=== PATIENT | female | born 2000 | race Caucasian/White ===

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

== ENCOUNTER 2020-11-08 10:34 | Emergency (ER) | payer MEDICAID, SELFPAY ==
[2020-11-08 10:35] VITALS: BP 104/62; PULSE 77; RESP 16; TEMP 36.8; O2SAT 99; BMI 22.4
--- NOTE | 2020-11-08 10:55 | US_ITS ---
STUDY: FIRST TRIMESTER OBSTETRICAL ULTRASOUND REASON FOR EXAM: Female, 20 years old Cramping spotting, pos preg test at home-HCG 9732 LMP: TECHNIQUE: Transvaginal TECHNICAL QUALITY: Adequate. PRIOR ULTRASOUND: None. FINDINGS: There is visualization of a single gestational sac in a normal intrauterine position. The mean sac diameter (MSD) measures 11 mm, indicating an estimated gestational age (EGA) of 5 weeks, 6 days. The gestational sac shape is within normal limits. There is a visualized yolk sac. The yolk sac measures 4 mm. The placenta is non-visualized. There is visualization of a live embryo. The crown-rump length (CRL) measures 5 mm, indicating an estimated gestational age (EGA) of 6 weeks, 2 days. There is demonstrated cardiac activity with a heart rate of 107 bpm. The estimated gestation age (EGA) by US is 6 weeks, 0 days. The estimated date of delivery (JACINTO) by US is 07/04/2021. The uterus measures 7.4 x 5.1 x 4.3 cm. There is no demonstrated uterine fibroid. The cervix is closed. The right ovary measures 3.4 x 1.6 x 2.1 cm. There is no right ovarian cyst. There is no visualized right adnexal mass or complex lesion. The left ovary measures 3.2 x 2.0 x 2.3 cm. There is no left ovarian cyst. There is no visualized left adnexal mass or complex lesion. There is no fluid in the cul de sac. US/Transvaginal w/Preg US IMPRESSION: Living intrauterine of 6 weeks 0 days as described above. Electronically Signed: Syd Ratliff MD at 14:00 EDT Tel , Service support ,
[2020-11-08 11:14] LABS: Bacteria 0 SEEN /hpf (None Seen); Mucous, Urine 0 SEEN /hpf (<or=2+); Red Blood Cells-Urine 0 SEEN /hpf (0-5); White Blood Cells 0 SEEN /hpf (0-5)
[2020-11-08 11:17] LABS: Color, Urine Yellow (Yellow); Glucose, Dipstick Normal (Normal); Ketone-Dipstick Negative (Negative); Leukocyte Esterase-Dipstick Negative /ul (Negative); Nitrite-Dipstick Negative (Negative); Occult Blood-Urine 25 /ul (Negative); Protein-Dipstick Negative (Negative); Urine Bilirubin Dipstick Negative (Negative); Urine Clarity Clear (Clear); Urine Urobilinogen Normal (Normal)
[2020-11-08 11:23] LABS: Squamous Epithelial Cells - UA 0-5 SEEN /hpf (5-10)
--- NOTE | 2020-11-08 11:25 | ED.VIS.FEGU ---
HPI HPI - Female History of Present Illness Chief Complaint: Vag Bld, Preg Informant: patient Narrative Narrative: Patient is a 20-year-old previously healthy female who presents to the emergency department for low abdominal cramping and vaginal spotting. She believes she is approximately 2 months . Her last menstrual period was late August. She has had multiple home test. She has not had any CERTIFIED MEDICAL CODER follow-up yet. She developed a vaginal spotting and cramping the past 2 to 3 days. She describes her symptoms as mild currently. She denies any significant pain. No urinary symptoms. No fevers or chills. No back pain. No leg swelling or calf pain. She has been nauseous. This is her first . PFSH PFSH Home Medications NK 11/08/20 [History Last Taken Unknown] Allergy/AdvReac Type Severity Reaction Status Date / Time amoxicillin trihydrate Allergy Rash Verified 11/08/20 10:35 [From Augmentin] Penicillins Allergy Rash Verified 11/08/20 10:35 potassium clavulanate Allergy Rash Verified 11/08/20 10:35 [From Augmentin] Social History Smoking Status: Never smoker ROS ROS ED Constitutional Constitutional ED: Denies chills or fever(s) Eyes Eyes: Denies change in vision ENT ENT ED: Denies epistaxis or rhinorrhea Cardiovascular Cardiovascular: Denies chest pain or palpitations Respiratory/Chest Respiratory/Chest: Denies cough, dyspnea or dyspnea on exertion Gastrointestinal Gastrointestinal: Reports nausea; Denies diarrhea or vomiting Genitourinary Genitourinary ED: Denies dysuria, hematuria or urinary frequency Musculoskeletal Musculoskeletal: Denies back pain or neck pain Integumentary Denies rash Neurologic Neurologic: Denies dizziness, headache(s) or weakness EXAM Physical Exam Const Vital Signs: 11/08/20 10:35 11/08/20 14:25 Temperature 98.3 F Temperature Source Temporal Pulse Rate 77 Respiratory Rate 16 18 Blood Pressure 104/62 Blood Pressure Mean 76 Pulse Ox 99 Oxygen Delivery Method Room Air Positive well nourished and well developed General Appearance ED: well developed and NAD HEENT Reports normocephalic and head/scalp atraumatic Eyes PERRL and EOMs intact bilaterally Neck supple Resp normal respiratory effort and clear to auscultation bilaterally Auscultation: Negative for rales, rhonchi or wheezes Cardio regular rate, regular rhythm and no murmurs GI normal to inspection, nondistended, normoactive bowel sounds and non-tender Palpation: soft; Negative for guarding or rebound tenderness present Back/Spine no CVA tenderness Extremity normal to inspection General Extremety ED: Negative for edema or tenderness General Extremity: Negative for edema Neuro CN's II-XII intact bilaterally and no sensory deficits noted Sensorium / Orientation: alert Motor Exam: strength 5/5 throughout Psych mental status grossly normal Skin no rashes or lesions noted MDM MDM MDM Narrative Medical decision making narrative: Patient presents to the ED after she had home positive test and now having some vaginal spotting and lower quadrant cramping. On arrival to the ED vital signs within normal limits. She is a benign physical exam. Will check basic lab work and ultrasound of the pelvis. Patient does have hCG of 9732. No evidence of UTI on urinalysis. No significant abnormality on lab work-up. Ultrasound does show a live intrauterine . At this time I recommend close follow-up with her CERTIFIED MEDICAL CODER. Return precautions are reviewed with her. She understands and is agreeable this plan. Discharged home in stable condition. All questions were answered. Lab Data Labs: Laboratory Results - last 24 hr 11/08/20 11/08/20 11/08/20 11:00 11:25 11:25 WBC 6.8 RBC 4.58 Hgb 14.4 Hct 42.3 MCV 92.4 MCH 31.4 MCHC 34.0 RDW Std Deviation 39.4 RDW Coeff of [place] 11.6 Plt Count 184 MPV 10.7 Immature Gran % (Auto) 0.300 Neut % (Auto) 65.4 Lymph % (Auto) 23.3 [place] % (Auto) 8.8 Eos % (Auto) 1.3 Baso % (Auto) 0.9 Absolute Neuts (auto) 4.5 Absolute Lymphs (auto) 1.59 Nucleated RBC % 0 Sodium 139 Potassium 3.7 Chloride 109 H Carbon Dioxide 24.0 Anion Gap 6 BUN 6 L Creatinine 0.68 Estim Creat Clear Calc 98.75 Est GFR (MDRD) Af Amer 138 Est GFR (MDRD) Non-Af 114 BUN/Creatinine Ratio 8.8 L Glucose 84 Calcium 9.2 Total Bilirubin 0.80 AST 11 L ALT 12 L Alkaline Phosphatase 48 Total Protein 7.3 Albumin 4.2 Globulin 3.1 Albumin/Globulin Ratio 1.4 HCG, Quant Urine Color Yellow Urine Clarity Clear Urine pH 7.0 Ur Specific [place] 1.010 Urine Protein Negative Urine Glucose (UA) Normal Urine Ketones Negative Urine Occult Blood 25 H Urine Nitrite Negative Urine Bilirubin Negative Urine Urobilinogen Normal Ur Leukocyte Esterase Negative Urine RBC 0 SEEN Urine WBC 0 SEEN Ur Squamous Epith Cells 0-5 SEEN Urine Bacteria 0 SEEN Urine Mucus 0 SEEN Blood Type A1 Antigen Typing Rho(D) Type 11/08/20 11/08/20 11/08/20 11:25 11:25 11:25 WBC RBC Hgb Hct MCV MCH MCHC RDW Std Deviation RDW Coeff of [place] Plt Count MPV Immature Gran % (Auto) Neut % (Auto) Lymph % (Auto) [place] % (Auto) Eos % (Auto) Baso % (Auto) Absolute Neuts (auto) Absolute Lymphs (auto) Nucleated RBC % Sodium Potassium Chloride Carbon Dioxide Anion Gap BUN Creatinine Estim Creat Clear Calc Est GFR (MDRD) Af Amer Est GFR (MDRD) Non-Af BUN/Creatinine Ratio Glucose Calcium Total Bilirubin AST ALT Alkaline Phosphatase Total Protein Albumin Globulin Albumin/Globulin Ratio HCG, Quant 9732 H Urine Color Urine Clarity Urine pH Ur Specific [place] Urine Protein Urine Glucose (UA) Urine Ketones Urine Occult Blood Urine Nitrite Urine Bilirubin Urine Urobilinogen Ur Leukocyte Esterase Urine RBC Urine WBC Ur Squamous Epith Cells Urine Bacteria Urine Mucus Blood Type Cancelled A NEGATIVE A1 Antigen Typing Cancelled Rho(D) Type Cancelled Radiography Diagnostic Testing: Radiology Impression Obstetrics Ultrasound 11/08/20 10:55 IMPRESSION: Living intrauterine of 6 weeks 0 days as described above. Electronically Signed: Syd Ratliff MD at 14:00 EDT Tel , Service support , Discharge Plan Triage Chief Complaint: Vag Bld, Preg ED Provider: Baldomero Schaffer Dx/Rx/DC Orders Clinical Impression: Bleeding in early Instructions: Bleeding During Early Prescriptions: No Action NK RF: 0 Primary Care Provider: Care Physician,No Primary Referrals: Care Physician,No Primary [Primary Care Provider] - Activity Restrictions/Additional Instructions: Please follow-up with your CERTIFIED MEDICAL CODER early this coming week. Disposition Disposition: Home, self care Discharge Date/Time: 11/08/20 14:26
[2020-11-08 11:40] LABS: Absolute Lymphocyte Count 1.59 X10^3/uL (0.83-4.51); Absolute Neutrophil Count 4.5 X10^3/uL (2.0-7.7); Basophil# 0.06 X10^3/uL; Basophil% 0.9 % (0-1); Eosinophil# 0.09 X10^3/uL; Eosinophils% 1.3 % (0-5); Hematocrit 42.3 % (37-47); Hemoglobin 14.4 g/dL (12.0-15.0); Lymphocyte # 1.59 X10^3/ul (0.83-4.51); Lymphocyte % 23.3 % (19-41); Mean Corpuscular Hgb 31.4 pg (27.0-32.0); Mean Corpuscular Volume 92.4 fL (81-99); Mean Platelet Vol. 10.7 fl (6.2-12.0); Monocyte% 8.8 % (0-10); NRBC Flagged by Analyzer 0 % (0-5); Neutrophil # 4.47 X10^3/uL (2.7-7.7); Neutrophil % 65.4 % (47-70); Platelet Count 184 K/mm3 (150-450); RBC Distribution Width CV 11.6 % (11.6-14.6); RBC Distribution Width SD 39.4 fl (35.1-43.9); Red Blood Count 4.58 M/mm3 (4.2-5.4); White Blood Count 6.8 K/mm3 (4.4-11.0)
[2020-11-08 11:55] LABS: ALB/GLOB Ratio 1.4 RATIO (0.9-2.4); AST(SGOT) 11 U/L (15-37); Alanine Aminotransfer ALT/SGPT 12 U/L (13-56); Albumin, Serum 4.2 g/dL (3.2-5.0); Alkaline Phosphatase 48 U/L (45-117); Anion Gap 6 (5-15); BUN 6 mg/dL (7-18); BUN/Creat Ratio 8.8 RATIO (10-20); Calcium,Total 9.2 mg/dL (8.5-10.1); Chloride 109 mmol/L (98-107); Creatinine, Serum 0.68 mg/dL (0.55-1.02); EST Glomerular Filtration Rate 114 mL/min (>60); Est Glom Filt Rate - Afr Amer 138 mL/min (>60); Estimated Creatinine Clearance 98.75 ml/min; Globulin 3.1 g/dL (2.2-4.2); Glucose 84 mg/dL (74-106); Potassium 3.7 mmol/L (3.5-5.1); Protein, Total 7.3 g/dL (6.4-8.2); Sodium Level 139 mmol/L (136-145)
[2020-11-08 12:49] LABS: hCG Titer Quant., Serum 9732 mIU/mL (1-3)
[2020-11-08 14:25] VITALS: RESP 18
== END 2020-11-08 14:26 | disposition home or self-care (01) ==
PROVIDERS: Emergency Provider Emergency Medicine
DX: O20.9 Hemorrhage in early pregnancy, unspecified (principal); Z3A.01 Less than 8 weeks gestation of pregnancy
CPT/HCPCS: 76817; 80053; 81001; 84702; 85025; 86900; 86901; 99283; A4216

== ENCOUNTER 2020-11-09 11:54 | Emergency (ER) | payer MEDICAID, SELFPAY ==
[2020-11-08 10:35] VITALS: BMI 22.4
[2020-11-09 11:55] VITALS: BP 109/68; PULSE 90; RESP 18; TEMP 37.6; O2SAT 97; BMI 22.6
--- NOTE | 2020-11-09 12:11 | US_ITS ---
We are attempting to reach an attending provider to discuss findings. An addendum with communication details will be sent when the communication is complete. EXAM: US , TRANSVAGINAL : 1999 CLINICAL INDICATION: Worsening bleeding, passing clots TECHNIQUE: Real-time transvaginal obstetrical ultrasound of the maternal pelvis and a first trimester with image documentation. Transvaginal imaging was used for better evaluation of the fetus and adnexa. This report was created using [employer] report generation technology. COMPARISON: 11/08/2020 FINDINGS: GESTATION: There is a cystic structure seen within the lower uterine segment. Which appears represent a gestational sac from the previous study. PLACENTA/AMNIOTIC FLUID: Cannot be adequately evaluated due to the early gestational age. UTERUS/CERVIX: The uterus measures 8.3 x 4.3 x 4.8 cm. Endometrium measures 1.4 cm. No myometrial mass. OVARIES: The right ovary measures 2.3 x 3.2 x 2.3 cm. The left ovary measures 2.4 x 1.6 x 2.2 cm. No mass. FREE FLUID: No free fluid. US/Transvaginal w/Preg US IMPRESSION: Anechoic structure seen within the lower uterine segment which appears to represent a gestational sac seen on the previous ultrasound may be a in the process of aborting. at 1429 Reported and signed by: J Carlos Cannon MD Electronically Signed: J Carlos Cannon MD at 14:28 EDT Tel , Service support ,
--- NOTE | 2020-11-09 12:18 | EDS_ITS ---
HPI HPI - Female History of Present Illness Chief Complaint: Vag Bld, Preg Informant: patient Narrative Narrative: Patient is a 20-year-old female who presents to the emergency department for vaginal bleeding at 6 weeks . She is seen in the emergency department yesterday for cramping and spotting. She had a full work- up done by myself including ultrasound. This did show a live intrauterine at approximately 6 weeks. There was borderline low heart rate. Patient was to follow-up with her LINE INSTALLATION SUPERVISOR. She states that since going home she has bled through 6 pads. She has passed large clots as well. She has been rooney ving suprapubic cramping as well. She denies any urinary symptoms. No fevers or chills. She denies any back pain. She has been having nausea but no vomiting. No lightheadedness, chest pain or shortness of breath. This is patient's first . PFSH PFSH Home Medications NK 11/08/20 [History Last Taken Unknown] Allergy/AdvReac Type Severity Reaction Status Date / Time amoxicillin trihydrate Allergy Rash Verified 11/09/20 11:55 [From Augmentin] Penicillins Allergy Rash Verified 11/09/20 11:55 potassium clavulanate Allergy Rash Verified 11/09/20 11:55 [From Augmentin] Social History Smoking Status: Never smoker ROS ROS ED Constitutional Constitutional ED: Denies chills or fever(s) Eyes Eyes: Denies change in vision ENT ENT ED: Denies epistaxis or rhinorrhea Cardiovascular Cardiovascular: Denies chest pain or palpitations Respiratory/Chest Respiratory/Chest: Denies cough, dyspnea or dyspnea on exertion Gastrointestinal Gastrointestinal: Reports abdominal pain and nausea; Denies diarrhea or vomiting Genitourinary Genitourinary ED: Denies dysuria, hematuria or urinary frequency Musculoskeletal Musculoskeletal: Denies back pain or neck pain Integumentary Denies rash Neurologic Neurologic: Denies dizziness, headache(s) or weakness EXAM Physical Exam Const Vital Signs: 11/09/20 11:55 Temperature 99.6 F H Temperature Source Temporal Pulse Rate 90 Respiratory Rate 18 Blood Pressure 109/68 Blood Pressure Mean 81 Pulse Ox 97 Oxygen Delivery Method Room Air Positive well nourished and well developed General Appearance ED: well developed and NAD Eyes PERRL Neck supple Resp normal respiratory effort and clear to auscultation bilaterally Cardio regular rate, regular rhythm and no murmurs GI normal to inspection, nondistended, normoactive bowel sounds and soft to palpation GI Narrative: Mild tenderness to suprapubic region. Auscultation: normoactive bowel sounds Back/Spine no CVA tenderness Extremity normal to inspection and full ROM General Extremety ED: Negative for edema General Extremity: Negative for edema Neuro Sensorium / Orientation: alert Motor Exam: strength 5/5 throughout Psych mental status grossly normal Skin no rashes or lesions noted MDM MDM MDM Narrative Medical decision making narrative: Patient presents to the ED for worsening vaginal bleeding in . She had an ultrasound performed yesterday which shows she was at 6 weeks. The heart rate was 107. Will recheck CBC to evaluate for anemia and recheck ultrasound. Otherwise patient's vital signs within normal limits. She is in no acute distress. She is a benign physical exam. Patient's hemoglobin did drop from yesterday but still is not anemic. Repeat ultrasound showed evidence of active . Patient has remained stable throughout ED stay. She her blood type is Rh- so she will be given RhoGam as the father does note blood type and says he is positive. I did speak with the on-call LINE INSTALLATION SUPERVISOR. He recommended that she return to the emergency department if she starts going through 1 pad per hour. Otherwise he believe that this will be like a heavy period since the gestation is at 6 weeks. She is going to follow- up with him tomorrow morning. Return precautions were reviewed with her. She understands and is agreeable this plan. Discharged home in stable condition. All questions answered. Lab Data Labs: Laboratory Results - last 24 hr 11/09/20 12:54 WBC 8.0 RBC 4.07 L Hgb 13.0 Hct 37.8 MCV 92.9 MCH 31.9 MCHC 34.4 RDW Std Deviation 39.6 RDW Coeff of [place] 11.6 Plt Count 185 MPV 10.7 Immature Gran % (Auto) 0.200 Neut % (Auto) 64.9 Lymph % (Auto) 24.3 [place] % (Auto) 9.4 Eos % (Auto) 0.7 Baso % (Auto) 0.5 Absolute Neuts (auto) 5.2 Absolute Lymphs (auto) 1.95 Nucleated RBC % 0 Radiography Diagnostic Testing: Radiology Impression Obstetrics Ultrasound 11/09/20 12:11 IMPRESSION: Anechoic structure seen within the lower uterine segment which appears to represent a gestational sac seen on the previous ultrasound may be a in the process of aborting. at 1429 Reported and signed by: J Carlos Cannon MD Electronically Signed: J Carlos Cannon MD at 14:28 EDT Tel , Service support , ADDENDUM: 11/09/20 1445 IMPRESSION: Anechoic structure seen within the lower uterine segment which appears to represent a gestational sac seen on the previous ultrasound may be a in the process of aborting. at 1429 Reported and signed by: J Carlos Cannon MD N.B. : The above information has been verbally conveyed by J Carlos Cannon MD to Dr Karime MD, on 11/09/2020 14:39:02 (ET). Electronically Signed: J Carlos Cannon MD at 14:28 EDT Tel , Service support , Discharge Plan Triage Chief Complaint: Vag Bld, Preg ED Provider: Baldomero Schaffer Dx/Rx/DC Orders Clinical Impression: Incomplete Instructions: ED MISCARRIAGE Incomplete Prescriptions: No Action NK RF: 0 Primary Care Provider: Care Physician,No Primary Referrals: Ag Mcallister MD [STAFF PHYSICIAN] - 1 Day Care Physician,No Primary [Primary Care Provider] - Disposition Disposition: Home, self care
[2020-11-09 13:00] LABS: Absolute Lymphocyte Count 1.95 X10^3/uL (0.83-4.51); Absolute Neutrophil Count 5.2 X10^3/uL (2.0-7.7); Basophil# 0.04 X10^3/uL; Basophil% 0.5 % (0-1); Eosinophil# 0.06 X10^3/uL; Eosinophils% 0.7 % (0-5); Hematocrit 37.8 % (37-47); Lymphocyte # 1.95 X10^3/ul (0.83-4.51); Lymphocyte % 24.3 % (19-41); Mean Corp Hgb Conc 34.4 g/dL (32-36); Mean Corpuscular Hgb 31.9 pg (27.0-32.0); Mean Corpuscular Volume 92.9 fL (81-99); Mean Platelet Vol. 10.7 fl (6.2-12.0); Monocyte# 0.75 X10^3/uL; Monocyte% 9.4 % (0-10); NRBC Flagged by Analyzer 0 % (0-5); Neutrophil % 64.9 % (47-70); Platelet Count 185 K/mm3 (150-450); RBC Distribution Width CV 11.6 % (11.6-14.6); RBC Distribution Width SD 39.6 fl (35.1-43.9); Red Blood Count 4.07 M/mm3 (4.2-5.4)
[2020-11-09 17:41] VITALS: BP 107/70; PULSE 69; RESP 18; O2SAT 100
== END 2020-11-09 18:00 | disposition home or self-care (01) ==
PROVIDERS: Emergency Provider Emergency Medicine
DX: O03.4 Incomplete spontaneous abortion without complication (principal); Z3A.01 Less than 8 weeks gestation of pregnancy
CPT/HCPCS: 76817; 85025; 86900; 86901; 90384; 96372; 99282; J2790

== ENCOUNTER 2021-05-08 13:09 | Emergency (ER) | payer MEDICAID, SELFPAY ==
[2021-05-08 13:10] VITALS: BP 108/68; PULSE 82; RESP 16; TEMP 36.2; O2SAT 100; BMI 23.1
[2021-05-08] MEDS: 0.9% Normal Saline 1,000 ML 999 ML IV (14:52)
[2021-05-08] MEDS: DiphenhydrAMINE 50 MG/ML Syringe 25 MG IV (14:53)
[2021-05-08] MEDS: Metoclopramide 10 MG/2 ML Vial IV (14:53)
--- NOTE | 2021-05-08 16:12 | EX.ED.VIS.HA ---
HPI History of Present Illness Chief Complaint: Headache Informant: patient Onset/Context/Timing Onset: Days (3) Context: Gradual Timing: Continuous Quality -Headache: Positive for Similar Prior Headaches, Sharp and Dull Location: Left side and occipital Worsened by: Light, smells Relieved by: Dark Associated Symptoms/Injury Associated Symptoms: Positive for Nausea, Vomiting, Tingling and Photophobia; Negative for Fever, Sore Throat, Sinus Pressure, Numbness, Preceding Aura, Visual Changes, Blurred Vision and Visual Loss Injury - [place]: Negative for Direct Trauma Narrative Narrative: Patient presents with headache that has been constant for the past 3 days. Patient states this feels similar to prior migraine headaches. Patient states it is on the left side of her head and in the occiput. Patient describes the pain as sharp over the left side of her head and dull in the occipital area. Patient states it is worse with light and certain smells. Patient states it is better when she rests in a dark quiet room. Patient admits to some nausea and vomiting. Patient admits to some tingling in her face after vomiting. Patient admits to photophobia. PFSH PFSH Medical History no medical history Home Medications NK 11/08/20 [History Last Taken Unknown] Allergy/AdvReac Type Severity Reaction Status Date / Time amoxicillin trihydrate Allergy Rash Verified 05/08/21 13:09 [From Augmentin] Penicillins Allergy Rash Verified 05/08/21 13:09 potassium clavulanate Allergy Rash Verified 05/08/21 13:09 [From Augmentin] Surgical History no surgical history Social History Smoking Status: Never smoker ROS ROS ED Constitutional Constitutional ED: Denies chills or fever(s) Eyes Eyes: Denies blurry vision or change in vision ENT ENT ED: Reports rhinorrhea; Denies sore throat Cardiovascular Cardiovascular: Denies chest pain or palpitations Respiratory/Chest Respiratory/Chest: Denies cough or dyspnea Gastrointestinal Gastrointestinal: Denies nausea or vomiting Genitourinary Genitourinary ED: Denies dysuria or hematuria Musculoskeletal Musculoskeletal: Reports neck pain; Denies back pain Integumentary Denies abscess or rash Neurologic Neurologic: Reports headache(s); Denies weakness Allergic/Immunologic Allergic/Immunologic ED: Denies mouth swelling or urticaria EXAM Physical Exam Const Vital Signs: 05/08/21 13:10 Temperature 97.2 F L Temperature Source Temporal Pulse Rate 82 Respiratory Rate 16 Blood Pressure 108/68 Blood Pressure Mean 81 Pulse Ox 100 Oxygen Delivery Method Room Air Positive well nourished and well developed General Appearance ED: well developed HEENT Reports moist mucous membranes Neck supple and no JVD Resp normal respiratory effort and clear to auscultation bilaterally Cardio regular rate, regular rhythm and no murmurs GI normal to inspection, nondistended, normoactive bowel sounds and non-tender Palpation: soft Extremity normal to inspection General Extremety ED: Negative for edema or tenderness General Extremity: Negative for edema Neuro oriented x3, CN's II-XII intact bilaterally and no sensory deficits noted Sensorium / Orientation: awake and alert Motor Exam: strength 5/5 throughout Psych mental status grossly normal Skin no rashes or lesions noted MDM MDM MDM Narrative Medical decision making narrative: Patient was given IV fluids, Reglan, and Benadryl. Patient states her headache improved after this. Urinalysis and urine hCG were ordered. These are still pending. Patient wants to leave. Patient was instructed to rest in a dark quiet room. Patient was instructed to drink plenty of fluids. Patient was instructed to follow-up with her primary care physician in 5 to 7 days. Patient understood and was agreeable with the plan. All questions were answered. Discharge Plan Triage Chief Complaint: Headache ED Provider: Prabhu Edmond Dx/Rx/DC Orders Clinical Impression: Headache, migraine Instructions: ED, Migraine (Classical) Prescriptions: No Action NK RF: 0 Primary Care Provider: Care Physician,No Primary Referrals: Carolina Sanchez MD [STAFF PHYSICIAN] - 3-5 Days Care Physician,No Primary [Primary Care Provider] - Disposition Disposition: Home, Self Care
[2021-05-08 16:14] LABS: Mucous, Urine 0 SEEN /hpf (<or=2+); Red Blood Cells-Urine 0 SEEN /hpf (0-5); White Blood Cells 0 SEEN /hpf (0-5)
[2021-05-08 16:21] LABS: Color, Urine Yellow (Yellow); Glucose, Dipstick Normal (Normal); Ketone-Dipstick 50 mg/dl (Negative); Leukocyte Esterase-Dipstick Negative /ul (Negative); Nitrite-Dipstick Negative (Negative); Occult Blood-Urine Negative /ul (Negative); Protein-Dipstick 15 mg/dl (Negative); Urine Bilirubin Dipstick Negative (Negative); Urine Clarity Sl. Cloudy (Clear); Urine Urobilinogen Normal (Normal)
[2021-05-08 16:33] VITALS: BP 125/75; PULSE 71; RESP 18; O2SAT 98
[2021-05-08 16:33] LABS: Bacteria 1+ /hpf (None Seen); Squamous Epithelial Cells - UA 0-5 SEEN /hpf (5-10)
[2021-05-08 16:34] LABS: Internal QC Validated? YES +Cl - CLEAR BKGD; Pregnancy, Urine Negative Negative
--- NOTE | 2021-05-08 16:34 | ED.RN ---
PT WANTED TO LEAVE PRIOR TO TEST RESULTS AND NOT INTERESTED IN COVID VACCINE AT THIS TIME
== END 2021-05-08 16:35 | disposition home or self-care (01) ==
PROVIDERS: Student in an Organized Health Care Education/Training Program; Emergency Provider Emergency Medicine
DX: G43.909 Migraine, unspecified, not intractable, without status migrainosus (principal)
CPT/HCPCS: 81001; 81025; 96361; 96374; 96375; 99283; J7030; A4216

== ENCOUNTER 2021-11-27 10:07 | Emergency (ER) | payer MEDICAID, SELFPAY ==
[2021-11-27 10:07] VITALS: BP 111/70; PULSE 77; RESP 16; TEMP 36.4; O2SAT 100; BMI 23.6
[2021-11-27] MEDS: DiphenhydrAMINE 50 MG/ML Syringe 25 MG IV (10:32)
[2021-11-27] MEDS: Ketorolac 30 MG/ML Syringe IV (10:32)
[2021-11-27] MEDS: 0.9% Normal Saline 1,000 ML 1000 ML IV (10:32)
[2021-11-27] MEDS: proCHLORPERazine 10 MG/2 ML Vial IV (10:32)
--- NOTE | 2021-11-27 10:39 | EDS_ITS ---
HPI History of Present Illness Chief Complaint: Headache Informant: patient Onset/Context/Timing Onset: Days Context: Gradual Timing: Continuous Current Severity: Moderate Maximum Severity: Moderate Associated Symptoms/Injury Associated Symptoms: Positive for Nausea and Vomiting; Negative for Fever, Sore Throat, Sinus Pressure, Numbness, Visual Changes, Blurred Vision, Photophobia or Visual Loss Injury - [place]: Negative for Direct Trauma, Fall or Assault Narrative Narrative: 21-year-old female history of migraine headaches. Has had prior imaging which was unremarkable. She has had headaches since she was in 6 grade. States this was started gradually 6 days ago lasted for 3 days resolved she has post headache symptoms with it with visual changes and now the headaches return. She gets migraine headaches quite frequently. Currently is behind her left eye. Denies any fever. No head trauma. She is on no blood thinners. This is typical for one of her migraines. Prior similar symptoms: Yes Recent Illness/Hospitalization: No PFSH PFSH Medical History Depression Home Medications hydroxyzine HCl 25 mg tablet tab 11/27/21 [History Last Taken Unknown] rizatriptan 5 mg disintegrating tablet tab 11/27/21 [History Last Taken Unknown] venlafaxine 150 mg capsule,extended release 24 hr cap PO 11/27/21 [History Last Taken Unknown] Allergy/AdvReac Type Severity Reaction Status Date / Time amoxicillin trihydrate Allergy Rash Verified 05/08/21 13:09 [From Augmentin] Penicillins Allergy Rash Verified 05/08/21 13:09 potassium clavulanate Allergy Rash Verified 05/08/21 13:09 [From Augmentin] Social History Smoking Status: Never smoker ROS ROS ED ROS Narrative Headache. Nausea and vomiting. Review of Systems ROS Unobtainable: Denies due to encephalopathy Constitutional Constitutional ED: Denies chills Eyes Eyes: Denies blurry vision ENT ENT ED: Denies ear pain Cardiovascular Cardiovascular: Denies chest pain Respiratory/Chest Respiratory/Chest: Denies cough Gastrointestinal Gastrointestinal: Reports nausea and vomiting; Denies abdominal pain Genitourinary Genitourinary ED: Denies dysuria Musculoskeletal Musculoskeletal: Denies arthralgias Integumentary Denies abscess Neurologic Neurologic: Reports headache(s) Psychiatric Psychiatric: Denies anxiety Endocrine Endocrinology: Denies polydipsia Hematologic/Lymphatic Hematologic/Lymphatic: Denies easy bleeding Allergic/Immunologic Allergic/Immunologic ED: Denies mouth swelling EXAM Physical Exam Narrative Exam Narrative: 19-year-old female no acute distress vital signs stable afebrile. H EENT exam normal. Pupils round reactive light. Normal speech. No facial droop. No trauma. Neck nontender no meningismus. Lungs clear to auscultation. Heart regular rhythm no murmur. Abdomen soft nontender. Moving all 4 extremities. 5-5 program research specialist strength. Dorsi plantarflexion intact. Neurologic exam normal. NIH is 0. Const Vital Signs: 11/27/21 10:07 Temperature 97.5 F L Temperature Source Temporal Pulse Rate 77 Respiratory Rate 16 Blood Pressure 111/70 Blood Pressure Mean 83 Pulse Ox 100 Oxygen Delivery Method Room Air Positive well nourished and well developed; Negative for obese, cachectic, contractures or unkempt General Appearance ED: well developed; Negative for unkempt, cachectic or contractures Nutritional Appearance: Negative for cachectic or obese HEENT Reports normocephalic and moist mucous membranes atraumatic; Negative for trauma, tenderness, temporal artery tenderness or vesicular rash Eyes PERRL and EOMs intact bilaterally General Eye ED: Negative for pale conjunctiva Neck no lymphadenopathy, supple, no meningeal signs and no JVD Resp normal respiratory effort and clear to auscultation bilaterally Effort and Inspection: Negative for retractions Auscultation: Negative for rales, rhonchi, wheezes or diminished lung sounds Cardio regular rate, regular rhythm, S1 normal heart sound, S2 normal heart sound and no murmurs Rate: Negative for bradycardia Rhythm: Negative for abnormal rhythm GI non-tender and non-distended Auscultation: normoactive bowel sounds; Negative for hyperactive bowel sounds or hypoactive bowel sounds Palpation: soft; Negative for firm, tender, guarding, rigid, hepatomegaly or splenomegaly Back/Spine no CVA tenderness General Back: Negative for CVA tenderness Cervical Spine: Negative for cervical spine tenderness Thoracic Spine / Upper Back: Negative for thoracic spinal tenderness Lumbar Spine / Lower Back: Negative for lumbar spinal tenderness Extremity normal to inspection and full ROM General Extremety ED: Negative for edema or tenderness General Extremity: Negative for edema Neuro oriented x3 Sensorium / Orientation: awake, alert, oriented to person, oriented to place and oriented to time; Negative for orientation impaired, lethargic or stuporous Coordination / Balance: [id number] test normal and [id number] test normal Speech: speech normal Motor Exam: strength 5/5 throughout Comatose: Negative for other Psych mental status grossly normal Appearance: Negative for unkempt Attitude: No agitated Mood & Affect: Negative for depressed, anxious or tearful Skin Lesions: no lesions Rashes: no rashes Trauma: Negative for abrasion MDM MDM MDM Narrative Medical decision making narrative: 21-year-old female history of frequent migraine headaches with prior imaging all of which has been negative. She will be treated with IV fluids, Toradol, Benadryl and Compazine and reassess. Neurologic exam normal. Repeat exam patient doing well at 11:30 AM. Headache is resolving. Neurologic exam remains normal. She wants to be discharged to home. Just before I was discharging the patient after I saw another 1 she removed her IV and walked out. Nurses asked her if she wanted her home-going instructions and she deferred. Discharge Plan Triage Chief Complaint: Headache ED Provider: Jonathan Medina Dx/Rx/DC Orders Clinical Impression: Headache, migraine Prescriptions: No Action venlafaxine 150 mg capsule,extended release 24hr PO Label Comments: TAKE 1 CAPSULE BY MOUTH ONCE DAILY hydroxyzine HCl 25 mg tablet Label Comments: TAKE 1 TABLET BY MOUTH EVERY 6 HOURS NEEDED FOR ANXIETY rizatriptan 5 mg tablet,disintegrating Label Comments: PLEASE SEE ATTACHED FOR DETAILED DIRECTIONS Primary Care Provider: SANDER PIERRE Referrals: Care Physician,No Primary [NON-STAFF] - Disposition Disposition: Home, Self Care
--- NOTE | 2021-11-27 11:41 | ED.RN ---
Patient upset IV still in. Rn informed patient we are waiting for discharge paperwork. IV removed by ANDREI Vera. Patient states she does not want to wait for paperwork and would like to leave at this time. Dr. Medina notified.
== END 2021-11-27 11:45 | disposition home or self-care (01) ==
PROVIDERS: Emergency Provider Emergency Medicine; PCP Nurse Practitioner; Visit Provider Emergency Medicine
DX: G43.909 Migraine, unspecified, not intractable, without status migrainosus (principal); Z79.899 Other long term (current) drug therapy
CPT/HCPCS: 96361; 96374; 96375; 99283; J7030; A4216

== ENCOUNTER 2024-03-02 07:50 | Inpatient (IN) | payer MEDICAID, SELFPAY ==
[2024-03-02] VITALS (73 sets, daily range): BP systolic 106–148; BP diastolic 56–91; PULSE 62–109; RESP 15–18; TEMP 36.3–37.2; O2SAT 85–100; BMI 33.8
[2024-03-02 07:47] LABS: ROM Internal Control Test YES-OK TO RESULT pt. (Internal QC)
[2024-03-02 07:48] LABS: ROM Patient Test POSITIVE (Negative); Record Kit Lot#, ROM+ K1660
[2024-03-02] MEDS: Lactated Ringers 1,000 ML 999 ML IV ×2 (08:15→21:59)
[2024-03-02 09:22] LABS: Absolute Lymphocyte Count 1.73 X10^3/uL (0.83-4.51); Absolute Neutrophil Count 14.1 X10^3/uL (2.0-7.7); Basophil# 0.05 X10^3/uL; Basophil% 0.3 % (0-1); Eosinophil# 0.01 X10^3/uL; Eosinophils% 0.1 % (0-5); Hemoglobin 12.3 g/dL (12.0-15.0); Lymphocyte # 1.73 X10^3/ul (0.83-4.51); Lymphocyte % 10.3 % (19-41); Mean Corp Hgb Conc 35.1 g/dL (32-36); Mean Corpuscular Hgb 31.7 pg (27.0-32.0); Mean Corpuscular Volume 90.2 fL (81-99); Mean Platelet Vol. 11.6 fl (6.2-12.0); Monocyte# 0.79 X10^3/uL; Monocyte% 4.7 % (0-10); NRBC Flagged by Analyzer 0 % (0-5); Neutrophil % 83.9 % (47-70); Platelet Count 178 K/mm3 (150-450); RBC Distribution Width CV 11.8 % (11.6-14.6); RBC Distribution Width SD 38.8 fl (35.1-43.9); Red Blood Count 3.88 M/mm3 (4.2-5.4); White Blood Count 16.8 K/mm3 (4.4-11.0)
[2024-03-02 09:59] LABS: Syphilis Antibodies Non-reactive
--- NOTE | 2024-03-02 10:10 | PCM.HP.OB ---
HPI - General General Date of Admission: 03/02/24 Date of Service: 03/02/24 Chief Complaint: SROM and labor HPI Narrative JC COTTON, is a 24 F who presents with SROM for clear fluid and contractions. [facility] Medical History (Updated 03/02/24 @ 10:57 by Roberta Westbrook) Brain lesion Family history of hearing loss at age younger than 7 years Headache Depression Home Medications ?Medication ?Instructions ?Recorded ?Last Taken ?Type hydroxyzine HCl 25 mg tablet tab 11/27/21 Unknown History rizatriptan 5 mg disintegrating tab 11/27/21 Unknown History tablet venlafaxine 150 mg cap PO 11/27/21 Unknown History capsule,extended release 24 hr Allergy/AdvReac Type Severity Reaction Status Date / Time amoxicillin trihydrate (From Allergy Rash Verified 03/02/24 07:38 Augmentin) Penicillins Allergy Rash Verified 03/02/24 07:38 potassium clavulanate (From Allergy Rash Verified 03/02/24 07:38 Augmentin) Social History Smoking Status: Former smoker History Elective abortions Hx Para 0 Spontaneous abortions Hx # Term Pregnancies Ectopic pregnancies Hx # Pregnancies Multiple births # of living children NST FHR Rate Baby A Baseline: 120 Variability:: Moderate Accelerations:: 15 x 15 Decelerations:: Early and Late NST Reactive:: Yes FHR Category:: Category I Uterine Activity:: ctx q 1-4 min Vital Signs Vital Signs Vital Signs: 03/02/24 07:21 03/02/24 07:21 03/02/24 07:22 Temperature Temperature Source Pulse Rate 76 76 Respiratory Rate Blood Pressure 137/83 H BP Systolic 137 BP Diastolic 83 Pulse Ox 03/02/24 07:22 03/02/24 07:23 03/02/24 07:23 Temperature Temperature Source Tympanic Pulse Rate Respiratory Rate 16 Blood Pressure BP Systolic BP Diastolic Pulse Ox 100 03/02/24 07:23 03/02/24 07:23 03/02/24 09:46 Temperature 97.4 F L Temperature Source Pulse Rate Respiratory Rate Blood Pressure 125/70 H BP Systolic 125 BP Diastolic 70 Pulse Ox 99 03/02/24 09:46 03/02/24 09:46 03/02/24 09:51 Temperature Temperature Source Pulse Rate 76 83 Respiratory Rate Blood Pressure BP Systolic BP Diastolic Pulse Ox 100 03/02/24 09:51 03/02/24 09:52 03/02/24 09:52 Temperature Temperature Source Pulse Rate 78 Respiratory Rate Blood Pressure 118/64 BP Systolic 118 BP Diastolic 64 Pulse Ox 99 03/02/24 09:56 03/02/24 09:56 03/02/24 09:56 Temperature Temperature Source Pulse Rate 69 Respiratory Rate Blood Pressure 121/70 H BP Systolic 121 BP Diastolic 70 Pulse Ox 100 03/02/24 10:01 03/02/24 10:01 03/02/24 10:02 Temperature Temperature Source Pulse Rate 75 Respiratory Rate Blood Pressure 111/75 BP Systolic 111 BP Diastolic 75 Pulse Ox 100 03/02/24 10:02 03/02/24 10:06 03/02/24 10:06 Temperature Temperature Source Pulse Rate 66 79 Respiratory Rate Blood Pressure BP Systolic BP Diastolic Pulse Ox 100 03/02/24 10:07 03/02/24 10:07 Temperature Temperature Source Pulse Rate 77 Respiratory Rate Blood Pressure 144/68 H BP Systolic 144 BP Diastolic 68 Pulse Ox Weight Weight: 179 lb Body Mass Index (BMI) 33.8 Labs Labs Labs: Blood Type A NEGATIVE Antibody Screen NEGATIVE Hct 35.0 % (37-47) L Hgb 12.3 g/dL (12.0-15.0) Obstetrics Ultrasound Syphilis Total Ab Non-reactive GBS negative Assessment & Plan (1) 39 weeks gestation of : PLAN: ROM plus positive. Cervical change from 1 cm to 3 cm. Admit for labor. Routine intrapartum care. Epidural for pain control. GBS negative. EFW < 4500 grams and pelvis adequate. Forebag ruptured for scant clear fluid. (2) SROM (spontaneous rupture of membranes): (3) Rh negative state in antepartum period: (4) Rubella non-immune status, antepartum: (5) Late care affecting : (6) History of depression: (7) Marijuana use:
[2024-03-02] MEDS: Lactated Ringers 1,000 ML 200 ML IV ×2 (10:11→15:04)
[2024-03-02] MEDS: fentaNYL-bupivacaine (epidural) 100 ML BAG EPIDURAL ×4 (10:12→22:46)
[2024-03-02 11:14] LABS: Amphetamine Urine VISTA NEGATIVE (<1000 ng/mL); Barbiturate Urine VISTA NEGATIVE (< 200 ng/mL); Benzodiazepine Urine VISTA NEGATIVE (< 200 ng/mL); Cocaine Urine VISTA NEGATIVE (< 300 ng/mL); Ecstacy Urine VISTA NEGATIVE (< 500 ng/mL); Methadone Urine VISTA NEGATIVE (< 300 ng/mL); PCP Urine VISTA NEGATIVE (< 25 ng/mL); THC Urine VISTA POSITIVE (< 50 ng/mL); Vista UDS pH Range 5
[2024-03-02] MEDS: Mag Hydrox/Al Hydrox/Simeth 30 ML UDC PO (13:23)
--- NOTE | 2024-03-02 14:24 | CASEMGMT ---
Labor and Delivery Social Work Sw met with mother of baby (MOB- Sarah) and father of baby (FOB- Phillip) at bedside. Sw introduced self and explained sw role. Sw completed psychosocial assessment, provided support and education. Sw assessed for any needs or concerns. MOB did test positive at time of delivery for THC, baby not born yet so unable to confirm toxicology at this time. Sw informed MOB and FOB of need for sw to make referral to [facility] Services due to maternal THC use during . MOB and FOB express understanding. Sw discussed safe plan of care with parents for when baby is born. MOB states that she does not intend on smoking once baby is born. FOB states that if he smokes he will smoke outside of the home and will change shirt, wash hands, etc. Sw also discussed importance of managing maternal mental health during period and educated parents on signs and symptoms of baby blues and mood and anxiety disorders. Parents express understanding. Plan: MOB and baby to be discharged when medically ready. Sw will inform [facility] of results of baby's toxicology when known. Complete psychosocial assessment to be entered. Markus Tillman, [employer], HOSPITAL MEDICAL BILLER
[2024-03-02] MEDS: Ondansetron 4 MG/2 ML Vial IV (15:00)
[2024-03-02] MEDS: Oxytocin 15 Units/NS 250ml 15 UNITS/250 ML IV.SOLN 2 UNITS IV ×2 (15:30→23:50)
[2024-03-02] MEDS: proCHLORPERazine 10 MG/2 ML Vial IV (16:25)
--- NOTE | 2024-03-02 18:59 | PCM.PN.BLA ---
Progress Note At bedside to check on pt. She is tearful in pain and continues to request a section. She states her contraction pain is unbearable for her. She is also having pain in her upper back. She is adamant that she wants a section. Anesthesia has been at bedside multiple times to re evaluate the patient. Assessment & Plan Assessment/Plan (1) Marijuana use: (2) History of depression: (3) Late care affecting : (4) Rubella non-immune status, antepartum: (5) Rh negative state in antepartum period: (6) SROM (spontaneous rupture of membranes): (7) 39 weeks gestation of : PLAN: At bedside to check on pt. Cvx 4/80/-1. She is very painful with contractions and having upper back pain. The upper back pain is with movement, and muscles are tender to palpation. Currently using a heating pad for this. Vitals are stable. Anesthesia has been at bedside to re evaluate patient several times for pain control. The patient is requesting a section given inadequate pain relief with the epidural, and painful contractions. Discussed my recommendation is to continue to try for a vaginal delivery. Reviewed other options for pain control. Discussed risks of a section, as well as recovery. Discussed she will likely continue to have upper back pain, and then she will have incisional/post surgical pain. Explained in detail r/b/a of a section and questions answered. She understands my medical recommendation is not for a section. She is adamant about a section, and is requesting for a section as soon as possible. She feels she has been well counseled. Discussed with anesthesia who is currently unavailable given cases in the main OR. I then left for a delivery, and discussed with patient once staff is available we can proceed with a section per her request. Category 1 tracing.
--- NOTE | 2024-03-02 21:19 | PCM.PN.BLA ---
Progress Note at bedside to check on pt. she is resting comfortably. Assessment & Plan Assessment/Plan (1) Marijuana use: (2) History of depression: (3) Late care affecting : (4) Rubella non-immune status, antepartum: (5) Rh negative state in antepartum period: (6) SROM (spontaneous rupture of membranes): (7) 39 weeks gestation of : PLAN: Pt comfortable and resting at this time. Cont current plan of care at this time while she is comfortable. Will recheck 3-4 hours after last cervical exam to assess for cervical change.
[2024-03-03] VITALS (30 sets, daily range): BP systolic 102–143; BP diastolic 53–91; PULSE 68–107; RESP 14–20; TEMP 35.8–37.1; O2SAT 96–100
[2024-03-03] MEDS: Oxytocin 15 Units/NS 250ml 15 UNITS/250 ML IV.SOLN 2 UNITS IV (03:02)
[2024-03-03] MEDS: fentaNYL-bupivacaine (epidural) 100 ML BAG EPIDURAL (03:16)
[2024-03-03] MEDS: proCHLORPERazine 10 MG/2 ML Vial IV (04:17)
[2024-03-03] MEDS: 0.9% Saline Lock 10 ML Syringe IV ×2 (04:18→20:06)
[2024-03-03] MEDS: Lactated Ringers 1,000 ML 50 ML IV (04:45)
--- NOTE | 2024-03-03 05:27 | PN_ITS ---
Progress Note At bedside to check on patient. She has been more comfortable with her epidural overnight. Assessment & Plan Assessment/Plan (1) Marijuana use: (2) History of depression: (3) Late care affecting : (4) Rubella non-immune status, antepartum: (5) Rh negative state in antepartum period: (6) SROM (spontaneous rupture of membranes): (7) 39 weeks gestation of : PLAN: At bedside to check on patient. Patient requested a section last night but anesthesia staff was unavailable to accommodate an elective section. She was more comfortable throughout the night, and was agreeable to continuing with labor augmentation. FHT is Category 1 currently. Over the last 24 hours there have been several episodes of prolonged heart rate decelerations. This morning FHT was 70-90 bpm for 8 minutes. Pitocin has been turned off on several occasions, and unable to turn Pitocin up past 4 given decelerations with increasing Pitocin. I checked cervix and cervical exam 5/70/- 2 with caput on my exam. Discussed with patient can continue with labor augmentation given Category 1 tracing. Discussed with patient intolerance to labor however, and unable to titrate up the Pitocin and unable to achieve adequate contractions. Discussed r/b/a continuing with labor vs section. Discussed risks and recovery with a section. The patient requests to proceed with a section. Consent obtained. Pre op antibiot ics ordered.
[2024-03-03] MEDS: Acetaminophen 500 MG Tablet PO (05:29)
[2024-03-03] MEDS: Sodium Citrate/Citric Acid 30 ML UDC PO (05:30)
[2024-03-03] MEDS: Cefazolin 2 GM in 0.9% Normal Saline (100mL Bag) 100 ML IV (06:06)
[2024-03-03] MEDS: Azithromycin 500 MG in Dextrose 5%-Water (250mL Bag) 250 ML 250 MG IV (07:07)
--- NOTE | 2024-03-03 07:36 | OP.PCM_ITS ---
Problems Associated Problem List Diagnoses (1) Marijuana use: (2) History of depression: (3) Late care affecting : (4) Rubella non-immune status, antepartum: (5) Rh negative state in antepartum period: (6) SROM (spontaneous rupture of membranes): (7) 39 weeks gestation of : (8) intolerance to labor, delivered, current hospitalization: Report of Operation Date of Procedure: 03/03/24 Pre-Operative Diagnosis: 39 week gestation, SROM, intolerance to labor Post-Operative Diagnosis: As above Surgery/Procedure Performed:: PLTCS via pfannenstiel incision Description of Surgical Findings:: VMI in cephalic presentation but off the maternal right pelvis. Thick meconium stained fluid. Apgars 7, 9. Normal appearing uterus and bilateral adnexa. Normal appearing placenta. Surgeon: Caridad Marks soil conservation teacher: Jonathan CORTES Type of Anesthesia: Spinal Special Medications: None Specimen's removed: Placenta Drains: Belle Estimated Blood Loss (mL): 800 Fluids Replaced: 1000 mL Description of Procedure: Indications: The patient presented around 39 week gestation with SROM and 1 cm cervix. Pitocin was used to augment labor. There were several episodes of bradycardia and recurrent late decelerations that would recover. Unable to titrate Pitocin given intolerance. Cvx 5 cm and thicker than on admission, with caput on exam. Epidural not providing adequate pain relief. Patient requesting a section. Procedure: Patient was taken to the operating room where epidural anesthesia was not adequate. She likely had pain relief overnight and was comfortable given inadequate contractions and inability to titrate the Pitocin. A spinal was placed by anesthesia. The spinal was found to be adequate. The patient was prepped and draped in the dorsal supine position with leftward tilt. A Pfannenstiel skin incision was made using a scalpel and carried down to the underlying layer of fascia. The fascia was incised in the midline. The fascial incision was extended laterally using Pacheco scissors. The fascia was tented using Mark clamps and dissected off the rectus muscles both in a cephalad and caudad direction. The rectus muscles were the midline. The peritoneum was entered with sharp dissection with good visualization of the bladder. The peritoneal incision was extended with lateral traction. A bladder blade was inserted. A low transverse incision was made on the uterus with a scalpel. Uterine incision was then extended with cephalad and caudad traction. The head was noted to be in the maternal right pelvis and was elevated out of the pelvis. The head was flexed during delivery. The head and body of the were delivered without any traction, force, or delay. Thick meconium was noted at time of delivery. The cord was clamped and cut after a slight delay and the viable male infant was handed off to the awaiting nursery staff. The placenta was removed with manual extraction. Cord gases and cord blood were obtained. The uterus was exteriorized. The uterus was cleared all clot and debris. Anesthesia noted at this time that the urine was blood-tinged. 1-0 Vicryl was used to close the hysterotomy in a running locked fashion. Several additional [id number] sutures were placed for hemostasis. The lower uterine segment was noted to be slightly oozy in various different locations, and an attempt was made to achieve hemostasis using the Bovie cautery. The bladder was then backfilled with 200 mL of methylene blue by the nursing staff, and on upon inspection the bladder was noted to be intact and without a defect. The bladder was then drained. Hemablast was used over the hysterotomy and lower uterine segment. Hemostasis was noted. The peritoneum was closed with 3-0 Vicryl in a running fashion. The subfascial space was inspected and noted to be hemostatic. The fascia was closed with STRATAFIX in a running fashion. The subcutaneous space was irrigated and made hemostatic with the Bovie cautery. Subcutaneous space was reapproximated with 3-0 Vicryl. The skin was closed with 4 Monocryl in a subcuticular fashion. A silver dressing was placed. Instrument, sponge, sharp counts were correct and patient was taken to the recovery in stable condition. Jonathan CORTES was present for the prepping and draping the patient, delivery of and closure up until closure of subcutaneous space. Grafts/Implants Used: None Procedure Start Time: 06:30 Procedure Stop Time: 07:30 Complications None Admit VTE Documentation VTE Present on Admission: No VTE Mechan Device Prophylaxis: SCD's
[2024-03-03] MEDS: Ketorolac 30 MG/ML Syringe IV ×3 (08:34→20:09)
[2024-03-03] MEDS: Senna/Docusate Sodium 1 Tablet PO (10:33)
[2024-03-03] MEDS: Acetaminophen 500 MG Tablet 1000 MG PO ×3 (11:33→23:57)
[2024-03-03] MEDS: Rho(D) Immune Globulin 300 MCG (1500 Unit) Syringe IV (12:23)
[2024-03-04] MEDS: Ketorolac 30 MG/ML Syringe IV (02:22)
[2024-03-04 04:50] VITALS: BP 118/67; PULSE 96; RESP 18; TEMP 36.2; O2SAT 100
[2024-03-04] MEDS: MEASLES,MUMPS,RUBELLA VACC/PF 0.5 ML SC (05:02)
[2024-03-04 05:50] LABS: Hematocrit 28.1 % (37-47); Hemoglobin 9.6 g/dL (12.0-15.0); Mean Corp Hgb Conc 34.2 g/dL (32-36); Mean Corpuscular Hgb 31.8 pg (27.0-32.0); Mean Platelet Vol. 11.2 fl (6.2-12.0); Platelet Count 155 K/mm3 (150-450); RBC Distribution Width CV 12.4 % (11.6-14.6); RBC Distribution Width SD 41.9 fl (35.1-43.9); Red Blood Count 3.02 M/mm3 (4.2-5.4); White Blood Count 27.5 K/mm3 (4.4-11.0)
[2024-03-04] MEDS: Acetaminophen 500 MG Tablet 1000 MG PO ×3 (07:00→18:45)
[2024-03-04 08:47] VITALS: BP 111/71; PULSE 87; RESP 16; TEMP 36.7; O2SAT 100
[2024-03-04] MEDS: Ibuprofen 600 MG Tablet PO ×3 (08:54→19:38)
--- NOTE | 2024-03-04 09:08 | PCM.PN.OB ---
Subjective Subjective pt is doing well. pain is well controlled. ambulating and voiding without difficulty. has had a bowel movement. lochia normal. denies lightheadedness or dizziness. denies Cp, SOB, leg pain. Objective Data Objective Data Vital Signs: Vital Signs Temp Pulse Resp BP Pulse Ox O2 Del Method 98.0 F 87 16 111/71 100 Room Air 03/04/24 08:47 03/04/24 08:47 03/04/24 08:47 03/04/24 08:47 03/04/24 08:47 03/04/24 08:47 Oxygen Delivery Method Room Air Weight: 179 lb Body Mass Index (BMI) 33.8 Intake & Output: Intake and Output for Last 24 Hours 03/02/24 03/03/24 03/04/24 23:59 23:59 23:59 Intake Total 4011.05 / 4011.05 1920.66 / 1920.66 Output Total 1500 / 1500 3400 / 3400 500 / 500 Balance 2511.05 / 2511.05 -1479.34 / -1479.34 -500 / -500 Lab / Micro Data 03/04/24 05:25 Labs: Laboratory Results - last 24 hr 03/03/24 09:40: Screen NEGATIVE, Baby's Blood Type O POSITIVE, Baby's WILLIS NEGATIVE 03/04/24 05:25: WBC 27.5 H, RBC 3.02 L, Hgb 9.6 L, Hct 28.1 L, MCV 93.0, MCH 31.8, MCHC 34.2, RDW Std Deviation 41.9, RDW Coeff of Chanell 12.4, Plt Count 155, MPV 11.2 Physical Exam Const alert and no apparent distress General Appearance: comfortable HEENT normocephalic Resp normal respiratory effort GI soft to palpation GI Narrative: ATTP, non acute, dressing c/d/i Extremity normal to inspection and no calf tenderness Assessment & Plan (1) Delivery by section: PLAN: POD#1 s/p C/S. Doing well. Pain controlled. . Routine post op care. (2) Acute blood loss anemia: PLAN: No symptoms of anemia. Discussed iron going home.
[2024-03-04 12:46] VITALS: BP 116/83; PULSE 56; RESP 16; TEMP 36.7; O2SAT 98
[2024-03-04] MEDS: Senna/Docusate Sodium 1 Tablet PO (12:55)
[2024-03-04 19:36] VITALS: BP 122/87; PULSE 94; RESP 18
[2024-03-05] MEDS: Acetaminophen 500 MG Tablet 1000 MG PO ×2 (00:52→06:43)
[2024-03-05] MEDS: Ibuprofen 600 MG Tablet PO ×2 (02:49→08:51)
[2024-03-05 02:50] VITALS: BP 134/85; PULSE 72; RESP 16; TEMP 36.8
[2024-03-05 05:27] LABS: Absolute Lymphocyte Count 2.12 X10^3/uL (0.83-4.51); Absolute Neutrophil Count 16.1 X10^3/uL (2.0-7.7); Basophil# 0.05 X10^3/uL; Basophil% 0.3 % (0-1); Eosinophil# 0.18 X10^3/uL; Eosinophils% 0.9 % (0-5); Hematocrit 25.3 % (37-47); Hemoglobin 8.7 g/dL (12.0-15.0); Lymphocyte # 2.12 X10^3/ul (0.83-4.51); Lymphocyte % 10.7 % (19-41); Mean Corp Hgb Conc 34.4 g/dL (32-36); Mean Corpuscular Hgb 32.1 pg (27.0-32.0); Mean Corpuscular Volume 93.4 fL (81-99); Monocyte# 1.23 X10^3/uL; Monocyte% 6.2 % (0-10); NRBC Flagged by Analyzer 0 % (0-5); Neutrophil # 16.08 X10^3/uL (2.7-7.7); Neutrophil % 80.8 % (47-70); Platelet Count 156 K/mm3 (150-450); RBC Distribution Width CV 12.3 % (11.6-14.6); Red Blood Count 2.71 M/mm3 (4.2-5.4); White Blood Count 19.9 K/mm3 (4.4-11.0)
--- NOTE | 2024-03-05 05:59 | DCINST_ITS ---
Discharge Instructions Diet Discharge Diet: No restrictions Activity Discharge Activity: May Not Drive and May Shower May resume sexual activity in: 6 weeks Ice area for (Minutes): 15 Weight Bearing Status: Weight bearing as tolerated Lifting Restrictions: nothing heavier than baby Dressing / Incision Call your doctor if your incision/area has: Continuous Slow Oozing, Sudden Increased Bleeding, Increased Pain/ Swelling, Increased Redness, Foul Smelling Discharge and Swelling at the incision site Call your doctor if you observe: Fever of 101 or Higher, Coldness, Increased Pain, Numbness or Tingling, Change in Color, Inability to urinate, Inability to have a bowel movement, Using more than 1 pad per hour, Shortness of breath, Dizziness, Fainting spells, Swelling in the ankles, Chest pain, Prolonged hiccupping, Increased palpitations (irregular heartbeat), Calf discomfort and Uncontrolled pain Suture Line Care: Avoid Pulling/Pushing and Avoid Pinching/Bending Remove Dressing in: 3 days Cleanse incision/area with: Soap & Water Follow Up Care Please Follow Up With: Caridad Marks DO When: 1 week for incision check 6 weeks exam Test Results: Test results from this visit will be discussed in further detail at your follow- up appointment, if applicable. Discharge Plan Admission Admit Date/Time: 03/02/24 07:50 Primary Reason for Your Visit: Delivery Attending Provider: Caridad Marks Primary Care Provider: SANDER PIERRE Instructions Patient Instructions: After a Discharge Orders/Prescriptions Prescriptions: New acetaminophen [Pain Relief (acetaminophen)] 325 mg tablet 650 mg PO Q6H PRN (Reason: pain) Qty: 30 0RF ibuprofen 600 mg tablet 600 mg PO Q6H PRN (Reason: pain) Qty: 30 0RF docusate sodium [Colace] 100 mg capsule 100 mg PO DAILY Qty: 30 0RF ferrous sulfate 325 mg (65 mg iron) tablet 325 mg PO QODAY Qty: 30 0RF Referrals / Follow Up: SANDER PIERRE NP-C [Primary Care Provider] - Disposition Disposition (needs filled in before D/C Order can be placed): Home, Self Care
--- NOTE | 2024-03-05 06:00 | PCM.PN.OB ---
Subjective Subjective pt doing well. pain controlled with tylenol and ibuprofen. tolerating a diet without vomiting. passing gas and had BM. had nausea with dinner yesterday which was wings and friend pickles. denies CP, SOB, leg pain, lightheadedness, dizziness. lochia normal. Objective Data Objective Data Vital Signs: Vital Signs Temp Pulse Resp BP Pulse Ox O2 Del Method 98.2 F 72 16 134/85 H 98 Room Air 03/05/24 02:50 03/05/24 02:50 03/05/24 02:50 03/05/24 02:50 03/04/24 12:46 03/05/24 02:50 Oxygen Delivery Method Room Air Weight: 179 lb Body Mass Index (BMI) 33.8 Intake & Output: Intake and Output for Last 24 Hours 03/03/24 03/04/24 03/05/24 23:59 23:59 23:59 Intake Total 1920.66 / 1920.66 Output Total 3400 / 3400 500 / 500 Balance -1479.34 / -1479.34 -500 / -500 Lab / Micro Data 03/05/24 05:05 Labs: Laboratory Results - last 24 hr 03/05/24 05:05: WBC 19.9 H, RBC 2.71 L, Hgb 8.7 L, Hct 25.3 L, MCV 93.4, MCH 32.1 H, MCHC 34.4, RDW Std Deviation 42.0, RDW Coeff of Chanell 12.3, Plt Count 156, MPV 11.0, Immature Gran % (Auto) 1.100 H, Neut % (Auto) 80.8 H, Lymph % (Auto) 10.7 L, [place] % (Auto) 6.2, Eos % (Auto) 0.9, Baso % (Auto) 0.3, Absolute Neuts (auto) 16.1 H, Absolute Lymphs (auto) 2.12, Nucleated RBC % 0 Physical Exam Const alert and no apparent distress General Appearance: comfortable HEENT normocephalic Resp normal respiratory effort GI soft to palpation GI Narrative: ATTP, non acute, dressing c/d/i Extremity normal to inspection and no calf tenderness Extremity Narrative: Trace edema bilaterally Assessment & Plan (1) Acute blood loss anemia: PLAN: No symptoms of anemia Start oral iron (2) Delivery by section: PLAN: POD#2 s/p section. Doing well. Meeting milestones for discharge and requests discharge. D/c instructions reviewed.
--- NOTE | 2024-03-05 06:03 | DS.PCM_ITS ---
Providers Date of Admission: 03/02/24 Date of Discharge: 03/05/24 Primary Care Physician: SANDER PIERRE, FRANCHISE SALES MANAGER-C Reason For Visit: INDUCTION Diagnosis Discharge Diagnosis (1) Acute blood loss anemia: Status: Acute Code(s): D62 - Acute posthemorrhagic anemia Plan: No symptoms of anemia Start oral iron (2) Delivery by section: Status: Acute Plan: POD#2 s/p section. Doing well. Meeting milestones for discharge and requests discharge. D/c instructions reviewed. Medications at Discharge Home Medications acetaminophen 325 mg tablet (Pain Relief (acetaminophen)) 650 mg (2 x 325 mg) PO Q6H PRN pain #30 tabs 03/05/24 docusate sodium 100 mg capsule (Colace) 100 mg PO DAILY constipation #30 caps 03/05/24 ferrous sulfate 325 mg (65 mg iron) tablet 325 mg PO QODAY #30 tabs 03/05/24 ibuprofen 600 mg tablet 600 mg PO Q6H PRN pain #30 tabs 03/05/24 Hospital Course Operations section Summary of Care Provided Minutes Spent on Discharge: 15 Hospital Course: Pt presented at 39 weeks with SROM and 1 cm dilated. Her labor was augmented with Pitocin. She did not received adequate pain control with her epidural and requested a section. Unable to titrate Pitocin given intolerance to labor. She underwent a primary section. See operative report for details. She was discharged home in good condition on POD#2 with follow up in office. Weight / BMI Weight Weight: 179 lb Body Mass Index (BMI) 33.8 ABG / Lab / Microbiology Data 03/05/24 05:05 Laboratory: Laboratory Results - last 24 hr 03/05/24 05:05: WBC 19.9 H, RBC 2.71 L, Hgb 8.7 L, Hct 25.3 L, MCV 93.4, MCH 32.1 H, MCHC 34.4, RDW Std Deviation 42.0, RDW Coeff of Chanell 12.3, Plt Count 156, MPV 11.0, Immature Gran % (Auto) 1.100 H, Neut % (Auto) 80.8 H, Lymph % (Auto) 10.7 L, [place] % (Auto) 6.2, Eos % (Auto) 0.9, Baso % (Auto) 0.3, Absolute Neuts (auto) 16.1 H, Absolute Lymphs (auto) 2.12, Nucleated RBC % 0 D/C Instructions Discharge Diet: No restrictions May resume sexual activity in: 6 weeks Ice area for (Minutes): 15 Weight Bearing Status: Weight bearing as tolerated Call your doctor if your incision/area has: Continuous Slow Oozing, Sudden Increased Bleeding, Increased Pain/ Swelling, Increased Redness, Foul Smelling Discharge and Swelling at the incision site Call your doctor if you observe: Fever of 101 or Higher, Coldness, Increased Pain, Numbness or Tingling, Change in Color, Inability to urinate, Inability to have a bowel movement, Using more than 1 pad per hour, Shortness of breath, Dizziness, Fainting spells, Swelling in the ankles, Chest pain, Prolonged hiccupping, Increased palpitations (irregular heartbeat), Calf discomfort and Uncontrolled pain Suture Line Care: Avoid Pulling/Pushing and Avoid Pinching/Bending Cleanse incision/area with: Soap & Water Please Follow Up With: Caridad Marks DO When: 1 week for incision check 6 weeks exam Meaningful Use Info Meaningful Use Meaningful Use Diagnoses (Choose all that apply): None applicable Ischemic Stroke Statin Dosing Therapy Reference: STATIN DOSE THERAPY REFERENCE: * Patients > 75 years receive moderate or high dose statin therapy. * Patients 75 years or YOUNGER should receive HIGH intensity statin dose unless contraindicated. You will be required to document reason for non-treatment if statin daily dose does not meet guidelines. HIGH DOSE STATIN THERAPY DAILY Atorvastatin > than or = to 40 mg Rosuvastatin > than or = to 20 mg Amlodipine + Atorvastatin > than or = to 2.5/40 mg Ezetimibe + Simvastatin 10/80 mg Simvastatin 80mg Discharge Plan Admission Admit Date/Time: 03/02/24 07:50 Primary Reason for Your Visit: Delivery Attending Provider: Caridad Marks Primary Care Provider: SANDER PIERRE Instructions Patient Instructions: After a Discharge Orders/Prescriptions Prescriptions: New acetaminophen [Pain Relief (acetaminophen)] 325 mg tablet 650 mg PO Q6H PRN (Reason: pain) Qty: 30 0RF ibuprofen 600 mg tablet 600 mg PO Q6H PRN (Reason: pain) Qty: 30 0RF docusate sodium [Colace] 100 mg capsule 100 mg PO DAILY Qty: 30 0RF ferrous sulfate 325 mg (65 mg iron) tablet 325 mg PO QODAY Qty: 30 0RF Referrals / Follow Up: SANDER PIERRE, FRANCHISE SALES MANAGER-C [Primary Care Provider] - Disposition Disposition (needs filled in before D/C Order can be placed): Home, Self Care
[2024-03-05] MEDS: Senna/Docusate Sodium 1 Tablet PO (08:50)
[2024-03-05 09:00] VITALS: BP 135/85; PULSE 93; RESP 16; TEMP 36.6; O2SAT 100
--- NOTE | 2024-03-05 09:56 | CASEMGMT ---
Social Work Assessment Labor and Delivery Unit Patient Address: [address] [place] [address]. Phone number: [phone] Date of Referral: 03/02/24 Time of Referral:? [id number] Referred By: Dr. Marks Date of Intervention: ??03/02/24 Time of Intervention:? 1000 Reason for Referral:?substance abuse Sw completed chart review and acknowledges social work consult due to maternal substance use. Sw presented to bedside and introduced self to mother of baby (MOB- Sarah) and father of baby (FOB- Phillip). Sw explained reason for consult and completed psychosocial assessment.? History obtained from: medical records, MOB and FOB. Household composition:? Currently residing in the family home is MOB, FOB and baby when ready for discharge. Parents report their housing is safe and secure. Patient's parent/guardian status:? RYLIE reports that she and BALAJI have been together for 6 years after meeting while in the same trade at [employer]. MOB states that FOB is a good support person for MOB. No concerns reported of domestic violence or intimate partner violence. Medical History: ?RYLIE is 24 year old female who is 1, para 0- now 1 following labor and delivery of . RYLIE received routine care during with [facility]. RYLIE presented to hospital with spontaneous rupture of membranes. Patient then requested primary due to increasing and worsening pain. Patient delivered baby via- csection. Baby boy, named Adan, was born on 03/[birth year]/24 weighing 6lb 2oz with apgars of 7 and 9 at one and five minutes of life, respectfully. RYLIE states that she would like to breast feed baby, and baby will be followed by Dr. Canales for pediatrics. Educational Status:? Both parents completed high school, no advanced education. Parents deny concerns with reading, learning or comprehension. Financial Status: FOAdarsh is gainfully employed outside of the home, he works for [employer] and is able to take some time off of work now that baby is here. RYLIE is a stay at home mom and is not currently working. Supplies: Parents have obtained all necessary baby supplies, including: car seat, safe sleep space, clothes, diapers and wipes. Childcare/Caregiver(s):?MOB will be the primary caregiver to baby along with FOB when he is not working.? Transportation:?RYLIE has her permit but does not drive, BALAJI has his license and reliable means of transportation, he is able to take MOB and baby to any scheduled appointments. Programs/Agencies Involved: ???RYLIE is not connected to any resources or community supports at this time. MOB was provided information on WIC and SNAP. Children Services/Legal Issues:?No history of children services involvement. Sw did inform MOB and BALAJI of need for sw to make referral to Children Services due to maternal substance use during . MOB expressed understanding. - Shellie called [facility] and spoke to hotline screener: Michelle. ?? Behavioral Health Issues: ??Mental Health History:??FOAdarsh reports that he has been diagnosed with ADHD. MOB states that she has anxiety and depression. MOB reports that she also has history of cutting as a teenager. MOB states that when she was 9 years old she was removed from her mom's custody due to her mom's substance use disorder. RYLIE was placed in foster care until she was 13 and was then reunited with her mom. MOB states that when she moved back in with her mom she started cutting as a way to help manage her anxiety, and then she started to smoke marijuana. ? Substance Use History: As noted, RYLIE started smoking marijuana as a teen to help manage her mental health. MOB reports that she did smoke during until her second trimester. MOB reports that BALAJI is a heavy smoker. ?? Family History:?RYLIE states that both of her parents have history of substance use/ addiction. Neither grandparent will be considered a caregiver to baby. Shellie educated parents of being mindful as to what their genetic disposition is and to not use drugs or alcohol to cope, instead use healthy and safe coping mechanisms. ? Drug Screens: MOB and baby were positive at time of delivery for THC. Family/Social Stressors:? Parents deny any issues, concerns or stressors at this time. Parents were aware and understanding of sw need to make referral to Children's Services. Support Systems: RYLIE reports that FIB, her aunt and paternal grandma are her biggest supports at this time. Depression/Shaken Baby/Safe Sleeping: Shellie educated parents at length regarding signs and symptoms of baby blues and mood and anxiety disorders to be mindful of. Parents express understanding. BALAJI states that if RYLIE were to struggle with her mental health that he would be able to recognize that, and would know how to help her. Sw educated parents on shaken baby prevention and ABCs of safe sleep. Parents express understanding. MOB completed [place] Depression Scale, her score was an 8. Sw provided education and support. MOB identifies that she has blamed herself unnecessarily, and has felt anxious or worried for no good reason some of the time. ASSESSMENT:? MOB and baby admitted following labor and delivery. MOB and FOB talkative and receptive to sw involvement and support. Parents express understanding that they should no longer smoke THC or any other products in the home or around . Parents have obtained all necessary baby items and have natural supports in place. MOB required which required a longer admission than what she anticipated, however she was understanding of this and happy to leave when medically ready. Both parents have been observed to provide hands on loving and appropriate care to . Safe Plan of Care for related to substance use:? MOB states that she does not have any intentions of continuing to smoke marijuana now that baby has been born. MOB states that she may look into getting connected with a counselor to help her manage her mental health. PLAN:?? No other services requested or indicated. MOB and baby to be discharged when medically ready. Parents were provided literature regarding: signs and symptoms of baby blues and mood and anxiety disorders, Help Me Grow, shaken baby prevention, ABCs of safe sleep and a list of county resources that are available for them should any needs present themselves. Markus Tillman, COMMUNITY SERVICE AIDE, ANIMATION CAMERA OPERATOR
--- NOTE | 2024-03-26 09:21 | CASEMGMT ---
Labor and Delivery Scientist Immunology Sw received mandated extruding press operator letter indicating that referral made to [facility] on 03/05/21 was screened in. The assigned gas pit worker is Yun Moreno ([phone]). Markus Tillman, DATA COLLECTION ASSOCIATE, EVENT SALES ASSISTANT
== END 2024-03-05 11:05 | disposition home or self-care (01) | DRG 540 ==
LOC: WPOUT 07:51 → WP 07:51
PROVIDERS: Advanced Practice Midwife; Admitting Provider Obstetrics & Gynecology; PCP Nurse Practitioner; Referring Provider Obstetrics & Gynecology; Visit Provider Obstetrics & Gynecology
DX: O99.324 Drug use complicating childbirth (principal); F12.90 Cannabis use, unspecified, uncomplicated; O77.0 Labor and delivery complicated by meconium in amniotic fluid; O76 Abnormality in fetal heart rate and rhythm complicating labor and delivery; Z37.0 Single live birth; Z3A.39 39 weeks gestation of pregnancy; Z87.891 Personal history of nicotine dependence
CPT/HCPCS: 59025; 59050; 80307; 84112; 85025; 85027; 85461; 86780; 86850; 86900; 86901; 90384; 99221; J7120; A4216; G0378; J2405; J2790; J2791

== ENCOUNTER 2024-12-19 19:50 | Emergency (ER) | payer MEDICAID, SELFPAY ==
[2024-12-19 19:51] VITALS: BP 114/74; PULSE 92; RESP 14; TEMP 37.2; O2SAT 99; BMI 30.2
--- NOTE | 2024-12-19 20:21 | ED.RN ---
pt reports smoking marijuana daily
--- NOTE | 2024-12-19 20:32 | EDS_ITS ---
HPI History of Present Illness Chief Complaint: Headache PFSH PFSH Medical History intolerance to labor, delivered, current hospitalization Rubella non-immune status, antepartum Brain lesion Family history of hearing loss at age younger than 7 years Headache Depression Home Medications Medication Instructions Recorded Last Taken Type acetaminophen 325 mg tablet (Pain 650 mg (2 x 325 mg) PO Q6H PRN 03/05/24 Unknown Rx Relief (acetaminophen)) pain #30 tabs docusate sodium 100 mg capsule 100 mg PO DAILY constip ation #30 03/05/24 Unknown Rx (Colace) caps ferrous sulfate 325 mg (65 mg 325 mg PO QODAY #30 tabs 03/05/24 Unknown Rx iron) tablet ibuprofen 600 mg tablet 600 mg PO Q6H PRN pain #30 t abs 03/05/24 Unknown Rx azithromycin 500 mg tablet 500 mg PO DAILY 5 days #5 t abs 12/19/24 Unknown Rx metoclopramide HCl 5 mg tablet 5 mg PO Q8H PRN nausea and 12/19/24 Unknown Rx (Reglan) vomiting 7 days #21 tabs Allergy/AdvReac Type Severity Reaction Status Date / Time amoxicillin trihydrate (From Allergy Rash Verified 12/19/24 19:51 Augmentin) Penicillins Allergy Rash Verified 12/19/24 19:51 potassium clavulanate (From Allergy Rash Verified 12/19/24 19:51 Augmentin) Social History Smoking Status: Never smoker EXAM Physical Exam Const Vital Signs: 12/19/24 19:51 Temperature 98.9 F Temperature Source Temporal Pulse Rate 92 Respiratory Rate 14 Blood Pressure 114/74 Blood Pressure Mean 87 Pulse Ox 99 Oxygen Delivery Method Room Air MDM MDM MDM Narrative Medical decision making narrative: HISTORY OF PRESENT ILLNESS: Chief complaint: Headache 24-year-old female history of of anemia, migraines presents with headache. Notes this began earlier today. Gradual onset. No association with neck stiffness, fever or sick contacts. No syncope, seizures or focal neurologic deficits noted. No head trauma noted. Consistent with prior migraine. No abdominal pain noted. Of note patient does note sinus pressure congestion for 9 days. Notes yellowish/brownish discharge concerned she has a sinus infection REVIEW OF SYSTEMS: Pertinent positives: Headache Pertinent negatives: As per HPI PHYSICAL EXAM: Nursing triage notes reviewed, Vital signs reviewed Constitutional: please see [facility] HENT: MMM Eyes: Pupils equal round and reactive to light, Extraocular muscles intact Neck: No stridor, no JVD, full neck ROM, no carotid bruits Lungs: Clear to auscultation, No wheezing or rales. No increased work of breathing, no conversational dyspnea, no accessory muscle use, no nasal flaring. No respiratory distress noted Heart: Regular rate and rhythm, No murmurs, No rubs and No gallops, 2+ distal pulses (radial, femoral, posterior tibial) in all extremities Abdomen: Soft, there is no tenderness, rigidity, rebound or guarding, no obvious peritoneal signs, no palpable pulsatile abdominal masses, no auscultated abdominal bruit : No CVAT Extremities: No edema Neuro: Alert and oriented x3, neuro exam at baseline, cranial nerves II through XII are intact. No pain with extraocular muscle movement. There is negative test of skew. 5 of 5 strength in upper and lower extremities in flexion extension. Intact sensation to light touch in upper and lower extremity dermatomes. No truncal or extremity ataxia. No dysdiadochokinesia. Normal gait. 2+ reflexes in upper and lower extremities. No meningeal signs. Negative Babinski. NIH of 0. Skin: No rash or lesions noted MEDICAL DECISION MAKING: Chief Complaint: please see [facility] External records reviewed: Reviewed prior ED visit in which patient presented for similar symptoms. During his visit patient received IV fluids, Reglan and Benadryl. Factors affecting care: n history of headache, brain lesion Social determinants of health: none History obtained from others: none Consults: none [facility] Narrative: Patient was initially hemodynamically stable, afebrile nontoxic-appearing. Initial exam without focal neurologic deficit I considered the following differential diagnosis: Primary headache (migraine, tension headache cluster headache), secondary headache (ICH, subarachnoid hemorrhage), meningitis, carotid artery dissection, sinus headache While I considered carotid artery dissection The patient's exam was not consistent with this etiology While I considered meningitis the patient's history and physical exam not consistent with meningitis I obtained CT scan to further determine if the patient was suffering from a life-threatening etiology. Gave IV fluids, Reglan, Decadron and Tylenol ALL IMAGES (IF OBTAINED) HAVE BEEN PERSONALLY REVIEWED AND INTERPRETED BY MYSELF. CT scan negative for ICH or sinusitis Given patient's head sinus congestion for 9 days we will give antibiotics to cover bacterial sinusitis. The patient and/or family, caregivers express understanding. The patient and/or family, caregivers agrees with the plan. Shared decision making: I will have a discussion with the patient and or visitors regarding risk/benefits of further testing or admission. They will be made aware of of the risk/benefits inherent in this decision they will be given the opportunity to voice understanding. Total critical care time today provided was at least 0 minutes. This excludes separately billable procedures. Critical care time (if documented) is secondary to the patient having high probability of clinically significant/life threatening deterioration in the patient's condition which required my urgent intervention. Impression: 1. Acute headache 2. Bacterial sinusitis 3. History of migraine Dispo: Discharge home This note was generated with [employer] dictation software. It may contain incorrect words, spelling, and punctuation that were not noted in review of the chart prior to signing. Radiography Diagnostic Testing: Clinical Impression(s) from Imaging Studies Brain CT 12/19/24 21:34 IMPRESSION: No acute intracranial abnormality. Reading Location: [facility] Discharge Plan Triage Chief Complaint: Headache ED Provider: Eulogio Schmid Dx/Rx/DC Orders Instructions: ED, Migraine (Classical) Prescriptions: New metoclopramide HCl [Reglan] 5 mg tablet 5 mg PO Q8H PRN (Reason: nausea and vomiting) 7 Days Qty: 21 0RF azithromycin 500 mg tablet 500 mg PO DAILY 5 Days Qty: 5 0RF No Action acetaminophen [Pain Relief (acetaminophen)] 325 mg tablet 650 mg PO Q6H PRN (Reason: pain) Qty: 30 0RF ibuprofen 600 mg tablet 600 mg PO Q6H PRN (Reason: pain) Qty: 30 0RF docusate sodium [Colace] 100 mg capsule 100 mg PO DAILY Qty: 30 0RF ferrous sulfate 325 mg (65 mg iron) tablet 325 mg PO QODAY Qty: 30 0RF Primary Care Provider: SANDER PIERRE Referrals: Jam Cox MD [Non-Staff -Ordering Privileges] - Activity Restrictions/Additional Instructions: Thank you for trusting us with your care today! Your CT scan showed no evidence of obvious brain abnormalities. Your sinuses appeared clear on the CT scan. Given the duration of your symptoms we will prophylactic give antibiotics to treat bacterial sinusitis. Please take Reglan as needed for nausea vomiting control at home. Please take Tylenol (2 pills, 650 mg), ibuprofen (2 pills, 400 mg) every 6 hours as needed for pain and fever control. Please return to the emergency department if your symptoms change or worsen. Please follow with local Neurology for further outpatient evaluation and management. Print Language: Yemeni Disposition Disposition: Home, Self Care
--- OUTSIDE RECORDS SUMMARY | 2024-12-19 20:41 | XMS RPT_ITS | CCD ---
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 [facility] / Product Type: Medicaid / regulations. The identified Occupational Therapy PLAN OF CARE for the patient is as follows: M25.531 Pain in right wrist PLAN OF CARE: Assessment: Sarah David presents with diagnosis of chronic right wrist pain that interferes with gripping, pinching, twisting, pulling, pushing, carrying, weight bearing, cleaning, cooking, physical activities, recreational activities, sleeping, lifting . The patient presents with impairments in independence in exercise, joint mobility, overall function, patient reported outcome measures, range of motion, sensation, strength, and symptom management. PROMIS? (Patient-Reported Outcomes Measurement Information System) scores were reviewed and identified as a rehabilitation concern. Prognosis for therapy is Good due to: current objective clinical presentation, good overall health status . The patient will benefit from skilled therapy services to meet the goals established for this plan of care as noted below. Goals for Episode of Care: established 11/07/24 Patient will demonstrate independence with ongoing home recommendations/exerc ise program throughout therapy plan of care. Patient will improve function in Right wrist in order to be able to perform prior functional tasks. Patient will report a decrease in pain in Right wrist to 1/10 with prior functional tasks. Patient will increase Right crack off person strength by at least 5#, so that patient will be able to improve function for prior functional tasks. Patient Goals: To reduce pain and increase ROM and use of hand Time Frame for Goals and Treatment : 02/07/25 Planned Interventions, Frequency, and Duration: Current Frequency: 1x/week Duration: 4 weeks Total Number of Visits Planned: 4 Planned Treatment Interventions: Therapeutic exercise (29045), Therapeutic activities (27007), Manual therapy (04576), Self-fci management (07695), [facility], Ultrasound (51916) PLAN FOR NEXT VISIT: Ultrasound, check kt tape, power web stability, wrist strengthening Patient demonstrates good understanding of plan of care and treatment. The above goals and plan of care were discussed and agreed upon by patient/family. For further details regarding this patient refer to the Occupational Therapy electronically documented visit dated 11/07/2024. Provider Attestation I have reviewed the treatment plan for Sarah Hollins Grace, [facility]# [id number] for the period of 11/07/24 -- 12/07/24, established on 11/07/2024. Signature certifies the need for therapy services. [facility] CNTHERAPYon 11-07-2024 CNTHERAPY OT/PT/Speech Visit ([facility]) SARAH DAVID ([id number]) 2000 F Date Time Provider Department 11/07/24 5:00 PM LUKASZ DE LA O [facility] Date Time Provider Department Center 11/07/2024 5:00 PM [id number], MARISSA [facility] Reason for Visit: OT EVAL [748] Visit Diagnosis:Pain in right wrist [M25.531] Allergies As of Date: 11/07/2024 Noted Allergy Reaction AMOXICILLIN 04/12/2008 2 - Rash AUGMENTIN (AMOXICILLIN-POT CLAVUL*04/12/2008 2 - Rash 11 - Vomiting PENICILLINS 05/06/2005 2 - Rash Date Reviewed: 10/23/2024 Reviewed by: Paige Mejia MA - Fully Assessed Prescriptions as of 11/07/2024 - ondansetron (ZOFRAN) 4 mg tablet Take 1 tablet by mouth every 8 hours as needed for nausea/vomiting. - rizatriptan 5 mg disintegrating tablet Take 1 tablet at first sign of migraine, and may repeat in 2 hours if necessary. Do not take more than 20mg in a 24 hour period. - venlafaxine ER (EFFEXOR XR) 37.5 mg 24 hr capsule Take 1 capsule by mouth once daily. Annotated image of OT HAND STRENGTHENING ISOMETRIC ELBOW WRIST HAND PG 2 last updated by Lukasz De La O OT/L on 11/07/2024 5:35 PM Annotated image of OT HAND STRENGTHENING ISOMETRIC ELBOW WRIST HAND PG 3 last updated by Lukasz De La O OT/L on 11/07/2024 5:35 PM [facility] SARAH DAVID ([id number]) 2000 F Date Time Provider Department 10/23/24 1:30 PM VIJAY GUO V [facility] During your visit today, we recorded the following information about you: Paige Mejia MA 10/23/2024 2:17 PM Signed Patient presents with: Right wrist pain : Referred by Dora Restrepo [facility] [employer] Pain Pain Level: 8 Pain Location: Wrist-Right Description: Aching, Cramping, Dull, Numbness, Radiating, Sharp, Shooting, Sore, Stabbing, Throbbing, Tightness Duration Amount of Time: 4 Duration Units: Weeks Frequency: Intermittent Intervention/Comfort measure: Distractions, Massage, Positioning Vijay Guo V, DO 10/23/2024 2:17 PM Signed Subjective Sarah is a 24-year-old female presenting with chronic right wrist pain that has acutely worsened over the past 4-5 weeks. Sarah reports a history of right wrist issues dating back to childhood, initially characterized by a clicking noise without significant discomfort. Approximately 4-5 weeks ago, while vacuuming, she experienced a loud pop in her wrist accompanied by severe pain radiating up her arm, diaphoresis, nausea, and near-syncope. Since then, she has had 3-4 similar episodes of severe pain, though she describes the usual pain as a constant, annoying sensation localized near the ulnar styloid and radiating to her fifth digit. She also reports a feeling of tightness when moving her wrist back and forth and a sensation of her tendons getting "stuck" between her bones, causing additional pain. She has tried icing and heating the wrist, which provided temporary relief but was followed by worsening pain. She denies using a wrist splint. She denies any metal implants that would contraindicate an MRI. Constitutional: (+) diaphoresis Gastrointestinal: (+) nausea Musculoskeletal: (+) wrist pain, (+) pain radiating to pinky, (+) clicking in wrist Neurological: (+) near syncope Objective Last menstrual period 05/30/2023, not currently . General: No acute distress. MSK/Ext: Mild tenderness over ulnar styloid, mild tenderness over TFCC, full finger flexion and extension without difficulty, mild pain with wrist flexion and extension against resistance, mild pain with wrist radial deviation, no significant pain in anatomical snuffbox, mild clicking and catching sensation in wrist. Labs: Tests: Imaging: - X-ray of the wrist: No abnormalities Assessment AND Plan 1. Right wrist pain (M25.531) Wrist weakness (R29.898) Chronic wrist pain exacerbated 4-5 weeks ago with a loud pop and severe pain radiating up the arm during vacuuming. Pain localized near the ulnar styloid and TFCC region. X-rays showed no abnormalities. Suspected TFCC injury or ulnar nerve irritation. - Ordered MRI of the wrist to evaluate cartilage and ligaments. - Provided wrist splint to support the wrist. Recording using Fuze software for draft documentation of the visit was discussed with the patient/authorized tax compliance representative; all questions welcomed and answered. Patient/authorized tax compliance representative agreed to proceed Paige Mejia MA 10/23/2024 2:17 PM Signed PT ASSESSMENT - CASTING ROOM Sarah presents for Application of brace. Applied Glenna and Keene Modabber wrist brace to Right wrist. Patient tolerated well. Patient has been instructed in Care and proper application of brace. Patient signed Ines PPA electronically for billing and verbalized understanding. Paige Mejia MA Referring Provider: DORA RESTREPO [[id number]] Allergies As of Date: 10/23/2024 Noted Allergy Reaction AMOXICILLIN 04/12/2008 2 - Rash AUGMENTIN (AMOXICILLIN-POT CLAVUL*04/12/2008 2 - Rash 11 - Vomiting PENICILLINS 05/06/2005 2 - Rash Date Reviewed: 10/23/2024 Reviewed by: Paige Mejia MA - Fully Assessed Reason for Visit: Right wrist pain [Other] Cmt: Referred by Dora Restrepo Visit Diagnoses:Right wrist pain [M25.531] Wrist weakness [R29.898] Order(s):CONSULT TO ORTHOPAEDICS [9075] Order #: [id number]: 1 MRI WRIST WO IVCON RIGHT [[id number]] Order #: [id number] FUTURE Prescriptions as of 10/23/2024 - ondansetron (ZOFRAN) 4 mg tablet Take 1 tablet by mouth every 8 hours as needed for nausea/vomiting. - rizatriptan 5 mg disintegrating tablet Take 1 tablet at first sign of migraine, and may repeat in 2 hours if necessary. Do not take more than 20mg in a 24 hour period. - venlafaxine ER (EFFEXOR XR) 37.5 mg 24 hr capsule Take 1 capsule by mouth once daily. Problem List As Of Date 10/23/2024 Noted Resolved Malformation [Q89.9] 08/28/2013 Brain tumor [D49.6] 08/28/2013 06/03/2015 Migraines [G43.909] 02/06/2014 Body mass index equal to or greater than 95th p*02/06/2014 10/18/2022 Brain lesion [G93.9] 06/03/2015 Family history of genetic disease [Z84.89] 09/19/2023 Nausea and vomiting during [O21 (more content not included)... Normal [facility] CNOVon 10-17-2024 CNOV Office Visit ([facility] ) SARAH DAVID ([id number]) 2000 F Date Time Provider Department 10/17/24 11:00 AM DORA RESTREPO During your visit today, we recorded the following information about you: Pulse Respiration Blood pressure Weight 88/minute 16/minute 116/72 76.2 kg Dora Restrepo APRN.BOARDING MACHINE OPERATOR 10/18/2024 4:19 PM Signed CC: Patient presents with: Wrist Pain: R wrist pain x 2 weeks HPI Sarah David is a 24 year old female who presents today for right wrist pain and migraines. Recording using Fuze software for draft documentation of the visit was discussed with the patient/authorized tax compliance representative; all questions welcomed and answered. Patient/authorized tax compliance representative agreed to proceed Right Wrist Pain and Weakness: - Initial injury in childhood from a fall out of a tree, resulting in a clicking noise with certain motions. - Progression of symptoms over the years, including: - Clicking noise. - Pinky "locking and hollowing out." - Sensation of ligaments getting caught in the bone. - Audible popping sounds. - Recent exacerbation of pain two weeks ago while vacuuming, described as a loud pop with associated diaphoresis and nausea. - Dull, pulling pain radiating up to the elbow. - Recent incident of wrist popping while holding her child, resulting in inability to support the child's weight with stating her hand just flipped back words and she had no control over it. - Denies known recent trauma or injury. No edema, redness, fever, numbness, Migraines: - Migraines resolved during but have returned post-. - Frequency: At least once a week, lasting 2-3 days. - Triggers: Lack of sleep and overexertion. - Associated symptoms: Nausea, emesis, and new onset auras. - Previous medications: Maxalt, topiramate, venlafaxine, and trazodone. - Not currently on control; considering options. Anxiety and Depression: - Anxiety described as "bad," but depression is "not as bad." - Anxiety primarily focused on her child. - History of self-harm; currently journaling as a coping mechanism. - Negative experiences with previous therapists. REVIEW OF SYSTEMS General: no fevers, no chills, no night sweats, no recurrent infections, no change in appetite, no change in energy, and no significant changes in weight Respiratory: no cough, no wheezing, no shortness of breath, no hemoptysis Cardiovascular: no chest pain, no chest pressure, no palpitations, and no swelling Neurologic: No weakness, numbness, tingling, memory loss, syncope. PAST MEDICAL HISTORY Diagnosis Date Anxiety and depression Insomnia Left ear hearing loss Menarche 2012 Age 11 Migraines PMH - PAST MEDICAL HISTORY OF 01/09/2004 normal color vision Scoliosis TMJ (dislocation of temporomandibular joint) PAST SURGICAL HISTORY Procedure Laterality Date DELIVERY ONLY 03/03/2024 TYMPANOSTOMY LOCAL/TOPICAL ANESTHESIA < 6 yrs ALLERGIES Amoxicillin, Augmentin [Amoxicillin-Pot Clavulanate], and Penicillins MEDICATIONS ondansetron (ZOFRAN) 4 mg tablet Take 1 tablet by mouth every 8 hours as needed for nausea/vomiting. rizatriptan 5 mg disintegrating tablet Take 1 tablet at first sign of migraine, and may repeat in 2 hours if necessary. Do not take more than 20mg in a 24 hour period. venlafaxine ER (EFFEXOR XR) 37.5 mg 24 hr capsule Take 1 capsule by mouth once daily. ferrous sulfate (IRON ORAL) Take 1 tablet by mouth every other day. FAMILY HISTORY Problem Relation Age of Onset Asthma Mother Anxiety disorder Mother Alcohol/Drug Father ETOH Diabetes Father Asthma Brother Asthma Brother sibling ADD/ADHD Brother Breast Cancer Maternal Grandmother Cancer Paternal Aunt great aunts? COPD Other mggm Social History Tobacco Use Smoking status: Never Passive exposure: Yes Smokeless tobacco: Never Tobacco comments: mom smokes Vaping Use Vaping status: Never Used Substance Use Topics Alcohol use: No Drug use: Yes Types: Marijuana Comment: non recentley PHYSICAL EXAM BP 116/72 Pulse 88 Resp 16 Wt 76.2 kg (168 lb) LMP 05/30/2023 (Approximate) SpO2 97% BMI 31.74 kg/m? General Appearance: well appearing, in no acute distress, alert Pysch: mood and affect broad and appropriate Eyes: PERRLA, EOM's intact, conjunctiva pink and moist, no icterus, sclera white, non-injected Neck: Thyroid normal size and symmetric without palpable nodules, Neck supple, No adenopathy Lymph nodes: No cervical lymphadenopathy and No supraclavicular lymphadenopathy Lungs: Lungs clear to auscultation. No wheezing, rhonchi, rales. Heart: RRR without murmur, gallop, or rubs. No ectopy BUE Extremities: No deformities, edema, skin discoloration, clubbing or cyanosis. Good capillary refill. Right wrist with full ROM, and strength. Some tenderness reported and also (more content not included)... Normal [facility] XR WRIST 3V PA/LAT/OBL RTon 10-17-2024 XR WRIST 3V PA/LAT/OBL RT * * *Final Report* * * DATE OF EXAM: Oct 17 2024 11:46AM WOX [id number] - XR WRIST 3V PA/LAT/OBL RT / PROCEDURE REASON: Right wrist pain * * * * Physician Interpretation * * * * EXAM(s): XR WRIST 3V PA/LAT/OBL RT..... HISTORY: 24 years old Clinical information: Right wrist pain anterior and posterior right wrist pain. Pt states she feels a popping in her wirst when she moves which causes shooting pains up her arm. TECHNIQUE: Images: XR WRIST 3V PA/LAT/OBL RT Comparison: None. RESULT: Findings: Radiocarpal joint appears normal. Carpal bones and intercarpal joint spaces are unremarkable. No fracture or dislocation. No soft tissue swelling. IMPRESSION: No acute abnormality Band Maker: PSCB Transcribe Date/Time: Oct 19 2024 2:23P Dictated by : ZORAIDA AVALOS MD This examination was interpreted and the report reviewed and electronically signed by: ZORAIDA AVALOS MD on Oct 19 2024 2:25PM EST [id number] Normal [facility] CNOVon 09-03-2024 CNOV Office Visit ([facility] ) SARAH DAVID ([id number]) 2000 F Date Time Provider Department 09/03/24 11:00 AM DORA RESTREPO During your visit today, we recorded the following information about you: Pulse Respiration Blood pressure Weight 84/minute 16/minute 112/70 77.6 kg Dora Restrepo APRN.BOARDING MACHINE OPERATOR 09/03/2024 3:12 PM Signed CC: Patient presents with: Allergies: Possible allergies? Back pain upper back HPI Sarah David is a 24 year old female who presents today for sneezing. Patient states that she had a little boy 6 months ago and since having the baby she noticed sneezing particularly in the morning. She states that she has multiple episodes of sneezing several times in a row. And throughout the day. Denies any history of seasonal or environmental allergies. She denies any significant rhinorrhea but does have to blow her nose on occasion. Denies any shortness of breath, asthma, cough. She has no associated intermittent scratchy throat . Patient states that she does smoke marijuana occasionally, which is not new, and boyfriend vapes, but not usually in the house. They have 2 air purifier in the house and have scrubbed the carpet to see if that was the cause. Also has 3 cats and a dog which she has never had issues with in the past. Denies any other associated symptoms family history is only significant for asthma. She is currently not breast-feeding. REVIEW OF SYSTEMS General: no fevers, no chills, no night sweats, no recurrent infections, no change in appetite, no change in energy, and no significant changes in weight HEENT: no frequent or significant headaches, no changes in hearing, no visual changes, no nose bleeds, See HPI Respiratory: no cough, no wheezing, no shortness of breath, no hemoptysis Cardiovascular: no chest pain, no chest pressure, no palpitations, and no swelling GI: No nausea, vomiting, or diarrhea Musculoskeletal: Negative for joint pain or swelling, back pain or muscle pain Skin: Negative for lesions, rash, and itching See HPI PAST MEDICAL HISTORY Diagnosis Date Anxiety and depression Insomnia Left ear hearing loss Menarche 2012 Age 11 Migraines PMH - PAST MEDICAL HISTORY OF 01/09/2004 normal color vision Scoliosis TMJ (dislocation of temporomandibular joint) PAST SURGICAL HISTORY Procedure Laterality Date DELIVERY ONLY 03/03/2024 TYMPANOSTOMY LOCAL/TOPICAL ANESTHESIA < 6 yrs ALLERGIES Amoxicillin, Augmentin [Amoxicillin-Pot Clavulanate], and Penicillins MEDICATIONS MEDICATION, NON-DATABASE Placenta ferrous sulfate (IRON ORAL) Take 1 tablet by mouth every other day. ondansetron (ZOFRAN) 4 mg tablet Take 1 tablet by mouth every 8 hours as needed for nausea/vomiting. (Patient not taking: Reported on 03/16/2024) Vrovwlbn-Gh-Gpt-Fe-FA tab Take 1 tablet by mouth once daily. (Patient not taking: Reported on 03/08/2024) FAMILY HISTORY Problem Relation Age of Onset Asthma Mother Anxiety disorder Mother Alcohol/Drug Father ETOH Diabetes Father Asthma Brother Asthma Brother sibling ADD/ADHD Brother Breast Cancer Maternal Grandmother Cancer Paternal Aunt great aunts? COPD Other mggm Social History Tobacco Use Smoking status: Never Passive exposure: Yes Smokeless tobacco: Never Tobacco comments: mom smokes Vaping Use Vaping status: Never Used Substance Use Topics Alcohol use: No Drug use: Yes Types: Marijuana Comment: non recentley PHYSICAL EXAM BP 112/70 Pulse 84 Resp 16 Wt 77.6 kg (171 lb) LMP 05/30/2023 (Approximate) SpO2 96% BMI 32.31 kg/m? General Appearance: well appearing, in no acute distress, alert Skin: Skin color, texture, turgor normal for age; Head: normocephalic, atraumatic Eyes: PERRLA, EOM's intact, conjunctiva pink and moist, no icterus, sclera white, non-injected Ears: external ears normal to inspection and palpation, canals clear, Left tympanic membrane normal. , Right tympanic membrane normal Nose/sinus: septum midline with no perforation or bleeding, no sinus tenderness, mucosa erythematous and swollen, nasal polyps present Lymph nodes: No cervical lymphadenopathy, No supraclavicular lymphadenopathy,Lungs : Lungs clear to auscultation. No wheezing, rhonchi, rales. Heart: RRR without murmur, gallop, or rubs. No ectopy Extremities: No deformities, edema, skin discoloration, clubbing or cyanosis. Good capillary refill. Musculoskeletal: No joint swelling, deformity, or tenderness Health maintenance reviewed with patient: HPV Vaccine(1 - 3-dose series) Never done Depression Screening Never done Anxiety Screening Never done Covid-19 Vaccine(2023- season) Never done Cervical Cancer Screening due on 10/18/2025 DTaP,Tdap,Td Vaccine(8 - Td or Tdap) due on 12/20/2033 Hepatitis B Vaccine Completed Influenza Vaccine Completed Hepatitis C Screening (more content not included)... Normal [facility] CNOVon 03-16-2024 CNOV Office Visit ([facility] ) SARAH DAVID ([id number]) 2000 F Date Time Provider Department 03/16/24 3:00 PM FLOYD [facility] During your visit today, we recorded the following information about you: Temperature Pulse Blood pressure Weight 97 degrees 102/minute 128/92 74.6 kg Height 1.549 m Renetta Downing RN 03/16/2024 4:02 PM Signed REVIEW OF SYSTEMS: General: The patient denies fatigue, denies weight loss, denies weight gain, denies feeling hot, and denies feelings of cold. Eyes: The patient denies glaucoma, denies eye injury/surgery, wears glasses or contacts. Ear/Nose/Throat: The patient NOTES allergies, denies hayfever, NOTES ear infections, and denies bloody noses. Cardiovascular: The patient denies chest pain, denies heart disease, denies high blood pressure,denies cardiac stent, denies prior heart attack, denies irregular heart beat, denies high cholesterol, denies poor circulation, denies heart failure, other cardiac issues, denies claudication, denies cold feet, denies peripheral arterial stent. Respiratory: The patient denies tuberculosis, denies pneumonia, denies frequent cough, denies pulmonary embolism, denies shortness of breath, and denies coughing up blood. Gastrointestinal: The patient denies difficulty swallowing, denies acid reflux, denies ulcers, denies vomiting, denies jaundice/hepatitis, denies gallbladder problems, denies black or tarry stools, denies hemorrhoids, denies bleeding from rectum, denies diverticulitis, denies constipation, denies diarrhea, denies loss of stool control, and denies hernias. Kidney/Bladder: The patient denies kidney stones, denies urine infections, and denies bloody urine. Skin: The patient denies a history of skin cancer, denies bleeding/changing moles, and denies a history of skin rash. Neurologic: The patient denies a history of epilepsy/convulsions, NOTES headaches, denies head/spinal injuries, and denies stroke/TIA. Psychiatric: The patient denies psychiatric medications, NOTES depression, and denies voices, denies substance abuse. Endocrine: The patient denies thyroid disorders, denies diabetes, and denies hormonal problems. Hematologic: The patient denies a history of bruising, denies bleeding, and NOTES anemia, denies blood clots. Infections: The patient denies a history of measles and mumps, denies rheumatic fever, and denies sexually transmitted diseases. Musculoskeletal: The patient denies back pain/injury, NOTES back problems, denies sciatica, denies knee/foot trouble, denies arthritis, or denies gout. When was patient's last Mammogram screening? N/A Last Colonoscopy: None ANDREI Shearer Richard T, MD 03/17/2024 5:59 AM Signed HISTORY AND PHYSICAL Sarah David 2000 REFERRING PHYSICIAN: Naga Marks MD CHIEF COMPLAINT: Consult (RUQ pain) HPI: The patient is a 24 year old female with a complaint of right upper quadrant and right posterior flank/thoracoabdomina l pain. The patient has noted pain for approximately the last month. She notes the pain is sharp and stabbing. She notes that she will feel pain when she twists moves bends over or lays in certain positions. The pain will occur suddenly and is severe and continuous when it occurs. She is 1 month status post section. She was actually noting reflux and epigastric symptoms following her section but that is actually improved over the last 3 days. Her reflux symptoms more central and occurred soon after eating. She notes that this right flank pain sometimes seems to occur also after eating but this happens immediately after eating. She was uncertain whether she would describe her symptoms as more colicky in nature, but with further discussion is seem to be the majority of her symptoms were musculoskeletal towards the back area. She notes the pain hurts if she takes a deep breath. She underwent an abdominal series on March 08, 2024. This was unremarkable. She underwent right upper quadrant ultrasound on March 09, 2024. This demonstrated: IMPRESSION: Unremarkable sonographic exam of the right upper quadrant abdomen. . The patient is being seen by me today at the request of Dr. Marks for my opinion and advice regarding right upper quadrant and right flank discomfort. PAST MEDICAL HISTORY Diagnosis Date Anxiety and depression Insomnia Left ear hearing loss Menarche 2013 Age 11 Migraines PMH - PAST MEDICAL HISTORY OF 01/09/2004 normal color vision Scoliosis TMJ (dislocation of temporomandibular joint) PAST SURGICAL HISTORY Procedure Laterality Date DELIVERY ONLY 03/03/2024 TYMPANOSTOMY LOCAL/TOPICAL ANESTHESIA < 6 yrs Current Outpatient Medications Medication Sig MEDICATION, NON-DATABASE Placenta ferrous sulfate (IRON ORAL) Take 1 tablet by mouth every other (more content not included)... Normal [facility] CNPNon 03-09-2024 CNPN Telephone (OBGYWM) SARAH DAVID ([id number]) 2000 F Date Time Provider Department 03/09/24 NAGA MARKS OBAUGUSTOWBarbra During your visit today, we recorded the following information about you: Naga Marks MD 03/09/2024 10:26 AM Signed See result note Consult placed to general surgery Mi Connell RN 03/09/2024 11:31 AM Signed Patient notified that she needs seen by General Surgery. No results note available yet. Aware imaging is still in process. Transferred to [facility]. Mi Connell RN Allergies As of Date: 03/09/2024 Noted Allergy Reaction AMOXICILLIN 04/12/2008 2 - Rash AUGMENTIN (AMOXICILLIN-POT CLAVUL*04/12/2008 2 - Rash 11 - Vomiting PENICILLINS 05/06/2005 2 - Rash Date Reviewed: 03/08/2024 Reviewed by: Hanna Esposito MA - Fully Assessed Reason for Visit: Orders [681] Primary Visit Diagnosis:RUQ pain [R10.11] Other Visit Diagnoses:Elevated LFTs [R79.89] state [Z39.2] Order(s):CONSULT TO GENERAL SURGERY [9011] Order #: [id number]: 1 FUTURE Prescriptions as of 03/09/2024 - ferrous sulfate (IRON ORAL) Take by mouth. - ondansetron (ZOFRAN) 4 mg tablet Take 1 tablet by mouth every 8 hours as needed for nausea/vomiting. - Dtmklvqr-Kn-Bvd-Fe-FA tab Take 1 tablet by mouth once daily. Problem List As Of Date 03/09/2024 Noted Resolved Malformation [Q89.9] 08/28/2013 Brain tumor [D49.6] 08/28/2013 06/03/2015 Migraines [G43.909] 02/06/2014 Body mass index equal to or greater than 95th p*02/06/2014 10/18/2022 Brain lesion [G93.9] 06/03/2015 Family history of genetic disease [Z84.89] 09/19/2023 Nausea and vomiting during [O21.9] 09/19/2023 11/23/2023 Late care affecting in secon*09/19/2023 Constipation during in second trimest*09/19/2023 11/23/2023 Caffeine use [Z78.9] 09/19/2023 History of depression [Z86.59] 09/19/2023 Marijuana use [F12.90] 09/19/2023 Encounter for supervision of high risk pregnanc*09/19/2023 Penicillin allergy [Z88.0] 09/19/2023 Rubella non-immune status, antepartum [O09.899,*09/21/2023 Rh negative state in antepartum period [O26.899*09/21/2023 Encounter Status:Closed by NAGA MARKS on 03/09/24 Normal [facility] No Panel InformationOrdered By: Ccf Provider on 03-09-2024 [facility] US ABD RIGHT UPPER QUADRANTo n 03-09-2024 US ABD RIGHT UPPER QUADRANT * * *Final Report* * * DATE OF EXAM: Mar 09 2024 9:14AM WRU 1032 - US ABD RIGHT UPPER QUADRANT / PROCEDURE REASON: RUQ pain * * * * Physician Interpretation * * * * EXAM TITLE: US ABD RIGHT UPPER QUADRANT HISTORY: Right upper quadrant abdominal pain. TECHNIQUE: Sonography of the right upper quadrant was performed. Images were obtained and stored in a permanent archive. MQ: URUQ_1 COMPARISON: None. RESULT: Pancreas: Normal sonographic appearance in the visualized portions. Portions obscured: tail Liver: Echotexture: Normal, homogeneous. Echogenicity: Normal Surface contour: Smooth Lesions: None. MPV: Patent. Biliary: No intrahepatic biliary duct dilation. CBD: 6 mm in diameter. Gallbladder: Normal caliber -Contents: No cholelithiasis -Wall: 2 mm in thickness -Other: Negative sonographic Chaney's sign. Right Kidney: Within normal limits. Ascites: None. IMPRESSION: Unremarkable sonographic exam of the right upper quadrant abdomen. Band Maker: [facility] Transcribe Date/Time: Mar 09 2024 11:28A Dictated by : ISABEL BRADFORD MD This examination was interpreted and the report reviewed and electronically signed by: ISABEL BRADFORD MD on Mar 09 2024 11:31AM EST [id number] Normal [facility] US Abdomen RUQon 03-09-2024 IMPRESSION: Unremarkable sonographic exam of the right upper quadrant abdomen. Band Maker: [facility] Transcribe Date/Time: Mar 09 2024 11:28A Dictated by : ISABEL BRADFORD MD This examination was interpreted and the report reviewed and electronically signed by: ISABEL BRADFORD MD on Mar 09 2024 11:31AM [facility] DIVISION OF RADIOLOGY * * *Final Report* * * DATE OF EXAM: Mar 09 2024 9:14AM U 1032 - US ABD RIGHT UPPER QUADRANT / PROCEDURE REASON: RUQ pain * * * * Physician Interpretation * * * * EXAM TITLE: US ABD RIGHT UPPER QUADRANT HISTORY: Right upper quadrant abdominal pain. TECHNIQUE: Sonography of the right upper quadrant was performed. Images were obtained and stored in a permanent archive. MQ: URUQ_1 COMPARISON: None. RESULT: Pancreas: Normal sonographic appearance in the visualized portions. Portions obscured: tail Liver: Echotexture: Normal, homogeneous. Echogenicity: Normal Surface contour: Smooth Lesions: None. MPV: Patent. Biliary: No intrahepatic biliary duct dilation. CBD: 6 mm in diameter. Gallbladder: Normal caliber -Contents: No cholelithiasis -Wall: 2 mm in thickness -Other: Negative sonographic Chaney's sign. Right Kidney: Within normal limits. Ascites: None. DIVISION OF RADIOLOGY Provider, [facility] Sandra [facility] - 03/09/2024 * * *Final Report* * * DATE OF EXAM: Mar 09 2024 9:14AM WRU 1032 - US ABD RIGHT UPPER QUADRANT / PROCEDURE REASON: RUQ pain * * * * Physician Interpretation * * * * EXAM TITLE: US ABD RIGHT UPPER QUADRANT HISTORY: Right upper quadrant abdominal pain. TECHNIQUE: Sonography of the right upper quadrant was performed. Images were obtained and stored in a permanent archive. MQ: URUQ_1 COMPARISON: None. RESULT: Pancreas: Normal sonographic appearance in the visualized portions. Portions obscured: tail Liver: Echotexture: Normal, homogeneous. Echogenicity: Normal Surface contour: Smooth Lesions: None. MPV: Patent. Biliary: No intrahepatic biliary duct dilation. CBD: 6 mm in diameter. Gallbladder: Normal caliber -Contents: No cholelithiasis -Wall: 2 mm in thickness -Other: Negative sonographic Chaney's sign. Right Kidney: Within normal limits. Ascites: None. IMPRESSION IMPRESSION: Unremarkable sonographic exam of the right upper quadrant abdomen. Band Maker: [facility] Transcribe Date/Time: Mar 09 2024 11:28A Dictated by : ISABEL BRADFORD MD This examination was interpreted and the report reviewed and electronically signed by: ISABEL BRADFORD MD on Mar 09 2024 11:31AM [facility] Radiology Study observation (narrative) [facility] XR Abdomen Supine and Uprigh ton 03-09-2024 IMPRESSION: No evidence of free air or bowel obstruction. Band Maker: [facility] Transcribe Date/Time: Mar 09 2024 4:58P Dictated by : ISABEL BRADFORD MD This examination was interpreted and the report reviewed and electronically signed by: ISABEL BRADFORD MD on Mar 09 2024 4:58PM [facility] DIVISION OF RADIOLOGY * * *Final Report* * * DATE OF EXAM: Mar 08 2024 2:50PM WOX 5356 - XR ABD 2V SUPINE W UPR/DECUB/CTL / PROCEDURE REASON: multiple diagnoses * * * * Physician Interpretation * * * * EXAM TITLE: XR ABD 2V SUPINE W UPR/DECUB/CTL EXAM DATE/TIME: 03/08/2024 2:50 PM COMPARISON: None. CLINICAL INDICATION/HISTORY: Nausea. TECHNIQUE: AP views of the abdomen including upright view are presented. FINDINGS: No abnormally dilated bowel loops identified. No evidence of free air. Small stool burden. There are no abnormal calcifications. The bony structures appear intact. DIVISION OF RADIOLOGY Provider, [facility] Sandra [facility] - 03/09/2024 * * *Final Report* * * DATE OF EXAM: Mar 08 2024 2:50PM WOX 5356 - XR ABD 2V SUPINE W UPR/DECUB/CTL / PROCEDURE REASON: multiple diagnoses * * * * Physician Interpretation * * * * EXAM TITLE: XR ABD 2V SUPINE W UPR/DECUB/CTL EXAM DATE/TIME: 03/08/2024 2:50 PM COMPARISON: None. CLINICAL INDICATION/HISTORY: Nausea. TECHNIQUE: AP views of the abdomen including upright view are presented. FINDINGS: No abnormally dilated bowel loops identified. No evidence of free air. Small stool burden. There are no abnormal calcifications. The bony structures appear intact. IMPRESSION IMPRESSION: No evidence of free air or bowel obstruction. Band Maker: [facility] Transcribe Date/Time: Mar 09 2024 4:58P Dictated by : ISABEL BRADFORD MD This examination was interpreted and the report reviewed and electronically signed by: ISABEL BRADFORD MD on Mar 09 2024 4:58PM [facility] Amylase SerPl-cCncon 024 Amylase [Catalytic activity/Vol] 30 U/L Normal 30-104 [facility] Comment on above: Order Comment: Speci men Type: BLOOD SPECIMENOrdering Facility: [facility] Address: [address] [place] [address] Performed By: #### 3 040-3, 1798-8 ####[facility] LABCLIA [id number] [place] [address] [place] CBC W Auto Differential pane l (Bld)on 03-08-2024 Basophils (Bld) [#/Vol] 0.03 10*3/uL NINF [facility] Basophils/100 WBC (Bld) 0.3 % [facility] Differential cell count method Nom (Bld) Auto [facility] Eosinophils (Bld) [#/Vol] 0.09 10*3/uL [facility] Eosinophils/100 WBC (Bld) 0.8 % [facility] Erythrocyte distribution width (RBC) [Ratio] 11.7 % 11.5 - 15.0 % [facility] Hematocrit (Bld) [Volume fraction] 27.9 % Low 36.0 - 46.0 % [facility] Hemoglobin (Bld) [Mass/Vol] 9.7 g/dL Low 11.5 - 15.5 g/dL [facility] Immature granulocytes (Bld) [#/Vol] 0.23 10*3/uL High [facility] Immature granulocytes/100 WBC (Bld) 2.1 % [facility] Interpretation and review of laboratory results Abnormal [facility] Lymphocytes (Bld) [#/Vol] 2.16 10*3/uL [facility] Lymphocytes/100 WBC (Bld) 19.8 % [facility] MCH (RBC) [Entitic mass] 31.6 pg 26.0 - 34.0 pg [facility] MCHC (RBC) [Mass/Vol] 34.8 g/dL 30.5 - 36.0 g/dL [facility] MCV (RBC) [Entitic vol] 90.9 fL 80.0 - 100.0 fL [facility] Monocytes (Bld) [#/Vol] 0.98 10*3/uL [facility] Monocytes/100 WBC (Bld) 9.0 % [facility] Neutrophils (Bld) [#/Vol] 7.42 10*3/uL [facility] Neutrophils/100 WBC (Bld) 68.0 % [facility] Nucleated RBC (Bld) [#/Vol] 0.03 10*3/uL High [facility] Nucleated RBC/100 WBC (Bld) [Ratio] 0.3 % /100 WBC [facility] Platelet mean volume (Bld) [Entitic vol] 9.1 fL 9.0 - 12.7 fL [facility] Platelets (Bld) [#/Vol] 228 10*3/uL [facility] RBC (Bld) [#/Vol] 3.07 10*6/uL Low 3.90 - 5.2 0 m/uL [facility] WBC (Bld) [#/Vol] 10.91 10*3/uL [facility] Basophils (Bld) [#/Vol] 0.03 10*3/uL Normal <0.11 [facility] Comment on above: Order Comment: Speci men Type: BLOOD SPECIMENOrdering Facility: [facility] Address: [address] [place] [address] Performed By: #### 5 7021-8 ####[facility] BHAVIN MILLWNCLIA [id number] [place] [address] [place] Basophils/100 WBC (Bld) 0.3 % Normal [facility] Comment on above: Order Comment: Speci men Type: BLOOD SPECIMENOrdering Facility: [facility] Address: [address] [place] [address] Performed By: #### 5 7021-8 ####[facility] [id number] [place] [address] [place] Differential cell count method Nom (Bld) Auto Normal [facility] Comment on above: Order Comment: Speci men Type: BLOOD SPECIMENOrdering Facility: [facility] Address: [address] [place] [address] Performed By: #### 5 7021-8 ####[facility] [id number] [place] [address] [place] Eosinophils (Bld) [#/Vol] 0.09 10*3/uL Normal <0.46 [facility] Comment on above: Order Comment: Speci men Type: BLOOD SPECIMENOrdering Facility: [facility] Address: [address] [place] [address] Performed By: #### 5 7021-8 ####[facility] [id number] [place] [address] [place] Eosinophils/100 WBC (Bld) 0.8 % Normal [facility] Comment on above: Order Comment: Speci men Type: BLOOD SPECIMENOrdering Facility: [facility] Address: [address] [place] [address] Performed By: #### 5 7021-8 ####[facility] OBICARTWRIGHTTEQUILA [id number] [place] [address] [place] Erythrocyte distribution width (RBC) [Ratio] 11.7 % Normal 11.5-15.0 [facility] Comment on above: Order Comment: Speci men Type: BLOOD SPECIMENOrdering Facility: [facility] Address: [address] [place] [address] Performed By: #### 5 7021-8 ####[facility] [id number] [place] [address] [place] Hematocrit (Bld) [Volume fraction] 27.9 % Low 36.0-46.0 [facility] Comment on above: Order Comment: Speci men Type: BLOOD SPECIMENOrdering Facility: [facility] Address: [address] [place] [address] Performed By: #### 5 7021-8 ####[facility] [id number] [place] [address] [place] Hemoglobin (Bld) [Mass/Vol] 9.7 g/dL Low 11.5-15.5 [facility] Comment on above: Order Comment: Speci men Type: BLOOD SPECIMENOrdering Facility: [facility] Address: [address] [place] [address] Performed By: #### 5 7021-8 ####[facility]ONLIA [id number] [place] [address] [place] Immature granulocytes (Bld) [#/Vol] 0.23 10*3/uL High <0.10 [facility] Comment on above: Order Comment: Speci men Type: BLOOD SPECIMENOrdering Facility: [facility] Address: [address] [place] [address] Performed By: #### 5 7021-8 ####[facility]ENTERKATHYAA [id number] [place] [address] [place] Immature granulocytes/100 WBC (Bld) 2.1 % Normal [facility] Comment on above: Order Comment: Speci men Type: BLOOD SPECIMENOrdering Facility: [facility] Address: [address] [place] [address] Performed By: #### 5 7021-8 ####[facility] HOSPITALDIDIERBebo [id number] [place] [address] [place] Lymphocytes (Bld) [#/Vol] 2.16 10*3/uL Normal 1.00-4.00 [facility] Comment on above: Order Comment: Speci men Type: BLOOD SPECIMENOrdering Facility: [facility] Address: [address] [place] [address] Performed By: #### 5 7021-8 ####[facility] [id number] [place] [address] [place] Lymphocytes/100 WBC (Bld) 19.8 % Normal [facility] Comment on above: Order Comment: Speci men Type: BLOOD SPECIMENOrdering Facility: [facility] Address: [address] [place] [address] Performed By: #### 5 7021-8 ####[facility] AVONLIA [id number] [place] [address] [place] MCH (RBC) [Entitic mass] 31.6 pg Normal 26.0-34.0 [facility] Comment on above: Order Comment: Speci men Type: BLOOD SPECIMENOrdering Facility: [facility] Address: [address] [place] [address] Performed By: #### 5 7021-8 ####[facility] HOSPITALNCLIA [id number] [place] [address] [place] MCHC (RBC) [Mass/Vol] 34.8 g/dL Normal 30.5-36.0 [facility] Comment on above: Order Comment: Speci men Type: BLOOD SPECIMENOrdering Facility: [facility] Address: [address] [place] [address] Performed By: #### 5 7021-8 ####[facility] HOSPITALNCOGDEN [facility] [id number] [place] [address] [place] MCV (RBC) [Entitic vol] 90.9 fL Normal 80.0-100.0 [facility] Comment on above: Order Comment: Speci men Type: BLOOD SPECIMENOrdering Facility: [facility] Address: [address] [place] [address] Performed By: #### 5 7021-8 ####[facility] [id number] [place] [address] [place] Monocytes (Bld) [#/Vol] 0.98 10*3/uL High <0.87 [facility] Comment on above: Order Comment: Speci men Type: BLOOD SPECIMENOrdering Facility: [facility] Address: [address] [place] [address] Performed By: #### 5 7021-8 ####[facility] HOSPITALNCOGDEN [facility] [id number] [place] [address] [place] Monocytes/100 WBC (Bld) 9.0 % Normal [facility] Comment on above: Order Comment: Speci men Type: BLOOD SPECIMENOrdering Facility: [facility] Address: [address] [place] [address] Performed By: #### 5 7021-8 ####[facility] [id number] [place] [address] [place] Neutrophils (Bld) [#/Vol] 7.42 10*3/uL Normal 1.45-7.50 [facility] Comment on above: Order Comment: Speci men Type: BLOOD SPECIMENOrdering Facility: [facility] Address: [address] [place] [address] Performed By: #### 5 7021-8 ####[facility] EVEILNALIA [id number] [address] STATES [facility] Neutrophils/100 WBC (Bld) 68.0 % Normal [facility] Comment on above: Order Comment: Speci men Type: BLOOD SPECIMENOrdering Facility: [facility] Address: [address] [place] [address] Performed By: #### 5 7021-8 ####[facility] HOSPITALLUKASZ [id number] [place] [address] [place] Nucleated RBC (Bld) [#/Vol] 0.03 10*3/uL High <0.01 [facility] Comment on above: Order Comment: Speci men Type: BLOOD SPECIMENOrdering Facility: [facility] Address: [address] [place] [address] Performed By: #### 5 7021-8 ####[facility] AVONRAFITA [id number] [place] [address] [place] Nucleated RBC/100 WBC (Bld) [Ratio] 0.3 /100 WBC Normal [facility] Comment on above: Order Comment: Speci men Type: BLOOD SPECIMENOrdering Facility: [facility] Address: [address] [place] [address] Performed By: #### 5 7021-8 ####[facility] HOSPITALDIDIERLIA [id number] [place] [address] [place] Platelet mean volume (Bld) [Entitic vol] 9.1 fL Normal 9.0-12.7 [facility] Comment on above: Order Comment: Speci men Type: BLOOD SPECIMENOrdering Facility: [facility] Address: [address] [place] [address] Performed By: #### 5 7021-8 ####[facility]OS[facility]ITALA [id number] [place] [address] [place] Platelets (Bld) [#/Vol] 228 10*3/uL Normal 150-400 [facility] Comment on above: Order Comment: Speci men Type: BLOOD SPECIMENOrdering Facility: [facility] Address: [address] [place] [address] Performed By: #### 5 7021-8 ####[facility] HOSPITALNCA [id number] [place] [address] [place] RBC (Bld) [#/Vol] 3.07 10*6/uL Low 3.90-5.20 [facility] Comment on above: Order Comment: Speci men Type: BLOOD SPECIMENOrdering Facility: [facility] Address: [address] [place] [address] Performed By: #### 5 7021-8 ####[facility] HOSPITALNCOGDEN [facility] [id number] [place] [address] [place] WBC (Bld) [#/Vol] 10.91 10*3/uL Normal 3.70-11.00 [facility] Comment on above: Order Comment: Speci men Type: BLOOD SPECIMENOrdering Facility: [facility] Address: [address] [place] [address] Performed By: #### 5 7021-8 ####[facility] HOSPITALNCLIA [id number] [place] [address] [place] CNPSimin 03-08-2024 CNPN Telephone (OBGYWM) SARAH DAVID ([id number]) 2000 F Date Time Provider Department 03/08/24 NAGA MARKS During your visit today, we recorded the following information about you: Alix Quinones RN 03/08/2024 10:13 AM Signed Patient delivered via c/s by ARON on 03/03/24. Scheduled for incision check tomorrow with ARON. Stated since she has been home she has been struggling with nausea and not able to eat much other then fruit. States it feels like she ate too much spicy food all the time when she hasn't. She has tried tums, sprite, mint gum and none has helped. Asking if there is anything she can get to help with nausea. Pharmacy correct. Please advise. ANDREI Katz Sara, MD 03/08/2024 11:42 AM Signed Would prefer for her to be seen before giving nausea medications to eval. I can see her today at 3 pm or after once done with surgery if she wants to come in today thanks. Labs ordered for CBC with diff and CMP to have done before appointment Alix Quinones RN 03/08/2024 11:51 AM Signed Patient notified and scheduled for today at 3:30. ANDREI Katz Trisha, RN 03/08/2024 12:06 PM Signed SW called office and wants a KUB done prior to patient's appointment today. She was about to start another surgery case and asked that another provider file that order so patient can have it done prior to her appt with SW this afternoon. Can you please file and we can notify pt? I wasn't sure what KUB to order. ANDREI Katz Karmon, MD 03/08/2024 12:08 PM Signed Done MD Xochitl Alvarenga Trisha, RN 03/08/2024 12:16 PM Signed Patient notified and will get it done prior to appt. Alix Quinones RN Allergies As of Date: 03/08/2024 Noted Allergy Reaction AMOXICILLIN 04/12/2008 2 - Rash AUGMENTIN (AMOXICILLIN-POT CLAVUL*04/12/2008 2 - Rash 11 - Vomiting PENICILLINS 05/06/2005 2 - Rash Date Reviewed: 02/28/2024 Reviewed by: Live Lucio MA - Fully Assessed Reason for Visit: Care [85] Primary Visit Diagnosis:Post-operat shannon state [Z98.890] Other Visit Diagnosis:Nausea [R11.0] Order(s):COMPLETE BLOOD COUNT AND DIFFERENTIAL [SQCBCDIF] Order #: [id number] FUTURE COMPREHENSIVE METABOLIC PANEL [SQCMP] Order #: [id number] FUTURE AMYLASE [SQAMYL] Order #: [id number] FUTURE LIPASE [SQLIPA] Order #: [id number] FUTURE XR ABDOMEN 2V ROUTINE SUPINE W UPRIGHT/DECUB/CTL [[id number]] Order #: [id number] FUTURE Prescriptions as of 03/08/2024 - Bysjheox-Nq-Hms-Fe-FA tab Take 1 tablet by mouth once daily. Problem List As Of Date 03/08/2024 Noted Resolved Malformation [Q89.9] 08/28/2013 Brain tumor [D49.6] 08/28/2013 06/03/2015 Migraines [G43.909] 02/06/2014 Body mass index equal to or greater than 95th p*02/06/2014 10/18/2022 Brain lesion [G93.9] 06/03/2015 Family history of genetic disease [Z84.89] 09/19/2023 Nausea and vomiting during [O21.9] 09/19/2023 11/23/2023 Late care affecting in secon*09/19/2023 Constipation during in second trimest*09/19/2023 11/23/2023 Caffeine use [Z78.9] 09/19/2023 History of depression [Z86.59] 09/19/2023 Marijuana use [F12.90] 09/19/2023 Encounter for supervision of high risk pregnanc*09/19/2023 Penicillin allergy [Z88.0] 09/19/2023 Rubella non-immune status, antepartum [O09.899,*09/21/2023 Rh negative state in antepartum period [O26.899*09/21/2023 Encounter Status:Closed by ALIX QUINONES on 03/08/[address] [facility] metabolic 2000 panelon 03-08-2024 Albumin [Mass/Vol] 3.3 g/dL Low 3.9-4.9 [facility] Comment on above: Order Comment: Speci men Type: BLOOD SPECIMENOrdering Facility: [facility] Address: [address] [place] [address] Performed By: #### 2 4323-8 ####[facility] LABCLIA [id number] [place] [address] [place] ALP [Catalytic activity/Vol] 141 U/L High 34-123 [facility] Comment on above: Order Comment: Speci men Type: BLOOD SPECIMENOrdering Facility: [facility] Address: [address] [place] [address] Performed By: #### 2 4323-8 ####[facility] LABCLIA [id number] [place] [address] [place] ALT [Catalytic activity/Vol] 24 U/L Normal 7-38 [facility] Comment on above: Order Comment: Speci men Type: BLOOD SPECIMENOrdering Facility: [facility] Address: [address] [place] [address] Performed By: #### 2 4323-8 ####[facility] LABCLIA [id number] [place] [address] [place] Anion gap [Moles/Vol] 13 mmol/L Normal 8-15 [facility] Comment on above: Order Comment: Speci men Type: BLOOD SPECIMENOrdering Facility: [facility] Address: [address] [place] [address] Performed By: #### 2 4323-8 ####[facility] LABCLIA [id number] [place] [address] [place] AST [Catalytic activity/Vol] 55 U/L High 13-35 [facility] Comment on above: Order Comment: Speci men Type: BLOOD SPECIMENOrdering Facility: [facility] Address: [address] [place] [address] Performed By: #### 2 4323-8 ####[facility] LABCLIA [id number] [place] [address] [place] Bilirubin [Mass/Vol] 0.3 mg/dL Normal 0.2-1.3 [facility] Comment on above: Order Comment: Speci men Type: BLOOD SPECIMENOrdering Facility: [facility] Address: [address] [place] [address] Performed By: #### 2 4323-8 ####[facility] LABCLIA [id number] [place] [address] [place] Calcium [Mass/Vol] 8.7 mg/dL Normal 8.5-10.2 [facility] Comment on above: Order Comment: Speci men Type: BLOOD SPECIMENOrdering Facility: [facility] Address: [address] [place] [address] Performed By: #### 2 4323-8 ####[facility] LABCLIA [id number] [place] [address] [place] Chloride [Moles/Vol] 107 mmol/L Normal 98-107 [facility] Comment on above: Order Comment: Speci men Type: BLOOD SPECIMENOrdering Facility: [facility] Address: [address] [place] [address] Performed By: #### 2 4323-8 ####[facility] LABCLIA [id number] [place] [address] [place] CO2 [Moles/Vol] 18 mmol/L Low 22-30 [facility] Comment on above: Order Comment: Speci men Type: BLOOD SPECIMENOrdering Facility: [facility] Address: [address] [place] [address] Performed By: #### 2 4323-8 ####[facility] LABCLIA [id number] [place] [address] [place] Creatinine [Mass/Vol] 0.73 mg/dL Normal 0.58-0.96 [facility] Comment on above: Order Comment: Mark lema Type: BLOOD SPECIMENOrdering Facility: [facility] Address: [address] [place] [address] Performed By: #### 2 4323-8 ####[facility] LABCLIA [id number] [place] [address] [place] Creatinine and Glomerular filtration rate.predicted panel (S/P/Bld) 117 mL/min/1.73m??? Normal >=60 [facility] Comment on above: Order Comment: Mark lema Type: BLOOD SPECIMENOrdering Facility: [facility] Address: [address] [place] [address] Result Comment: Clara mated Glomerular Filtration Rate (eGFR) is calculated using the 2020 CKD-EPI creatinine equation. This equation utilizes serum creatinine, sex, and age as parameters. The creatinine assay has traceable calibration to isotope dilution-mass spectrometry. Refer to KDIGO guidelines for clinical interpretation. In patients with unstable renal function, e.g. those with acute kidney injury, the eGFR may not accurately reflect actual GFR. Performed By: #### 2 4323-8 ####[facility] LABCLIA [id number] [place] [address] [place] Glucose [Mass/Vol] 89 mg/dL Normal 74-99 [facility] Comment on above: Order Comment: Mark lmea Type: BLOOD SPECIMENOrdering Facility: [facility] Address: [address] [place] [address] Result Comment: The [place] Diabetes [employer] (ADA) provides guidance for cutoff values for fasting glucose and random glucose. The ADA defines fasting as no caloric intake for at least 8 hours. Fasting plasma glucose results between 100 to 125 mg/dL indicate increased risk for diabetes (prediabetes). Fasting plasma glucose results greater than or equal to 126 mg/dL meet the criteria for diagnosis of diabetes. In the absence of unequivocal hyperglycemia, results should be confirmed by repeat testing. In a patient with classic symptoms of hyperglycemia or hyperglycemic crisis, random plasma glucose results greater than or equal to 200 mg/dL meet the criteria for diagnosis of diabetes. Reference: Standards of Medical Care in Diabetes 2016, [place] [employer]. Diabetes Care. 2016.39(Suppl 1). Performed By: #### 2 4323-8 ####[facility] LABCLIA [id number] [place] [address] [place] Potassium [Moles/Vol] 3.8 mmol/L Normal 3.7-5.1 [facility] Comment on above: Order Comment: Speci men Type: BLOOD SPECIMENOrdering Facility: [facility] Address: [address] [place] [address] Performed By: #### 2 4323-8 ####[facility] LABCLIA [id number] [place] [address] [place] Protein [Mass/Vol] 6.3 g/dL Normal 6.3-8.0 [facility] Comment on above: Order Comment: Speci men Type: BLOOD SPECIMENOrdering Facility: [facility] Address: [address] [place] [address] Performed By: #### 2 4323-8 ####[facility] LABCLIA [id number] [place] [address] [place] Sodium [Moles/Vol] 138 mmol/L Normal 136-144 [facility] Comment on above: Order Comment: Speci men Type: BLOOD SPECIMENOrdering Facility: [facility] Address: [address] [place] [address] Performed By: #### 2 4323-8 ####[facility] LABCLIA [id number] [place] [id number] [place] Urea nitrogen [Mass/Vol] 9 mg/dL Normal 7-21 [facility] Comment on above: Order Comment: Speci men Type: BLOOD SPECIMENOrdering Facility: [facility] Address: [address] [place] [address] Performed By: #### 2 4323-8 ####[facility] LABCLIA [id number] [place] [address] [place] Lipase SerPl-cCncon 03-08-20 24 Lipase [Catalytic activity/Vol] 25 U/L Normal 16-61 [facility] Comment on above: Order Comment: Speci men Type: BLOOD SPECIMENOrdering Facility: [facility] Address: [address] [place] [address] Performed By: #### 3 040-3, 1798-8 ####[facility] LABCLIA [id number] [place] [address] [place] XR ABD 2V SUPINE W UPR/DECUB /CTLon 03-08-2024 XR ABD 2V SUPINE W UPR/DECUB/CTL * * *Final Report* * * DATE OF EXAM: Mar 08 2024 2:50PM WOX [id number] - XR ABD 2V SUPINE W UPR/DECUB/CTL / PROCEDURE REASON: multiple diagnoses * * * * Physician Interpretation * * * * EXAM TITLE: XR ABD 2V SUPINE W UPR/DECUB/CTL EXAM DATE/TIME: 03/08/2024 2:50 PM COMPARISON: None. CLINICAL INDICATION/HISTORY: Nausea. TECHNIQUE: AP views of the abdomen including upright view are presented. FINDINGS: No abnormally dilated bowel loops identified. No evidence of free air. Small stool burden. There are no abnormal calcifications. The bony structures appear intact. IMPRESSION: No evidence of free air or bowel obstruction. Band Maker: DESIREE Transcribe Date/Time: Mar 09 2024 4:58P Dictated by : ISABEL BRADFORD MD This examination was interpreted and the report reviewed and electronically signed by: ISABEL BRADFORD MD on Mar 09 2024 4:58PM EST [id number] Normal [facility] XR Abdomen Supine and Uprigh ton 03-08-2024 Radiology Study observation (narrative) [facility] CBC W/Diff, Automatedon 10-0 Absolute Lymph 2.12 X10 3/uL Normal 0.83-4.51 [facility] Comment on above: Performed By: #### L 100.0100 #### [facility] [address] [place], [place] [address], [address] Absolute Neut 16.1 X10 3/uL High 2.0-7.7 [facility] Comment on above: Performed By: #### L 100.0100 #### [facility] [address] [place], [address] Basophils/100 WBC (Bld) 0.3 % Normal 0-1 [facility] Comment on above: Performed By: #### L 100.0100 #### [facility] [address] [place], [address] Eosinophils/100 WBC (Bld) 0.9 % Normal 0-5 [facility] Comment on above: Performed By: #### L 100.0100 #### [facility] [address] [place], [address] Erythrocyte distribution width (RBC) [Ratio] 12.3 % Normal 11.6-14.6 [facility] Comment on above: Performed By: #### L 100.0100 #### [facility] [address] [place], [address] Hematocrit (Bld) [Volume fraction] 25.3 % Low 37-47 [facility] Comment on above: Performed By: #### L 100.0100 #### [facility] [address] [place], [address] Hemoglobin (Bld) [Mass/Vol] 8.7 g/dL Low 12.0-15.0 [facility] Comment on above: Performed By: #### L 100.0100 #### [facility] [address] [place], [address] IG% 1.100 High 0.0-0.9 [facility] Comment on above: Result Comment: IG% - Immature Granulocytes (promyelocytes, myelocytes and metamyelocytes) > 1% indicates that a LEFT SHIFT is Present. Performed By: #### L 100.0100 #### [facility] [address] [place], [address] Lymphocytes/100 WBC (Bld) 10.7 % Low 19-41 [facility] Comment on above: Performed By: #### L 100.0100 #### [facility] [address] [place], [address] MCH (RBC) [Entitic mass] 32.1 pg High 27.0-32.0 [facility] Comment on above: Performed By: #### L 100.0100 #### [facility] [address] [place], [address] MCHC (RBC) [Mass/Vol] 34.4 g/dL Normal 32-36 [facility] Comment on above: Performed By: #### L 100.0100 #### [facility] [address] [place], [address] MCV (RBC) [Entitic vol] 93.4 fL Normal 81-99 [facility] Comment on above: Performed By: #### L 100.0100 #### [facility] [address] [place], [address] Monocytes/100 WBC (Bld) 6.2 % Normal 0-10 [facility] Comment on above: Performed By: #### L 100.0100 #### [facility] [address] [place], [address] Neutrophils/100 WBC (Bld) 80.8 % High 47-70 [facility] Comment on above: Performed By: #### L 100.0100 #### [facility] [address] [place], [address] Nucleated RBC (Bld) [#/Vol] 0 10*3/uL Normal 0-5 [facility] Comment on above: Performed By: #### L 100.0100 #### [facility] [address] [place], [address] Platelet mean volume (Bld) [Entitic vol] 11.0 fL Normal 6.2-12.0 [facility] Comment on above: Performed By: #### L 100.0100 #### [facility] [address] [place], [address] Platelets (Bld) [#/Vol] 156 10*3/uL Normal 150-450 [facility] Comment on above: Performed By: #### L 100.0100 #### [facility] [address] [place], [address] RBC (Bld) [#/Vol] 2.71 10*6/uL Low 4.2-5.4 [facility] Comment on above: Performed By: #### L 100.0100 #### [facility] [address] [place], [address] RDW SD 42.0 fl Normal 35.1-43.9 [facility] Comment on above: Performed By: #### L 100.0100 #### [facility] [address] [place], [address] WBC (Bld) [#/Vol] 19.9 10*3/uL High 4.4-11.0 [facility] Comment on above: Performed By: #### L 100.0100 #### [facility] [address] [place], [address] Discharge Instructionon Discharge Instruction [facility] Medical Records Department [address] [place] [address] Instructions for Home/Discharge Instructions 03/05/24 0559 MR#: [id number] Acct: [id number] Name: SARAH DAVID Rep #: [id number] : 2000 24 From: Naga Marks DO PCP: DORA RESTREPO, PELLETIZER-C Status:ADM IN Discharge Instructions Diet Discharge Diet: No restrictions Activity Discharge Activity: May Not Drive and May Shower May resume sexual activity in: 6 weeks Ice area for (Minutes): 15 Weight Bearing Status: Weight bearing as tolerated Lifting Restrictions: nothing heavier than baby Dressing / Incision Call your doctor if your incision/area has: Continuous Slow Oozing, Sudden Increased Bleeding, Increased Pain/ Swelling, Increased Redness, Foul Smelling Discharge and Swelling at the incision site Call your doctor if you observe: Fever of 101 or Higher, Coldness, Increased Pain, Numbness or Tingling, Change in Color, Inability to urinate, Inability to have a bowel movement, Using more than 1 pad per hour, Shortness of breath, Dizziness, Fainting spells, Swelling in the ankles, Chest pain, Prolonged hiccupping, Increased palpitations (irregular heartbeat), Calf discomfort and Uncontrolled pain Suture Line Care: Avoid Pulling/Pushing and Avoid Pinching/Bending Remove Dressing in: 3 days Cleanse incision/area with: Soap Water Follow Up Care Please Follow Up With: Naga Marks DO When: 1 week for incision check 6 weeks exam Test Results: Test results from this visit will be discussed in further detail at your follow-up appointment, if applicable. Discharge Plan Admission Admit Date/Time: 03/02/24 07:50 Primary Reason for Your Visit: Delivery Attending Provider: Naga Marks Primary Care Provider: DORA RESTREPO Instructions Patient Instructions: After a Discharge Orders/Prescriptions Prescriptions: New acetaminophen [Pain Relief (acetaminophen)] 325 mg tablet 650 mg PO Q6H PRN (Reason: pain) Qty: 30 0RF ibuprofen 600 mg tablet 600 mg PO Q6H PRN (Reason: pain) Qty: 30 0RF docusate sodium [Colace] 100 mg capsule 100 mg PO DAILY Qty: 30 0RF ferrous sulfate 325 mg (65 mg iron) tablet 325 mg PO QODAY Qty: 30 0RF Referrals / Follow Up: DORA RESTREPO NP-C [Primary Care Provider] - Disposition Disposition (needs filled in before D/C Order can be placed): Home, Self Care 03/05/24 0600 Naga Marks DO CC: KASHMIR RESTREPO Signed Normal [facility] CBC-Complete Blood Cnt No Di ffon 03-04-2024 Erythrocyte distribution width (RBC) [Ratio] 12.4 % Normal 11.6-14.6 [facility] Comment on above: Order Comment: Comme nts: Day #1 Reason for Laboratory Test Performed By: #### L 100.0500 #### [facility] [address] [place], [address] Hematocrit (Bld) [Volume fraction] 28.1 % Low 37-47 [facility] Comment on above: Order Comment: Comme nts: Day #1 Reason for Laboratory Test Performed By: #### L 100.0500 #### [facility] [address] [place], [address] Hemoglobin (Bld) [Mass/Vol] 9.6 g/dL Low 12.0-15.0 [facility] Comment on above: Order Comment: Comme nts: Day #1 Reason for Laboratory Test Performed By: #### L 100.0500 #### [facility] [address] [place], [address] MCH (RBC) [Entitic mass] 31.8 pg Normal 27.0-32.0 [facility] Comment on above: Order Comment: Comme nts: Day #1 Reason for Laboratory Test Performed By: #### L 100.0500 #### [facility] [address] [place], [address] MCHC (RBC) [Mass/Vol] 34.2 g/dL Normal 32-36 [facility] Comment on above: Order Comment: Comme nts: Day #1 Reason for Laboratory Test Performed By: #### L 100.0500 #### [facility] [address] [place], [address] MCV (RBC) [Entitic vol] 93.0 fL Normal 81-99 [facility] Comment on above: Order Comment: Comme nts: Day #1 Reason for Laboratory Test Performed By: #### L 100.0500 #### [facility] [address] [place], [address] Platelet mean volume (Bld) [Entitic vol] 11.2 fL Normal 6.2-12.0 [facility] Comment on above: Order Comment: Comme nts: Day #1 Reason for Laboratory Test Performed By: #### L 100.0500 #### [facility] [address] [place], [address] Platelets (Bld) [#/Vol] 155 10*3/uL Normal 150-450 [facility] Comment on above: Order Comment: Comme nts: Day #1 Reason for Laboratory Test Performed By: #### L 100.0500 #### [facility] [address] [place], [address] RBC (Bld) [#/Vol] 3.02 10*6/uL Low 4.2-5.4 [facility] Comment on above: Order Comment: Comme nts: Day #1 Reason for Laboratory Test Performed By: #### L 100.0500 #### [facility] [address] [place], [address] RDW SD 41.9 fl Normal 35.1-43.9 [facility] Comment on above: Order Comment: Comme nts: Day #1 Reason for Laboratory Test Performed By: #### L 100.0500 #### [facility] [address] [place], [address] WBC (Bld) [#/Vol] 27.5 10*3/uL High 4.4-11.0 [facility] Comment on above: Order Comment: Comme nts: Day #1 Reason for Laboratory Test Performed By: #### L 100.0500 #### [facility] [address] [place], [address] BRho(D) IGon 03-03-2024 Rho(D) IG Normal [facility] Comment on above: Result Comment: [id number] Rho(D) IG PRSMD TRFSD 03/03/24 1152 Performed By: #### B Rho(D) IG, BRHNM #### [facility] [address] [place], [address] Operative Reporton 4 Operative Report [facility] Medical Records Department [address] [place] [address] Operative Report 03/03/24 0736 MR#: [id number] Acct: [id number] Name: SARAH DAVID Rep #: [id number] : 2000 24 From: Naga Marks DO PCP: DORA RESTREPO PELLETIZER-C Status:ADM IN Location: DO390-6 Problems Associated Problem List Diagnoses (1) Marijuana use: (2) History of depression: (3) Late care affecting : (4) Rubella non-immune status, antepartum: (5) Rh negative state in antepartum period: (6) SROM (spontaneous rupture of membranes): (7) 39 weeks gestation of : (8) intolerance to labor, delivered, current hospitalization: Report of Operation Date of Procedure: 03/03/24 Pre-Operative Diagnosis: 39 week gestation, SROM, intolerance to labor Post-Operative Diagnosis: As above Surgery/Procedure Performed:: PLTCS via pfannenstiel incision Description of Surgical Findings:: VMI in cephalic presentation but off the maternal right pelvis. Thick meconium stained fluid. Apgars 7, 9. Normal appearing uterus and bilateral adnexa. Normal appearing placenta. Surgeon: Naga Marks stamper blocker: Jonathan CORTES Type of Anesthesia: Spinal Special Medications: None Specimen's removed: Placenta Drains: Belle Estimated Blood Loss (mL): 800 Fluids Replaced: 1000 mL Description of Procedure: Indications: The patient presented around 39 week gestation with SROM and 1 cm cervix. Pitocin was used to augment labor. There were several episodes of bradycardia and recurrent late decelerations that would recover. Unable to titrate Pitocin given intolerance. Cvx 5 cm and thicker than on admission, with caput on exam. Epidural not providing adequate pain relief. Patient requesting a section. Procedure: Patient was taken to the operating room where epidural anesthesia was not adequate. She likely had pain relief overnight and was comfortable given inadequate contractions and inability to titrate the Pitocin. A spinal was placed by anesthesia. The spinal was found to be adequate. The patient was prepped and draped in the dorsal supine position with leftward tilt. A Pfannenstiel skin incision was made using a scalpel and carried down to the underlying layer of fascia. The fascia was incised in the midline. The fascial incision was extended laterally using Pacheco scissors. The fascia was tented using Mark clamps and dissected off the rectus muscles both in a cephalad and caudad direction. The rectus muscles were the midline. The peritoneum was entered with sharp dissection with good visualization of the bladder. The peritoneal incision was extended with lateral traction. A bladder blade was inserted. A low transverse incision was made on the uterus with a scalpel. Uterine incision was then extended with cephalad and caudad traction. The head was noted to be in the maternal right pelvis and was elevated out of the pelvis. The head was flexed during delivery. The head and body of the were delivered without any traction, force, or delay. Thick meconium was noted at time of delivery. The cord was clamped and cut after a slight delay and the viable male was handed off to the awaiting nursery staff. The placenta was removed with manual extraction. Cord gases and cord blood were obtained. The uterus was exteriorized. The uterus was cleared all clot and debris. Anesthesia noted at this time that the urine was blood-tinged. 1-0 Vicryl was used to close the hysterotomy in a running locked fashion. Several additional [id number] sutures were placed for hemostasis. The lower uterine segment was noted to be slightly oozy in various different locations, and an attempt was made to achieve hemostasis using the Bovie cautery. The bladder was then backfilled with 200 mL of methylene blue by the nursing staff, and on upon inspection the bladder was noted to be intact and without a defect. The bladder was then drained. Hemablast was used over the hysterotomy and lower uterine segment. Hemostasis was noted. The peritoneum was closed with 3-0 Vicryl in a running fashion. The subfascial space was inspected and noted to be hemostatic. The fascia was closed with STRATAFIX in a running fashion. The subcutaneous space was irrigated and made hemostatic with the Bovie cautery. Subcutaneous space was reapproximated with 3-0 Vicryl. The skin was closed with 4 Monocryl in a subcuticular fashion. A silver dressing was placed. Instrument, sponge, sharp counts were correct and patient was taken to the recovery in stable condition. Jonathan CORTES was present for the prepping and draping the patient, delivery of infant and closure up until closure of subcutaneous space. Grafts/Implants Used: None Procedure Start Time: 06:30 Procedure Stop Time: 07:30 Complications None Admit VTE Documentation VTE Present (more content not included)... Normal [facility] Rh Negative Mom Workupon ABO and Rh group Nom (Bld) Blood group A Rh(D) negative Normal [facility] Comment on above: Order Comment: Comme nts: Age > 13 Weeks babyboy shank [id number] Performed By: #### B Rho(D) IG, BRHNM #### [facility] [address] [place], [address] ABO and Rh group Nom (Bld) Blood group O Rh(D) positive [facility] Comment on above: Order Comment: Comme nts: Age > 13 Weeks babyboy shank [id number] Performed By: #### B Rho(D) IG, BRHNM #### [facility] [address] [place], [address] DIRECT ANTIGLOB Negative Normal NEGATIVE [facility] Comment on above: Order Comment: Comme nts: Age > 13 Weeks babyboy shank [id number] Performed By: #### B Rho(D) IG, BRHNM #### [facility] [address] [place], [address] SCREEN Negative Normal NEGATIVE [facility] Comment on above: Order Comment: Comme nts: Age > 13 Weeks babyboy shank [id number] Performed By: #### B Rho(D) IG, BRHNM #### [facility] [address] [place], [address] MOM'S ABS Negative Normal [facility] Comment on above: Order Comment: Comme nts: Age > 13 Weeks babyboy shank [id number] Performed By: #### B Rho(D) IG, BRHNM #### [facility] [address] [place], [address] (ROM) Rupture Of Membraneson 03-02-2024 ROM Positive Abnormal Negative [facility] Comment on above: Result Comment: Amni otic fluid present indicates rupture of Membranes. RESULTS CALLED TO DANE SMART 03/02/24 0747 Ally Munguia. REPORT READ BACK BY SAME . Performed By: #### L 205.1000 #### [facility] [address] [place], [address] CBC W/Diff, Automatedon Absolute Lymph 1.73 X10 3/uL Normal 0.83-4.51 [facility] Comment on above: Performed By: #### L 100.0100, BTS, M54040-2 #### [facility] [address] [place], [address] Absolute Neut 14.1 X10 3/uL High 2.0-7.7 [facility] Comment on above: Performed By: #### L 100.0100, BTS, D38393-5 #### [facility] [address] [place], [address] Basophils/100 WBC (Bld) 0.3 % Normal 0-1 [facility] Comment on above: Performed By: #### L 100.0100, BTS, J50902-2 #### [facility] [address] [place], [address] Eosinophils/100 WBC (Bld) 0.1 % Normal 0-5 [facility] Comment on above: Performed By: #### L 100.0100, BTS, Z36814-8 #### [facility] [address] [place], [address] Erythrocyte distribution width (RBC) [Ratio] 11.8 % Normal 11.6-14.6 [facility] Comment on above: Performed By: #### L 100.0100, BTS, Y86800-6 #### [facility] [address] [place], [address] Hematocrit (Bld) [Volume fraction] 35.0 % Low 37-47 [facility] Comment on above: Performed By: #### L 100.0100, BTS, M35413-1 #### [facility] [address] [place], [address] Hemoglobin (Bld) [Mass/Vol] 12.3 g/dL Normal 12.0-15.0 [facility] Comment on above: Performed By: #### L 100.0100, BTS, G76593-9 #### [facility] [address] [place], [address] IG% 0.700 Normal 0.0-0.9 [facility] Comment on above: Result Comment: IG% - Immature Granulocytes (promyelocytes, myelocytes and metamyelocytes) > 1% indicates that a LEFT SHIFT is Present. Performed By: #### L 100.0100, BTS, E70903-7 #### [facility] [address] [place], [address] Lymphocytes/100 WBC (Bld) 10.3 % Low 19-41 [facility] Comment on above: Performed By: #### L 100.0100, BTS, D39139-8 #### [facility] [address] [place], [address] MCH (RBC) [Entitic mass] 31.7 pg Normal 27.0-32.0 [facility] Comment on above: Performed By: #### L 100.0100, BTS, V16907-9 #### [facility] [address] [place], [address] MCHC (RBC) [Mass/Vol] 35.1 g/dL Normal 32-36 [facility] Comment on above: Performed By: #### L 100.0100, BTS, Z04953-3 #### [facility] [address] [place], [address] MCV (RBC) [Entitic vol] 90.2 fL Normal 81-99 [facility] Comment on above: Performed By: #### L 100.0100, BTS, P09715-3 #### [facility] [address] [place], [address] Monocytes/100 WBC (Bld) 4.7 % Normal 0-10 [facility] Comment on above: Performed By: #### L 100.0100, BTS, Q10458-8 #### [facility] [address] [place], [address] Neutrophils/100 WBC (Bld) 83.9 % High 47-70 [facility] Comment on above: Performed By: #### L 100.0100, BTS, O00681-4 #### [facility] [address] [place], [address] Nucleated RBC (Bld) [#/Vol] 0 10*3/uL Normal 0-5 [facility] Comment on above: Performed By: #### L 100.0100, BTS, R81107-2 #### [facility] [address] [place], [address] Platelet mean volume (Bld) [Entitic vol] 11.6 fL Normal 6.2-12.0 [facility] Comment on above: Performed By: #### L 100.0100, BTS, P84958-3 #### [facility] [address] [place], [address] Platelets (Bld) [#/Vol] 178 10*3/uL Normal 150-450 [facility] Comment on above: Performed By: #### L 100.0100, BTS, [id number] #### [facility] [address] [place], [address] RBC (Bld) [#/Vol] 3.88 10*6/uL Low 4.2-5.4 [facility] Comment on above: Performed By: #### L 100.0100, BTS, P83038-1 #### [facility] [address] [place], [address] RDW SD 38.8 fl Normal 35.1-43.9 [facility] Comment on above: Performed By: #### L 100.0100, BTS, F93007-2 #### [facility] [address] [place], [address] WBC (Bld) [#/Vol] 16.8 10*3/uL High 4.4-11.0 [facility] Comment on above: Performed By: #### L 100.0100, BTS, Q92907-4 #### [facility] [address] [place], [address] H AND P Exam - OB/GYNon 10- H&P Exam - JAIL GUARD [facility] Medical Records Department [address] [place] [address] H P Exam - JAIL GUARD 03/02/24 1010 MR#: [id number] Acct: [id number] Name: SARAH DAVID Rep #: [id number] : 2000 24 From: Naga Marks DO PCP: DORA RESTREPO, PELLETIZER-C Status:ADM IN Location: [id number] HPI - General General Date of Admission: 03/02/24 Date of Service: 03/02/24 Chief Complaint: SROM and labor HPI Narrative SARAH DAVID, is a 24 F who presents with SROM for clear fluid and contractions. [facility] Medical History (Updated 03/02/24 @ 10:57 by Roberta Smart) Brain lesion Family history of hearing loss at age younger than 7 years Headache Depression Home Medications ???Medication ???Instructions ???Recorded ???Last Taken ???Type hydroxyzine HCl 25 mg tablet tab 11/27/21 Unknown History rizatriptan 5 mg disintegrating tab 11/27/21 Unknown History tablet venlafaxine 150 mg cap PO 11/27/21 Unknown History capsule,extended release 24 hr Allergy/AdvReac Type Severity Reaction Status Date / Time amoxicillin trihydrate (From Allergy Rash Verified 03/02/24 07:38 Augmentin) Penicillins Allergy Rash Verified 03/02/24 07:38 potassium clavulanate (From Allergy Rash Verified 03/02/24 07:38 Augmentin) Social History Smoking Status: Former smoker History Elective abortions Hx Para 0 Spontaneous abortions Hx # Term Pregnancies Ectopic pregnancies Hx # Pregnancies Multiple births # of living children NST FHR Rate Baby A Baseline: 120 Variability:: Moderate Accelerations:: 15 x 15 Decelerations:: Early and Late NST Reactive:: Yes FHR Category:: Category I Uterine Activity:: ctx q 1-4 min Vital Signs Vital Signs Vital Signs: 03/02/24 07:21 03/02/24 07:21 03/02/24 07:22 Temperature Temperature Source Pulse Rate 76 76 Respiratory Rate Blood Pressure 137/83 H BP Systolic 137 BP Diastolic 83 Pulse Ox 03/02/24 07:22 03/02/24 07:23 03/02/24 07:23 Temperature Temperature Source Tympanic Pulse Rate Respiratory Rate 16 Blood Pressure BP Systolic BP Diastolic Pulse Ox 100 03/02/24 07:23 03/02/24 07:23 03/02/24 09:46 Temperature 97.4 F L Temperature Source Pulse Rate Respiratory Rate Blood Pressure 125/70 H BP Systolic 125 BP Diastolic 70 Pulse Ox 99 03/02/24 09:46 03/02/24 09:46 03/02/24 09:51 Temperature Temperature Source Pulse Rate 76 83 Respiratory Rate Blood Pressure BP Systolic BP Diastolic Pulse Ox 100 03/02/24 09:51 03/02/24 09:52 03/02/24 09:52 Temperature Temperature Source Pulse Rate 78 Respiratory Rate Blood Pressure 118/64 BP Systolic 118 BP Diastolic 64 Pulse Ox 99 03/02/24 09:56 03/02/24 09:56 03/02/24 09:56 Temperature Temperature Source Pulse Rate 69 Respiratory Rate Blood Pressure 121/70 H BP Systolic 121 BP Diastolic 70 Pulse Ox 100 03/02/24 10:01 03/02/24 10:01 03/02/24 10:02 Temperature Temperature Source Pulse Rate 75 Respiratory Rate Blood Pressure 111/75 BP Systolic 111 BP Diastolic 75 Pulse Ox 100 03/02/24 10:02 03/02/24 10:06 03/02/24 10:06 Temperature Temperature Source Pulse Rate 66 79 Respiratory Rate Blood Pressure BP Systolic BP Diastolic Pulse Ox 100 03/02/24 10:07 03/02/24 10:07 Temperature Temperature Source Pulse Rate 77 Respiratory Rate Blood Pressure 144/68 H BP Systolic 144 BP Diastolic 68 Pulse Ox Weight Weight: 179 lb Body Mass Index (BMI) 33.8 Labs Labs Labs: Blood Type A NEGATIVE Antibody Screen NEGATIVE Hct 35.0 % (37-47) L Hgb 12.3 g/dL (12.0-15.0) Obstetrics Ultrasound Syphilis Total Ab Non-reactive GBS negative Assessment Plan (1) 39 weeks gestation of : PLAN: ROM plus positive. Cervical change from 1 cm to 3 cm. Admit for labor. Routine intrapartum care. Epidural for pain control. GBS negative. EFW < 4500 grams and pelvis adequate. Forebag ruptured for scant clear fluid. (2) SROM (spontaneous rupture of membranes): (3) Rh negative state in antepartum period: (4) Rubella non-immune status, antepartum: (5) Late care affecting : (6) History of depression: (7) Marijuana use: 03/02/24 1130 Cosigner Signature (if applicable): CC: PELLETIZERGlenna RESTREPO; Dr. Naga Marks, DO Signed [facility] L509.8000on 03-02-2024 Syphilis Abs Non-Reactive [facility] Comment on above: Performed By: #### L 509.8000 ####[facility] [address] [place], [address] Type AND Screenon 03-02-2024 Ab SCREEN GEL TNP [facility] Comment on above: Order Comment: Labor Performed By: #### L 100.0100, BTS, S69617-1 ####[facility] [address] [place], [address] ABO and Rh group Nom (Bld) Blood group A Rh(D) negative Normal [facility] Comment on above: Order Comment: Labor Performed By: #### L 100.0100, [facility], B05561-4 ####[facility] [address] [place], [address] Urine Drug Screen (VISTA)on 03-02-2024 AMPHETAMINES Negative Normal <1000 ng/mL [facility] Comment on above: Performed By: #### L 505.5000 #### [facility] [address] [place], [address] BARBITIURATES Negative Normal < 200 ng/mL [facility] Comment on above: Performed By: #### L 505.5000 #### [facility] [address] [place], [address] BENZODIAZIPINE Negative Normal < 200 ng/mL [facility] Comment on above: Performed By: #### L 505.5000 #### [facility] [address] [place], [address] COCAINE Negative Normal < 300 ng/mL [facility] Comment on above: Performed By: #### L 505.5000 #### [facility] [address] [place], [address] ECSTACY Negative Normal < 500 ng/mL [facility] Comment on above: Performed By: #### L 505.5000 #### [facility] [address] [place], [address] METHADONE Negative Normal < 300 ng/mL [facility] Comment on above: Performed By: #### L 505.5000 #### [facility] [address] [place], [address] OPIATES Negative Normal < 300 ng/mL [facility] Comment on above: Performed By: #### L 505.5000 #### [facility] [address] [place], [place], [address] PCP Negative Normal < 25 ng/mL [facility] Comment on above: Performed By: #### L 505.5000 #### [facility] [address] [place], [place], [address] THC Positive Abnormal < 50 ng/mL [facility] Comment on above: Performed By: #### L 505.5000 #### [facility] [address] [place], [place], [address] VISTA UDS PH 5 Normal [facility] Comment on above: Performed By: #### L 505.5000 #### [facility] [address] [place], [place], [address] URINE OB DIP B/Oon 4 Glucose Ql (U) Negative Neg mg/dL [facility] Interpretation and review of laboratory results Normal [facility] Protein.monoclonal (U) [Mass/Vol] Negative Neg mg/dL [facility] URINE OB DIP B/Oon 4 Glucose Ql (U) Negative Neg mg/dL [facility] Interpretation and review of laboratory results Normal [facility] Protein.monoclonal (U) [Mass/Vol] Negative Neg mg/dL [facility] URINE OB DIP B/Oon 4 Glucose Ql (U) Negative Neg mg/dL [facility] Protein.monoclonal (U) [Mass/Vol] Negative Neg mg/dL [facility] ROUTINE, GROUP B ST REP PCRon 02-10-2024 ROUTINE, GROUP B STREP PCR GROUP B STREP PCR: Negative for Group B Streptococcus by PCR. Normal [facility] Comment on above: Performed By: #### G BPCR ####[facility] LABCLIA [id number] [address] [place] URINE OB DIP B/Oon 4 Glucose Ql (U) Negative Neg mg/dL [facility] Interpretation and review of laboratory results Normal [facility] Protein.monoclonal (U) [Mass/Vol] Negative Neg mg/dL [facility] Examination level ultrasound on 02-01-2024 [facility] Examination level ultrasound on 01-26-2024 Radiology Study observation (narrative) [facility] AMBERNon 01-18-2024 CNPN Telephone (OBGYWM) SARAH DAVID ([id number]) 2000 F Date Time Provider Department 01/18/24 CAMILLE ROBERTSON OBGYWM During your visit today, we recorded the following information about you: Kendy Hennessy 01/18/2024 3:24 PM Signed No available slots for Growth US in 2 wk patient wondering if ok to have this on 02/09 if not she is ok to travel to other locations.Please assist and advice. Many thanks Allergies As of Date: 01/18/2024 Noted Allergy Reaction AMOXICILLIN 04/12/2008 2 - Rash AUGMENTIN (AMOXICILLIN-POT CLAVUL*04/12/2008 2 - Rash 11 - Vomiting PENICILLINS 05/06/2005 2 - Rash Date Reviewed: 01/18/2024 Reviewed by: Tiffany Taylor MA - Fully Assessed Reason for Visit: Appointment [186] Prescriptions as of 01/19/2024 - Ocsbxkju-Pr-Vyr-Fe-FA tab Take 1 tablet by mouth once daily. Problem List As Of Date 01/18/2024 Noted Resolved Malformation [Q89.9] 08/28/2013 Brain tumor [D49.6] 08/28/2013 06/03/2015 Migraines [G43.909] 02/06/2014 Body mass index equal to or greater than 95th p*02/06/2014 10/18/2022 Brain lesion [G93.9] 06/03/2015 Family history of genetic disease [Z84.89] 09/19/2023 Nausea and vomiting during [O21.9] 09/19/2023 11/23/2023 Late care affecting in secon*09/19/2023 Constipation during in second trimest*09/19/2023 11/23/2023 Caffeine use [Z78.9] 09/19/2023 History of depression [Z86.59] 09/19/2023 Marijuana use [F12.90] 09/19/2023 Encounter for supervision of high risk pregnanc*09/19/2023 Penicillin allergy [Z88.0] 09/19/2023 Rubella non-immune status, antepartum [O09.899,*09/21/2023 Rh negative state in antepartum period [O26.899*09/21/2023 Encounter Status:Closed by ALIX QUINONES on 01/19/24 [facility] 12-27-2023 CNPN Telephone (OGFVWE) SARAH DAVID ([id number]) 2000 F Date Time Provider Department 12/27/23 BEH[facility]IORAL HEALTH THERAPIST OGFVWE During your visit today, we recorded the following information about you: Brii Cadena, RN 12/27/2023 11:20 AM Signed 3rd risk assessment form submitted 12/27/23 Brii Cadena RN Allergies As of Date: 12/27/2023 Noted Allergy Reaction AMOXICILLIN 04/12/2008 2 - Rash AUGMENTIN (AMOXICILLIN-POT CLAVUL*04/12/2008 2 - Rash 11 - Vomiting PENICILLINS 05/06/2005 2 - Rash Date Reviewed: 12/21/2023 Reviewed by: Mi Santillan MD - Fully Assessed Reason for Visit: PRAF [4193] Prescriptions as of 12/27/2023 - aspirin, enteric coated (ASPIRIN, ENTERIC COATED) 81 mg EC tablet Take 1 tablet by mouth once daily. - Mulcncso-Al-Fwg-Fe-FA tab Take 1 tablet by mouth once daily. Problem List As Of Date 12/27/2023 Noted Resolved Malformation [Q89.9] 08/28/2013 Brain tumor [D49.6] 08/28/2013 06/03/2015 Migraines [G43.909] 02/06/2014 Body mass index equal to or greater than 95th p*02/06/2014 10/18/2022 Brain lesion [G93.9] 06/03/2015 Family history of genetic disease [Z84.89] 09/19/2023 Nausea and vomiting during [O21.9] 09/19/2023 11/23/2023 Late care affecting in secon*09/19/2023 Constipation during in second trimest*09/19/2023 11/23/2023 Caffeine use [Z78.9] 09/19/2023 History of depression [Z86.59] 09/19/2023 Marijuana use [F12.90] 09/19/2023 Encounter for supervision of normal [*09/19/2023 Penicillin allergy [Z88.0] 09/19/2023 Rubella non-immune status, antepartum [O09.899,*09/21/2023 Rh negative state in antepartum period [O26.899*09/21/2023 Encounter Status:Closed by BRII CADENA on 12/27/23 Normal [facility] TYPE + SCREEN PRENATALon ABO A Normal [facility] Comment on above: Order Comment: Speci men Type: BLOOD SPECIMENOrdering Facility: [facility] Address: [address] [place] [address] Performed By: #### T SPN ####[facility] MA[facility] BLOOD BANKCLIA [id number] [place] [address] [place] HISTORICAL AB SCR STATUS Negative Normal [facility] Comment on above: Order Comment: Speci men Type: BLOOD SPECIMENOrdering Facility: [facility] Address: [address] [place] [address] Performed By: #### T SPN ####[facility] MA[facility] BLOOD BANKCLIA [id number] [place] [address] [place] Rh Nom (Bld) Negative Normal [facility] Comment on above: Order Comment: Speci men Type: BLOOD SPECIMENOrdering Facility: [facility] Address: [address] [place] [address] Performed By: #### T SPN ####[facility] MA[facility] BLOOD BANKCLIA [id number] [place] [address] [place] TYPE AND SCREEN EXPIRATION 12/24/2023 23:59 Normal [facility] Comment on above: Order Comment: Speci men Type: BLOOD SPECIMENOrdering Facility: [facility] Address: [address] [place] [address] Performed By: #### T SPN ####[facility] MA[facility] BLOOD BANKCLIA [id number] [place] [address] [place] CBC W Auto Differential pane l (Bld)on 11-23-2023 Basophils (Bld) [#/Vol] 0.06 10*3/uL Normal <0.11 [facility] Comment on above: Order Comment: Speci men Type: BLOOD SPECIMENOrdering Facility: [facility] Address: [address] [place] [address] Performed By: #### 5 7021-8 ####[facility] [id number] [place] [address] [place] Basophils/100 WBC (Bld) 0.4 % Normal [facility] Comment on above: Order Comment: Speci men Type: BLOOD SPECIMENOrdering Facility: [facility] Address: [address] [place] [address] Performed By: #### 5 7021-8 ####[facility] [id number] [place] [address] [place] Differential cell count method Nom (Bld) Auto Normal [facility] Comment on above: Order Comment: Speci men Type: BLOOD SPECIMENOrdering Facility: [facility] Address: [address] [place] [address] Performed By: #### 5 7021-8 ####[facility]ITAL[facility]QUILA [id number] [place] [address] [place] Eosinophils (Bld) [#/Vol] 0.06 10*3/uL Normal <0.46 [facility] Comment on above: Order Comment: Speci men Type: BLOOD SPECIMENOrdering Facility: [facility] Address: [address] [place] [address] Performed By: #### 5 7021-8 ####[facility] [id number] [place] [address] [place] Eosinophils/100 WBC (Bld) 0.4 % Normal [facility] Comment on above: Order Comment: Speci men Type: BLOOD SPECIMENOrdering Facility: [facility] Address: [address] [place] [address] Performed By: #### 5 7021-8 ####[facility] [id number] [place] [address] [place] Erythrocyte distribution width (RBC) [Ratio] 12.1 % Normal 11.5-15.0 [facility] Comment on above: Order Comment: Speci men Type: BLOOD SPECIMENOrdering Facility: [facility] Address: [address] [place] [address] Performed By: #### 5 7021-8 ####[facility] [id number] [place] [address] [place] Hematocrit (Bld) [Volume fraction] 34.0 % Low 36.0-46.0 [facility] Comment on above: Order Comment: Speci men Type: BLOOD SPECIMENOrdering Facility: [facility] Address: [address] [place] [address] Performed By: #### 5 7021-8 ####[facility] AVONLIA [id number] [place] [address] [place] Hemoglobin (Bld) [Mass/Vol] 12.0 g/dL Normal 11.5-15.5 [facility] Comment on above: Order Comment: Speci men Type: BLOOD SPECIMENOrdering Facility: [facility] Address: [address] [place] [address] Performed By: #### 5 7021-8 ####[facility] [id number] [place] [address] [place] Immature granulocytes (Bld) [#/Vol] 0.09 10*3/uL Normal <0.10 [facility] Comment on above: Order Comment: Speci men Type: BLOOD SPECIMENOrdering Facility: [facility] Address: [address] [place] [address] Performed By: #### 5 7021-8 ####[facility] [id number] [place] [address] [place] Immature granulocytes/100 WBC (Bld) 0.7 % Normal [facility] Comment on above: Order Comment: Speci men Type: BLOOD SPECIMENOrdering Facility: [facility] Address: [address] [place] [address] Performed By: #### 5 7021-8 ####[facility] [id number] [place] [address] [place] Lymphocytes (Bld) [#/Vol] 1.90 10*3/uL Normal 1.00-4.00 [facility] Comment on above: Order Comment: Speci men Type: BLOOD SPECIMENOrdering Facility: [facility] Address: [address] [place] [address] Performed By: #### 5 7021-8 ####[facility]ITALNCLI [id number] [place] [address] [place] Lymphocytes/100 WBC (Bld) 14.2 % Normal [facility] Comment on above: Order Comment: Speci men Type: BLOOD SPECIMENOrdering Facility: [facility] Address: [address] [place] [address] Performed By: #### 5 7021-8 ####[facility] [id number] [place] [address] [place] MCH (RBC) [Entitic mass] 32.2 pg Normal 26.0-34.0 [facility] Comment on above: Order Comment: Speci men Type: BLOOD SPECIMENOrdering Facility: [facility] Address: [address] [place] [address] Performed By: #### 5 7021-8 ####[facility] [id number] [place] [address] [place] MCHC (RBC) [Mass/Vol] 35.3 g/dL Normal 30.5-36.0 [facility] Comment on above: Order Comment: Speci men Type: BLOOD SPECIMENOrdering Facility: [facility] Address: [address] [place] [address] Performed By: #### 5 7021-8 ####[facility] [id number] [place] [address] [place] MCV (RBC) [Entitic vol] 91.2 fL Normal 80.0-100.0 [facility] Comment on above: Order Comment: Speci men Type: BLOOD SPECIMENOrdering Facility: [facility] Address: [address] [place] [address] Performed By: #### 5 7021-8 ####[facility] [id number] [place] [address] [place] Monocytes (Bld) [#/Vol] 0.98 10*3/uL High <0.87 [facility] Comment on above: Order Comment: Speci men Type: BLOOD SPECIMENOrdering Facility: [facility] Address: [address] [place] [address] Performed By: #### 5 7021-8 ####[facility] OBIKATHYAA [id number] [place] [address] [place] Monocytes/100 WBC (Bld) 7.3 % Normal [facility] Comment on above: Order Comment: Speci men Type: BLOOD SPECIMENOrdering Facility: [facility] Address: [address] [place] [address] Performed By: #### 5 7021-8 ####[facility]ITALNCA [id number] [place] [address] [place] Neutrophils (Bld) [#/Vol] 10.29 10*3/uL High 1.45-7.50 [facility] Comment on above: Order Comment: Speci men Type: BLOOD SPECIMENOrdering Facility: [facility] Address: [address] [place] [address] Performed By: #### 5 7021-8 ####[facility]ITAL[facility] [id number] [place] [address] [place] Neutrophils/100 WBC (Bld) 77.0 % Normal [facility] Comment on above: Order Comment: Speci men Type: BLOOD SPECIMENOrdering Facility: [facility] Address: [address] [place] [address] Performed By: #### 5 7021-8 ####[facility]ITALNCLIA [id number] [place] [address] [place] Nucleated RBC (Bld) [#/Vol] 10*3/uL Normal <0.01 [facility] Comment on above: Order Comment: Speci men Type: BLOOD SPECIMENOrdering Facility: [facility] Address: [address] [place] [address] Performed By: #### 5 7021-8 ####[facility] EVELINALIA [id number] [place] [address] [place] Nucleated RBC/100 WBC (Bld) [Ratio] 0.0 /100 WBC Normal [facility] Comment on above: Order Comment: Speci men Type: BLOOD SPECIMENOrdering Facility: [facility] Address: [address] [place] [address] Performed By: #### 5 7021-8 ####[facility] OBICARTWRIGHTTEQUILA [id number] [place] [address] [place] Platelet mean volume (Bld) [Entitic vol] 9.5 fL Normal 9.0-12.7 [facility] Comment on above: Order Comment: Speci men Type: BLOOD SPECIMENOrdering Facility: [facility] Address: [address] [place] [address] Performed By: #### 5 7021-8 ####[facility] HOSPITALDIDIERBebo [id number] [place] [address] [place] Platelets (Bld) [#/Vol] 222 10*3/uL Normal 150-400 [facility] Comment on above: Order Comment: Speci men Type: BLOOD SPECIMENOrdering Facility: [facility] Address: [address] [place] [address] Performed By: #### 5 7021-8 ####[facility] HOSPITALLUKASZA [id number] [place] [address] [place] RBC (Bld) [#/Vol] 3.73 10*6/uL Low 3.90-5.20 [facility] Comment on above: Order Comment: Speci men Type: BLOOD SPECIMENOrdering Facility: [facility] Address: [address] [place] [address] Performed By: #### 5 7021-8 ####[facility] HOSPITALNCLIA [id number] [place] [address] [place] WBC (Bld) [#/Vol] 13.38 10*3/uL High 3.70-11.00 [facility] Comment on above: Order Comment: Speci men Type: BLOOD SPECIMENOrdering Facility: [facility] Address: [address] [place] [address] Performed By: #### 5 7021-8 ####[facility] [id number] [place] [address] [place] GESTATIONAL GLUCOSE SCREEN, 1-HOUR, 50 GRAM, NON-FASTINGon 11-23-2023 Glucose [Mass/Vol] 103 mg/dL Normal 74-134 [facility] Comment on above: Order Comment: Mark lema Type: BLOOD SPECIMENOrdering Facility: [facility] Address: [address] [place] [address] Result Comment: [facility] Congress of Obstetricians and Gynecologists (Jeferson/Heriberto) guidelines state a gestational diabetes mellitus positive screen is made, in women not previously diagnosed with overt diabetes, when the 1 hr plasma glucose level is equal to or above 140 mg/dL. The [facility] Instrumentation And Control Technician and [facility] [place] recommends a 135 mg/dL cutoff. Performed By: #### G LTGST ####[facility] [id number] [place] [address] [place] Reagin and Treponema pallidu m IgG and IgM [Interp]on 11-23-2023 T. pallidum IgG+IgM IA Ql (S) Non-Reactive Normal Nonreactive [facility] Comment on above: Order Comment: Speci men Type: BLOOD SPECIMENOrdering Facility: [facility] Address: [address] [place] [address] Performed By: #### 7 3752-8 ####[facility] LABCLIA [id number] [place] [address] [place] Reagin+T pallidum IgG+IgM Se rPl-Impon 11-23-2023 Reagin and Treponema pallidum IgG and IgM [Interp] Cannot exclude recent Treponemal infection if specimen collected within 7-10 days after appearance of suspect lesions or 2-3 weeks after an exposure. Clinical correlation is required. Normal [facility] Comment on above: Order Comment: Speci men Type: BLOOD SPECIMENOrdering Facility: [facility] Address: [address] [place] [address] Performed By: #### 7 3752-8 ####[facility] LABCLIA [id number] [address] [place] TYPE + SCREEN PRENATALon ABO A Normal [facility] Comment on above: Order Comment: Speci men Type: BLOOD SPECIMENOrdering Facility: [facility] Address: [address] [place] [address] Performed By: #### T SPN ####[facility] BLOOD BANKCLIA [id number] [place] [address] [place] HISTORICAL AB SCR STATUS Negative Normal [facility] Comment on above: Order Comment: Speci men Type: BLOOD SPECIMENOrdering Facility: [facility] Address: [address] [place] [address] Performed By: #### T SPN ####[facility] BLOOD BANKCLIA [id number] [place] [address] [place] Rh Nom (Bld) Negative Normal [facility] Comment on above: Order Comment: Speci men Type: BLOOD SPECIMENOrdering Facility: [facility] Address: [address] [place] [address] Performed By: #### T SPN ####[facility] BLOOD BANKCLIA [id number] [place] [address] [place] TYPE AND SCREEN EXPIRATION 11/26/2023 23:59 Normal [facility] Comment on above: Order Comment: Speci men Type: BLOOD SPECIMENOrdering Facility: [facility] Address: [address] [place] [address] Performed By: #### T SPN ####[facility] BLOOD BANKIA [id number] [address] STATES OF [facility] Examination level ultrasound on 10-12-2023 Indication anatomy survey Late care Impression REMOTE READ 1. Single, live, intrauterine . 2. biometry is consistent with the established gestational age. 3. Unremarkable anatomic survey. No markers for aneuploidy are noted. 4. Amniotic fluid normal amount. 5. The placenta is anterior, fundal. 6. Normal transvaginal cervical length without evidence of funneling or dynamic changes. Recommendations Follow up as clinically indicated. Maternal Assessment Height 155 cm Height (ft) 5 ft Height (in) 1 in Physical Exam Initial weight (lb) 119 lb Initial BMI 22.49 kg/m Method Transabdominal and transvaginal ultrasound examination. View: Adequate visualization Bravo . Number of fetuses: 1 Dating LMP on: 05/30/2023 GA by LMP 19 w + 2 d JACINTO by LMP: 03/05/2024 Ultrasound examination on: 10/12/2023 GA by U/S based upon: AC, BPD, Femur, HC GA by U/S 20 w + 0 d JACINTO by U/S: 02/29/2024 Assigned: based on the LMP, selected on 10/12/2023 Assigned GA 19 w + 2 d Assigned JACINTO: 03/05/2024 General Evaluation Cardiac activity present. FHR 135 bpm. movements: present. Presentation: breech Placenta: Placental site: anterior, fundal Umbilical cord: normal insertion, 3 vessel cord Amniotic fluid: Amount of AF: normal amount. MVP 5.9 cm Growth Overview Exam date GA BPD (mm) HC (mm) AC (mm) FL (mm) HL (mm) EFW (g) 10/12/2023 19w 2d 47 85% 167.5 53% 158.6 91% 29.7 61% 26.6 21% 328 84% Biometry Standard BPD 47.0 mm 20w 1d 85% Hadlock OFD 57.4 mm 18w 6d 51% Nicolaides HC 167.5 mm 19w 3d 53% Blair Cerebellum tr 21.2 mm 20w 1d 85% Hill Nuchal fold 4.3 mm AC 158.6 mm 21w 0d 91% Hadlock Femur 29.7 mm 19w 2d 61% Blair Humerus 26.6 mm 18w 3d 21% Blair EFW 328 g 20w 0d 84% Hadlock EFW (lb) 0 lb EFW (oz) 12 oz EFW by: Hadlock (HC-AC-FL) Extended Hogshead Mat Inspector 5.1 mm CM 2.8 mm 3% Nicolaides Extremities / Bony Struc FL / HC 0.18 41% Hadlock Other Structures FHR 135 bpm Anatomy Cranium: normal Lateral ventricles: normal Choroid plexus: normal Midline falx: normal Cavum septi pellucidi: normal Cerebellum: normal Cisterna magna: normal Head / Neck Vermis: normal Neck: normal Nuchal fold: normal Lips: normal Profile: normal Nose: normal Face Maxilla: normal Mandible: normal Orbits: normal Lens: normal 4-chamber view: normal RVOT view: normal LVOT view: normal 3-vessel view: normal 1-[id number]-[id number] view: normal Heart / Thorax Situs: situs solitus (normal) Aortic arch view: normal Ductal arch view: normal SVC: normal IVC: normal Cardiac axis: normal Rt lung: normal Lt lung: normal Diaphragm: normal Cord insertion: normal Stomach: normal Kidneys: normal Bladder: normal Genitals: normal Abdomen Abdom. wall: normal Cervical spine: normal Thoracic spine: normal Lumbar spine: normal Sacral spine: normal Arms: normal Legs: normal Rt upper arm: normal Rt forearm: normal Rt hand: normal Rt fingers: normal Lt upper arm: normal Lt forearm: normal Lt hand: normal Lt fingers: normal Rt upper leg: normal Rt lower leg: normal Rt foot: normal Lt upper leg: normal Lt lower leg: normal Lt foot: normal sex: male Wants to know sex: yes Maternal Structures Uterus / Cervix Uterus: Visualized Cervix: Visualized Approach: Transvaginal Cervical length 36.7 mm Ovaries / Tubes / Adnexa Rt ovary: Not visualized Lt ovary: Visualized Performed By: Laurel Rebolledo RDMS, RVT Read By: Jody Howard M.D. MATERNAL MEDICINE [facility] Radiology Study observation (narrative) [facility] TYPE + SCREEN PRENATALon ABO group Nom (Bld) A [facility] Blood group antibody screen Ql Negative [facility] HIstorical Ab Scr Status Negative [facility] Rh Nom (Bld) Negative [facility] Type and Screen Expiration 09/22/2023 23:59 [facility] CBC panel Auto (Bld)on 09-18 Erythrocyte distribution width (RBC) [Ratio] 12.1 % 11.5 - 15.0 % [facility] Hematocrit (Bld) [Volume fraction] 35.4 % Low 36.0 - 46.0 % [facility] Hemoglobin (Bld) [Mass/Vol] 12.5 g/dL 11.5 - 15.5 g/dL [facility] Interpretation and review of laboratory results Abnormal [facility] MCH (RBC) [Entitic mass] 31.5 pg 26.0 - 34.0 pg [facility] MCHC (RBC) [Mass/Vol] 35.3 g/dL 30.5 - 36.0 g/dL [facility] MCV (RBC) [Entitic vol] 89.2 fL 80.0 - 100.0 fL [facility] Nucleated RBC (Bld) [#/Vol] NINF [facility] Platelet mean volume (Bld) [Entitic vol] 10.3 fL 9.0 - 12.7 fL [facility] Platelets (Bld) [#/Vol] 155 10*3/uL [facility] RBC (Bld) [#/Vol] 3.97 10*6/uL 3.90 - 5.2 0 m/uL [facility] WBC (Bld) [#/Vol] 8.57 10*3/uL [facility] HbA1c (Bld)on 09-19-2023 Average glucose Estimated from glycated hemoglobin (Bld) [Mass/Vol] 85 mg/dL [facility] Comment on above: eAG: (Estimated aver age glucose) is a calculated value from HgbA1c and is tax compliance representative of the average blood glucose level in the last 2-3 month period. HbA1c (Bld) [Mass fraction] 4.6 % 4.3 - 5.6 % [facility] Comment on above: [place] Diabetes As sociation guidelines indicate that patients with HgbA1c in the range 5.7-6.4% are at increased risk for development of diabetes, and intervention by lifestyle modification may be beneficial. HgbA1c greater or equal to 6.5% is considered diagnostic of diabetes. [facility] UA DIP,URINE HCG (POC)on Beta HCG ( test) Ql (U) Positive Abnormal Negative [facility] Finish Saw Operator (POCT) Internal QC OK [facility] US FEMALE PELVIS TRANSVAGon 10-26-2022 [facility] UA DIP, URINE (POC)on 2021 BILIRUBIN UA (POCT) Negative Negative [facility] CLARITY UA (POCT) Clear [facility] COLOR UA (POCT) Yellow [facility] GLUCOSE UA (POCT) Negative Negative mg/dL [facility] HEMOGLOBIN/BLOOD UA (POCT) Negative Negative [facility] KETONE UA (POCT) Negative Negative mg/dL [facility] LEUKOCYTES UA (POCT) Negative Negative [facility] NITRITE UA (POCT) Negative Negative [facility] PH UA (POCT) 6.5 4.5 - 8.0 [facility] Protein Ql (U) Negative Negative mg/dL [facility] SPECIFIC GRAVITY UA (POCT) 1.025 1.005 - 1.030 [facility] UROBILINOGEN UA (POCT) 1.0 E.U./dL Normal E.U./ dL [facility] MRI BRAIN WO/W IVCONon 09-29 [facility] Vital Signs Date Time Vital Sign Value Performing Clinician Facility 09-03-2024 11:07-0400 Body mass index (BMI) [Ratio] 32.31 kg/m2 BUSINESS CONTROL MANAGER.BOARDING MACHINE OPERATOR Work Phone: [facility] 09-03-2024 11:07-0400 Body weight 77.56 kg BUSINESS CONTROL MANAGER.BOARDING MACHINE OPERATOR Work Phone: [facility] 09-03-2024 11:07-0400 Diastolic blood pressure 70 mm[Hg] Older BUSINESS CONTROL MANAGER.BOARDING MACHINE OPERATOR Work Phone: [facility] 09-03-2024 11:07-0400 Heart rate 84 /min Dora BUSINESS CONTROL MANAGER.BOARDING MACHINE OPERATOR Work Phone: [facility] 09-03-2024 11:07-0400 Respiratory rate 16 /min Dora Older BUSINESS CONTROL MANAGER.BOARDING MACHINE OPERATOR Work Phone: [facility] 09-03-2024 11:07-0400 SaO2% (BldA) [Mass fraction] 96 % Dora Older BUSINESS CONTROL MANAGER.BOARDING MACHINE OPERATOR Work Phone: [facility] 09-03-2024 11:07-0400 Systolic blood pressure 112 mm[Hg] Dora Older BUSINESS CONTROL MANAGER.BOARDING MACHINE OPERATOR Work Phone: [facility] 03-16-2024 15:35-0400 Body height 154.9 cm Floyd Avelar MD Work Phone: [facility] 03-16-2024 15:35-0400 Body mass index (BMI) [Ratio] 31.06 kg/m2 Floyd Avelar MD Work Phone: [facility] 03-16-2024 15:35-0400 Body temperature 97 [degF] Floyd Avelar MD Work Phone: [facility] 03-16-2024 15:35-0400 Body weight 74.57 kg Floyd Avelar MD Work Phone: [facility] 03-16-2024 15:35-0400 Diastolic blood pressure 92 mm[Hg] Floyd Avelar MD Work Phone: [facility] 03-16-2024 15:35-0400 Heart rate 102 /min Floyd Avelar MD Work Phone: [facility] 03-16-2024 15:35-0400 SaO2% (BldA) [Mass fraction] 99 % Floyd Avelar MD Work Phone: [facility] 03-16-2024 15:35-0400 Systolic blood pressure 128 mm[Hg] Floyd Avelar MD Work Phone: [facility] 03-08-2024 15:39-0400 Body mass index (BMI) [Ratio] 32.91 kg/m2 Naga Marks MD Work Phone: [facility] 03-08-2024 15:39-0400 Body weight 79.02 kg Naga Marks MD Work Phone: [facility] 03-08-2024 15:39-0400 Diastolic blood pressure 90 mm[Hg] Naga Marks MD Work Phone: [facility] 03-08-2024 15:39-0400 Systolic blood pressure 128 mm[Hg] Naga Marks MD Work Phone: [facility] 02-28-2024 14:35-0400 Body mass index (BMI) [Ratio] 34.77 kg/m2 Camille Robertson BUSINESS CONTROL MANAGER.CNM Work Phone: [facility] 02-28-2024 14:35-0400 Body weight 83.46 kg Camille Robertson BUSINESS CONTROL MANAGER.CNM Work Phone: [facility] 02-28-2024 14:35-0400 Diastolic blood pressure 72 mm[Hg] Camille Robertson BUSINESS CONTROL MANAGER.CNM Work Phone: [facility] 02-28-2024 14:35-0400 Systolic blood pressure 110 mm[Hg] Camille Robertson BUSINESS CONTROL MANAGER.CNM Work Phone: [facility] 02-21-2024 14:37-0400 Body mass index (BMI) [Ratio] 34.31 kg/m2 Camille Robertson BUSINESS CONTROL MANAGER.CNM Work Phone: [facility] 02-21-2024 14:37-0400 Body weight 82.37 kg Camille Robertson BUSINESS CONTROL MANAGER.CNM Work Phone: [facility] 02-21-2024 14:37-0400 Diastolic blood pressure 80 mm[Hg] Camille Robertson BUSINESS CONTROL MANAGER.CNM Work Phone: [facility] 02-21-2024 14:37-0400 Systolic blood pressure 120 mm[Hg] Camille Robertson BUSINESS CONTROL MANAGER.CNM Work Phone: [facility] 02-15-2024 13:51-0400 Body mass index (BMI) [Ratio] 34.39 kg/m2 Alicia Meeks MD Work Phone: [facility] 02-15-2024 13:51-0400 Body weight 82.56 kg Alicia Meeks MD Work Phone: [facility] 02-15-2024 13:51-0400 Diastolic blood pressure 76 mm[Hg] Alicia Meeks MD Work Phone: [facility] 02-15-2024 13:51-0400 Systolic blood pressure 118 mm[Hg] Alicia Meeks MD Work Phone: [facility] 02-10-2024 11:38-0400 Body mass index (BMI) [Ratio] 34.77 kg/m2 Alicia Meeks MD Work Phone: [facility] 02-10-2024 11:38-0400 Body weight 83.46 kg Alicia Meeks MD Work Phone: [facility] 02-10-2024 11:38-0400 Diastolic blood pressure 74 mm[Hg] Alicia Meeks MD Work Phone: [facility] 02-10-2024 11:38-0400 Systolic blood pressure 116 mm[Hg] Alicia Meeks MD Work Phone: [facility] 01-26-2024 11:09-0400 Diastolic blood pressure 66 mm[Hg] Mi Santillan MD Work Phone: [facility] 01-26-2024 11:09-0400 Systolic blood pressure 108 mm[Hg] Mi Santillan MD Work Phone: [facility] 01-18-2024 14:31-0400 Body mass index (BMI) [Ratio] 33.44 kg/m2 Camille Robertson APRN.CNM Work Phone: [facility] 01-18-2024 14:31-0400 Body weight 80.29 kg Camille Robertson APRN.CNBarbra Work Phone: [facility] 01-18-2024 14:31-0400 Diastolic blood pressure 76 mm[Hg] Camille Robertson APRN.CNM Work Phone: [facility] 01-18-2024 14:31-0400 Systolic blood pressure 114 mm[Hg] Camille Robertson BUSINESS CONTROL MANAGER.CNM Work Phone: [facility] 01-04-2024 15:49-0400 Body mass index (BMI) [Ratio] 32.31 kg/m2 Yulissa Haury BUSINESS CONTROL MANAGER.BOARDING MACHINE OPERATOR Work Phone: [facility] 01-04-2024 15:49-0400 Body weight 77.56 kg Yulissa Haury BUSINESS CONTROL MANAGER.BOARDING MACHINE OPERATOR Work Phone: [facility] 01-04-2024 15:49-0400 Diastolic blood pressure 60 mm[Hg] Yulissa Haury BUSINESS CONTROL MANAGER.BOARDING MACHINE OPERATOR Work Phone: [facility] 01-04-2024 15:49-0400 Systolic blood pressure 108 mm[Hg] Yulissa Haury BUSINESS CONTROL MANAGER.BOARDING MACHINE OPERATOR Work Phone: [facility] 12-21-2023 13:15-0400 Body mass index (BMI) [Ratio] 31.44 kg/m2 Mi Santillan MD Work Phone: [facility] 12-21-2023 13:15-0400 Body weight 75.48 kg Mi Santillan MD Work Phone: [facility] 12-21-2023 13:15-0400 Diastolic blood pressure 64 mm[Hg] Mi Santillan MD Work Phone: [facility] 12-21-2023 13:15-0400 Systolic blood pressure 102 mm[Hg] iM Santillan MD Work Phone: [facility] 11-23-2023 14:28-0400 Body mass index (BMI) [Ratio] 29.48 kg/m2 Yulissa Haury BUSINESS CONTROL MANAGER.BOARDING MACHINE OPERATOR Work Phone: [facility] 11-23-2023 14:28-0400 Body weight 70.76 kg Yulissa Haury BUSINESS CONTROL MANAGER.BOARDING MACHINE OPERATOR Work Phone: [facility] 11-23-2023 14:28-0400 Diastolic blood pressure 62 mm[Hg] Yulissa Haury BUSINESS CONTROL MANAGER.BOARDING MACHINE OPERATOR Work Phone: [facility] 11-23-2023 14:28-0400 Heart rate 86 /min Yulissa Fields BUSINESS CONTROL MANAGER.BOARDING MACHINE OPERATOR Work Phone: [facility] 11-23-2023 14:28-0400 Respiratory rate 12 /min Yulissa Fields BUSINESS CONTROL MANAGER.BOARDING MACHINE OPERATOR Work Phone: [facility] 11-23-2023 14:28-0400 SaO2% (BldA) [Mass fraction] 100 % Yulissa Fields BUSINESS CONTROL MANAGER.BOARDING MACHINE OPERATOR Work Phone: [facility] 11-23-2023 14:28-0400 Systolic blood pressure 108 mm[Hg] Yulissa Fields BUSINESS CONTROL MANAGER.BOARDING MACHINE OPERATOR Work Phone: [facility] 11-09-2023 11:07-0400 Body mass index (BMI) [Ratio] 28.72 kg/m2 Mi Santillan MD Work Phone: [facility] 11-09-2023 11:07-0400 Body weight 68.95 kg Mi Santillan MD Work Phone: [facility] 11-09-2023 11:07-0400 Diastolic blood pressure 60 mm[Hg] Mi Santillan MD Work Phone: [facility] 11-09-2023 11:07-0400 Systolic blood pressure 100 mm[Hg] Mi Santillan MD Work Phone: [facility] 10-12-2023 09:11-0400 Body mass index (BMI) [Ratio] 26.19 kg/m2 Mi Santillan MD Work Phone: [facility] 10-12-2023 09:11-0400 Body weight 62.87 kg Mi Santillan MD Work Phone: [facility] 10-12-2023 09:11-0400 Diastolic blood pressure 68 mm[Hg] Mi Santillan MD Work Phone: [facility] 10-12-2023 09:11-0400 Systolic blood pressure 102 mm[Hg] Mi Santillan MD Work Phone: [facility] [facility]2024 10:59-0400 Body height 154.9 cm Yluissa Mahajanury BUSINESS CONTROL MANAGER.BOARDING MACHINE OPERATOR Work Phone: [facility] 09-19-2023 10:59-0400 Body mass index (BMI) [Ratio] 24.45 kg/m2 Yulissa Mahajanury BUSINESS CONTROL MANAGER.BOARDING MACHINE OPERATOR Work Phone: [facility] 09-19-2023 10:59-0400 Body weight 58.7 kg Yulissa Fields BUSINESS CONTROL MANAGER.BOARDING MACHINE OPERATOR Work Phone: [facility] 09-19-2023 10:59-0400 Diastolic blood pressure 58 mm[Hg] Yulissa Haury BUSINESS CONTROL MANAGER.BOARDING MACHINE OPERATOR Work Phone: [facility] 09-19-2023 10:59-0400 Systolic blood pressure 92 mm[Hg] Yulissa Haury BUSINESS CONTROL MANAGER.BOARDING MACHINE OPERATOR Work Phone: [facility] 09-12-2023 17:20-0400 Body temperature 98.6 [degF] Wendy Praisler-Wood BUSINESS CONTROL MANAGER.BOARDING MACHINE OPERATOR Work Phone: [facility] 09-12-2023 17:20-0400 Body weight 58.4 kg Wendy Praisler-Wood BUSINESS CONTROL MANAGER.BOARDING MACHINE OPERATOR Work Phone: [facility] 09-12-2023 17:20-0400 Diastolic blood pressure 78 mm[Hg] Wendy Praisler-Wood BUSINESS CONTROL MANAGER.BOARDING MACHINE OPERATOR Work Phone: [facility] 09-12-2023 17:20-0400 Heart rate 82 /min Wendy Praisler-Wood BUSINESS CONTROL MANAGER.BOARDING MACHINE OPERATOR Work Phone: [facility] 09-12-2023 17:20-0400 Respiratory rate 21 /min Wendy Praisler-Wood BUSINESS CONTROL MANAGER.BOARDING MACHINE OPERATOR Work Phone: [facility] 09-12-2023 17:20-0400 SaO2% (BldA) [Mass fraction] 100 % Wendy Praisler-Wood BUSINESS CONTROL MANAGER.BOARDING MACHINE OPERATOR Work Phone: [facility] 09-12-2023 17:20-0400 Systolic blood pressure 110 mm[Hg] Wendy Praisler-Wood BUSINESS CONTROL MANAGER.BOARDING MACHINE OPERATOR Work Phone: [facility] 07-05-2022 15:35-0500 Body temperature 98.49 [degF] Ajith Galdamez Jr., MD Work Phone: [facility] 07-05-2022 15:35-0500 Body weight 59.6 kg Ajith Galdamez Jr., MD Work Phone: [facility] 07-05-2022 15:35-0500 Diastolic blood pressure 57 mm[Hg] Ajith Galdamez Jr., MD Work Phone: [facility] 07-05-2022 15:35-0500 Heart rate 78 /min Ajith Galdamez Jr., MD Work Phone: [facility] 07-05-2022 15:35-0500 Respiratory rate 16 /min Ajith Galdamez Jr., MD Work Phone: [facility] 07-05-2022 15:35-0500 SaO2% (BldA) [Mass fraction] 99 % Ajith Galdamez Jr., MD Work Phone: [facility] 07-05-2022 15:35-0500 Systolic blood pressure 98 mm[Hg] Ajith Galdamez Jr., MD Work Phone: [facility] 05-03-2022 10:29-0500 Body temperature 97.9 [degF] Dora Older BUSINESS CONTROL MANAGER.BOARDING MACHINE OPERATOR Work Phone: [facility] 05-03-2022 10:29-0500 Body weight 55.79 kg Dora Older BUSINESS CONTROL MANAGER.BOARDING MACHINE OPERATOR Work Phone: [facility] 05-03-2022 10:29-0500 Diastolic blood pressure 60 mm[Hg] Dora Older BUSINESS CONTROL MANAGER.BOARDING MACHINE OPERATOR Work Phone: [facility] 05-03-2022 10:29-0500 Heart rate 90 /min Dora Older BUSINESS CONTROL MANAGER.BOARDING MACHINE OPERATOR Work Phone: [facility] 05-03-2022 10:29-0500 Respiratory rate 16 /min Dora Older BUSINESS CONTROL MANAGER.BOARDING MACHINE OPERATOR Work Phone: [facility] 05-03-2022 10:29-0500 SaO2% (BldA) [Mass fraction] 100 % Dora Older BUSINESS CONTROL MANAGER.BOARDING MACHINE OPERATOR Work Phone: [facility] 05-03-2022 10:29-0500 Systolic blood pressure 104 mm[Hg] Dora Older BUSINESS CONTROL MANAGER.BOARDING MACHINE OPERATOR Work Phone: [facility] 03-01-2022 11:39-0400 Body weight 54.88 kg Dora Older BUSINESS CONTROL MANAGER.BOARDING MACHINE OPERATOR Work Phone: [facility] 03-01-2022 11:39-0400 Diastolic blood pressure 72 mm[Hg] Dora Older BUSINESS CONTROL MANAGER.BOARDING MACHINE OPERATOR Work Phone: [facility] 03-01-2022 11:39-0400 Heart rate 92 /min Dora Older BUSINESS CONTROL MANAGER.BOARDING MACHINE OPERATOR Work Phone: [facility] 03-01-2022 11:39-0400 Respiratory rate 16 /min Dora Older BUSINESS CONTROL MANAGER.BOARDING MACHINE OPERATOR Work Phone: [facility] 03-01-2022 11:39-0400 Systolic blood pressure 120 mm[Hg] Dora Older BUSINESS CONTROL MANAGER.[facility] Work Phone: [facility] 11-27-2021 10:07-0400 Body height 154.94 cm [facility] Work Phone: 11-27-2021 10:07-0400 Body mass index (BMI) [Ratio] 23.6 kg/m2 [facility] Work Phone: 11-27-2021 10:07-0400 Body temperature 97.5 [degF] [facility] Work Phone: 11-27-2021 10:07-0400 Body weight 56.69 kg [facility] Work Phone: 11-27-2021 10:07-0400 Diastolic blood pressure 70 mm[Hg] [facility] Work Phone: 11-27-2021 10:07-0400 Heart rate 77 /min [facility] Work Phone: 11-27-2021 10:07-0400 Respiratory rate 16 /min [facility] Work Phone: 11-27-2021 10:07-0400 SaO2% (BldA) [Mass fraction] 100 % [facility] Work Phone: 11-27-2021 10:07-0400 Systolic blood pressure 111 mm[Hg] [facility] Work Phone: 09-11-2021 14:45-0400 Body weight 56.7 kg Dora Older BUSINESS CONTROL MANAGER.BOARDING MACHINE OPERATOR Work Phone: [facility] 09-11-2021 14:45-0400 Diastolic blood pressure 70 mm[Hg] Dora Older BUSINESS CONTROL MANAGER.BOARDING MACHINE OPERATOR Work Phone: [facility] 09-11-2021 14:45-0400 Heart rate 80 /min Dora Older BUSINESS CONTROL MANAGER.BOARDING MACHINE OPERATOR Work Phone: [facility] 09-11-2021 14:45-0400 Respiratory rate 16 /min Dora Older BUSINESS CONTROL MANAGER.BOARDING MACHINE OPERATOR Work Phone: [facility] 09-11-2021 14:45-0400 Systolic blood pressure 112 mm[Hg] Dora Older BUSINESS CONTROL MANAGER.BOARDING MACHINE OPERATOR Work Phone: [facility] Encounters Encounter Date Encounter Type Care Provider Facility Start: 11-07-2024 End: 11-07-2024 Patient encounter procedure Lukasz De La O OT/L Work Phone: [facility] Comment on above: Pain in right wrist Start: 11-07-2024 End: 11-07-2024 ambulatory Lukasz De La O OT/L Work Phone: [facility] Start: 11-07-2024 End: 12-18-2024 Telephone encounter Vijay Guo DO Work Phone: [address] [place] [address] Comment on above: Patient Question Start: 11-06-2024 End: 11-06-2024 Orders Only Vijay Guo DO Work Phone: Orthopaedics Comment on above: Pain in right wrist (Primary Dx) Start: 10-23-2024 End: 10-23-2024 Patient encounter procedure Vijay Guo DO Work Phone: [facility] [place] Comment on above: Right wrist pain; Wrist weakness Start: 10-23-2024 End: 10-23-2024 [facility] Facility:[facility] Start: 10-17-2024 End: 10-17-2024 [facility] Facility:[facility] Start: 10-13-2024 End: 10-13-2024 ambulatory Hanna Sharma RN Work Phone: [facility] Comment on above: Wrist Pain Start: 09-03-2024 End: 09-03-2024 [facility] Facility:[facility] Start: 09-03-2024 End: 09-03-2024 Patient encounter procedure Dora Restrepo APRN.BOARDING MACHINE OPERATOR Work Phone: [facility] [place] Comment on above: Nasal polyp (Primary Dx); Environmental allergies Start: 03-16-2024 End: 03-16-2024 Patient encounter procedure Floyd Avelar MD Work Phone: General Surgery Comment on above: Right upper quadrant pain (Primary Dx); Costochondritis Start: 03-16-2024 End: 03-16-2024 [facility] Start: 03-09-2024 End: 03-09-2024 Telephone encounter Naga Marks MD Work Phone: OB/Gynecology Comment on above: Orders Start: 03-09-2024 End: 03-09-2024 [facility] Start: 03-09-2024 End: 03-09-2024 Subsequent hospital visit by physician [facility] Work Phone: Radiology Comment on above: RUQ pain [R10.11] Start: 03-08-2024 End: 03-08-2024 [facility] Facility:[facility] Start: 03-08-2024 End: 03-08-2024 Patient encounter procedure Naga Marks MD Work Phone: OB/Gynecology Comment on above: state (Pr imary Dx); RUQ pain; S/P section; Nausea Start: 03-08-2024 End: 03-08-2024 [facility] Facility:[facility] Start: 03-08-2024 End: 03-08-2024 Subsequent hospital visit by physician [facility] Work Phone: Radiology Comment on above: Post-operative state [Z98.890] Start: 03-08-2024 End: 03-08-2024 Telephone encounter Naga Marks MD Work Phone: OB/Gynecology Comment on above: Care Start: 03-05-2024 End: 03-05-2024 ambulatory Naga Marks MD Work Phone: OB/Gynecology Comment on above: Ob Delivery Note Start: 03-02-2024 End: 03-05-2024 Evaluation and management of inpatient Naga Marks Facility:[facility] Start: 02-28-2024 End: 02-28-2024 [facility] Facility:[facility] Start: 02-28-2024 End: 02-28-2024 Patient encounter procedure Camille Robertson APRN.CNM Work Phone: OB/Gynecology Comment on above: Encounter for superv ision of high risk in third trimester, antepartum (Primary Dx); Rubella non-immune status, antepartum; Marijuana use; History of depression; 39 weeks gestation of ; Rh negative state in antepartum period Start: 02-21-2024 End: 02-21-2024 [facility] Start: 02-21-2024 End: 02-21-2024 Patient encounter procedure Camille Robertson APRN.CNM Work Phone: OB/Gynecology Comment on above: 38 weeks gestation o f (Primary Dx); Encounter for supervision of high risk in third trimester, antepartum; Rubella non-immune status, antepartum; Marijuana use; History of depression; Late care affecting in second trimester; Penicillin allergy Start: 02-15-2024 End: 02-15-2024 [facility] Facility:[facility] Start: 02-15-2024 End: 02-15-2024 Patient encounter procedure Alicia Meeks MD Work Phone: OB/Gynecology Comment on above: Encounter for superv ision of high risk in third trimester, antepartum (Primary Dx); Excessive weight gain in , third trimester; Need for influenza vaccination; 37 weeks gestation of Start: 02-10-2024 End: 02-10-2024 [facility] Facility:[facility] Start: 02-10-2024 End: 02-10-2024 Patient encounter procedure Alicia Meeks MD Work Phone: OB/Gynecology Comment on above: Encounter for superv ision of high risk in third trimester, antepartum (Primary Dx); Excessive weight gain in , third trimester; Penicillin allergy; 36 weeks gestation of Start: 01-26-2024 End: 01-26-2024 Office outpatient visit 15 minutes Mi Santillan MD Work Phone: OB/Gynecology Comment on above: Encounter for superv ision of high risk in third trimester, antepartum (Primary Dx); 34 weeks gestation of Start: 01-26-2024 End: 01-26-2024 [facility] Facility:[facility] Start: 01-26-2024 End: 01-26-2024 Patient encounter procedure [employer] [facility] Work Phone: OB/Gynecology Comment on above: Encounter for superv ision of high risk in third trimester, antepartum (Primary Dx); Excessive weight gain in , third trimester Start: 01-18-2024 End: 01-18-2024 [facility] Facility:[facility] Start: 01-18-2024 End: 01-18-2024 Patient encounter procedure Camille Robertson APRN.CNM Work Phone: OB/Gynecology Comment on above: Encounter for superv ision of high risk in third trimester, antepartum (Primary Dx); 33 weeks gestation of ; Excessive weight gain in , third trimester; Late care affecting in second trimester; Marijuana use; History of depression; Penicillin allergy; Rubella non-immune status, antepartum; Rh negative state in antepartum period Start: 01-18-2024 End: 01-19-2024 Telephone encounter Camille Robertson APRN.CNM Work Phone: OB/Gynecology Comment on above: Appointment Start: 01-15-2024 End: 01-15-2024 ambulatory Janet Boyle RN [facility] Start: 01-15-2024 End: 01-15-2024 Patient encounter procedure Janet Boyle RN [facility] Comment on above: Referral Request Start: 01-04-2024 End: 01-04-2024 [facility] Facility:[facility] Start: 01-04-2024 End: 01-04-2024 Patient encounter procedure Yulissa Fields APRN.BOARDING MACHINE OPERATOR Work Phone: OB/Gynecology Comment on above: Encounter for superv ision of other normal in third trimester (Primary Dx); 31 weeks gestation of ; Rh negative state in antepartum period; Penicillin allergy Start: 12-27-2023 Telephone encounter Human Geography Instructor RN Obstetrics/Gynecology Comment on above: PRAF Start: 12-21-2023 End: 12-21-2023 [facility] Facility:[facility] Start: 12-21-2023 End: 12-21-2023 Office outpatient visit 15 minutes Mi Santillan MD Work Phone: OB/Gynecology Comment on above: 29 weeks gestation o f (Primary Dx); Encounter for supervision of other normal in second trimester; Rh negative state in antepartum period, second trimester; Need for vaccination; Rh negative state in antepartum period Start: 11-23-2023 End: 11-23-2023 Patient encounter procedure Yulissa Fields APRN.BOARDING MACHINE OPERATOR Work Phone: OB/Gynecology Comment on above: Encounter for superv ision of other normal in second trimester (Primary Dx); 25 weeks gestation of ; Rh negative state in antepartum period, second trimester; Penicillin allergy Start: 11-23-2023 End: 11-23-2023 [facility] Facility:[facility] Start: 11-15-2023 Refill Yulissa SALGUERO RN.BOARDING MACHINE OPERATOR Work Phone: OB/Gynecology Comment on above: Med Change Request Start: 11-09-2023 End: 11-09-2023 ambulatory KWABENA MARQUEZ Facility:[facility] Start: 11-09-2023 End: 11-09-2023 Office outpatient visit 15 minutes Mi Santillan MD Work Phone: OB/Gynecology Comment on above: Encounter for superv ision of normal first in second trimester (Primary Dx); 23 weeks gestation of Start: 10-25-2023 Telephone encounter Human Geography Instructor RN Obstetrics/Gynecology Comment on above: PRAF Start: 10-24-2023 ambulatory Yulissa Ramos RN [facility] Comment on above: Information Start: 10-13-2023 E-mail encounter fro m caregiver Saskia Farias APRN.BOARDING MACHINE OPERATOR Work Phone: OB/Gynecology Start: 10-13-2023 Patient encounter procedure Saskia Farias APRN.BOARDING MACHINE OPERATOR Work Phone: OB/Gynecology Comment on above: 10/20/23 appointment Start: 10-12-2023 End: 10-12-2023 Patient encounter procedure [employer] [facility] [place] [facility] Work Phone: OB/Gynecology Comment on above: Encounter for anatomic survey (Primary Dx); 19 weeks gestation of Encounter for superv ision of normal first in second trimester (Primary Dx); 19 weeks gestation of Start: 10-10-2023 Telephone encounter Yulissa newton APRN.BOARDING MACHINE OPERATOR Work Phone: OB/Gynecology Comment on above: Breast Pump Start: 09-20-2023 Telephone encounter Human Geography Instructor RN Maternal Medicine Comment on above: Human Geography Instructor - O ther (PRAF) Start: 09-19-2023 End: 09-19-2023 Patient encounter procedure Yulissa Fields BUSINESS CONTROL MANAGER.BOARDING MACHINE OPERATOR Work Phone: OB/Gynecology Comment on above: Encounter for superv ision of normal first in second trimester (Primary Dx); with uncertain dates, antepartum; 16 weeks gestation of ; Family history of genetic disease; Migraine without status migrainosus, not intractable, unspecified migraine type; Constipation during in second trimester; Late care affecting in second trimester; Nausea and vomiting during ; Caffeine use; History of depression; Marijuana use Start: 09-12-2023 End: 09-12-2023 Patient encounter procedure Wendyfan Andrew BUSINESS CONTROL MANAGER.BOARDING MACHINE OPERATOR Work Phone: [facility] Comment on above: Missed periods (Prim breanna Dx); , unspecified gestational age Start: 12-05-2022 Refill Dora Restrepo BUSINESS CONTROL MANAGER .BOARDING MACHINE OPERATOR Work Phone: [facility] [place] Comment on above: Refill Request; Refi ll Request Start: 10-26-2022 Telephone encounter Saskia [facility] meaghan BUSINESS CONTROL MANAGER.BOARDING MACHINE OPERATOR Work Phone: OB/Gynecology Comment on above: Results Start: 10-26-2022 End: 10-26-2022 Subsequent hospital visit by physician [facility] Work Phone: Radiology Comment on above: Pelvic pain in femal e [R10.2] Start: 08-11-2022 End: 08-11-2022 Patient encounter procedure Latosha Sherwood BUSINESS CONTROL MANAGER.BOARDING MACHINE OPERATOR Work Phone: Psychiatry Comment on above: NO SHOW (Primary Dx) Start: 07-05-2022 End: 07-05-2022 Patient encounter procedure Ajith Galdamez MD Work Phone: Neurology Comment on above: Intractable migraine without aura and without status migrainosus (Primary Dx); Tension headache; Insomnia, unspecified type; Delayed sleep phase syndrome Start: 06-14-2022 Telephone encounter Manuela muñozkaydenshashank CARBONATION EQUIPMENT OPERATOR Work Phone: Adult Psychology Comment on above: Behavioral Health So cial Work Start: 05-25-2022 Refill Kwabena Hollins Work Phone: [facility] [place] Comment on above: Refill Request Start: 05-03-2022 End: 05-03-2022 Patient encounter procedure Dora Restrepo APRN.BOARDING MACHINE OPERATOR Work Phone: [facility] [place] Comment on above: Migraine without sta tus migrainosus, not intractable, unspecified migraine type (Primary Dx); Insomnia, unspecified type Start: 04-30-2022 Telephone encounter Kwabena carr MD Work Phone: [facility] [place] Comment on above: Letter Start: 03-03-2022 Telephone encounter Kwabena carr MD Work Phone: [facility] [place] Comment on above: Elidia BURNS Start: 03-01-2022 End: 03-01-2022 Patient encounter procedure Dora Restrepo APRN.BOARDING MACHINE OPERATOR Work Phone: [facility] [place] Comment on above: Burning with urinati on (Primary Dx); Insomnia, unspecified type; Lower abdominal pain; Migraine without status migrainosus, not intractable, unspecified migraine type Start: 02-23-2022 Refill Kwabena Hollins Work Phone: [facility] [place] Comment on above: Refill Request Start: 02-17-2022 Refill Dora Restrepo APRN .BOARDING MACHINE OPERATOR Work Phone: [facility] [place] Comment on above: Refill Request Start: 02-03-2022 Telephone encounter Kwabena carr MD Work Phone: [facility] [place] Comment on above: Insurance Authorizat ion Start: 01-22-2022 Refill Kwabena Hollins Work Phone: [facility] Comment on above: Refill Request Start: 01-22-2022 Refill Dora Restrepo APRN .BOARDING MACHINE OPERATOR Work Phone: [facility] Comment on above: Med Change Request Start: 12-29-2021 Telephone encounter Kwabena carr MD Work Phone: [facility] [place] Comment on above: Patient Request Refill Request Start: 11-27-2021 ambulatory Kwabena Hollins Work Phone: [facility] [place] Comment on above: Dizziness Start: 11-27-2021 End: 11-27-2021 Emergency department patient visit [facility] Start: 11-13-2021 Refill Kwabena Hollins Work Phone: [facility] [place] Comment on above: Refill Request Start: 10-12-2021 Telephone encounter Dora Restrepo APRN.BOARDING MACHINE OPERATOR Work Phone: [facility] [place] Comment on above: Results Start: 09-29-2021 End: 09-29-2021 Subsequent hospital visit by physician [facility] (I-Stat/1.5t) Work Phone: Radiology Comment on above: Migraine without sta tus migrainosus, not intractable, unspecified migraine type [G43.909] Start: 09-11-2021 End: 09-11-2021 Patient encounter procedure Dora Restrepo APRN.BOARDING MACHINE OPERATOR Work Phone: [facility] [place] Comment on above: Migraine without sta tus migrainosus, not intractable, unspecified migraine type (Primary Dx) Start: 09-04-2021 Refill Dora NovaBOARDING MACHINE OPERATOR Work Phone: [facility] [place] Comment on above: Refill Request Procedures Date Procedure Procedure Detail Performing Clinician Start: 03-09-2024 Us abdominal real ti me w/image limited Naga Marks MD Work Phone: Start: 03-08-2024 Radiologic exam abdo men 2 views Lex Phillips MD Work Phone: Start: 03-02-2024 Antibody screen Naga [place] Comment on above: Order Comment: Labor Performed By: #### L 100.0100, [facility], [id number] ####[facility] [id number] [place], [address] Start: 02-28-2024 Urnls dip stick/tabl et rgnt non-auto w/o micrscp Camille Robertson APRN.CNM Work Phone: Start: 02-21-2024 Urnls dip stick/tabl et rgnt non-auto w/o micrscp Lex Phillips MD Work Phone: Start: 02-15-2024 Urnls dip stick/tabl et rgnt non-auto w/o micrscp Alicia Meeks MD Work Phone: Start: 02-10-2024 Urnls dip stick/tabl et rgnt non-auto w/o micrscp Perla Reyes MD Work Phone: Start: 01-26-2024 Us preg uterus after 1st trimest 05/30 gestation Camille Robertson BUSINESS CONTROL MANAGER.CNM Work Phone: Start: 12-21-2023 Antibody screen KWABENA MARQUEZ Comment on above: Order Comment: Speci men Type: BLOOD SPECIMENOrdering Facility: [facility] Address: [address] [place] [address] Performed By: #### T SPN ####CC MAIN BLOOD BANKCLIA [id number] [address] Start: 11-23-2023 Antibody screen KWABENA MARQUEZ Comment on above: Order Comment: Speci men Type: BLOOD SPECIMENOrdering Facility: [facility] Address: [address] [place] [address] Performed By: #### T SPN ####CC MAIN BLOOD BANKCLIA [id number] [address] [place] Start: 10-12-2023 Us preg uterus after 1st trimest 05/30 gestation Yulissa Mahajanhayden BUSINESS CONTROL MANAGER.BOARDING MACHINE OPERATOR Work Phone: Start: 09-12-2023 UA DIP,URINE HCG (POC) [facility] Provider Start: 10-26-2022 Us transvaginal Saskia M etcalf BUSINESS CONTROL MANAGER.BOARDING MACHINE OPERATOR Work Phone: Start: 03-01-2022 Urnls dip stick/tabl et rgnt auto w/o microscopy Dora Restrepo BUSINESS CONTROL MANAGER.BOARDING MACHINE OPERATOR Work Phone: Start: 10-08-2021 Adult depression scr eening assessment Dora Restrepo BUSINESS CONTROL MANAGER.BOARDING MACHINE OPERATOR Work Phone: Start: 09-29-2021 Mri brain brain stem w/o w/contrast material Gabi Osorio MD Work Phone: H/O: section S/P sectio n Naga Marks MD Work Phone: Plan of Treatment Date Care Activity Detail Author Start: 2059 RSV Vaccine (1 - 1-d ose 60+ series) RSV Vaccine (1 - -dose 60+ series) [facility] Start: 12-20-2033 Urine microalbumin profile DTaP,Tdap,Td Vaccine (8 - Td or Tdap) [facility] Start: 10-18-2025 PAP TESTING PAP TESTING [facility] Start: 10-18-2025 Screening for malign ant neoplasm of cervix [facility] Start: 01-28-2025 Influenza vaccination Influenza Vacc ine (#1) [facility] Start: 11-07-2024 End: 11-07-2024 Patient encounter procedure 11/07/2024 5:00 PM EDT OT/PT/Speech Visit [facility] [address] [place] [address] Lukasz De La O OT/L [address] [place] [address] Pain in right wrist [M25.531] [facility] Outpatient Occupational Therapy Comment on above: Pain in right wrist [M25.531] Start: 11-01-2024 End: 11-01-2024 Patient encounter procedure 11/01/2024 3:30 PM EDT Appointment Radiology [address] [place] [address] x: Right wrist pain [M25.531] Radiology Comment on above: x: Right wrist pain [M25.531] Start: 10-17-2024 End: 10-17-2024 Patient encounter procedure 10/17/2024 11:00 AM EDT Office Visit Internal Medicine [place] [address] [place] [address] Dora Restrepo APRN.BOARDING MACHINE OPERATOR [address] [place] [address] RT WRIST PAIN Internal Medicine [place] Comment on above: RT WRIST PAIN Start: 03-16-2024 End: 03-16-2024 Patient encounter procedure 03/16/2024 3:00 PM EDT Office Visit General Surgery [address] [place] [address] Floyd Avelar MD [address] [address] RUQ pain General Surgery Comment on above: RUQ pain Start: 03-09-2024 End: 03-09-2024 Patient encounter procedure 03/09/2024 9:00 AM EDT Appointment Radiology [address] [place] [id number] RUQ pain [R10.11] Radiology Comment on above: RUQ pain [R10.11] Start: 03-08-2024 End: 06-07-2024 Amylase [Enzymatic activity/volume] in Serum or Plasma [facility] Comment on above: Expected: 03/08/2024 , Expires: 06/07/2024 Start: 03-08-2024 End: 06-07-2024 Comprehensive metabolic 2000 panel - Serum or Plasma [facility] Work Phone: Comment on above: Expected: 03/08/2024 , Expires: 06/07/2024 Start: 03-08-2024 End: 06-07-2024 Lipase [Enzymatic activity/volume] in Serum or Plasma [facility] Comment on above: Expected: 03/08/2024 , Expires: 06/07/2024 Start: 02-28-2024 End: 02-28-2024 Patient encounter procedure 02/28/2024 2:30 PM EDT Routine Office Visit OB/Gynecology [address] [place] [address] Camille Robertson APRN.CN [address] [place] [id number] OB Routine OB/Gynecology Comment on above: OB Routine Start: 02-21-2024 End: 02-21-2024 Patient encounter procedure 02/21/2024 2:30 PM EDT Routine Office Visit OB/Gynecology [address] [place] [address] Lex Phillips MD [address] [place] [address] OB Routine OB/Gynecology Comment on above: OB Routine Start: 02-15-2024 End: 02-15-2024 Patient encounter procedure 02/15/2024 1:40 PM EDT Routine Office Visit OB/Gynecology [address] [place] [address] Alicia Gamez MD [address] [place] [address] OB OB/Gynecology Comment on above: OB Start: 02-10-2024 End: 02-10-2024 Patient encounter procedure OB/Gynecology Comment on above: Growth Growth/OB OB Start: 01-29-2024 Covid-19 Vaccine () Covid-19 Vaccine ( season) [facility] Start: 01-29-2024 Covid-19 Vaccine () Covid-19 Vaccine () [facility] Start: 01-29-2024 Influenza vaccination [facility] Start: 01-29-2024 RSV Vaccine (1 - Ris k 1-dose series) RSV Vaccine (1 - Risk 1-dose series) [facility] Start: 01-26-2024 End: 01-26-2024 Patient encounter procedure OB/Gynecology Comment on above: Growth Growth / OB Start: 01-18-2024 End: 01-18-2024 Patient encounter procedure 01/18/2024 2:30 PM EDT Routine Office Visit OB/Gynecology [address] [place] [address] Camille Robertson APRN.[facility] [address] [place] [address] OB OB/Gynecology Comment on above: OB Start: 01-18-2024 End: 01-17-2025 OBSTETRIC ULTRASOUND WHI OBSTETRIC ULTRASOUND WHI Anc Imaging Routine Encounter for supervision of high risk in third trimester, antepartum Excessive weight gain in , third trimester Expected: 01/18/2024, Expires: 01/17/2025 [facility] Work Phone: Comment on above: Expected: 01/18/2024 , Expires: 01/17/2025 Start: 12-26-2023 End: 12-26-2023 Patient encounter procedure 12/26/2023 10:00 AM EDT Office Visit Allergy [address] [address] Jose J Cannon MD [address] [place] [address] Penicillin allergy [Z88.0] Allergy Comment on above: Penicillin allergy [ Z88.0] Start: 12-21-2023 End: 03-21-2024 TYPE + SCREEN [facility] Work Phone: Comment on above: Expected: 12/21/2023 , Expires: 03/21/2024 Start: 12-21-2023 End: 12-21-2023 Patient encounter procedure 12/21/2023 1:10 PM EDT Routine Office Visit OB/Gynecology [address] [place], [place] [id number] Mi Santillan MD [address] [place], [place] [id number] OB OB/Gynecology Comment on above: OB Start: 12-09-2023 End: 03-09-2024 CBC W Auto Differential panel - Blood COMPLETE BLOOD COUNT AND DIFFERENTIAL Lab Routine Encounter for supervision of normal first in second trimester 23 weeks gestation of Expected: 12/09/2023 (Approximate), Expires: 03/09/2024 [facility] Comment on above: Expected: 12/09/2023 (Approximate), Expires: 03/09/2024 Start: 12-09-2023 End: 03-09-2024 GESTATIONAL GLUCOSE SCREEN, 1-HOUR, 50 GRAM, NON-FASTING GESTATIONAL GLUCOSE SCREEN, 1-HOUR, 50 GRAM, NON-FASTING Lab Routine Encounter for supervision of normal first in second trimester 23 weeks gestation of Expected: 12/09/2023 (Approximate), Expires: 03/09/2024 [facility] Comment on above: Expected: 12/09/2023 (Approximate), Expires: 03/09/2024 Start: 12-09-2023 End: 03-09-2024 SYPHILIS TOTAL W/REFLEX SYPHILIS TOTAL W/REFLEX Lab Routine Encounter for supervision of normal first in second trimester 23 weeks gestation of Expected: 12/09/2023 (Approximate), Expires: 03/09/2024 [facility] Comment on above: Expected: 12/09/2023 (Approximate), Expires: 03/09/2024 Start: 12-09-2023 End: 03-09-2024 TYPE + SCREEN TYPE + SCREEN Blood Bank Routine Encounter for supervision of normal first in second trimester 23 weeks gestation of Expected: 12/09/2023 (Approximate), Expires: 03/09/2024 [facility] Work Phone: Comment on above: Expected: 12/09/2023 (Approximate), Expires: 03/09/2024 Start: 11-23-2023 End: 11-23-2023 Patient encounter procedure 11/23/2023 2:30 PM EDT Routine Office Visit OB/Gynecology [address] [place] [address] Yulissa Fields APRN.BOARDING MACHINE OPERATOR [address] [place] [address] OB OB/Gynecology Comment on above: OB Start: 11-09-2023 End: 11-09-2023 Patient encounter procedure 11/09/2023 11:10 AM EDT Routine Office Visit OB/Gynecology [address] [place] [address] Mi Santillan MD [address] [place] [address] OB OB/Gynecology Comment on above: OB Start: 10-20-2023 End: 10-20-2023 Patient encounter procedure 10/20/2023 9:30 AM EDT Office Visit OB/Gynecology [address] [place] [address] Saskia Farias, BUSINESS CONTROL MANAGER.BOARDING MACHINE OPERATOR [address] [place] [address] f/u in 1 year for annual SHIRT CLEANER exam OB/Gynecology Comment on above: f/u in 1 year for an nual SHIRT CLEANER exam Start: 10-19-2023 CHLAMYDIA SCREENING (18-24) CHLAMYDIA SCREENING (18-24) [facility] Start: 10-19-2023 GC (GONORRHEA) SCREENING (18-24) GC (GONORRHEA) SCREENING (18-24) [facility] Start: 10-12-2023 End: 10-12-2023 Patient encounter procedure OB/Gynecology Comment on above: Anatomy OB Start: 09-19-2023 End: 12-19-2023 CARRIER SCREEN, STANDARD [facility] Comment on above: Expected: 09/19/2023 , Expires: 12/19/2023 Start: 09-19-2023 End: 12-19-2023 HEMOGLOBIN EVALUATION CASCADE [facility] Comment on above: Expected: 09/19/2023 , Expires: 12/19/2023 Start: 09-19-2023 End: 12-19-2023 Hepatitis B virus surface Ag [Presence] in Serum [facility] Comment on above: Expected: 09/19/2023 , Expires: 12/19/2023 Start: 09-19-2023 End: 12-19-2023 Hepatitis C virus Ab [Presence] in Serum [facility] Comment on above: Expected: 09/19/2023 , Expires: 12/19/2023 Start: 09-19-2023 End: 12-19-2023 HIV 1+2 Ab [Presence] in Serum or Plasma by Immunoassay [facility] Comment on above: Expected: 09/19/2023 , Expires: 12/19/2023 Start: 09-19-2023 End: 09-18-2024 OBSTETRIC ULTRASOUND WHI OBSTETRIC ULTRASOUND WHI Anc Imaging Routine with uncertain dates, antepartum Expected: 09/19/2023, Expires: 09/18/2024 [facility] Comment on above: Expected: 09/19/2023 , Expires: 09/18/2024 Start: 09-19-2023 End: 12-19-2023 RUBELLA IGG ANTIBODY [facility] Comment on above: Expected: 09/19/2023 , Expires: 12/19/2023 Start: 09-19-2023 End: 12-19-2023 SYPHILIS TOTAL W/REFLEX [facility] Comment on above: Expected: 09/19/2023 , Expires: 12/19/2023 Start: 05-30-2023 Behavioral Health Screening Behavioral Health Screening [facility] Start: 01-28-2023 Covid-19 Vaccine () Covid-19 Vaccine () [facility] Start: 01-28-2023 Influenza vaccination [facility] Start: 10-08-2022 Adult depression screening assessment DEPRESSION SCREENING [facility] Start: 10-08-2022 CHLAMYDIA SCREENING (18-24) CHLAMYDIA SCREENING (18-24) [facility] Start: 10-08-2022 COVID-19 VACCINE (#1) COVID-19 VACCI NE (#1) [facility] Comment on above: Postponed from 01/16 (Declined at this time) Postponed from 07/19 (Declined at this time) Start: 10-08-2022 GC (GONORRHEA) SCREENING (18-24) GC (GONORRHEA) SCREENING (18-24) [facility] Start: 10-08-2022 HPV VACCINE (1 - 2-d ose series) HPV VACCINE (1 - 2-dose series) [facility] Comment on above: Postponed from 01/16 (Declined at this time) Start: 10-08-2022 MENINGOCOCCAL B: Consider based on risk (1 of 2 - Risk Bexsero 2-dose series) MENINGOCOCCAL B: Consider based on risk (1 of 2 - Risk Bexsero 2-dose series) [facility] Comment on above: Postponed from 01/16 (Declined at this time) Start: 10-08-2022 PAP TESTING PAP TESTING [facility] Comment on above: Postponed from 01/16 (Declined at this time) Start: 05-30-2022 [facility] Start: 01-28-2022 Influenza vaccination [facility] Start: 12-07-2021 Urine microalbumin profile [facility] Start: 05-30-2021 [facility]PRESS[facility] Start: 01-17-2020 PAP TESTING PAP TESTING [facility] Start: 2017 Anxiety Screening Anxiety Screening [facility] Start: 2017 CHLAMYDIA SCREENING (18-24) CHLAMYDIA SCREENING (18-24) [facility] Start: 2017 Depression Screening Depression Scre ening [facility] Start: 2017 GC (GONORRHEA) SCREENING (18-24) GC (GONORRHEA) SCREENING (18-24) [facility] Start: 2017 HEPATITIS C SCREENING HEPATITIS C SC REENING [facility] Start: 2017 HIV SCREENING HIV SCREENING [facility] Start: 2015 Meningococcal B Vaccine: Consider Based On Risk (1 of 2 - Patient Seeks Protection) Meningococcal B Vaccine: Consider Based On Risk (1 of 2 - Patient Seeks Protection) [facility] Start: 2015 MENINGOCOCCAL B: Consider based on risk (1 of 2 - Patient Seeks Protection) MENINGOCOCCAL B: Consider based on risk (1 of 2 - Patient Seeks Protection) [facility] Start: 2014 HPV Vaccine (1 - 3-d ose series) HPV Vaccine (1 - 3-dose series) [facility] Start: 2013 PEDS TO ADULT TRANSITION ANNUAL ASSESSMENT PEDS TO ADULT TRANSITION ANNUAL ASSESSMENT [facility] Start: 2011 Adult depression screening assessment DEPRESSION SCREENING [facility] Start: 2011 PEDS TO ADULT TRANSITION INITIAL DISCUSSION PEDS TO ADULT TRANSITION INITIAL DISCUSSION [facility] Start: 2010 HPV VACCINE (1 - 2-d ose series) HPV VACCINE (1 - 2-dose series) [facility] Start: 2009 MENINGOCOCCAL B: Consider based on risk (1 of 2 - Risk Bexsero 2-dose series) MENINGOCOCCAL B: Consider based on risk (1 of 2 - Risk Bexsero 2-dose series) [facility] Start: 01-17-2008 HPV VACCINE (1 - 2-d ose series) HPV VACCINE (1 - 2-dose series) [facility] Start: 01-17-2004 COVID-19 VACCINE (1) COVID-19 VACCIN E (1) [facility] Start: 1999 COVID-19 VACCINE (#1) COVID-19 VACCI NE (#1) [facility] Bacteria identified in Urine by Culture URINE CULTURE Microbiology Routine with uncertain dates, antepartum 09/19/2023 11:44 AM EDT [facility] Chlamydia trachomatis+Neisseria gonorrhoeae DNA [Presence] in Unspecified specimen by JJ with probe detection GONORRHEA/CHLAMYDIA NAAT Lab Routine with uncertain dates, antepartum 09/19/2023 11:44 AM T [facility] End: 11-22-2025 MR Wrist - right WO contrast MRI WRIST WO IVCON RIGHT Radiology Routine Right wrist pain 1 Occurrences starting 10/23/2024 until 11/22/2025 [facility] Work Phone: Comment on above: 1 Occurrences starti ng 10/23/2024 until 11/22/2025 Patient referral [facility] Work Phone: POC LICENSED NURSING ASSISTANT ULTRASOUND POC LICENSED NURSING ASSISTANT ULTRASO UND Anc Imaging Routine with uncertain dates, antepartum Ordered: 09/19/2023 [facility] Work Phone: Comment on above: Ordered: 09/19/2023 ROUTINE, GR OUP B STREP PCR ROUTINE, GROUP B STREP PCR Microbiology Routine 36 weeks gestation of 02/10/2024 12:02 PM EDT [facility] Work Phone: End: 04-07-2025 US Abdomen RUQ US ABD RIGHT UPPER QUADRANT Radiology Routine RUQ pain 1 Occurrences starting 03/08/2024 until 04/07/2025 [facility] Work Phone: Comment on above: 1 Occurrences starti ng 03/08/2024 until 04/07/2025 End: 04-07-2025 XR Abdomen Supine and Upright XR ABDOMEN 2V ROUTINE SUPINE W UPRIGHT/DECUB/CTL Radiology Routine Post-operative state Nausea 1 Occurrences starting 03/08/2024 until 04/07/2025 [facility] Work Phone: Comment on above: 1 Occurrences starti ng 03/08/2024 until 04/07/2025 XR Abdomen Supine an d Upright XR ABDOMEN 2V ROUTINE SUPINE W UPRIGHT/DECUB/CTL Radiology Routine Post-operative state Nausea 03/08/2024 2:50 PM EDT [facility] Immunizations Immunization Date Immunization Notes Care Provider Josh prasad 02-15-2024 influenza, seasonal, injectable Alicia Meeks MD Work Phone: [facility] 02-15-2024 influenza virus vacc ine, unspecified formulation Vijay Guo V, DO Work Phone: [facility] 12-21-2023 RHO(D) immune globul in- IV or IM Mi Santillan MD Work Phone: [facility] 12-21-2023 tetanus toxoid, redu prema diphtheria toxoid, and acellular pertussis vaccine, adsorbed Mi Santillan MD Work Phone: [facility] 08-09-2016 meningococcal polysaccharide (groups A, C, Y and W-135) diphtheria toxoid conjugate vaccine (MCV4P) Dora Older BUSINESS CONTROL MANAGER.BOARDING MACHINE OPERATOR Work Phone: [facility] 12-08-2011 Meningococcal, MCV4, unspecified conjugate formulation(groups A, C, Y and W-135) Dora Older BUSINESS CONTROL MANAGER.[facility] Work Phone: [facility] Work Phone: 12-08-2011 tetanus toxoid, redu prema diphtheria toxoid, and acellular pertussis vaccine, adsorbed Dora Older BUSINESS CONTROL MANAGER.[facility] Work Phone: [facility] Work Phone: 01-09-2004 diphtheria, tetanus toxoids and acellular pertussis vaccine Dora Older BUSINESS CONTROL MANAGER.BOARDING MACHINE OPERATOR Work Phone: [facility] Work Phone: 01-09-2004 measles, mumps and rubella virus vaccine Dora Older BUSINESS CONTROL MANAGER.BOARDING MACHINE OPERATOR Work Phone: [facility] Work Phone: 01-09-2004 poliovirus vaccine, inactivated Dora Older BUSINESS CONTROL MANAGER.[facility] Work Phone: [facility] Work Phone: 12-04-2002 varicella virus vaccine Dora Older BUSINESS CONTROL MANAGER.[facility] Work Phone: [facility] Work Phone: 08-08-2000 diphtheria, tetanus toxoids and acellular pertussis vaccine Dora Older BUSINESS CONTROL MANAGER.[facility] Work Phone: [facility] Work Phone: 08-08-2000 hepatitis B vaccine, pediatric or pediatric/adolescent dosage Dora Older BUSINESS CONTROL MANAGER.[facility] Work Phone: [facility] Work Phone: 08-08-2000 poliovirus vaccine, inactivated Dora Older BUSINESS CONTROL MANAGER.[facility] Work Phone: [facility] Work Phone: 05-12-2000 hepatitis B vaccine, pediatric or pediatric/adolescent dosage Dora Older BUSINESS CONTROL MANAGER.[facility] Work Phone: [facility] Work Phone: 01-27-2000 diphtheria, tetanus toxoids and acellular pertussis vaccine Dora Older BUSINESS CONTROL MANAGER.[facility] Work Phone: [facility] Work Phone: 01-27-2000 haemophilus influenz ae type b vaccine, HbOC conjugate Dora Older BUSINESS CONTROL MANAGER.[facility] Work Phone: [facility] Work Phone: 01-27-2000 hepatitis B vaccine, pediatric or pediatric/adolescent dosage Dora Older BUSINESS CONTROL MANAGER.[facility] Work Phone: [facility] Work Phone: 01-27-2000 measles, mumps and rubella virus vaccine Dora Older BUSINESS CONTROL MANAGER.BOARDING MACHINE OPERATOR Work Phone: [facility] Work Phone: 1999 diphtheria, tetanus toxoids and acellular pertussis vaccine Dora Older BUSINESS CONTROL MANAGER.[facility] Work Phone: [facility] Work Phone: 1999 haemophilus influenz ae type b vaccine, HbOC conjugate Dora Older BUSINESS CONTROL MANAGER.[facility] Work Phone: [facility] Work Phone: 1999 poliovirus vaccine, inactivated Dora Older BUSINESS CONTROL MANAGER.BOARDING MACHINE OPERATOR Work Phone: [facility] Work Phone: 1999 diphtheria, tetanus toxoids and acellular pertussis vaccine Dora Older BUSINESS CONTROL MANAGER.BOARDING MACHINE OPERATOR Work Phone: [facility] Work Phone: 1999 haemophilus influenz ae type b vaccine, HbOC conjugate [facility] BUSINESS CONTROL MANAGER.BOARDING MACHINE OPERATOR Work Phone: [facility] Work Phone: 1999 poliovirus vaccine, inactivated Dora Older BUSINESS CONTROL MANAGER.BOARDING MACHINE OPERATOR Work Phone: [facility] Work Phone: Payers Date Payer Category Payer Self-pay [id number] 2022 Unknown [id number] 2017 Medicaid [facility] MEDICA[facility] [id number] 2017-Present [phone] [address] [place] [address] Medicaid [id number] 2017 Medicaid [id number] 2013 Unknown SELF PAY INSURANCE [id number] 00 [id number] Unknown [id number] Social History Date Type Detail Facility Start: 03-10-2018 End: 05-03-2022 Tobacco smoking status NHIS Never smoked tobacco [facility] Start: 09-24-2020 End: 10-23-2024 Alcohol intake Current non-drinker of alcohol (finding) [facility] Start: 2000 Sex Assigned At Not on file [facility] Start: 08-23-2021 End: 05-03-2022 Exposure to SARS-CoV-2 (event) Not sure [facility] Start: 09-28-2021 End: 03-01-2022 Exposure to SARS-CoV-2 (event) Unable to assess [facility] Start: 11-27-2021 Tobacco smoking status NHIS Unknown if ever smoked [facility] Work Phone: Start: 1999 Sex Assigned At Female [facility] History of tobacco use Passive smoker [facility] Start: 03-10-2018 End: 05-03-2022 Tobacco use and exposure Smokeless tobacco non-user [facility] Start: 05-03-2022 Tobacco Comment mom smokes [facility] Start: 09-30-2022 End: 10-18-2022 History of Social function [facility] Start: 09-30-2022 End: 10-18-2022 Tobacco use panel [facility] National Score (1-10 0), lower number is lower risk 66 [facility] Start: 09-12-2023 Gender identity Identifies as female gender (finding) [facility] Start: 09-12-2023 Sexual orientation Heterosexual (finding) [facility] Start: 06-13-2023 [facility] Do you belong to any clubs or organizations such as uatsdin groups, unions, fraternal or athletic groups, or school groups? No [facility] Are you now , , , , never or living with a partner? Living with partner [facility] How often to you hav e a drink containing alcohol? Monthly or less [facility] How many standard dr inks containing alcohol do you have on a typical day? 1 or 2 [facility] How often do you hav e 6 or more drinks on 1 occasion? Never [facility] How hard is it for y ou to pay for the very basics like food, housing, medical care, and heating Not very hard [facility] Do you feel stress - tense, restless, nervous, or anxious, or unable to sleep at night because your mind is troubled all the time - these days [OSQ] Rather much [facility] (I/We) worried miguel er (my/our) food would run out before (I/we) got money to buy more. Never true [facility] Goals Date Patient Goal Desired Activity /State Personal health goal Functional Status Date Assessment Result Facility 11-18-2014 Are you deaf, or do you have serious difficulty hearing No 11/18/2014 1:38 PM EDT Mercy Pfeiffer LPN No [facility] 11-18-2014 Are you blind, or do you have serious difficulty seeing, even when wearing glasses No 11/18/2014 1:38 PM EDT Mercy Pfeiffer LPN No [facility] 11-18-2014 Do you have serious difficulty walking or climbing stairs No 11/18/2014 1:38 PM EDT Mercy Pfeiffer LPN No [facility] 11-18-2014 Do you have difficul ty dressing or bathing No 11/18/2014 1:38 PM EDT Mercy Pfeiffer LPN [facility] 11-18-2014 Because of a physica l, mental, or emotional condition, do you have difficulty doing errands alone such as visiting a physician's office or shopping No 11/18/2014 1:38 PM EDT Mercy Pfeiffer LPN [facility] Mental Status Date Assessment Result Facility 11-27-2021 Cognitive function Level Of Cons ciousness Awake;Alert;Appropriate;Fol lows Commands [facility] Work Phone: 11-18-2014 Because of a physica l, mental, or emotional condition, do you have serious difficulty concentrating, remembering, or making decisions No 11/18/2014 1:38 PM EDT Mercy Pfeiffer LPN [facility] Clinical Notes 08-28-2013 to 11-07-2024 Lukasz De La O OT/L - 11/07/2024 6:47 PM EDTTelephone Encounter - Carolina Mulligan MA - 11/07/2024 4:29 PM EDTTelephone Encounter - Carolina Mulligan MA - 11/07/2024 4:29 PM EDTPatient Instructions Note Date & Type Note Facility 11-07-2024 Note HNO ID: [id number] Author: LUKASZ DE LA O OT/L Service: ? Author Type: Occupational Therapist Type: Progress Notes Filed: 11/07/2024 18:53 Note Text: Episode Visit Count: 1 Therapist That Will Accept/Oversee The Plan Of Care: Lukasz Sherwin, OTR/L Start of Care Date: 11/07/24 Onset Date: 08/28/24 Plan of Care Certification Date: 11/07/24 Next Certification Due Date: 12/07/24 Patient Identified by Name and Date of : Yes [facility] OCCUPATIONAL THERAPY EVALUATION PLAN OF CARE: Assessment: Sarah David presents with diagnosis of chronic right wrist pain that interferes with gripping, pinching, twisting, pulling, pushing, carrying, weight bearing, cleaning, cooking, physical activities, recreational activities, sleeping, lifting . The patient presents with impairments in independence in exercise, joint mobility, overall function, patient reported outcome measures, range of motion, sensation, strength, and symptom management. PROMIS? (Patient-Reported Outcomes Measurement Information System) scores were reviewed and identified as a rehabilitation concern. Prognosis for therapy is Good due to: current objective clinical presentation, good overall health status . The patient will benefit from skilled therapy services to meet the goals established for this plan of care as noted below. Goals for Episode of Care: established 11/07/24 Patient will demonstrate independence with ongoing home recommendations/exercise program throughout therapy plan of care. Patient will improve function in Right wrist in order to be able to perform prior functional tasks. Patient will report a decrease in pain in Right wrist to 1/10 with prior functional tasks. Patient will increase Right crack off person strength by at least 5#, so that patient will be able to improve function for prior functional tasks. Patient Goals: To reduce pain and increase ROM and use of hand Time Frame for Goals and Treatment : 02/07/25 Planned Interventions, Frequency, and Duration: Current Frequency: 1x/week Duration: 4 weeks Total Number of Visits Planned: 4 Planned Treatment Interventions: Therapeutic exercise (32945), Therapeutic activities (75994), Manual therapy (54178), Self-fci management (45990), Patient/Family/Caregiver Education, Ultrasound (20656) PLAN FOR NEXT VISIT: Ultrasound, check kt tape, power web stability, wrist strengthening Patient demonstrates good understanding of plan of care and treatment. The above goals and plan of care were discussed and agreed upon by patient/family. SUBJECTIVE: Pt is 24 y/o female presenting for OT evaluation with reports of R wrist pain. She reports an injury as a child when she fell out of a tree. She was recently vacuuming when the wrist popped and she felt ill afterwards. She reports that the wrist clicks and pops. When she picked up son recently and the wrist felt like it gave out. She also reports a sensation of ligaments and tendons feel like they get stuck on dorsal wrist. She presents with wrist in ulnar deviation at rest and said that neutral position feels like a stretch. She does have a brace and wears it when doing repetitive activities and when sleeping. Functional Limitations: gripping, pinching, twisting, pulling, pushing, carrying, weight bearing, cleaning, cooking, physical activities, recreational activities, sleeping, lifting Prior Level of Function: Independent without limitations Patient Goals: To reduce pain and increase ROM and use of hand Intake Information: Prescription present Previous Treatment: Immobilizer/brace , Ice , Heat Falls Interview: Two or more falls in the last year (Pt reports she is clutsy) Falls Intervention: More thorough falls assessment to be performed Relevant History Past Relevant Surgical Conditions: (, tubes in ears as a child) Right or Left Handed: Right Employment: (Not currently working) Recreation / Current Exercise: Playing with child Hobbies / Interests: Writing, drawing, baking Home Environment Patient Lives With: Family, Significant Other Assistance Available: PRN Pain: Pain Pain Level: 7 Pain Location: Elbow - Right, Upper Arm - Right, Shoulder - Right, Forearm - Right, Wrist - Right, Hand - Right Description: (Pulling, pushing) Frequency: Continuous Post Treatment Pain Post Treatment Pain Level: Worse PROMIS Scales 11/06/2024 Higher is Better Self-Eff Symptom - T Score 36 (Low) Self-Eff Symptom - Percentile 8 Upper Extremity - T Score 45 (within normal limits) Upper Extremity - Percentile 31 T-scores: mean of general population = 50. 5 points is clinically meaningfully difference Percentiles provide an indication of how the patient's score ranks in relation to the general population. Higher percentile rankings indicate better function/quality of life. 50th percentile is the average of the general population and i (more content not included)... [facility] 11-07-2024 History of Present illness Narrative Episode Visit Count: 1 Therapist That Will Accept/Oversee The Plan Of Care: EDGARDO Weiner Start of Care Date: 11/07/24 Onset Date: 08/28/24 Plan of Care Certification Date: 11/07/24 Next Certification Due Date: 12/07/24 Patient Identified by Name and Date of : Yes [facility] OCCUPATIONAL THERAPY EVALUATION PLAN OF CARE: Assessment: Sarah David presents with diagnosis of chronic right wrist pain that interferes with gripping, pinching, twisting, pulling, pushing, carrying, weight bearing, cleaning, cooking, physical activities, recreational activities, sleeping, lifting . The patient presents with impairments in independence in exercise, joint mobility, overall function, patient reported outcome measures, range of motion, sensation, strength, and symptom management. PROMIS (Patient-Reported Outcomes Measurement Information System) scores were reviewed and identified as a rehabilitation concern. Prognosis for therapy is Good due to: current objective clinical presentation, good overall health status . The patient will benefit from skilled therapy services to meet the goals established for this plan of care as noted below. Goals for Episode of Care: established 11/07/24 Patient will demonstrate independence with ongoing home recommendations/exercise program throughout therapy plan of care. Patient will improve function in Right wrist in order to be able to perform prior functional tasks. Patient will report a decrease in pain in Right wrist to 1/10 with prior functional tasks. Patient will increase Right crack off person strength by at least 5#, so that patient will be able to improve function for prior functional tasks. Patient Goals: To reduce pain and increase ROM and use of hand Time Frame for Goals and Treatment : 02/07/25 Planned Interventions, Frequency, and Duration: Current Frequency: 1x/week Duration: 4 weeks Total Number of Visits Planned: 4 Planned Treatment Interventions: Therapeutic exercise (12677), Therapeutic activities (44265), Manual therapy (80650), Self-fci management (81855), Patient/Family/Caregiver Education, Ultrasound (59902) PLAN FOR NEXT VISIT: Ultrasound, check kt tape, power web stability, wrist strengthening Patient demonstrates good understanding of plan of care and treatment. The above goals and plan of care were discussed and agreed upon by patient/family. SUBJECTIVE: Pt is 24 y/o female presenting for OT evaluation with reports of R wrist pain. She reports an injury as a child when she fell out of a tree. She was recently vacuuming when the wrist popped and she felt ill afterwards. She reports that the wrist clicks and pops. When she picked up son recently and the wrist felt like it gave out. She also reports a sensation of ligaments and tendons feel like they get stuck on dorsal wrist. She presents with wrist in ulnar deviation at rest and said that neutral position feels like a stretch. She does have a brace and wears it when doing repetitive activities and when sleeping. Functional Limitations: gripping, pinching, twisting, pulling, pushing, carrying, weight bearing, cleaning, cooking, physical activities, recreational activities, sleeping, lifting Prior Level of Function: Independent without limitations Patient Goals: To reduce pain and increase ROM and use of hand Intake Information: Prescription present Previous Treatment: Immobilizer/brace , Ice , Heat Falls Interview: Two or more falls in the last year (Pt reports she is clutsy) Falls Intervention: More thorough falls assessment to be performed Relevant History Past Relevant Surgical Conditions: (, tubes in ears as a child) Right or Left Handed: Right Employment: (Not currently working) Recreation / Current Exercise: Playing with child Hobbies / Interests: Writing, drawing, baking Home Environment Patient Lives With: Family, Significant Other Assistance Available: PRN Pain: Pain Pain Level: 7 Pain Location: Elbow - Right, Upper Arm - Right, Shoulder - Right, Forearm - Right, Wrist - Right, Hand - Right Description: (Pulling, pushing) Frequency: Continuous Post Treatment Pain Post Treatment Pain Level: Worse PROMIS Scales 11/06/2024 Higher is Better Self-Eff Symptom - T Score 36 (Low) Self-Eff Symptom - Percentile 8 Upper Extremity - T Score 45 (within normal limits) Upper Extremity - Percentile 31 T-scores: mean of general population = 50. 5 points is clinically meaningfully difference Percentiles provide an indication of how the patient's score ranks in relation to the general population. Higher percentile rankings indicate better function/quality of life. 50th percentile is the average of the general population and indicates half of respondents had a worse score. OBJECTIVE MEASURES WITH LEVEL OF FUNCTION: Hand Edema Location: R wrist Edema Description: Moderate Edema Measurements: Wrist (DWC) (cm) R Wrist (DWC) (cm): 15.2 L Wrist (DWC) (cm): 15.0 Shoulder AROM: WFL Elbow AROM: WFL Wrist AROM: Right Limitation Thumb AROM: WFL Strength: Still Cleaner Tube Position 2, Wrist Sensation: Reports tingling or numbness (Occasional tingling in R hand) Hand Strength R Still Cleaner Tube Position 2 (lbs): 50 lbs L Still Cleaner Tube Position 2 (lbs): 55 lbs UE AROM R Forearm Supination: 90 Degrees R Forearm Pronation: 90 Degrees R Wrist Extension: 75 Degrees R Wrist Flexion: 75 Degrees R Wrist Radial Deviation: 15 Degrees (Pt reports that it "doesn't feel right" to radially deviate) R Wrist Ulnar Deviation: 40 Degrees Thumb AROM: WFL UE and Cervical Strength R Forearm Supination: 5/5 (Dickey like wrist was going to pop with MMT) R Forearm Pronation: 5/5 (Dickey like wrist was going to pop with MMT) R Wrist Extension: 5/5 R Wrist Flexion: 5/5 Education: Education Learning Preferences: Demonstration, Explanation, Performance, Printed Materials Barriers: None Learning/educational needs: Home exercise program, Plan of Care, Brace Fit Education Provided: Yes, see treatment interventions for education provided Education Provided To: Patient Education Mode/Type: Demonstration, Explanation/Discussion, Literature/Printed Materials, Performance Response to Education/Teach Back: States/Identifies, Return Demonstration TREATMENT: OT Treatment Interventions : Therapeutic Exercise, Manual Therapy Evaluation Evaluation Therapeutic Exercise: 1: Isometrics: Pt completed 1 set of 5 right supination/pronation, wrist flexion/extension, radial/ulnar deviation, and digit flexion/extension using left hand to resist right hand with 5 second hold. Provided with handout of exercises and pt reported good understanding. 2: Completed clinical assessments and review of findings with focus on coordination, stability, and strengthening. Educated on the role of OT, OT POC, progression toward therapy goals, and recommended frequency of services. Pt receptive and verbalized understanding of education provided. Skilled Intervention: Patient was educated in proper exercise technique and purpose for exercises. Skilled judgment was used in selection of appropriate interventions. Provided written instruction for home exercise program to facilitate proper performance and compliance. Manual Therapy: 1: KT tape: applied KT tape to right radial side of wrist to thumb to reduce pain and and increase ability to return to neutral wrist vs ulnar deviation at rest. Educated on purpose, wear, and use of tape and to remove with any evidence of skin irritation. Pt reported good understanding of education. Skilled Intervention: Manual skills to improve joint mobility, ROM, and decrease pain. Utilized anatomy knowledge of the therapist, and assessment of patient's response to intervention. Billing * Evaluation Low Complexity: 1 Unit Therapeutic Exercise Treatment Minutes: 22 Manual Therapy Treatment Minutes: 5 Skilled Treatment Time Minutes (timed and untimed codes): 42 Total Session Time (minutes): 42 Session Start Time : 1704 Session Stop Time : 1746 VERONICA Weiner documented in this encounter [facility] 11-07-2024 Telephone encounter Note Images from the original note were not included. Vijay Guo V DO You1 hour ago (3:16 PM) The insurance company does not decide if the MRI is needed, only if they are going to cover the cost. There is always the option of paying out of pocket for testing that insurance will not cover, but that can be expensive. Insurance companies have protocols they follow. A peer-peer meeting can be done, but does not in any way guarantee the insurance company will change their recommendation for PT prior to covering the cost of the MRI. Vijay Guo DO [facility] 11-07-2024 Miscellaneous Notes Images from the original note were not included. Vijay Guo V, DO You1 hour ago (3:16 PM) The insurance company does not decide if the MRI is needed, only if they are going to cover the cost. There is always the option of paying out of pocket for testing that insurance will not cover, but that can be expensive. Insurance companies have protocols they follow. A peer-peer meeting can be done, but does not in any way guarantee the insurance company will change their recommendation for PT prior to covering the cost of the MRI. Vijay Guo DO I called and spoke with the patient. She feels like she should not have to participate in OT since the physician ordered the MRI. Explained that her insurance company wants her to exhaust all conservative treatments before proceeding with advanced imaging. She is asking for peer to peer to be completed with the insurance company stating that she will be doing more damage to her wrist by participating in OT. Advised the patient that I would send her request the physician. ? Brant Vijay Ortiz 11/06/2024 8:17 AM Looks like she will need 4 weeks of PT before MRI is approved. Since it is her wrist that is the issue, she will need Occ Therapy, which is available at [facility]. I will place an order that can be faxed to [email or web address]. Pt called in stated that her ins denied her MRI as physical therapy has not been done yet. Pt stated she was told that Dr. Guo could resubmit stating why patient should not have PT and could do further damage. Pt stated insurance would most likely cover MRI if provider stated reason why not to to PT. Please advise, Thank you documented in this encounter [facility] 11-07-2024 Telephone encounter Note I called and spoke with the patient. She feels like she should not have to participate in OT since the physician ordered the MRI. Explained that her insurance company wants her to exhaust all conservative treatments before proceeding with advanced imaging. She is asking for peer to peer to be completed with the insurance company stating that she will be doing more damage to her wrist by participating in OT. Advised the patient that I would send her request the physician. [facility] 11-07-2024 Telephone encounter Note ? Brant Vijay Ortiz 11/06/2024 8:17 AM Looks like she will need 4 weeks of PT before MRI is approved. Since it is her wrist that is the issue, she will need Occ Therapy, which is available at [facility]. I will place an order that can be faxed to [email or web address]. [facility] 11-07-2024 Telephone encounter Note Pt called in stated that her ins denied her MRI as physical therapy has not been done yet. Pt stated she was told that Dr. Guo could resubmit stating why patient should not have PT and could do further damage. Pt stated insurance would most likely cover MRI if provider stated reason why not to to PT. Please advise, Thank you [facility] 10-23-2024 Note HNO ID: [id number] Author: PAIGE MEJIA MA Service: ? Author Type: Kst Operator Type: Progress Notes Filed: 10/23/2024 14:17 Note Text: PT ASSESSMENT - CASTING ROOM Sarah presents for Application of brace. Applied Glenna and Keene Modabber wrist brace to Right wrist. Patient tolerated well. Patient has been instructed in Care and proper application of brace. Patient signed Ines QUIJANO electronically for billing and verbalized understanding. Paige Mejia MA [facility] 10-23-2024 History of Present illness Narrative PT ASSESSMENT - CASTING ROOM Sarah presents for Application of brace. Applied Glenna and Keene Modabber wrist brace to Right wrist. Patient tolerated well. Patient has been instructed in Care and proper application of brace. Patient signed Ines QUIJANO electronically for billing and verbalized understanding. Paieg Mejia MA Brittany Smith is a 24-year-old female presenting with chronic right wrist pain that has acutely worsened over the past 4-5 weeks. Sarah reports a history of right wrist issues dating back to childhood, initially characterized by a clicking noise without significant discomfort. Approximately 4-5 weeks ago, while vacuuming, she experienced a loud pop in her wrist accompanied by severe pain radiating up her arm, diaphoresis, nausea, and near-syncope. Since then, she has had 3-4 similar episodes of severe pain, though she describes the usual pain as a constant, annoying sensation localized near the ulnar styloid and radiating to her fifth digit. She also reports a feeling of tightness when moving her wrist back and forth and a sensation of her tendons getting "stuck" between her bones, causing additional pain. She has tried icing and heating the wrist, which provided temporary relief but was followed by worsening pain. She denies using a wrist splint. She denies any metal implants that would contraindicate an MRI. Constitutional: (+) diaphoresis Gastrointestinal: (+) nausea Musculoskeletal: (+) wrist pain, (+) pain radiating to pinky, (+) clicking in wrist Neurological: (+) near syncope Objective Last menstrual period 05/30/2023, not currently . General: No acute distress. MSK/Ext: Mild tenderness over ulnar styloid, mild tenderness over TFCC, full finger flexion and extension without difficulty, mild pain with wrist flexion and extension against resistance, mild pain with wrist radial deviation, no significant pain in anatomical snuffbox, mild clicking and catching sensation in wrist. Labs: Tests: Imaging: - X-ray of the wrist: No abnormalities Assessment & Plan 1. Right wrist pain (M25.531) Wrist weakness (R29.898) Chronic wrist pain exacerbated 4-5 weeks ago with a loud pop and severe pain radiating up the arm during vacuuming. Pain localized near the ulnar styloid and TFCC region. X-rays showed no abnormalities. Suspected TFCC injury or ulnar nerve irritation. - Ordered MRI of the wrist to evaluate cartilage and ligaments. - Provided wrist splint to support the wrist. Recording using ambient Education Elements software for draft documentation of the visit was discussed with the patient/authorized tax compliance representative; all questions welcomed and answered. Patient/authorized tax compliance representative agreed to proceed Patient presents with: Right wrist pain : Referred by Dora Restrepo [facility] ROOMING INTAKE FLOWSHEET DATA Pain Pain Level: 8 Pain Location: Wrist-Right Description: Aching, Cramping, Dull, Numbness, Radiating, Sharp, Shooting, Sore, Stabbing, Throbbing, Tightness Duration Amount of Time: 4 Duration Units: Weeks Frequency: Intermittent Intervention/Comfort measure: Distractions, Massage, Positioning documented in this encounter [facility] 10-23-2024 Note HNO ID: [id number] Author: VIJAY GUO, DO Service: ? Author Type: Physician Type: Progress Notes Filed: 10/23/2024 14:17 Note Text: Brittany Smith is a 24-year-old female presenting with chronic right wrist pain that has acutely worsened over the past 4-5 weeks. Sarah reports a history of right wrist issues dating back to childhood, initially characterized by a clicking noise without significant discomfort. Approximately 4-5 weeks ago, while vacuuming, she experienced a loud pop in her wrist accompanied by severe pain radiating up her arm, diaphoresis, nausea, and near-syncope. Since then, she has had 3-4 similar episodes of severe pain, though she describes the usual pain as a constant, annoying sensation localized near the ulnar styloid and radiating to her fifth digit. She also reports a feeling of tightness when moving her wrist back and forth and a sensation of her tendons getting "stuck" between her bones, causing additional pain. She has tried icing and heating the wrist, which provided temporary relief but was followed by worsening pain. She denies using a wrist splint. She denies any metal implants that would contraindicate an MRI. Constitutional: (+) diaphoresis Gastrointestinal: (+) nausea Musculoskeletal: (+) wrist pain, (+) pain radiating to pinky, (+) clicking in wrist Neurological: (+) near syncope Objective Last menstrual period 05/30/2023, not currently . General: No acute distress. MSK/Ext: Mild tenderness over ulnar styloid, mild tenderness over TFCC, full finger flexion and extension without difficulty, mild pain with wrist flexion and extension against resistance, mild pain with wrist radial deviation, no significant pain in anatomical snuffbox, mild clicking and catching sensation in wrist. Labs: Tests: Imaging: - X-ray of the wrist: No abnormalities Assessment AND Plan 1. Right wrist pain (M25.531) Wrist weakness (R29.898) Chronic wrist pain exacerbated 4-5 weeks ago with a loud pop and severe pain radiating up the arm during vacuuming. Pain localized near the ulnar styloid and TFCC region. X-rays showed no abnormalities. Suspected TFCC injury or ulnar nerve irritation. - Ordered MRI of the wrist to evaluate cartilage and ligaments. - Provided wrist splint to support the wrist. Recording using [employer] software for draft documentation of the visit was discussed with the patient/authorized tax compliance representative; all questions welcomed and answered. Patient/authorized tax compliance representative agreed to proceed [facility] 10-23-2024 Note HNO ID: [id number] Author: PAIGE MEJIA MA Service: ? Author Type: Kst Operator Type: Progress Notes Filed: 10/23/2024 14:17 Note Text: Patient presents with: Right wrist pain : Referred by Dora Restrepo [facility] INTAKE FLOWSHEET DATA Pain Pain Level: 8 Pain Location: Wrist-Right Description: Aching, Cramping, Dull, Numbness, Radiating, Sharp, Shooting, Sore, Stabbing, Throbbing, Tightness Duration Amount of Time: 4 Duration Units: Weeks Frequency: Intermittent Intervention/Comfort measure: Distractions, Massage, Positioning [facility] 10-17-2024 Note HNO ID: [id number] Author: BARBARA PALOMO Tech Service: ? Author Type: Technologist Type: Progress Notes Filed: 10/17/2024 11:47 Note Text: Radiology Service Progress Note PATIENT NAME: Sarah David DATE OF SERVICE: October 17, 2024 TIME: 11:38 AM PATIENT IDENTITY VERIFICATION COMPLETED USING TWO (2) IDENTIFIERS: Name and Date of confirmed by patient verbally. FALL SCREENING: Has the patient had 2 falls in the last year or 1 fall with injury or currently using an Ambulatory Assistive Device (Walker, Cane, Wheelchair, Crutches, etc.)? No PATIENT GENDER DATA: Assigned female at . status: : No status: NO. PATIENT RELEVANT IMPLANT DATA REVIEWED: Not Applicable PATIENT PRESENTS WITH AN IMPLANTABLE OR ATTACHED DEVELOPER SUPPORT ENGINEER: No RADIOLOGY DEPARTMENT: General X-ray: Exam(s) Completed: Upper Extremity X-Ray(s): Wrist, right PERIPHERAL IV DATA: Not applicable SIGNED BY: Giorgi Billy October 17, 2024 11:38 AM [facility] 10-17-2024 Note HNO ID: [id number] Author: DORA RESTREPO APRN.CNP Service: ? Author Type: Nurse Practitioner Type: Progress Notes Filed: 10/18/2024 16:19 Note Text: CC: Patient presents with: Wrist Pain: R wrist pain x 2 weeks HPI Sarah David is a 24 year old female who presents today for right wrist pain and migraines. Recording using Fuze software for draft documentation of the visit was discussed with the patient/authorized tax compliance representative; all questions welcomed and answered. Patient/authorized tax compliance representative agreed to proceed Right Wrist Pain and Weakness: - Initial injury in childhood from a fall out of a tree, resulting in a clicking noise with certain motions. - Progression of symptoms over the years, including: - Clicking noise. - Pinky "locking and hollowing out." - Sensation of ligaments getting caught in the bone. - Audible popping sounds. - Recent exacerbation of pain two weeks ago while vacuuming, described as a loud pop with associated diaphoresis and nausea. - Dull, pulling pain radiating up to the elbow. - Recent incident of wrist popping while holding her child, resulting in inability to support the child's weight with stating her hand just flipped back words and she had no control over it. - Denies known recent trauma or injury. No edema, redness, fever, numbness, Migraines: - Migraines resolved during but have returned post-. - Frequency: At least once a week, lasting 2-3 days. - Triggers: Lack of sleep and overexertion. - Associated symptoms: Nausea, emesis, and new onset auras. - Previous medications: Maxalt, topiramate, venlafaxine, and trazodone. - Not currently on control; considering options. Anxiety and Depression: - Anxiety described as "bad," but depression is "not as bad." - Anxiety primarily focused on her child. - History of self-harm; currently journaling as a coping mechanism. - Negative experiences with previous therapists. REVIEW OF SYSTEMS General: no fevers, no chills, no night sweats, no recurrent infections, no change in appetite, no change in energy, and no significant changes in weight Respiratory: no cough, no wheezing, no shortness of breath, no hemoptysis Cardiovascular: no chest pain, no chest pressure, no palpitations, and no swelling Neurologic: No weakness, numbness, tingling, memory loss, syncope. PAST MEDICAL HISTORY Diagnosis Date Anxiety and depression Insomnia Left ear hearing loss Menarche 2011 Age 11 Migraines PMH - PAST MEDICAL HISTORY OF 01/09/2004 normal color vision Scoliosis TMJ (dislocation of temporomandibular joint) PAST SURGICAL HISTORY Procedure Laterality Date DELIVERY ONLY 03/03/2024 TYMPANOSTOMY LOCAL/TOPICAL ANESTHESIA < 6 yrs ALLERGIES Amoxicillin, Augmentin [Amoxicillin-Pot Clavulanate], and Penicillins MEDICATIONS ondansetron (ZOFRAN) 4 mg tablet Take 1 tablet by mouth every 8 hours as needed for nausea/vomiting. rizatriptan 5 mg disintegrating tablet Take 1 tablet at first sign of migraine, and may repeat in 2 hours if necessary. Do not take more than 20mg in a 24 hour period. venlafaxine ER (EFFEXOR XR) 37.5 mg 24 hr capsule Take 1 capsule by mouth once daily. ferrous sulfate (IRON ORAL) Take 1 tablet by mouth every other day. FAMILY HISTORY Problem Relation Age of Onset Asthma Mother Anxiety disorder Mother Alcohol/Drug Father ETOH Diabetes Father Asthma Brother Asthma Brother sibling ADD/ADHD Brother Breast Cancer Maternal Grandmother Cancer Paternal Aunt great aunts? COPD Other mggm Social History Tobacco Use Smoking status: Never Passive exposure: Yes Smokeless tobacco: Never Tobacco comments: mom smokes Vaping Use Vaping status: Never Used Substance Use Topics Alcohol use: No Drug use: Yes Types: Marijuana Comment: non recentley PHYSICAL EXAM BP 116/72 Pulse 88 Resp 16 Wt 76.2 kg (168 lb) LMP 05/30/2023 (Approximate) SpO2 97% BMI 31.74 kg/m? General Appearance: well appearing, in no acute distress, alert Pysch: mood and affect broad and appropriate Eyes: PERRLA, EOM's intact, conjunctiva pink and moist, no icterus, sclera white, non-injected Neck: Thyroid normal size and symmetric without palpable nodules, Neck supple, No adenopathy Lymph nodes: No cervical lymphadenopathy and No supraclavicular lymphadenopathy Lungs: Lungs clear to auscultation. No wheezing, rhonchi, rales. Heart: RRR without murmur, gallop, or rubs. No ectopy BUE Extremities: No deformities, edema, skin discoloration, clubbing or cyanosis. Good capillary refill. Right wrist with full ROM, and strength. Some tenderness reported and also a clicking popping sensation with flexion up Neurological: Gait normal. Reflexes normal and symmetric. Sensation intact., speech normal, mental status intact, muscle tone normal, muscle strength normal Health maintenance reviewed with patient: HPV Vac (more content not included)... [facility] 10-13-2024 Telephone encounter Note Reason for Call: Wrist pain and popping that started about 2-3 weeks ago Patient also states that she has had chronic migraines since she was 11 years old (noted on problem list). The migraines subsided while she was but restarted about two months ago. She is also hoping that her provider will be able to assist her as she no longer has any as needed migraine abortive medications left. She states that her chronic migraines are not new or worsening. She does not have a headache now. Outcome: To be seen within 3 days. Patient agrees with disposition. Reviewed care advice and back up plan options: urgent care, ortho express care, or emergency room. Transferred to [facility] in the appointment center for scheduling. Reason for Disposition [1] Weakness or numbness in hand or fingers AND [2] present > 2 weeks Additional Information Negative: Numbness (i.e., loss of sensation) in hand or fingers (Exceptions: Just tingling; numbness present > 2 weeks.) Tingling / feels like it fell asleep; Symptoms for 2-3 weeks now Answer Assessment - Initial Assessment Questions 1. ONSET: two weeks ago; this time it caused her to feel hot, sweat, nausea, and like she couldn't breathe. She felt like she may pass out. 2. LOCATION: right wrist (dominant hand) 3. PAIN: intermittent describes as sharp; shoots up her arm Pain: lasts less than one minute usually, longest was 1-2 minutes Location? Right wrist; dorsal, lateral side Rate severity of pain? 8/10 Any pain relief measures tried? Effectiveness of pain relief measures? 4. WORK OR EXERCISE: no 5. CAUSE: unsure, it started while vacuuming. She was told that she had carpal tunnel syndrome while 6. AGGRAVATING FACTORS: using her wrist to vacuum, sweet pickled fruit maker her son, etc. 7. OTHER SYMPTOMS: sometimes it feels like her hand falls asleep / goes numb. She feels a popping sound before the pain occurs. no rash, swelling, fever. 8. : Not now; gave about 8 months ago Protocols used: Wrist [id number] [facility] Work Phone: 10-13-2024 Miscellaneous Notes Reason for Call: Wrist pain and popping that started about 2-3 weeks ago Patient also states that she has had chronic migraines since she was 11 years old (noted on problem list). The migraines subsided while she was but restarted about two months ago. She is also hoping that her provider will be able to assist her as she no longer has any as needed migraine abortive medications left. She states that her chronic migraines are not new or worsening. She does not have a headache now. Outcome: To be seen within 3 days. Patient agrees with disposition. Reviewed care advice and back up plan options: urgent care, ortho express care, or emergency room. Transferred to [facility] in the appointment center for scheduling. Reason for Disposition [1] Weakness or numbness in hand or fingers AND [2] present > 2 weeks Additional Information Negative: Numbness (i.e., loss of sensation) in hand or fingers (Exceptions: Just tingling; numbness present > 2 weeks.) Tingling / feels like it fell asleep; Symptoms for 2-3 weeks now Answer Assessment - Initial Assessment Questions 1. ONSET: two weeks ago; this time it caused her to feel hot, sweat, nausea, and like she couldn't breathe. She felt like she may pass out. 2. LOCATION: right wrist (dominant hand) 3. PAIN: intermittent describes as sharp; shoots up her arm Pain: lasts less than one minute usually, longest was 1-2 minutes Location? Right wrist; dorsal, lateral side Rate severity of pain? 8/10 Any pain relief measures tried? Effectiveness of pain relief measures? 4. WORK OR EXERCISE: no 5. CAUSE: unsure, it started while vacuuming. She was told that she had carpal tunnel syndrome while 6. AGGRAVATING FACTORS: using her wrist to vacuum, sweet pickled fruit maker her son, etc. 7. OTHER SYMPTOMS: sometimes it feels like her hand falls asleep / goes numb. She feels a popping sound before the pain occurs. no rash, swelling, fever. 8. : Not now; gave about 8 months ago Protocols used: Wrist [id number] documented in this encounter [facility] 09-03-2024 Note HNO ID: [id number] Author: DORA RESTREPO APRN.BOARDING MACHINE OPERATOR Service: ? Author Type: Nurse Practitioner Type: Progress Notes Filed: 09/03/2024 15:12 Note Text: CC: Patient presents with: Allergies: Possible allergies? Back pain upper back HPI Sarah David is a 24 year old female who presents today for sneezing. Patient states that she had a little boy 6 months ago and since having the baby she noticed sneezing particularly in the morning. She states that she has multiple episodes of sneezing several times in a row. And throughout the day. Denies any history of seasonal or environmental allergies. She denies any significant rhinorrhea but does have to blow her nose on occasion. Denies any shortness of breath, asthma, cough. She has no associated intermittent scratchy throat . Patient states that she does smoke marijuana occasionally, which is not new, and boyfriend vapes, but not usually in the house. They have 2 air purifier in the house and have scrubbed the carpet to see if that was the cause. Also has 3 cats and a dog which she has never had issues with in the past. Denies any other associated symptoms family history is only significant for asthma. She is currently not breast-feeding. REVIEW OF SYSTEMS General: no fevers, no chills, no night sweats, no recurrent infections, no change in appetite, no change in energy, and no significant changes in weight HEENT: no frequent or significant headaches, no changes in hearing, no visual changes, no nose bleeds, See HPI Respiratory: no cough, no wheezing, no shortness of breath, no hemoptysis Cardiovascular: no chest pain, no chest pressure, no palpitations, and no swelling GI: No nausea, vomiting, or diarrhea Musculoskeletal: Negative for joint pain or swelling, back pain or muscle pain Skin: Negative for lesions, rash, and itching See HPI PAST MEDICAL HISTORY Diagnosis Date Anxiety and depression Insomnia Left ear hearing loss Menarche 2011 Age 11 Migraines PMH - PAST MEDICAL HISTORY OF 01/09/2004 normal color vision Scoliosis TMJ (dislocation of temporomandibular joint) PAST SURGICAL HISTORY Procedure Laterality Date DELIVERY ONLY 03/03/2024 TYMPANOSTOMY LOCAL/TOPICAL ANESTHESIA < 6 yrs ALLERGIES Amoxicillin, Augmentin [Amoxicillin-Pot Clavulanate], and Penicillins MEDICATIONS MEDICATION, NON-DATABASE Placenta ferrous sulfate (IRON ORAL) Take 1 tablet by mouth every other day. ondansetron (ZOFRAN) 4 mg tablet Take 1 tablet by mouth every 8 hours as needed for nausea/vomiting. (Patient not taking: Reported on 03/16/2024) [id number]-Ax-[id number]-Fe-FA tab Take 1 tablet by mouth once daily. (Patient not taking: Reported on 03/08/2024) FAMILY HISTORY Problem Relation Age of Onset Asthma Mother Anxiety disorder Mother Alcohol/Drug Father ETOH Diabetes Father Asthma Brother Asthma Brother sibling ADD/ADHD Brother Breast Cancer Maternal Grandmother Cancer Paternal Aunt great aunts? COPD Other mggm Social History Tobacco Use Smoking status: Never Passive exposure: Yes Smokeless tobacco: Never Tobacco comments: mom smokes Vaping Use Vaping status: Never Used Substance Use Topics Alcohol use: No Drug use: Yes Types: Marijuana Comment: non recentley PHYSICAL EXAM BP 112/70 Pulse 84 Resp 16 Wt 77.6 kg (171 lb) LMP 05/30/2023 (Approximate) SpO2 96% BMI 32.31 kg/m? General Appearance: well appearing, in no acute distress, alert Skin: Skin color, texture, turgor normal for age; Head: normocephalic, atraumatic Eyes: PERRLA, EOM's intact, conjunctiva pink and moist, no icterus, sclera white, non-injected Ears: external ears normal to inspection and palpation, canals clear, Left tympanic membrane normal. , Right tympanic membrane normal Nose/sinus: septum midline with no perforation or bleeding, no sinus tenderness, mucosa erythematous and swollen, nasal polyps present Lymph nodes: No cervical lymphadenopathy, No supraclavicular lymphadenopathy,Lungs: Lungs clear to auscultation. No wheezing, rhonchi, rales. Heart: RRR without murmur, gallop, or rubs. No ectopy Extremities: No deformities, edema, skin discoloration, clubbing or cyanosis. Good capillary refill. Musculoskeletal: No joint swelling, deformity, or tenderness Health maintenance reviewed with patient: HPV Vaccine(1 - 3-dose series) Never done Depression Screening Never done Anxiety Screening Never done Covid-19 Vaccine(2023- season) Never done Cervical Cancer Screening due on 10/18/2025 DTaP,Tdap,Td Vaccine(8 - Td or Tdap) due on 12/20/2033 Hepatitis B Vaccine Completed Influenza Vaccine Completed Hepatitis C Screening Completed HIV Screening Completed DATA REVIEWED: Most recent labs and imaging results. ASSESSMENT/PLAN: 1. Nasal polyp - ICD9: 471.9, ICD10: J33.9 (primary diagnosis) - Flonase BID -ENT if symptoms persist despite treatment 2. Environmental a (more content not included)... [facility] 09-03-2024 History of Present illness Narrative CC: Patient presents with: Allergies: Possible allergies? Back pain upper back HPI Sarah David is a 24 year old female who presents today for sneezing. Patient states that she had a little boy 6 months ago and since having the baby she noticed sneezing particularly in the morning. She states that she has multiple episodes of sneezing several times in a row. And throughout the day. Denies any history of seasonal or environmental allergies. She denies any significant rhinorrhea but does have to blow her nose on occasion. Denies any shortness of breath, asthma, cough. She has no associated intermittent scratchy throat . Patient states that she does smoke marijuana occasionally, which is not new, and boyfriend vapes, but not usually in the house. They have 2 air purifier in the house and have scrubbed the carpet to see if that was the cause. Also has 3 cats and a dog which she has never had issues with in the past. Denies any other associated symptoms family history is only significant for asthma. She is currently not breast-feeding. REVIEW OF SYSTEMS General: no fevers, no chills, no night sweats, no recurrent infections, no change in appetite, no change in energy, and no significant changes in weight HEENT: no frequent or significant headaches, no changes in hearing, no visual changes, no nose bleeds, See HPI Respiratory: no cough, no wheezing, no shortness of breath, no hemoptysis Cardiovascular: no chest pain, no chest pressure, no palpitations, and no swelling GI: No nausea, vomiting, or diarrhea Musculoskeletal: Negative for joint pain or swelling, back pain or muscle pain Skin: Negative for lesions, rash, and itching See HPI PAST MEDICAL HISTORY Diagnosis Date Anxiety and depression Insomnia Left ear hearing loss Menarche 2012 Age 11 Migraines PMH - PAST MEDICAL HISTORY OF 01/09/2004 normal color vision Scoliosis TMJ (dislocation of temporomandibular joint) PAST SURGICAL HISTORY Procedure Laterality Date DELIVERY ONLY 03/03/2024 TYMPANOSTOMY LOCAL/TOPICAL ANESTHESIA < 6 yrs ALLERGIES Amoxicillin, Augmentin [Amoxicillin-Pot Clavulanate], and Penicillins MEDICATIONS MEDICATION, NON-DATABASE Placenta ferrous sulfate (IRON ORAL) Take 1 tablet by mouth every other day. ondansetron (ZOFRAN) 4 mg tablet Take 1 tablet by mouth every 8 hours as needed for nausea/vomiting. (Patient not taking: Reported on 03/16/2024) Roiqvanr-Kc-Rnk-Fe-FA tab Take 1 tablet by mouth once daily. (Patient not taking: Reported on 03/08/2024) FAMILY HISTORY Problem Relation Age of Onset Asthma Mother Anxiety disorder Mother Alcohol/Drug Father ETOH Diabetes Father Asthma Brother Asthma Brother sibling ADD/ADHD Brother Breast Cancer Maternal Grandmother Cancer Paternal Aunt great aunts? COPD Other mggm Social History Tobacco Use Smoking status: Never Passive exposure: Yes Smokeless tobacco: Never Tobacco comments: mom smokes Vaping Use Vaping status: Never Used Substance Use Topics Alcohol use: No Drug use: Yes Types: Marijuana Comment: non recentley PHYSICAL EXAM BP 112/70 Pulse 84 Resp 16 Wt 77.6 kg (171 lb) LMP 05/30/2023 (Approximate) SpO2 96% BMI 32.31 kg/m General Appearance: well appearing, in no acute distress, alert Skin: Skin color, texture, turgor normal for age; Head: normocephalic, atraumatic Eyes: PERRLA, EOM's intact, conjunctiva pink and moist, no icterus, sclera white, non-injected Ears: external ears normal to inspection and palpation, canals clear, Left tympanic membrane normal. , Right tympanic membrane normal Nose/sinus: septum midline with no perforation or bleeding, no sinus tenderness, mucosa erythematous and swollen, nasal polyps present Lymph nodes: No cervical lymphadenopathy, No supraclavicular lymphadenopathy,Lungs: Lungs clear to auscultation. No wheezing, rhonchi, rales. Heart: RRR without murmur, gallop, or rubs. No ectopy Extremities: No deformities, edema, skin discoloration, clubbing or cyanosis. Good capillary refill. Musculoskeletal: No joint swelling, deformity, or tenderness Health maintenance reviewed with patient: HPV Vaccine(1 - 3-dose series) Never done Depression Screening Never done Anxiety Screening Never done Covid-19 Vaccine(2023- season) Never done Cervical Cancer Screening due on 10/18/2025 DTaP,Tdap,Td Vaccine(8 - Td or Tdap) due on 12/20/2033 Hepatitis B Vaccine Completed Influenza Vaccine Completed Hepatitis C Screening Completed HIV Screening Completed DATA REVIEWED: Most recent labs and imaging results. ASSESSMENT/PLAN: 1. Nasal polyp - ICD9: 471.9, ICD10: J33.9 (primary diagnosis) - Flonase BID -ENT if symptoms persist despite treatment 2. Environmental allergies - ICD9: V15.09, ICD10: Z91.09 OTC antihistamine, recommended sofie or zyrtec. Daily Agree with changing pillows and washing sheets more often. Follow up at next schedule appointment. She will call if sx do not improve. Jennifer Rebolledo Prescription instructions reviewed with patient as applicable. Potential red flag symptoms discussed with the patient. Reviewed appropriate action plan to take if red flag symptoms occur. Patient agreeable to treatment plan. Dora Restrepo APRN.CNP documented in this encounter [facility] 03-17-2024 Note HNO ID: [id number] Author: FLOYD AVELAR MD Service: ? Author Type: Physician Type: Progress Notes Filed: 03/17/2024 05:59 Note Text: HISTORY AND PHYSICAL Sarah David 2000 REFERRING PHYSICIAN: Naga Marks MD CHIEF COMPLAINT: Consult (RUQ pain) HPI: The patient is a 24 year old female with a complaint of right upper quadrant and right posterior flank/thoracoabdominal pain. The patient has noted pain for approximately the last month. She notes the pain is sharp and stabbing. She notes that she will feel pain when she twists moves bends over or lays in certain positions. The pain will occur suddenly and is severe and continuous when it occurs. She is 1 month status post section. She was actually noting reflux and epigastric symptoms following her section but that is actually improved over the last 3 days. Her reflux symptoms more central and occurred soon after eating. She notes that this right flank pain sometimes seems to occur also after eating but this happens immediately after eating. She was uncertain whether she would describe her symptoms as more colicky in nature, but with further discussion is seem to be the majority of her symptoms were musculoskeletal towards the back area. She notes the pain hurts if she takes a deep breath. She underwent an abdominal series on March 08, 2024. This was unremarkable. She underwent right upper quadrant ultrasound on March 09, 2024. This demonstrated: IMPRESSION: Unremarkable sonographic exam of the right upper quadrant abdomen. . The patient is being seen by me today at the request of Dr. Marks for my opinion and advice regarding right upper quadrant and right flank discomfort. PAST MEDICAL HISTORY Diagnosis Date Anxiety and depression Insomnia Left ear hearing loss Menarche 2011 Age 11 Migraines PMH - PAST MEDICAL HISTORY OF 01/09/2004 normal color vision Scoliosis TMJ (dislocation of temporomandibular joint) PAST SURGICAL HISTORY Procedure Laterality Date DELIVERY ONLY 03/03/2024 TYMPANOSTOMY LOCAL/TOPICAL ANESTHESIA < 6 yrs Current Outpatient Medications Medication Sig MEDICATION, NON-DATABASE Placenta ferrous sulfate (IRON ORAL) Take 1 tablet by mouth every other day. ondansetron (ZOFRAN) 4 mg tablet Take 1 tablet by mouth every 8 hours as needed for nausea/vomiting. (Patient not taking: Reported on 03/16/2024) Mhrfonbc-Tr-Irf-Fe-FA tab Take 1 tablet by mouth once daily. (Patient not taking: Reported on 03/08/2024) No current facility-administered medications for this visit. ALLERGIES: Amoxicillin, Augmentin [Amoxicillin-Pot Clavulanate], and Penicillins PERSONAL HISTORY: Social History Tobacco Use Smoking status: Never Passive exposure: Yes Smokeless tobacco: Never Tobacco comments: mom smokes Vaping Use Vaping status: Never Used Substance Use Topics Alcohol use: No Drug use: Yes Types: Marijuana Comment: non recentley FAMILY HISTORY: FAMILY HISTORY Problem Relation Age of Onset Asthma Mother Anxiety disorder Mother Alcohol/Drug Father ETOH Diabetes Father Asthma Brother Asthma Brother sibling ADD/ADHD Brother Breast Cancer Maternal Grandmother Cancer Paternal Aunt great aunts? COPD Other mggm REVIEW OF SYMPTOMS: The review of systems data was entered by the nurse and reviewed by me Nursing Notes: Renetta Downing RN 03/16/2024 4:02 PM Signed REVIEW OF SYSTEMS: General: The patient denies fatigue, denies weight loss, denies weight gain, denies feeling hot, and denies feelings of cold. Eyes: The patient denies glaucoma, denies eye injury/surgery, wears glasses or contacts. Ear/Nose/Throat: The patient NOTES allergies, denies hayfever, NOTES ear infections, and denies bloody noses. Cardiovascular: The patient denies chest pain, denies heart disease, denies high blood pressure,denies cardiac stent, denies prior heart attack, denies irregular heart beat, denies high cholesterol, denies poor circulation, denies heart failure, other cardiac issues, denies claudication, denies cold feet, denies peripheral arterial stent. Respiratory: The patient denies tuberculosis, denies pneumonia, denies frequent cough, denies pulmonary embolism, denies shortness of breath, and denies coughing up blood. Gastrointestinal: The patient denies difficulty swallowing, denies acid reflux, denies ulcers, denies vomiting, denies jaundice/hepatitis, denies gallbladder problems, denies black or tarry stools, denies hemorrhoids, denies bleeding from rectum, denies diverticulitis, denies constipation, denies diarrhea, denies loss of stool control, and denies hernias. Kidney/Bladder: The patient denies kidney stones, denies urine infections, and denies bloody urine. Skin: The patient denies a history of skin cancer, denies bleeding/changing moles, and denies a history of skin rash. Neurologic: The (more content not included)... [facility] 03-17-2024 History of Present illness Narrative HISTORY AND PHYSICAL Sarah David 2000 REFERRING PHYSICIAN: Naga Marks MD CHIEF COMPLAINT: Consult (RUQ pain) HPI: The patient is a 24 year old female with a complaint of right upper quadrant and right posterior flank/thoracoabdominal pain. The patient has noted pain for approximately the last month. She notes the pain is sharp and stabbing. She notes that she will feel pain when she twists moves bends over or lays in certain positions. The pain will occur suddenly and is severe and continuous when it occurs. She is 1 month status post section. She was actually noting reflux and epigastric symptoms following her section but that is actually improved over the last 3 days. Her reflux symptoms more central and occurred soon after eating. She notes that this right flank pain sometimes seems to occur also after eating but this happens immediately after eating. She was uncertain whether she would describe her symptoms as more colicky in nature, but with further discussion is seem to be the majority of her symptoms were musculoskeletal towards the back area. She notes the pain hurts if she takes a deep breath. She underwent an abdominal series on March 08, 2024. This was unremarkable. She underwent right upper quadrant ultrasound on March 09, 2024. This demonstrated: IMPRESSION: Unremarkable sonographic exam of the right upper quadrant abdomen. . The patient is being seen by me today at the request of Dr. Marks for my opinion and advice regarding right upper quadrant and right flank discomfort. PAST MEDICAL HISTORY Diagnosis Date Anxiety and depression Insomnia Left ear hearing loss Menarche 2011 Age 11 Migraines PMH - PAST MEDICAL HISTORY OF 01/09/2004 normal color vision Scoliosis TMJ (dislocation of temporomandibular joint) PAST SURGICAL HISTORY Procedure Laterality Date DELIVERY ONLY 03/03/2024 TYMPANOSTOMY LOCAL/TOPICAL ANESTHESIA < 6 yrs Current Outpatient Medications Medication Sig MEDICATION, NON-DATABASE Placenta ferrous sulfate (IRON ORAL) Take 1 tablet by mouth every other day. ondansetron (ZOFRAN) 4 mg tablet Take 1 tablet by mouth every 8 hours as needed for nausea/vomiting. (Patient not taking: Reported on 03/16/2024) Ygtuiirb-[id number]-Vmm-Fe-FA tab Take 1 tablet by mouth once daily. (Patient not taking: Reported on 03/08/2024) No current facility-administered medications for this visit. ALLERGIES: Amoxicillin, Augmentin [Amoxicillin-Pot Clavulanate], and Penicillins PERSONAL HISTORY: Social History Tobacco Use Smoking status: Never Passive exposure: Yes Smokeless tobacco: Never Tobacco comments: mom smokes Vaping Use Vaping status: Never Used Substance Use Topics Alcohol use: No Drug use: Yes Types: Marijuana Comment: non recentley FAMILY HISTORY: FAMILY HISTORY Problem Relation Age of Onset Asthma Mother Anxiety disorder Mother Alcohol/Drug Father ETOH Diabetes Father Asthma Brother Asthma Brother sibling ADD/ADHD Brother Breast Cancer Maternal Grandmother Cancer Paternal Aunt great aunts? COPD Other mggm REVIEW OF SYMPTOMS: The review of systems data was entered by the nurse and reviewed by me Nursing Notes: Renetta Downing RN 03/16/2024 4:02 PM Signed REVIEW OF SYSTEMS: General: The patient denies fatigue, denies weight loss, denies weight gain, denies feeling hot, and denies feelings of cold. Eyes: The patient denies glaucoma, denies eye injury/surgery, wears glasses or contacts. Ear/Nose/Throat: The patient NOTES allergies, denies hayfever, NOTES ear infections, and denies bloody noses. Cardiovascular: The patient denies chest pain, denies heart disease, denies high blood pressure,denies cardiac stent, denies prior heart attack, denies irregular heart beat, denies high cholesterol, denies poor circulation, denies heart failure, other cardiac issues, denies claudication, denies cold feet, denies peripheral arterial stent. Respiratory: The patient denies tuberculosis, denies pneumonia, denies frequent cough, denies pulmonary embolism, denies shortness of breath, and denies coughing up blood. Gastrointestinal: The patient denies difficulty swallowing, denies acid reflux, denies ulcers, denies vomiting, denies jaundice/hepatitis, denies gallbladder problems, denies black or tarry stools, denies hemorrhoids, denies bleeding from rectum, denies diverticulitis, denies constipation, denies diarrhea, denies loss of stool control, and denies hernias. Kidney/Bladder: The patient denies kidney stones, denies urine infections, and denies bloody urine. Skin: The patient denies a history of skin cancer, denies bleeding/changing moles, and denies a history of skin rash. Neurologic: The patient denies a history of epilepsy/convulsions, NOTES headaches, denies head/spinal injuries, and denies stroke/TIA. Psychiatric: The patient denies psychiatric medications, NOTES depression, and denies voices, denies substance abuse. Endocrine: The patient denies thyroid disorders, denies diabetes, and denies hormonal problems. Hematologic: The patient denies a history of bruising, denies bleeding, and NOTES anemia, denies blood clots. Infections: The patient denies a history of measles and mumps, denies rheumatic fever, and denies sexually transmitted diseases. Musculoskeletal: The patient denies back pain/injury, NOTES back problems, denies sciatica, denies knee/foot trouble, denies arthritis, or denies gout. When was patient's last Mammogram screening? N/A Last Colonoscopy: None Renetta Downing RN PHYSICAL EXAMINATION: General: The patient is 24 year old female, well nourished, well hydrated in no acute distress. The patient is oriented to time, place, and person. VITALS: Blood pressure 128/92, pulse 102, temperature 36.1 C (97 F), height 154.9 cm (5' 1"), weight 74.6 kg (164 lb 6.4 oz), last menstrual period 05/30/2023, SpO2 99%, not currently . HEENT: Normal cephalic, ataumatic, pupils are equally round, sclera are anicteric, mucous membranes are moist, oropharynx is clear. Neck has no masses, asymmetry or lymphadenopathy. Thyroid is unremarkable. Respiratory: Clear to auscultation and percussion. Normal respiratory excursion and pattern. Cardiac: Examination is regular rate and rhythm. Abdominal exam: Soft, nontender in the right upper quadrant, with no palpable masses. No hepatosplenomegaly. No palpable hernias. Palpation of the right flank area at the end of the rib at the costochondral junction demonstrated localized tenderness which reproduced her pain Rectal exam: exam deferred Extremities: no clubbing, cyanosis or edema. No adenopathy. Other: LABORATORY VALUES: As Noted RADIOLOGIC STUDIES: As Noted Assessment IMPRESSION: Likely costochondritis, doubt biliary colic PLAN: I recommended ice or heat to the area and nonsteroidal medications and discussed with the patient that usually the symptoms will improve within 4 to 6 weeks. If her symptoms do not improve within a month or her symptoms are more consistent with biliary colic I asked her to return for repeat evaluation and would consider HIDA scan at that time. Diagnoses: (R10.11) Right upper quadrant pain (primary encounter diagnosis) (M94.0) Costochondritis My findings have been communicated to Dr. Marks via shared medical record. This note will be forwarded to Dr. Kwabena Marquez MD. Return to Clinic: The patient is instructed to follow-up with me in 1 month if symptoms have not improved. Floyd Avelar MD documented in this encounter [facility] 03-16-2024 Nurse Note REVIEW OF SYSTEMS: General: The patient denies fatigue, denies weight loss, denies weight gain, denies feeling hot, and denies feelings of cold. Eyes: The patient denies glaucoma, denies eye injury/surgery, wears glasses or contacts. Ear/Nose/Throat: The patient NOTES allergies, denies hayfever, NOTES ear infections, and denies bloody noses. Cardiovascular: The patient denies chest pain, denies heart disease, denies high blood pressure,denies cardiac stent, denies prior heart attack, denies irregular heart beat, denies high cholesterol, denies poor circulation, denies heart failure, other cardiac issues, denies claudication, denies cold feet, denies peripheral arterial stent. Respiratory: The patient denies tuberculosis, denies pneumonia, denies frequent cough, denies pulmonary embolism, denies shortness of breath, and denies coughing up blood. Gastrointestinal: The patient denies difficulty swallowing, denies acid reflux, denies ulcers, denies vomiting, denies jaundice/hepatitis, denies gallbladder problems, denies black or tarry stools, denies hemorrhoids, denies bleeding from rectum, denies diverticulitis, denies constipation, denies diarrhea, denies loss of stool control, and denies hernias. Kidney/Bladder: The patient denies kidney stones, denies urine infections, and denies bloody urine. Skin: The patient denies a history of skin cancer, denies bleeding/changing moles, and denies a history of skin rash. Neurologic: The patient denies a history of epilepsy/convulsions, NOTES headaches, denies head/spinal injuries, and denies stroke/TIA. Psychiatric: The patient denies psychiatric medications, NOTES depression, and denies voices, denies substance abuse. Endocrine: The patient denies thyroid disorders, denies diabetes, and denies hormonal problems. Hematologic: The patient denies a history of bruising, denies bleeding, and NOTES anemia, denies blood clots. Infections: The patient denies a history of measles and mumps, denies rheumatic fever, and denies sexually transmitted diseases. Musculoskeletal: The patient denies back pain/injury, NOTES back problems, denies sciatica, denies knee/foot trouble, denies arthritis, or denies gout. When was patient's last Mammogram screening? N/A Last Colonoscopy: None Renetta Downing RN [facility] 03-16-2024 Nurse Note REVIEW OF SYSTEMS: General: The patient denies fatigue, denies weight loss, denies weight gain, denies feeling hot, and denies feelings of cold. Eyes: The patient denies glaucoma, denies eye injury/surgery, wears glasses or contacts. Ear/Nose/Throat: The patient NOTES allergies, denies hayfever, NOTES ear infections, and denies bloody noses. Cardiovascular: The patient denies chest pain, denies heart disease, denies high blood pressure,denies cardiac stent, denies prior heart attack, denies irregular heart beat, denies high cholesterol, denies poor circulation, denies heart failure, other cardiac issues, denies claudication, denies cold feet, denies peripheral arterial stent. Respiratory: The patient denies tuberculosis, denies pneumonia, denies frequent cough, denies pulmonary embolism, denies shortness of breath, and denies coughing up blood. Gastrointestinal: The patient denies difficulty swallowing, denies acid reflux, denies ulcers, denies vomiting, denies jaundice/hepatitis, denies gallbladder problems, denies black or tarry stools, denies hemorrhoids, denies bleeding from rectum, denies diverticulitis, denies constipation, denies diarrhea, denies loss of stool control, and denies hernias. Kidney/Bladder: The patient denies kidney stones, denies urine infections, and denies bloody urine. Skin: The patient denies a history of skin cancer, denies bleeding/changing moles, and denies a history of skin rash. Neurologic: The patient denies a history of epilepsy/convulsions, NOTES headaches, denies head/spinal injuries, and denies stroke/TIA. Psychiatric: The patient denies psychiatric medications, NOTES depression, and denies voices, denies substance abuse. Endocrine: The patient denies thyroid disorders, denies diabetes, and denies hormonal problems. Hematologic: The patient denies a history of bruising, denies bleeding, and NOTES anemia, denies blood clots. Infections: The patient denies a history of measles and mumps, denies rheumatic fever, and denies sexually transmitted diseases. Musculoskeletal: The patient denies back pain/injury, NOTES back problems, denies sciatica, denies knee/foot trouble, denies arthritis, or denies gout. When was patient's last Mammogram screening? N/A Last Colonoscopy: None Renetta Downing RN documented in this encounter [facility] 03-09-2024 Telephone encounter Note Patient notified that she needs seen by General Surgery. No results note available yet. Aware imaging is still in process. Transferred to [facility]. Mi Connell RN [facility] 03-09-2024 Miscellaneous Notes Patient notified that she needs seen by General Surgery. No results note available yet. Aware imaging is still in process. Transferred to [facility]. Mi Connell, RN See result note Consult placed to general surgery documented in this encounter [facility] 03-09-2024 Telephone encounter Note See result note Consult placed to general surgery [facility] 03-09-2024 History of Present illness Narrative Radiology Service Progress Note PATIENT NAME: Sarah David DATE OF SERVICE: March 09, 2024 TIME: 11:26 AM PATIENT IDENTITY VERIFICATION COMPLETED USING TWO (2) IDENTIFIERS: Name and Date of confirmed by patient verbally. FALL SCREENING: Has the patient had 2 falls in the last year or 1 fall with injury or currently using an Ambulatory Assistive Device (Walker, Cane, Wheelchair, Crutches, etc.)? No PATIENT GENDER DATA: Female. status: : No status: NO. PATIENT RELEVANT IMPLANT DATA REVIEWED: Not Applicable PATIENT PRESENTS WITH AN IMPLANTABLE OR ATTACHED DEVELOPER SUPPORT ENGINEER: No RADIOLOGY DEPARTMENT: Ultrasound PERIPHERAL IV DATA: Not applicable SIGNED BY: Camille Coreas RDMS Patricia March 09, 2024 11:26 AM documented in this encounter [facility] 03-09-2024 Note HNO ID: [id number] Author: CAMILLE COREAS RDMS Service: ? Author Type: Fire Control Mechanic Type: Progress Notes Filed: 03/09/2024 11:26 Note Text: Radiology Service Progress Note PATIENT NAME: Sarah David DATE OF SERVICE: March 09, 2024 TIME: 11:26 AM PATIENT IDENTITY VERIFICATION COMPLETED USING TWO (2) IDENTIFIERS: Name and Date of confirmed by patient verbally. FALL SCREENING: Has the patient had 2 falls in the last year or 1 fall with injury or currently using an Ambulatory Assistive Device (Walker, Cane, Wheelchair, Crutches, etc.)? No PATIENT GENDER DATA: Female. status: : No status: NO. PATIENT RELEVANT IMPLANT DATA REVIEWED: Not Applicable PATIENT PRESENTS WITH AN IMPLANTABLE OR ATTACHED DEVELOPER SUPPORT ENGINEER: No RADIOLOGY DEPARTMENT: Ultrasound PERIPHERAL IV DATA: Not applicable SIGNED BY: Camille Coreas RDMS Patricia March 09, 2024 11:26 AM [facility] 03-08-2024 Note HNO ID: [id number] Author: NAGA MARKS MD Service: ? Author Type: Physician Type: Progress Notes Filed: 03/08/2024 16:21 Note Text: EARLY VISIT Sarah David is a 24 year old here for 1 week visit. Delivery Summary: C/S 03/03/2024 Having nausea and upper abdominal pain. She states after eating she has a burning pain centrally in her upper abdomen that radiates into her RUQ pain. Denies fevers, chills, malaise. Lower abdominal pain is minimal and incisional pain is minimal. She does report that she had some RUQ pain in . Was having back pain in labor in between scapulas. Having bowel movements but firmer. Passing gas. Urination is normal. Minimal vaginal bleeding. ROS: General: Denies any fever or chills Hypertension Screening: Headache? Yes. Was it successfully treated with Tylenol? No Visual Changes? No Epigastric Pain? Yes Increased Swelling? Yes Taking any BP medications at home? No If applicable, monitoring BP at home? (If Yes, include results) NA Mood: normal Depression: denies symptoms of depression. OB Depression and Anxiety Screening- This Encounter (since 03/07/2024) Over the past 2 weeks have you felt down, depressed, or hopeless? Negative Over the past two weeks, have you felt little interest or pleasure in doing things?? Negative Feeling nervous, anxious or on edge 0-Not at all Not being able to stop or control worrying 0-Not al all Anxiety Pre-Screening Total (If >/= 3 additional questions will be reviewed) 0 Feeding: Bottle feeding problems: None Bladder: No dysuria, gross hematuria, urinary frequency, urinary urgency, or incontinence Bowel symptoms: Constipation, Negative for abdominal discomfort, blood in stools or black stools, and change in bowel habits Abdomen: She reports no incisional redness, tenderness, erythema Bleeding: spotting Bottom and Perineum: No issues Sleep: no sleep concerns and sleeps in bassinet/crib in parent's room, feels rested some [place] since delivery: Not resumed Emotional support: Yes Exercise: N/A Other issues: None SENSITIVE EXAM: Sensitive exam not performed. PHYSICAL EXAMINATION: BP 128/90 Wt 79 kg (174 lb 3.2 oz) LMP 05/30/2023 (Approximate) No BMI 32.91 kg/m? General: pleasant,female in no apparent distress, AANDO x 3. Skin warm and intact. Breast: Deferred Abdomen: soft, no masses, Moderate tenderness in RUQ, epigastrium, rebound Absent, and guarding Absent . No tenderness across lower abdomen. Non distended. /Incision: No incisional redness, swelling, or drainage Pelvic: Deferred Bimanual: Deferred ASSESSMENT AND PLAN: 24 year old status post CS with normal course. Contraception plan: Reinforced 6-week pelvic rest. Encouraged condom usage should patient deviate. Education: resources provided - see MA/RN note Epigastric and RUQ pain + nausea: Check KUB, labs and RUQ US. Discussed reasons to go into the ER. Follow up: Return to Clinic for 6 week visit and as needed Naga Marks DO [facility] 03-08-2024 History of Present illness Narrative EARLY VISIT Sarah David is a 24 year old here for 1 week visit. Delivery Summary: C/S 03/03/2024 Having nausea and upper abdominal pain. She states after eating she has a burning pain centrally in her upper abdomen that radiates into her RUQ pain. Denies fevers, chills, malaise. Lower abdominal pain is minimal and incisional pain is minimal. She does report that she had some RUQ pain in . Was having back pain in labor in between scapulas. Having bowel movements but firmer. Passing gas. Urination is normal. Minimal vaginal bleeding. ROS: General: Denies any fever or chills Hypertension Screening: Headache? Yes. Was it successfully treated with Tylenol? No Visual Changes? No Epigastric Pain? Yes Increased Swelling? Yes Taking any BP medications at home? No If applicable, monitoring BP at home? (If Yes, include results) NA Mood: normal Depression: denies symptoms of depression. OB Depression and Anxiety Screening- This Encounter (since 03/07/2024) Over the past 2 weeks have you felt down, depressed, or hopeless? Negative Over the past two weeks, have you felt little interest or pleasure in doing things? Negative Feeling nervous, anxious or on edge 0-Not at all Not being able to stop or control worrying 0-Not al all Anxiety Pre-Screening Total (If >/= 3 additional questions will be reviewed) 0 Feeding: Bottle feeding problems: None Bladder: No dysuria, gross hematuria, urinary frequency, urinary urgency, or incontinence Bowel symptoms: Constipation, Negative for abdominal discomfort, blood in stools or black stools, and change in bowel habits Abdomen: She reports no incisional redness, tenderness, erythema Bleeding: spotting Bottom and Perineum: No issues Sleep: no sleep concerns and sleeps in bassinet/crib in parent's room, feels rested some [place] since delivery: Not resumed Emotional support: Yes Exercise: N/A Other issues: None SENSITIVE EXAM: Sensitive exam not performed. PHYSICAL EXAMINATION: BP 128/90 Wt 79 kg (174 lb 3.2 oz) LMP 05/30/2023 (Approximate) No BMI 32.91 kg/m General: pleasant,female in no apparent distress, A&O x 3. Skin warm and intact. Breast: Deferred Abdomen: soft, no masses, Moderate tenderness in RUQ, epigastrium, rebound Absent, and guarding Absent . No tenderness across lower abdomen. Non distended. /Incision: No incisional redness, swelling, or drainage Pelvic: Deferred Bimanual: Deferred ASSESSMENT AND PLAN: 24 year old status post CS with normal course. Contraception plan: Reinforced 6-week pelvic rest. Encouraged condom usage should patient deviate. Education: resources provided - see MA/RN note Epigastric and RUQ pain + nausea: Check KUB, labs and RUQ US. Discussed reasons to go into the ER. Follow up: Return to Clinic for 6 week visit and as needed Naga Marks DO documented in this encounter [facility] 03-08-2024 History of Present illness Narrative Radiology Service Progress Note PATIENT NAME: Sarah David DATE OF SERVICE: March 08, 2024 TIME: 2:50 PM PATIENT IDENTITY VERIFICATION COMPLETED USING TWO (2) IDENTIFIERS: Name and Date of confirmed by patient verbally. FALL SCREENING: Has the patient had 2 falls in the last year or 1 fall with injury or currently using an Ambulatory Assistive Device (Walker, Cane, Wheelchair, Crutches, etc.)? No PATIENT GENDER DATA: Female. status: : No status: NO. PATIENT RELEVANT IMPLANT DATA REVIEWED: Not Applicable PATIENT PRESENTS WITH AN IMPLANTABLE OR ATTACHED DEVELOPER SUPPORT ENGINEER: No RADIOLOGY DEPARTMENT: General X-ray: Exam(s) Completed: Abdomen X-Ray: Abdomen with Upright PERIPHERAL IV DATA: Not applicable SIGNED BY: RT Ney(Esther) March 08, 2024 2:50 PM documented in this encounter [facility] 03-08-2024 Note HNO ID: [id number] Author: RICHIE CROSS RT(R) Service: ? Author Type: Technologist Type: Progress Notes Filed: 03/08/2024 14:50 Note Text: Radiology Service Progress Note PATIENT NAME: Sarah David DATE OF SERVICE: March 08, 2024 TIME: 2:50 PM PATIENT IDENTITY VERIFICATION COMPLETED USING TWO (2) IDENTIFIERS: Name and Date of confirmed by patient verbally. FALL SCREENING: Has the patient had 2 falls in the last year or 1 fall with injury or currently using an Ambulatory Assistive Device (Walker, Cane, Wheelchair, Crutches, etc.)? No PATIENT GENDER DATA: Female. status: : No status: NO. PATIENT RELEVANT IMPLANT DATA REVIEWED: Not Applicable PATIENT PRESENTS WITH AN IMPLANTABLE OR ATTACHED DEVELOPER SUPPORT ENGINEER: No RADIOLOGY DEPARTMENT: General X-ray: Exam(s) Completed: Abdomen X-Ray: Abdomen with Upright PERIPHERAL IV DATA: Not applicable SIGNED BY: RT Ney(Esther) March 08, 2024 2:50 PM [facility] 03-08-2024 Telephone encounter Note Patient notified and will get it done prior to appt. Alix Quinones RN [facility] 03-08-2024 Miscellaneous Notes Patient notified and will get it done prior to appt. Alix Quinones RN Done Lex Phillips MD SW called office and wants a KUB done prior to patient's appointment today. She was about to start another surgery case and asked that another provider file that order so patient can have it done prior to her appt with ARON this afternoon. Can you please file and we can notify pt? I wasn't sure what KUB to order. Alix Quinones RN Patient notified and scheduled for today at 3:30. Alix Quionnes RN Would prefer for her to be seen before giving nausea medications to eval. I can see her today at 3 pm or after once done with surgery if she wants to come in today thanks. Labs ordered for CBC with diff and CMP to have done before appointment Patient delivered via c/s by ARON on 03/03/24. Scheduled for incision check tomorrow with ARON. Stated since she has been home she has been struggling with nausea and not able to eat much other then fruit. States it feels like she ate too much spicy food all the time when she hasn't. She has tried tums, sprite, mint gum and none has helped. Asking if there is anything she can get to help with nausea. Pharmacy correct. Please advise. Alix Quinones RN documented in this encounter [facility] 03-08-2024 Telephone encounter Note Done Lex Phillips MD [facility] Work Phone: 03-08-2024 Telephone encounter Note SW called office and wants a KUB done prior to patient's appointment today. She was about to start another surgery case and asked that another provider file that order so patient can have it done prior to her appt with SW this afternoon. Can you please file and we can notify pt? I wasn't sure what KUB to order. Alix Quinones RN [facility] 03-08-2024 Telephone encounter Note Patient notified and scheduled for today at 3:30. Alix Quinones RN [facility] 03-08-2024 Telephone encounter Note Would prefer for her to be seen before giving nausea medications to eval. I can see her today at 3 pm or after once done with surgery if she wants to come in today thanks. Labs ordered for CBC with diff and CMP to have done before appointment [facility] 03-08-2024 Telephone encounter Note Patient delivered via c/s by ARON on 03/03/24. Scheduled for incision check tomorrow with ARON. Stated since she has been home she has been struggling with nausea and not able to eat much other then fruit. States it feels like she ate too much spicy food all the time when she hasn't. She has tried tums, sprite, mint gum and none has helped. Asking if there is anything she can get to help with nausea. Pharmacy correct. Please advise. Alix Quinones RN [facility] 03-05-2024 Note HNO ID: [id number] Author: ALIX QUINONES RN Service: ? Author Type: Registered Nurse Type: Progress Notes Filed: 03/05/2024 09:09 Note Text: Patient delivered via by Dr. Marks on 03/03/24 at [facility]. See OB history. Alix Quinones RN [facility] 03-05-2024 History of Present illness Narrative Patient delivered via by Dr. Marks on 03/03/24 at [facility]. See OB history. Alix Quinones RN documented in this encounter [facility] 03-05-2024 Note [facility] Medical Records Department [address] [place] [address] Discharge Summary 03/05/24 0603 MR#: [id number] Acct: [id number] Name: SARAH DAVID Rep #: [id number] : 2000 24 From: Naga Marks DO PCP: KASHMIR HINTON Status:ADM IN Location: DM027-1 Providers Date of Admission: 03/02/24 Date of Discharge: 03/05/24 Primary Care Physician: KASHMIR HINTON Reason For Visit: INDUCTION Diagnosis Discharge Diagnosis (1) Acute blood loss anemia: Status: Acute Code(s): D62 - Acute posthemorrhagic anemia Plan: No symptoms of anemia Start oral iron (2) Delivery by section: Status: Acute Plan: POD#2 s/p section. Doing well. Meeting milestones for discharge and requests discharge. D/c instructions reviewed. Medications at Discharge Home Medications acetaminophen 325 mg tablet (Pain Relief (acetaminophen)) 650 mg (2 x 325 mg) PO Q6H PRN pain #30 tabs 03/05/24 docusate sodium 100 mg capsule (Colace) 100 mg PO DAILY constipation #30 caps 03/05/24 ferrous sulfate 325 mg (65 mg iron) tablet 325 mg PO QODAY #30 tabs 03/05/24 ibuprofen 600 mg tablet 600 mg PO Q6H PRN pain #30 tabs 03/05/24 Hospital Course Operations section Summary of Care Provided Minutes Spent on Discharge: 15 Hospital Course: Pt presented at 39 weeks with SROM and 1 cm dilated. Her labor was augmented with Pitocin. She did not received adequate pain control with her epidural and requested a section. Unable to titrate Pitocin given intolerance to labor. She underwent a primary section. See operative report for details. She was discharged home in good condition on POD#2 with follow up in office. Weight / BMI Weight Weight: 179 lb Body Mass Index (BMI) 33.8 ABG / Lab / Microbiology Data 03/05/24 05:05 Laboratory: Laboratory Results - last 24 hr 03/05/24 05:05: WBC 19.9 H, RBC 2.71 L, Hgb 8.7 L, Hct 25.3 L, MCV 93.4, MCH 32.1 H, MCHC 34.4, RDW Std Deviation 42.0, RDW Coeff of Chanell 12.3, Plt Count 156, MPV 11.0, Immature Gran % (Auto) 1.100 H, Neut % (Auto) 80.8 H, Lymph % (Auto) 10.7 L, Sebastian % (Auto) 6.2, Eos % (Auto) 0.9, Baso % (Auto) 0.3, Absolute Neuts (auto) 16.1 H, Absolute Lymphs (auto) 2.12, Nucleated RBC % 0 D/C Instructions Discharge Diet: No restrictions May resume sexual activity in: 6 weeks Ice area for (Minutes): 15 Weight Bearing Status: Weight bearing as tolerated Call your doctor if your incision/area has: Continuous Slow Oozing, Sudden Increased Bleeding, Increased Pain/ Swelling, Increased Redness, Foul Smelling Discharge and Swelling at the incision site Call your doctor if you observe: Fever of 101 or Higher, Coldness, Increased Pain, Numbness or Tingling, Change in Color, Inability to urinate, Inability to have a bowel movement, Using more than 1 pad per hour, Shortness of breath, Dizziness, Fainting spells, Swelling in the ankles, Chest pain, Prolonged hiccupping, Increased palpitations (irregular heartbeat), Calf discomfort and Uncontrolled pain Suture Line Care: Avoid Pulling/Pushing and Avoid Pinching/Bending Cleanse incision/area with: Soap Water Please Follow Up With: Naga Marks DO When: 1 week for incision check 6 weeks exam Meaningful Use Info Meaningful Use Meaningful Use Diagnoses (Choose all that apply): None applicable Ischemic Stroke Statin Dosing Therapy Reference: STATIN DOSE THERAPY REFERENCE: * Patients > 75 years receive moderate or high dose statin therapy. * Patients 75 years or YOUNGER should receive HIGH intensity statin dose unless contraindicated. You will be required to document reason for non-treatment if statin daily dose does not meet guidelines. HIGH DOSE STATIN THERAPY DAILY Atorvastatin > than or = to 40 mg Rosuvastatin > than or = to 20 mg Amlodipine + Atorvastatin > than or = to 2.5/40 mg Ezetimibe + Simvastatin 10/80 mg Simvastatin 80mg Discharge Plan Admission Admit Date/Time: 03/02/24 07:50 Primary Reason for Your Visit: Delivery Attending Provider: Naga Marks Primary Care Provider: DORA RESTREPO Instructions Patient Instructions: After a Discharge Orders/Prescriptions Prescriptions: New acetaminophen [Pain Relief (acetaminophen)] 325 mg tablet 650 mg PO Q6H PRN (Reason: pain) Qty: 30 0RF ibuprofen 600 mg tablet 600 mg PO Q6H PRN (Reason: pain) Qty: 30 0RF docusate sodium [Colace] 100 mg capsule 100 mg PO DAILY Qty: 30 0RF ferrous sulfate 325 mg (65 mg iron) tablet 325 mg PO QODAY Qty: 30 0RF Referrals / Follow Up: DORA RESTREPO NP-C [Primary Care Provider] - Disposition Disposition (needs filled in before D/C Order can be placed): Home, Self Care 03/05/24 0605 Cosigner Signature (if applicable): CC: KASHMIR RESTREPO; Dr. Ramon (more content not included)... [facility] 02-28-2024 Progress note Formatting of t his note is different from the original. GRACE-S: Sarah David is a 24 year old female who presents at 39w1d with JACINTO:03/05/2024, by Last Menstrual Period for a routine visit. Denies headache, visual changes, chest pain, shortness of breath, vaginal bleeding, leakage of fluid, or dysuria. Feeling well, no complaints. O: See flow sheet Gen: No apparent distress Abd: Gravid, nontender 62lb TWG, cephalic 34w3d EFW is 2543 g, at the 59%. AC is at the 78%. MVP of 6 cm and NATALI of 17.9 cm. ASSESSMENT/PLAN: 1. Encounter for supervision of high risk in third trimester, antepartum 2. 38 weeks gestation of 3. Excessive weight gain in , third trimester -Growth US for excessive weight gain, growth US 59th percentile 4. Late care affecting in second trimester 5. Marijuana use -Continues cessation 6. History of depression -Coping well no medication at this time. 7. Penicillin allergy -Declines referral for PCN allergy consult 8. Rubella non-immune status, antepartum -Vaccine PP 9. Rh negative state in antepartum period - Rhogam administered on 12/21/23 Labor instructions reviewed RTO in 1 week Camille Robertson APRN.CNM [facility] 02-28-2024 Miscellaneous Notes GRACE-S: Sarah David is a 24 year old female who presents at 39w1d with JACINTO:03/05/2024, by Last Menstrual Period for a routine visit. Denies headache, visual changes, chest pain, shortness of breath, vaginal bleeding, leakage of fluid, or dysuria. Feeling well, no complaints. O: See flow sheet Gen: No apparent distress Abd: Gravid, nontender 62lb TWG, cephalic 34w3d EFW is 2543 g, at the 59%. AC is at the 78%. MVP of 6 cm and NATALI of 17.9 cm. ASSESSMENT/PLAN: 1. Encounter for supervision of high risk in third trimester, antepartum 2. 38 weeks gestation of 3. Excessive weight gain in , third trimester -Growth US for excessive weight gain, growth US 59th percentile 4. Late care affecting in second trimester 5. Marijuana use -Continues cessation 6. History of depression -Coping well no medication at this time. 7. Penicillin allergy -Declines referral for PCN allergy consult 8. Rubella non-immune status, antepartum -Vaccine PP 9. Rh negative state in antepartum period - Rhogam administered on 12/21/23 Labor instructions reviewed RTO in 1 week Camille Robertson APRN.CNM documented in this encounter [facility] 02-28-2024 Instructions Live Lucio MA - 02/28/2024 2:32 PM EDT SEQUENTIAL SCREENINGS The [facility] offers sequential screenings for women who are interested in screenings for chromosomal abnormalities and certain defects during a . The sequential screen combines ultrasound and blood tests to determine the risk of chromosomal abnormalities, including Down's Syndrome (Trisomy 21) and Trisomy 18, as well as open neural tube defects including spina bifida. Ultrasound examination is performed between 11 weeks and 13 weeks gestational age. Blood tests are drawn after the ultrasound and again later in the between 15 and 21 weeks gestational age. Please let your physician know if you are interested in this testing. It will require an appointment with our veterinary laboratory technician. This is not an ultrasound performed by a physician in our office during a routine visit. SIGNS AND SYMPTOMS OF LABOR 1. Contractions every 10 minutes or more often 2. Clear, pink, or brownish fluid (water) leaking from vagina 3. Feeling that baby is pushing down, pressure 4. Low, dull backache 5. Cramps that feel like a period 6. Cramps with or without diarrhea If you notice any of the above symptoms, contact our office at [phone] and ask to speak with a nurse. After hours, you can call doctors registry at [phone] OR call [facility] at [phone] and ask to have the doctor migration agent paged. If you consider this an emergency, dial 9-6- or go to your nearest emergency department. NEED HELP? Are you dealing with a violent or abusive relationship? Are you a victim of rape or sexual assult? Call [facility] ([place]) 24 hour Crisis Hotline: 483.744.6285 or 718-918-9407. MANUAL Your Guide to a Healthy manual is now on-line. Visit [email or web address] to download your free copy documented in this encounter [facility] 02-21-2024 Progress note Formatting of t his note is different from the original. GRACE-S: Sarah David is a 24 year old female who presents at 38w1d with JACINTO:03/05/2024, by Last Menstrual Period for a routine visit. Denies headache, visual changes, chest pain, shortness of breath, vaginal bleeding, leakage of fluid, or dysuria. Feeling well, no complaints. O: See flow sheet Gen: No apparent distress Abd: Gravid, nontender 62lb TWG, cephalic 34w3d EFW is 2543 g, at the 59%. AC is at the 78%. MVP of 6 cm and NATALI of 17.9 cm. ASSESSMENT/PLAN: 1. Encounter for supervision of high risk in third trimester, antepartum 2. 38 weeks gestation of 3. Excessive weight gain in , third trimester -Growth US for excessive weight gain, growth US 59th percentile 4. Late care affecting in second trimester 5. Marijuana use -Continues cessation 6. History of depression -Coping well no medication at this time. 7. Penicillin allergy -Declines referral for PCN allergy consult 8. Rubella non-immune status, antepartum -Vaccine PP 9. Rh negative state in antepartum period - Rhogam administered on 12/21/23 Labor instructions reviewed RTO in 1 week Camille Robertson APRN.CNM [facility] 02-21-2024 Miscellaneous Notes GRACE-S: Sarah David is a 24 year old female who presents at 38w1d with JACINTO:03/05/2024, by Last Menstrual Period for a routine visit. Denies headache, visual changes, chest pain, shortness of breath, vaginal bleeding, leakage of fluid, or dysuria. Feeling well, no complaints. O: See flow sheet Gen: No apparent distress Abd: Gravid, nontender 62lb TWG, cephalic 34w3d EFW is 2543 g, at the 59%. AC is at the 78%. MVP of 6 cm and NATALI of 17.9 cm. ASSESSMENT/PLAN: 1. Encounter for supervision of high risk in third trimester, antepartum 2. 38 weeks gestation of 3. Excessive weight gain in , third trimester -Growth US for excessive weight gain, growth US 59th percentile 4. Late care affecting in second trimester 5. Marijuana use -Continues cessation 6. History of depression -Coping well no medication at this time. 7. Penicillin allergy -Declines referral for PCN allergy consult 8. Rubella non-immune status, antepartum -Vaccine PP 9. Rh negative state in antepartum period - Rhogam administered on 12/21/23 Labor instructions reviewed RTO in 1 week Camille Robertson APRN.CNM documented in this encounter [facility] 02-21-2024 Instructions Hanna Esposito MA - 02/21/2024 2:30 PM EDT SEQUENTIAL SCREENINGS The [facility] offers sequential screenings for women who are interested in screenings for chromosomal abnormalities and certain defects during a . The sequential screen combines ultrasound and blood tests to determine the risk of chromosomal abnormalities, including Down's Syndrome (Trisomy 21) and Trisomy 18, as well as open neural tube defects including spina bifida. Ultrasound examination is performed between 11 weeks and 13 weeks gestational age. Blood tests are drawn after the ultrasound and again later in the between 15 and 21 weeks gestational age. Please let your physician know if you are interested in this testing. It will require an appointment with our veterinary laboratory technician. This is not an ultrasound performed by a physician in our office during a routine visit. SIGNS AND SYMPTOMS OF LABOR 1. Contractions every 10 minutes or more often 2. Clear, pink, or brownish fluid (water) leaking from vagina 3. Feeling that baby is pushing down, pressure 4. Low, dull backache 5. Cramps that feel like a period 6. Cramps with or without diarrhea If you notice any of the above symptoms, contact our office at [phone] and ask to speak with a nurse. After hours, you can call doctors registry at [phone] OR call [facility] at [phone] and ask to have the doctor migration agent paged. If you consider this an emergency, dial 01-28- or go to your nearest emergency department. NEED HELP? Are you dealing with a violent or abusive relationship? Are you a victim of rape or sexual assult? Call [facility] ([place]) 24 hour Crisis Hotline: 886.897.4954 or 886-745-4062. MANUAL Your Guide to a Healthy manual is now on-line. Visit [email or web address] [email or web address] to download your free copy documented in this encounter [facility] 02-15-2024 Progress note Formatting of t his note might be different from the original. DM-Pt doing well. Denies vaginal Bleeding, Leaking fluid, or regular Contractions. Pt reports good movement Physical Exam: Gen: female in no apparent distress Abd: soft, Gravid. Non tender to palpation. See flow sheet @ 37.2 weeks Assessment & Plan Encounter for supervision of high risk in third trimester, antepartum Excessive weight gain in , third trimester Need for influenza vaccination Orders: INFLUENZA VACCINE, AGE 6MO-64YR, TRIVALENT (AFLURIA, FLULAVAL, FLUVIRIN, FLUZONE) 37 weeks gestation of Orders: URINE OB DIP B/O Kick counts and labor reviewed. RTO weekly Alicia Galicia MD [facility] 02-15-2024 Miscellaneous Notes DM-Pt doing well. Denies vaginal Bleeding, Leaking fluid, or regular Contractions. Pt reports good movement Physical Exam: Gen: female in no apparent distress Abd: soft, Gravid. Non tender to palpation. See flow sheet @ 37.2 weeks Assessment & Plan Encounter for supervision of high risk in third trimester, antepartum Excessive weight gain in , third trimester Need for influenza vaccination Orders: INFLUENZA VACCINE, AGE 6MO-64YR, TRIVALENT (AFLURIA, FLULAVAL, FLUVIRIN, FLUZONE) 37 weeks gestation of Orders: URINE OB DIP B/O Kick counts and labor reviewed. RTO weekly Alicia Galicia MD documented in this encounter [facility] 02-15-2024 Instructions Deanna Scott MA - 02/15/2024 1:49 PM EDT SEQUENTIAL SCREENINGS The [facility] offers sequential screenings for women who are interested in screenings for chromosomal abnormalities and certain defects during a . The sequential screen combines ultrasound and blood tests to determine the risk of chromosomal abnormalities, including Down's Syndrome (Trisomy 21) and Trisomy 18, as well as open neural tube defects including spina bifida. Ultrasound examination is performed between 11 weeks and 13 weeks gestational age. Blood tests are drawn after the ultrasound and again later in the between 15 and 21 weeks gestational age. Please let your physician know if you are interested in this testing. It will require an appointment with our veterinary laboratory technician. This is not an ultrasound performed by a physician in our office during a routine visit. SIGNS AND SYMPTOMS OF LABOR 1. Contractions every 10 minutes or more often 2. Clear, pink, or brownish fluid (water) leaking from vagina 3. Feeling that baby is pushing down, pressure 4. Low, dull backache 5. Cramps that feel like a period 6. Cramps with or without diarrhea If you notice any of the above symptoms, contact our office at [phone] and ask to speak with a nurse. After hours, you can call doctors registry at [phone] OR call [facility] at [phone] and ask to have the doctor migration agent paged. If you consider this an emergency, dial 9-1-2 or go to your nearest emergency department. NEED HELP? Are you dealing with a violent or abusive relationship? Are you a victim of rape or sexual assult? Call [facility] ([place]) 24 hour Crisis Hotline: 659.129.6069 or 375-343-9410. MANUAL Your Guide to a Healthy manual is now on-line. Visit [email or web address] ncyGuide to download your free copy documented in this encounter [facility] 02-10-2024 Progress note Formatting of t his note might be different from the original. DM-Pt doing well. Denies vaginal Bleeding, Leaking fluid, or regular Contractions. Pt reports good movement Physical Exam: Gen: female in no apparent distress Abd: soft, Gravid. Non tender to palpation. See flow sheet @ 36.4 Assessment & Plan Encounter for supervision of high risk in third trimester, antepartum Orders: URINE OB DIP B/O Excessive weight gain in , third trimester Orders: URINE OB DIP B/O Penicillin allergy Orders: URINE OB DIP B/O 36 weeks gestation of Orders: URINE OB DIP B/O ROUTINE, GROUP B STREP PCR -Vertex confirmed on Ultrasound today Alicia Galicia MD [facility] 02-10-2024 Miscellaneous Notes DM-Pt doing well. Denies vaginal Bleeding, Leaking fluid, or regular Contractions. Pt reports good movement Physical Exam: Gen: female in no apparent distress Abd: soft, Gravid. Non tender to palpation. See flow sheet @ 36.4 Assessment & Plan Encounter for supervision of high risk in third trimester, antepartum Orders: URINE OB DIP B/O Excessive weight gain in , third trimester Orders: URINE OB DIP B/O Penicillin allergy Orders: URINE OB DIP B/O 36 weeks gestation of Orders: URINE OB DIP B/O ROUTINE, GROUP B STREP PCR -Vertex confirmed on Ultrasound today Alicia Galicia MD documented in this encounter [facility] 02-10-2024 Instructions Tiffany Taylor MA - 02/10/2024 11:38 AM EDT SEQUENTIAL SCREENINGS The [facility] offers sequential screenings for women who are interested in screenings for chromosomal abnormalities and certain defects during a . The sequential screen combines ultrasound and blood tests to determine the risk of chromosomal abnormalities, including Down's Syndrome (Trisomy 21) and Trisomy 18, as well as open neural tube defects including spina bifida. Ultrasound examination is performed between 11 weeks and 13 weeks gestational age. Blood tests are drawn after the ultrasound and again later in the between 15 and 21 weeks gestational age. Please let your physician know if you are interested in this testing. It will require an appointment with our veterinary laboratory technician. This is not an ultrasound performed by a physician in our office during a routine visit. SIGNS AND SYMPTOMS OF LABOR 1. Contractions every 10 minutes or more often 2. Clear, pink, or brownish fluid (water) leaking from vagina 3. Feeling that baby is pushing down, pressure 4. Low, dull backache 5. Cramps that feel like a period 6. Cramps with or without diarrhea If you notice any of the above symptoms, contact our office at [phone] and ask to speak with a nurse. After hours, you can call doctors registry at [phone] OR call [facility] at [phone] and ask to have the doctor migration agent paged. If you consider this an emergency, dial 7-1-9 or go to your nearest emergency department. NEED HELP? Are you dealing with a violent or abusive relationship? Are you a victim of rape or sexual assult? Call [facility] ([place]) 24 hour Crisis Hotline: 871.697.3350 or 054-693-1655. MANUAL Your Guide to a Healthy manual is now on-line. Visit [email or web address] [email or web address] to download your free copy documented in this encounter [facility] 02-01-2024 Note Indication Evaluation of growth Impression remote read - Single, live, intrauterine . - The biometry is consistent with the assigned gestational dating. - The EFW is 2543 g, at the 59%. AC is at the 78%. - Amniotic fluid volume is normal amount with an MVP of 6 cm and NATALI of 17.9 cm. - The placenta is anterior, fundal. - No malformations visualized on a limited survey as detailed below. Recommendations Additional follow-up as clinically indicated. Maternal Assessment Height 155 cm Height (ft) 5 ft Height (in) 1 in Weight 80 kg Weight (lb) 177 lb BMI 33.44 kg/m Physical Exam Initial weight (lb) 129 lb Initial BMI 24.37 kg/m Method Transabdominal ultrasound examination Bravo . Number of fetuses: 1 Dating LMP on: 05/30/2023 GA by LMP 34 w + 3 d JACINTO by LMP: 03/05/2024 Ultrasound examination on: 01/26/2024 GA by U/S based upon: AC, BPD, Femur, HC GA by U/S 34 w + 6 d JACINTO by U/S: 03/02/2024 Assigned: based on the LMP, selected on 10/12/2023 Assigned GA 34 w + 3 d Assigned JACINTO: 03/05/2024 General Evaluation Cardiac activity present. FHR 149 bpm. movements: present. Presentation: cephalic Placenta: Placental site: anterior, fundal Umbilical cord: Cord vessels: 3 vessel cord. Insertion site: normal insertion Amniotic fluid: Amount of AF: normal amount. MVP 6.0 cm. NATALI 17.9 cm. Q1 6.0 cm, Q2 3.9 cm, Q3 5.5 cm, Q4 2.5 cm Growth Overview Exam date GA BPD (mm) HC (mm) AC (mm) FL (mm) HL (mm) EFW (g) 10/12/2023 19w 2d 47 85% 167.5 53% 158.6 91% 29.7 61% 26.6 21% 328 84% 01/26/2024 34w 3d 86.5 64% 326.3 78% 313.5 78% 64 27% 2543 59% Biometry Standard BPD 86.5 mm 34w 6d 64% Hadlock OFD 117.4 mm -/- 85% Nicolaides HC 326.3 mm 36w 2d 78% Blair AC 313.5 mm 35w 2d 78% Hadlock Femur 64.0 mm 32w 6d 27% Balir EFW 2,543 g 34w 5d 59% Hadlock EFW (lb) 5 lb EFW (oz) 10 oz EFW by: Hadlock (HC-AC-FL) Extended Hogshead Mat Inspector 7.0 mm Extremities / Bony Struc FL / HC 0.20 Other Structures FHR 149 bpm Anatomy Lateral ventricles: normal Cavum septi pellucidi: normal Cerebellum: normal Cisterna magna: normal 4-chamber view: normal RVOT view: normal LVOT view: normal 3-vessel view: normal Heart / Thorax Situs: situs solitus (normal) Diaphragm: normal Stomach: normal Kidneys: normal Bladder: normal sex: male Wants to know sex: yes Performed By: Rita Vera RDMS Read By: Ashok Pulido M.D. [facility] 01-26-2024 Progress note Formatting of t his note might be different from the original. S: Sarah David is a 24 year old female who presents at 03/05/2024, by Last Menstrual Period for a routine visit. Denies headache, visual changes, chest pain, shortness of breath, vaginal bleeding, leakage of fluid, or dysuria. Feeling well, no complaints. Good movement, No contractions O: See flow sheet Gen: No apparent distress Abd: Gravid, nontender NATALI 17 EFW - pending report ASSESSMENT/PLAN: 1. Encounter for supervision of high risk in third trimester, antepartum - ICD9: V23.9, ICD10: O09.93 (primary diagnosis) PTL precautions 2. 34 weeks gestation of - ICD9: V22.2, ICD10: Z3A.34 Mi Santillan MD T [facility] 01-26-2024 Miscellaneous Notes S: Sarah David is a 24 year old female who presents at 03/05/2024, by Last Menstrual Period for a routine visit. Denies headache, visual changes, chest pain, shortness of breath, vaginal bleeding, leakage of fluid, or dysuria. Feeling well, no complaints. Good movement, No contractions O: See flow sheet Gen: No apparent distress Abd: Gravid, nontender NATALI 17 EFW - pending report ASSESSMENT/PLAN: 1. Encounter for supervision of high risk in third trimester, antepartum - ICD9: V23.9, ICD10: O09.93 (primary diagnosis) PTL precautions 2. 34 weeks gestation of - ICD9: V22.2, ICD10: Z3A.34 Mi Santillan MD documented in this encounter [facility] 01-18-2024 Telephone encounter Note No available slots for Growth US in 2 wk patient wondering if ok to have this on 02/09 if not she is ok to travel to other locations.Please assist and advice. Many thanks [facility] 01-18-2024 Miscellaneous Notes No available slots for Growth US in 2 wk patient wondering if ok to have this on 02/09 if not she is ok to travel to other locations.Please assist and advice. Many thanks documented in this encounter [facility] 01-18-2024 Progress note Formatting of t his note might be different from the original. GRACE-S: Sarah David is a 24 year old female who presents at 03/05/2024, by Last Menstrual Period for a routine visit. Denies headache, visual changes, chest pain, shortness of breath, vaginal bleeding, leakage of fluid, or dysuria. Feeling well, no complaints. O: See flow sheet Gen: No apparent distress Abd: Gravid, nontender 58lb TWG, cephalic ASSESSMENT/PLAN: 1. Encounter for supervision of high risk in third trimester, antepartum -CBE and classes reviewed -Handout given on perineal massage and ways to promote spontaneous labor -interested in waterbirth, reviewed risks, benefits, and alternatives. Will await US to discuss further. 2. 33 weeks gestation of 3. Excessive weight gain in , third trimester -Growth US for excessive weight gain 4. Late care affecting in second trimester 5. Marijuana use -continues cessation 6. History of depression -Coping well no medication at this time. 7. Penicillin allergy -Declines referral for PCN allergy consult 8. Rubella non-immune status, antepartum -Vaccine PP 9. Rh negative state in antepartum period - Rhogam administered on 12/21/23 - PTL precautions reviewed and when to call - RTO in 2 weeks Camille Robertson APRN.SAMUELM [facility] 01-18-2024 Miscellaneous Notes PARTHS: Sarah David is a 24 year old female who presents at 03/05/2024, by Last Menstrual Period for a routine visit. Denies headache, visual changes, chest pain, shortness of breath, vaginal bleeding, leakage of fluid, or dysuria. Feeling well, no complaints. O: See flow sheet Gen: No apparent distress Abd: Gravid, nontender 58lb TWG, cephalic ASSESSMENT/PLAN: 1. Encounter for supervision of high risk in third trimester, antepartum -CBE and classes reviewed -Handout given on perineal massage and ways to promote spontaneous labor -interested in waterbirth, reviewed risks, benefits, and alternatives. Will await US to discuss further. 2. 33 weeks gestation of 3. Excessive weight gain in , third trimester -Growth US for excessive weight gain 4. Late care affecting in second trimester 5. Marijuana use -continues cessation 6. History of depression -Coping well no medication at this time. 7. Penicillin allergy -Declines referral for PCN allergy consult 8. Rubella non-immune status, antepartum -Vaccine PP 9. Rh negative state in antepartum period - Rhogam administered on 12/21/23 - PTL precautions reviewed and when to call - RTO in 2 weeks Camille Robertson APRN.CNM documented in this encounter [facility] 01-18-2024 Instructions Camille Robertson APRN.CNM - 01/18/2024 2:30 PM EDT Images from the original note were not included. SEQUENTIAL SCREENINGS The [facility] offers sequential screenings for women who are interested in screenings for chromosomal abnormalities and certain defects during a . The sequential screen combines ultrasound and blood tests to determine the risk of chromosomal abnormalities, including Down's Syndrome (Trisomy 21) and Trisomy 18, as well as open neural tube defects including spina bifida. Ultrasound examination is performed between 11 weeks and 13 weeks gestational age. Blood tests are drawn after the ultrasound and again later in the between 15 and 21 weeks gestational age. Please let your physician know if you are interested in this testing. It will require an appointment with our veterinary laboratory technician. This is not an ultrasound performed by a physician in our office during a routine visit. SIGNS AND SYMPTOMS OF LABOR 1. Contractions every 10 minutes or more often 2. Clear, pink, or brownish fluid (water) leaking from vagina 3. Feeling that baby is pushing down, pressure 4. Low, dull backache 5. Cramps that feel like a period 6. Cramps with or without diarrhea If you notice any of the above symptoms, contact our office at [phone] and ask to speak with a nurse. After hours, you can call doctors registry at [phone] OR call [facility] at [phone] and ask to have the doctor migration agent paged. If you consider this an emergency, dial 9--6 or go to your nearest emergency department. NEED HELP? Are you dealing with a violent or abusive relationship? Are you a victim of rape or sexual assult? Call [facility] ([facility] 24 hour Crisis Hotline: 601.289.5410 or 302-149-1435. MANUAL Your Guide to a Healthy manual is now on-line. Visit [email or web address] ncyGuide to download your free copy What is my perineum? Your perineum is the area between your vaginal opening and your rectum. This area stretches when you give , and sometimes the perineum or vagina will tear as your baby is being born. If your health care provider cuts an episiotomy during your , it is this area that is cut. You may need stitches after your baby is born if you have a tear or have an episiotomy. How often do perineal tears occur? About 4 to 8 out of every 10 women who give vaginally will have some tear in their perineum. About two?thirds of these women will need some stitches. Is an episiotomy necessary? An episiotomy is not necessary for most women. Although they were common before the , they are rarely done today. However, sometimes your health care provider may recommend an episiotomy just as your baby is being born. For example, an episiotomy can help if your baby needs to be born very quickly. You can ask your health care provider to talk with you about episiotomy during a visit. Can my health care provider do anything to help me avoid a tear? There are many ways that your health care provider can help to reduce your chance of tearing. For example, your provider may: Apply a warm compress to the perineum just before the baby comes out Recommend specific positions for you to be in as you push Provide gentle downward pressure on the baby's head as your baby is coming out Ask that you push your baby out between contractions Avoid the use of forceps or a vacuum to help your baby be born Can I do anything before the to help me avoid a tear? Preventing a perineal tear that occurs during has been the subject of many research studies. Several studies have found that perineal massage during the last weeks of can reduce tearing at for women giving for the first time. This massage--using 2 fingers to stretch your perineal tissues--is performed by you, in your home, once or twice a week, for the last 4 to 6 weeks of your . The next page of this handout tells how to do this massage. For every 15 women who do perineal massage, one woman will avoid an episiotomy and perineal tearing that needs stitches. While you massage, you can practice relaxing the muscles in your perineum. This can help you prepare for the stretching, burning feeling you may have when your baby's head is born. Relaxing this area during can help prevent tearing. Does perineal massage in help all women? Massage seems to work better for some women than others. Women having their first baby, women who are 30 years or older, and women who have had episiotomies before have fewer tears and less severe tears when perineal massage is done during the last weeks of . Can my partner help? Yes! Many women find that it is easier to have their partners do this massage. See the instructions for perineal massage on the next page for more information. Are there any risks to perineal massage during ? Not that we know of. It is free. It doesn't hurt. It is easy to do. And most women don't mind doing it. However, you should not stretch the perineum until it hurts or massage too often, which can hurt the skin in that area. Do not do perineal massage more than once or twice a week. Women who do it more often do not have a lower risk of perineal tearing. Check with your health care provider before beginning perineal massage. And, if you believe your amniotic fluid (bag of house) is leaking, check with your health care provider before putting anything in your vagina. Instructions for Perineal Massage During Wash your hands well, and make sure your fingernails are short. Relax in a private place where you can rest with your legs open and your knees bent. Some women like to lean on pillows for back support. Lubricate your thumbs and the perineal tissues. Use a lubricant such as vitamin E oil, coconut oil, almond oil, or any vegetable oil used for cooking--like olive oil. You may also try a water?soluble jelly, such as K?Y jelly, or your body's natural vaginal lubricant. Do not use baby oil, mineral oil, or petroleum jelly (Vaseline). Place your thumbs about 1 to 1.5 inches inside your vagina (see Figure 1). Press down (toward the anus) and to the sides until you feel a slight burning, stretching sensation. Hold that stretched position for 1 or 2 minutes. With your thumbs, slowly massage the lower half of the vagina using a U?shaped movement for 2 to 3 minutes at most. Concentrate on relaxing your muscles. This is a good time to practice slow, deep breathing techniques. Partners: If your partner is doing the perineal massage, follow the same basic instructions above. However, your partner should use his or her index fingers to do the massage (instead of thumbs). The same side?to?side, U?shaped, downward pressure method should be used. Good communication is important--be sure to tell your partner if you have too much pain or burning! Figure 1 1 Perineal Massage Kit Grade Level: 7.2 Approved May 2015. This handout replaces Perineal Massage in published in Volume 50, Issue 1, Jun 2004 Preparing for labor: Eat dates to promote spontaneous labor! Has an oxytocin-like effect on the body, leading to increased sensitivity of the uterus. Stimulates uterine contractions. Reduces hemorrhage the way oxytocin does. Date fruit contains saturated and unsaturated fatty acids such as oleic, linoleic, and linolenic acids, which are involved in saving and supplying energy and construction of prostaglandins. In addition, serotonin, tannin, and calcium in date fruit contribute to the contraction of smooth muscles of the uterus. Date fruit also has a laxative effect, which stimulates uterine contractions. Six dates per day is the magic number--provided that you re eating smaller deglet noor dates. Deglet noor dates are about 1 inch long. Medjool dates can be up to 2 inches long. If you re eating medjool dates, you only need about 3 dates to reach the 75 grams recommended in the studies. Not sure which type of date you have in your refrigerator? It s probably a deglet noor. How to Eat Dates During Dates are a healthy and delicious snack, so how can you add them to your diet? Add dates during in this awesome oatmeal recipe. Add dates to replace sugar in your favorite recipe or to rosaura your homemade almond milk. Use dates and nuts to make an easy pie crust in the fast food crew member. Add soaked dates to homemade nut butter for a sweet treat. Add dates to rosaura homemade salad dressing. Add dates during easily with these yummy (paleo friendly) bars made from dates. What Is Red Raspberry Knife River Tea? Red raspberry leaf tea comes from the leaves of the red raspberry plant. This herbal tea has been used for centuries to support respiratory, digestive and uterine health, particularly during and childbearing years. While usually known as a female herb, red raspberry leaf tea can also help support the prostate and various stomach ailments in children. How It Can Help and Red raspberry leaf tea can help to make labor faster and reduce complications and interventions during . One study found that women who consumed RRL tea regularly are less likely to go overdue or give prematurely. These women may also be less likely to receive an artificial rupture of their membranes or require a section, forceps, or vacuum than the women in the control group. Red raspberry leaf has many other benefits to , , and too. How Much Red Raspberry Knife River Tea to Drink? With your doctor or historical guide s approval, start with 1 cup of red raspberry leaf tea per day starting in the second trimester. Watch for any uterine cramping or other reactions. If you don t experience any, you can talk to your healthcare provider about increasing to 2 cups per day. Again, watch for any uterine cramping. If you notice any, cut back on your dosage for two weeks and try again. Keep in mind, some moms have irritable uteruses and can only drink red raspberry leaf tea once they reach their due date because of uterine cramping. Is Red Raspberry Knife [place] Tea the Same as Raspberry Knife River Tea? How About Plain Old Raspberry Tea? Sometimes. You really need to look at the ingredients to be sure. Note that there is no difference between red raspberry leaf and raspberry leaf. [employer] or [employer] Raspberry Knife River Tea are two good brands. The red raspberry leaf teas that we recommend are 100% red raspberry leaf. Other teas labeled as raspberry are often a blend of rosehips, hibiscus, raspberry leaves, and raspberry flavor. So they may not be as effective. The teas to avoid are raspberry-flavored herbal teas, which may have ingredients like hibiscus, elfego hips, apples, elderberries, natural and artificial raspberry flavors. Teas like this don t contain raspberry leaf at all and thus won t offer any of the potential benefits of RRLT outlined in this article. [employer] [email or web address] I named this 'circuit' after my friend Candida Rosa, who shared and discussed it with me when I was working with a client whose labor seemed to be stalled out and no longer progressing... This circuit is useful to help get the baby lined up, ideally, in the "Left Occiput Anterior" (DENISA) Position, both before labor begins and when some corrections need to be done during labor. Prenatally, this position set can help to rotate a baby. As a natural method of induction, this can help get things going if baby just needed a gentle nudge of position to set things off. To the best of my knowledge, this group of positions will not "hurt" a baby that is already lined up correctly." - Leena Muza Before you Begin..... This circuit takes at least 90 minutes to complete so clear your schedule and make mental preparations so you can relax in your environment. The second step requires a lot of pillows so gather them up before beginning Before starting, you should empty your bladder! Have a nice drink nearby, and make sure it has a straw! If you are having contractions, this circuit should bedone through contractions, try not to change positions between steps Step One: Open-knee Chest Stay in this position for 30 minutes, start in cat/cow, then drop your chest as low as you can to the bed or the floor and your bottom as high as you can. Knees should be fairly wide apart, and the angle between the torso/thighs should be wider than 90 degrees. Wiggle around, prop with lots of pillows and use this time to get totally relaxed. This position allows the baby to scoot out of the pelvis a bit and gives them room to rotate, shift their head position, etc. If the person finds it helpful,careful positioning with a rebozo under the belly, with gentle tension from a support person behindcan help maintain this position for the full 30minutes. Step Two: Exaggerated Left Side Lying Roll to your left side, bringing your top leg as high as possible and keeping your bottom leg straight. Roll forward as much as possible,again using a lot of pillows. Sink into the bed and relax some more. If you fall asleep, that's totally okay and you can stay there! If not, stay here for at least another half an hour. Try and get your top right leg up towards your head and get as rolled over onto your belly as much as possible. If you repeat the circuit during labor, try alternating left and right sides. We know the photo the left is actually right side... just flip the image in your head. Step Three: Moving and Lunges Lunge, walk stairs facing sideways, 2 at a time, (have a pets and pet supplies salesperson downstairs of you!), take a walk outside with one foot on the curb and the other on the street, sit on a ball and hula- anything that's upright and putting your pelvis in open, asymmetrical positions. Spend at least 30 minutes doing this one as well to give your baby a chance to move down. If you are lunging or stair or curb walking, you should lunge/walk/go up stairs in the direction that feels better to you. The cardenas with the lunge is that the toes of the higher leg and mom's belly button should be at right angles. Do not lunge over your knee, that closes the pelvis. Candida Rosa: Circuit Creator - [email or web address] Leena Zazueta, CD, BDT (JARROD), LCCE, FACCE: Supporting Content - [email or web address] Yulissa Brown: Photography - [email or web address] Maxine Biswas CD/CDT (ELYSSA): Print and Collection Team Lead - www.[email or web address]email Circuit [email or web address] documented in this encounter [facility] 01-15-2024 Miscellaneous Notes Patient calling with questions about how to schedule appointment for her unborn child to establish care with a four roll calender operator. Patient denies any new or worsening symptoms of which a provider is not aware:Yes. Patient was advised to discuss with her OB provider, our Appointment center cannot schedule an appointment until the baby is born/has a medical record number, and babies are seen by a four roll calender operator in the hospital after . Mother verbalized understanding. documented in this encounter [facility] 01-15-2024 Telephone encounter Note Patient calling with questions about how to schedule appointment for her unborn child to establish care with a four roll calender operator. Patient denies any new or worsening symptoms of which a provider is not aware:Yes. Patient was advised to discuss with her OB provider, our Appointment center cannot schedule an appointment until the baby is born/has a medical record number, and babies are seen by a four roll calender operator in the hospital after . Mother verbalized understanding. [facility] 01-04-2024 Miscellaneous Notes EH - S: Sarah is a 23 year old female who presents at 31w2d for a routine visit. Feeling movement. Denies headache, visual changes, chest pain, shortness of breath, vaginal bleeding, leakage of fluid, or dysuria. Feeling well, no complaints. O: See flow sheet Gen: No apparent distress Abd: Gravid, nontender, S>D ASSESSMENT/PLAN: 1. Encounter for supervision of other normal in third trimester - ICD9: V22.1, ICD10: Z34.83 (primary diagnosis) - Interested in water 2. 31 weeks gestation of - ICD9: V22.2, ICD10: Z3A.31 - Passed GTT 3. Rh negative state in antepartum period - ICD9: 646.83, ICD10: O26.899, Z67.91 - Rhogam admin on 12/20 4. Penicillin allergy - ICD9: V14.0, ICD10: Z88.0 - Does not want to do allergy consult, causing her anxiety PTL precautions and kick counts reviewed. RTO in 2 weeks or sooner as needed. Yulissa Fields APRN.AMBER documented in this encounter [facility] 01-04-2024 Progress note Formatting of t his note might be different from the original. EH - S: Sarah is a 23 year old female who presents at 31w2d for a routine visit. Feeling movement. Denies headache, visual changes, chest pain, shortness of breath, vaginal bleeding, leakage of fluid, or dysuria. Feeling well, no complaints. O: See flow sheet Gen: No apparent distress Abd: Gravid, nontender, S>D ASSESSMENT/PLAN: 1. Encounter for supervision of other normal in third trimester - ICD9: V22.1, ICD10: Z34.83 (primary diagnosis) - Interested in water 2. 31 weeks gestation of - ICD9: V22.2, ICD10: Z3A.31 - Passed GTT 3. Rh negative state in antepartum period - ICD9: 646.83, ICD10: O26.899, Z67.91 - Rhogam admin on 12/20 4. Penicillin allergy - ICD9: V14.0, ICD10: Z88.0 - Does not want to do allergy consult, causing her anxiety PTL precautions and kick counts reviewed. RTO in 2 weeks or sooner as needed. Yulissa Fields APRN.BOARDING MACHINE OPERATOR [facility] 01-04-2024 Instructions Tiffany Taylor MA - 01/04/2024 3:45 PM EDT SEQUENTIAL SCREENINGS The [facility] offers sequential screenings for women who are interested in screenings for chromosomal abnormalities and certain defects during a . The sequential screen combines ultrasound and blood tests to determine the risk of chromosomal abnormalities, including Down's Syndrome (Trisomy 21) and Trisomy 18, as well as open neural tube defects including spina bifida. Ultrasound examination is performed between 11 weeks and 13 weeks gestational age. Blood tests are drawn after the ultrasound and again later in the between 15 and 21 weeks gestational age. Please let your physician know if you are interested in this testing. It will require an appointment with our veterinary laboratory technician. This is not an ultrasound performed by a physician in our office during a routine visit. SIGNS AND SYMPTOMS OF LABOR 1. Contractions every 10 minutes or more often 2. Clear, pink, or brownish fluid (water) leaking from vagina 3. Feeling that baby is pushing down, pressure 4. Low, dull backache 5. Cramps that feel like a period 6. Cramps with or without diarrhea If you notice any of the above symptoms, contact our office at [phone] and ask to speak with a nurse. After hours, you can call doctors registry at [phone] OR call [facility] at [phone] and ask to have the doctor migration agent paged. If you consider this an emergency, dial 7--5 or go to your nearest emergency department. NEED HELP? Are you dealing with a violent or abusive relationship? Are you a victim of rape or sexual assult? Call [facility] ([place]) 24 hour Crisis Hotline: 326.330.4595 or 284-384-2903. MANUAL Your Guide to a Healthy manual is now on-line. Visit [email or web address] ncyGuide to download your free copy documented in this encounter [facility] 12-27-2023 Telephone encounter Note 3rd risk assessment form submitted 12/27/23 Brii Cadena RN [facility] 12-27-2023 Miscellaneous Notes 3rd risk assessment form submitted 12/27/23 Brii Cadena RN documented in this encounter [facility] 12-21-2023 Progress note Formatting of t his note might be different from the original. S: Sarah David is a 23 year old female who presents at 03/05/2024, by Last Menstrual Period for a routine visit. Denies headache, visual changes, chest pain, shortness of breath, vaginal bleeding, leakage of fluid, or dysuria. Feeling well, no complaints. Good movement, No contractions O: See flow sheet Gen: No apparent distress Abd: Gravid, nontender Already completed GCT Rhogam today Declined LARC TDAP today ASSESSMENT/PLAN: 1. 29 weeks gestation of - ICD9: V22.2, ICD10: Z3A.29 (primary diagnosis) labor precautions - TYPE + SCREEN 2. Encounter for supervision of other normal in second trimester - ICD9: V22.1, ICD10: Z34.82 3. Rh negative state in antepartum period, second trimester - ICD9: 646.83, ICD10: O26.892, Z67.91 Rhogam 4. Need for vaccination - ICD9: V05.9, ICD10: Z23 TDAP 5. Rh negative state in antepartum period - ICD9: 646.83, ICD10: O26.899, Z67.91 Mi Santillan MD [facility] 12-21-2023 Miscellaneous Notes S: Sarah David is a 23 year old female who presents at 03/05/2024, by Last Menstrual Period for a routine visit. Denies headache, visual changes, chest pain, shortness of breath, vaginal bleeding, leakage of fluid, or dysuria. Feeling well, no complaints. Good movement, No contractions O: See flow sheet Gen: No apparent distress Abd: Gravid, nontender Already completed GCT Rhogam today Declined LARC TDAP today ASSESSMENT/PLAN: 1. 29 weeks gestation of - ICD9: V22.2, ICD10: Z3A.29 (primary diagnosis) labor precautions - TYPE + SCREEN 2. Encounter for supervision of other normal in second trimester - ICD9: V22.1, ICD10: Z34.82 3. Rh negative state in antepartum period, second trimester - ICD9: 646.83, ICD10: O26.892, Z67.91 Rhogam 4. Need for vaccination - ICD9: V05.9, ICD10: Z23 TDAP 5. Rh negative state in antepartum period - ICD9: 646.83, ICD10: O26.899, Z67.91 Mi Santillan MD documented in this encounter [facility] 12-21-2023 Note HNO ID: [id number] Author: ERIK ARVIZU RN Service: ? Author Type: Registered Nurse Type: Progress Notes Filed: 12/21/2023 15:04 Note Text: Sarah David 23 year old is here for her injection of Rhophylac. Sarah David Antibody Screen (no units) Date Value 11/23/2023 Negative Sarah David is RH Negative Rhophylac was given without incident. See immunizations for details of immunizations administered today. Provider MARIN was present in office at time of injection Sarah David was given her Rhophylac pocket card. Erik Arvizu RN [facility] 12-21-2023 History of Present illness Narrative Sarah David 23 year old is here for her injection of Rhophylac. Sarah David Antibody Screen (no units) Date Value 11/23/2023 Negative Sarah David is RH Negative Rhophylac was given without incident. See immunizations for details of immunizations administered today. Provider MARIN was present in office at time of injection Sarah David was given her Rhophylac pocket card. Erik Arvizu RN Patient identified by name and date of . Sarah David presents today for a vaccination of Tdap. Patient denies an allergy to latex: yes Patient denies a severe (life-threatening) allergy to a previous dose of Tdap, DTP, DTaP, DT or Td vaccine. Yes Patient denies history of epilepsy or neurological problems: Yes Patient is afebrile and denies being moderately or severely ill: Yes Patient denies history of Guillain-Dana Syndrome (a severe paralytic illness): Yes Tdap Adacel injection was given without incident. See immunizations for details of immunizations administered today. VIS sheet provided: Yes Provider Mi Santillan MD was present in office at time of injection. Hanna Esposito MA documented in this encounter [facility] 12-21-2023 Note HNO ID: [id number] Author: HANNA ESPOSITO MA Service: ? Author Type: Kst Operator Type: Progress Notes Filed: 12/21/2023 15:04 Note Text: Patient identified by name and date of . Sarah David presents today for a vaccination of Tdap. Patient denies an allergy to latex: yes Patient denies a severe (life-threatening) allergy to a previous dose of Tdap, DTP, DTaP, DT or Td vaccine. Yes Patient denies history of epilepsy or neurological problems: Yes Patient is afebrile and denies being moderately or severely ill: Yes Patient denies history of Guillain-Dana Syndrome (a severe paralytic illness): Yes Tdap Adacel injection was given without incident. See immunizations for details of immunizations administered today. VIS sheet provided: Yes Provider Mi Santillan MD was present in office at time of injection. Hanna Esposito MA [facility] 12-21-2023 Instructions Hanna Esposito MA - 12/21/2023 1:10 PM EDT SEQUENTIAL SCREENINGS The [facility] offers sequential screenings for women who are interested in screenings for chromosomal abnormalities and certain defects during a . The sequential screen combines ultrasound and blood tests to determine the risk of chromosomal abnormalities, including Down's Syndrome (Trisomy 21) and Trisomy 18, as well as open neural tube defects including spina bifida. Ultrasound examination is performed between 11 weeks and 13 weeks gestational age. Blood tests are drawn after the ultrasound and again later in the between 15 and 21 weeks gestational age. Please let your physician know if you are interested in this testing. It will require an appointment with our veterinary laboratory technician. This is not an ultrasound performed by a physician in our office during a routine visit. SIGNS AND SYMPTOMS OF LABOR 1. Contractions every 10 minutes or more often 2. Clear, pink, or brownish fluid (water) leaking from vagina 3. Feeling that baby is pushing down, pressure 4. Low, dull backache 5. Cramps that feel like a period 6. Cramps with or without diarrhea If you notice any of the above symptoms, contact our office at [phone] and ask to speak with a nurse. After hours, you can call doctors registry at [phone] OR call [facility] at [phone] and ask to have the doctor migration agent paged. If you consider this an emergency, dial 9-2-6 or go to your nearest emergency department. NEED HELP? Are you dealing with a violent or abusive relationship? Are you a victim of rape or sexual assult? Call [facility] ([place]) 24 hour Crisis Hotline: 339.703.6506 or 755-036-0247. MANUAL Your Guide to a Healthy manual is now on-line. Visit [email or web address] ncyGuide to download your free copy documented in this encounter [facility] 11-23-2023 Miscellaneous Notes EH - S: Sarah is a 23 year old female who presents at 25w2d for a routine visit. Feeling movement. Denies headache, visual changes, chest pain, shortness of breath, vaginal bleeding, leakage of fluid, or dysuria. Feeling well, no complaints. O: See flow sheet Gen: No apparent distress Abd: Gravid, nontender, S>D ASSESSMENT/PLAN: 1. Encounter for supervision of other normal in second trimester - ICD9: V22.1, ICD10: Z34.82 (primary diagnosis) - Recommend continuing LDA and PNV 2. 25 weeks gestation of - ICD9: V22.2, ICD10: Z3A.25 - Anatomy ultrasound reviewed - CBC, RPR, and GTT today 3. Rh negative state in antepartum period, second trimester - ICD9: 646.83, ICD10: O26.892, Z67.91 - Rhogam next visit, type and screen today 4. Penicillin allergy - ICD9: V14.0, ICD10: Z88.0 - CONSULT TO PENICILLIN ALLERGY PTL precautions reviewed. RTO in 4 weeks or sooner as needed. Yulissa Fields APRN.BOARDING MACHINE OPERATOR documented in this encounter [facility] 11-23-2023 Progress note Formatting of t his note might be different from the original. EH - S: Sarah is a 23 year old female who presents at 25w2d for a routine visit. Feeling movement. Denies headache, visual changes, chest pain, shortness of breath, vaginal bleeding, leakage of fluid, or dysuria. Feeling well, no complaints. O: See flow sheet Gen: No apparent distress Abd: Gravid, nontender, S>D ASSESSMENT/PLAN: 1. Encounter for supervision of other normal in second trimester - ICD9: V22.1, ICD10: Z34.82 (primary diagnosis) - Recommend continuing LDA and PNV 2. 25 weeks gestation of - ICD9: V22.2, ICD10: Z3A.25 - Anatomy ultrasound reviewed - CBC, RPR, and GTT today 3. Rh negative state in antepartum period, second trimester - ICD9: 646.83, ICD10: O26.892, Z67.91 - Rhogam next visit, type and screen today 4. Penicillin allergy - ICD9: V14.0, ICD10: Z88.0 - CONSULT TO PENICILLIN ALLERGY PTL precautions reviewed. RTO in 4 weeks or sooner as needed. Yulissa Fields APRN.BOARDING MACHINE OPERATOR [facility] 11-23-2023 Instructions Roberta Lucio LPN - 11/23/2023 2:17 PM EDT SEQUENTIAL SCREENINGS The [facility] offers sequential screenings for women who are interested in screenings for chromosomal abnormalities and certain defects during a . The sequential screen combines ultrasound and blood tests to determine the risk of chromosomal abnormalities, including Down's Syndrome (Trisomy 21) and Trisomy 18, as well as open neural tube defects including spina bifida. Ultrasound examination is performed between 11 weeks and 13 weeks gestational age. Blood tests are drawn after the ultrasound and again later in the between 15 and 21 weeks gestational age. Please let your physician know if you are interested in this testing. It will require an appointment with our veterinary laboratory technician. This is not an ultrasound performed by a physician in our office during a routine visit. SIGNS AND SYMPTOMS OF LABOR 1. Contractions every 10 minutes or more often 2. Clear, pink, or brownish fluid (water) leaking from vagina 3. Feeling that baby is pushing down, pressure 4. Low, dull backache 5. Cramps that feel like a period 6. Cramps with or without diarrhea If you notice any of the above symptoms, contact our office at [phone] and ask to speak with a nurse. After hours, you can call doctors registry at [phone] OR call [facility] at [phone] and ask to have the doctor migration agent paged. If you consider this an emergency, dial or go to your nearest emergency department. NEED HELP? Are you dealing with a violent or abusive relationship? Are you a victim of rape or sexual assult? Call [facility] ([facility] 24 hour Crisis Hotline: 314.453.9993 or 901-795-4820. MANUAL Your Guide to a Healthy manual is now on-line. Visit [email or web address] ncyGuide to download your free copy SEQUENTIAL SCREENINGS The [facility] offers sequential screenings for women who are interested in screenings for chromosomal abnormalities and certain defects during a . The sequential screen combines ultrasound and blood tests to determine the risk of chromosomal abnormalities, including Down's Syndrome (Trisomy 21) and Trisomy 18, as well as open neural tube defects including spina bifida. Ultrasound examination is performed between 11 weeks and 13 weeks gestational age. Blood tests are drawn after the ultrasound and again later in the between 15 and 21 weeks gestational age. Please let your physician know if you are interested in this testing. It will require an appointment with our veterinary laboratory technician. This is not an ultrasound performed by a physician in our office during a routine visit. SIGNS AND SYMPTOMS OF LABOR 1. Contractions every 10 minutes or more often 2. Clear, pink, or brownish fluid (water) leaking from vagina 3. Feeling that baby is pushing down, pressure 4. Low, dull backache 5. Cramps that feel like a period 6. Cramps with or without diarrhea If you notice any of the above symptoms, contact our office at [phone] and ask to speak with a nurse. After hours, you can call doctors registry at [phone] OR call [facility] at [phone] and ask to have the doctor migration agent paged. If you consider this an emergency, dial 9-1-1 or go to your nearest emergency department. NEED HELP? Are you dealing with a violent or abusive relationship? Are you a victim of rape or sexual assult? Call [facility] ([facility] 24 hour Crisis Hotline: 887.669.5496 or 318-355-4859. MANUAL Your Guide to a Healthy manual is now on-line. Visit [email or web address] ncyGuide to download your free copy documented in this encounter [facility] 11-15-2023 Telephone encounter Note Prescription changed [facility] 11-15-2023 Miscellaneous Notes Prescription changed Can you review request from pharmacy? Pharmacy comment: Product Backordered/Unavailable:ASPIRIN CAPSULES ARE NOT AVAILABLE. CAN WE CHANGE TO TABS? documented in this encounter [facility] 11-15-2023 Telephone encounter Note Can you review request from pharmacy? Pharmacy comment: Product Backordered/Unavailable:ASPIRIN CAPSULES ARE NOT AVAILABLE. CAN WE CHANGE TO TABS? [facility] 11-09-2023 Progress note Formatting of t his note might be different from the original. S: Sarah David is a 23 year old female who presents at 03/05/2024, by Last Menstrual Period for a routine visit. Denies headache, visual changes, chest pain, shortness of breath, vaginal bleeding, leakage of fluid, or dysuria. Feeling well, no complaints. Lots of movement already Inquiring about pediatricians. List given O: See flow sheet Gen: No apparent distress Abd: Gravid, nontender GCT and rhogam next visit ASSESSMENT/PLAN: 1. Encounter for supervision of normal first in second trimester - ICD9: V22.0, ICD10: Z34.02 (primary diagnosis) - TYPE + SCREEN - COMPLETE BLOOD COUNT AND DIFFERENTIAL - GESTATIONAL GLUCOSE SCREEN, 1-HOUR, 50 GRAM, NON-FASTING - SYPHILIS TOTAL W/REFLEX 2. 23 weeks gestation of - ICD9: V22.2, ICD10: Z3A.23 Reviewed s/s of PTL - TYPE + SCREEN - COMPLETE BLOOD COUNT AND DIFFERENTIAL - GESTATIONAL GLUCOSE SCREEN, 1-HOUR, 50 GRAM, NON-FASTING - SYPHILIS TOTAL W/REFLEX Mi Santillan MD [facility] 11-09-2023 Miscellaneous Notes S: Sarah David is a 23 year old female who presents at 03/05/2024, by Last Menstrual Period for a routine visit. Denies headache, visual changes, chest pain, shortness of breath, vaginal bleeding, leakage of fluid, or dysuria. Feeling well, no complaints. Lots of movement already Inquiring about pediatricians. List given O: See flow sheet Gen: No apparent distress Abd: Gravid, nontender GCT and rhogam next visit ASSESSMENT/PLAN: 1. Encounter for supervision of normal first in second trimester - ICD9: V22.0, ICD10: Z34.02 (primary diagnosis) - TYPE + SCREEN - COMPLETE BLOOD COUNT AND DIFFERENTIAL - GESTATIONAL GLUCOSE SCREEN, 1-HOUR, 50 GRAM, NON-FASTING - SYPHILIS TOTAL W/REFLEX 2. 23 weeks gestation of - ICD9: V22.2, ICD10: Z3A.23 Reviewed s/s of PTL - TYPE + SCREEN - COMPLETE BLOOD COUNT AND DIFFERENTIAL - GESTATIONAL GLUCOSE SCREEN, 1-HOUR, 50 GRAM, NON-FASTING - SYPHILIS TOTAL W/REFLEX Mi Sanitllan MD documented in this encounter [facility] 11-09-2023 Instructions Heather Hopper MA - 11/09/2023 11:03 AM EDT SEQUENTIAL SCREENINGS The [facility] offers sequential screenings for women who are interested in screenings for chromosomal abnormalities and certain defects during a . The sequential screen combines ultrasound and blood tests to determine the risk of chromosomal abnormalities, including Down's Syndrome (Trisomy 21) and Trisomy 18, as well as open neural tube defects including spina bifida. Ultrasound examination is performed between 11 weeks and 13 weeks gestational age. Blood tests are drawn after the ultrasound and again later in the between 15 and 21 weeks gestational age. Please let your physician know if you are interested in this testing. It will require an appointment with our veterinary laboratory technician. This is not an ultrasound performed by a physician in our office during a routine visit. SIGNS AND SYMPTOMS OF LABOR 1. Contractions every 10 minutes or more often 2. Clear, pink, or brownish fluid (water) leaking from vagina 3. Feeling that baby is pushing down, pressure 4. Low, dull backache 5. Cramps that feel like a period 6. Cramps with or without diarrhea If you notice any of the above symptoms, contact our office at [phone] and ask to speak with a nurse. After hours, you can call doctors registry at [phone] OR call [facility] at [phone] and ask to have the doctor migration agent paged. If you consider this an emergency, dial 9--0 or go to your nearest emergency department. NEED HELP? Are you dealing with a violent or abusive relationship? Are you a victim of rape or sexual assult? Call [facility] ([place]) 24 hour Crisis Hotline: 174.866.4610 or 682-672-2272. MANUAL Your Guide to a Healthy manual is now on-line. Visit [email or web address] ncyGuide to download your free copy documented in this encounter [facility] 10-25-2023 Telephone encounter Note 2nd risk assessment form submitted 10/25/23 Brii Cadena RN [facility] 10-25-2023 Miscellaneous Notes 2nd risk assessment form submitted 10/25/23 Brii Cadena RN documented in this encounter [facility] 10-24-2023 Telephone encounter Note Reason for call: JAIL GUARD Patient of Yulissa Fields APRN.AMBER and Dr. Santillan calling states she is about 5 months and she is concerned because she swallowed a foreign body (tongue ring) and she is concerned it will could cause complications with her . Would like to speak with JAIL GUARD migration agent. Outcome: Conferenced to answering service for Dr. Santillan. GO TO THE EMERGENCY ROOM OR CALL 911 IF: * You develop any new symptoms * Your condition worsens * You are concerned or anxious about your condition for any other reason. If you have any questions, you can call Nurse greenstone polisher operator back. [facility] 10-24-2023 Miscellaneous Notes Reason for call: JAIL GUARD Patient of Yulissa Fields APRN.BOARDING MACHINE OPERATOR and Dr. Santillan calling states she is about 5 months and she is concerned because she swallowed a foreign body (tongue ring) and she is concerned it will could cause complications with her . Would like to speak with JAIL GUARD migration agent. Outcome: Conferenced to answering service for Dr. Santillan. GO TO THE EMERGENCY ROOM OR CALL 911 IF: * You develop any new symptoms * Your condition worsens * You are concerned or anxious about your condition for any other reason. If you have any questions, you can call Nurse greenstone polisher operator back. documented in this encounter [facility] 10-21-2023 Telephone encounter Note Spoke with pt and clarified that she does not need to be seen for yearly exam at this time. Roberta Caon LPN [facility] 10-21-2023 Miscellaneous Notes Spoke with pt and clarified that she does not need to be seen for yearly exam at this time. Roberta Cano LPN documented in this encounter [facility] 10-12-2023 Live Wong MA - 10/12/2023 9:10 AM EDT SEQUENTIAL SCREENINGS The [facility] offers sequential screenings for women who are interested in screenings for chromosomal abnormalities and certain defects during a . The sequential screen combines ultrasound and blood tests to determine the risk of chromosomal abnormalities, including Down's Syndrome (Trisomy 21) and Trisomy 18, as well as open neural tube defects including spina bifida. Ultrasound examination is performed between 11 weeks and 13 weeks gestational age. Blood tests are drawn after the ultrasound and again later in the between 15 and 21 weeks gestational age. Please let your physician know if you are interested in this testing. It will require an appointment with our veterinary laboratory technician. This is not an ultrasound performed by a physician in our office during a routine visit. SIGNS AND SYMPTOMS OF LABOR 1. Contractions every 10 minutes or more often 2. Clear, pink, or brownish fluid (water) leaking from vagina 3. Feeling that baby is pushing down, pressure 4. Low, dull backache 5. Cramps that feel like a period 6. Cramps with or without diarrhea If you notice any of the above symptoms, contact our office at [phone] and ask to speak with a nurse. After hours, you can call doctors registry at [phone] OR call [facility] at [phone] and ask to have the doctor migration agent paged. If you consider this an emergency, dial 0-3-6 or go to your nearest emergency department. NEED HELP? Are you dealing with a violent or abusive relationship? Are you a victim of rape or sexual assult? Call [facility] ([facility] 24 hour Crisis Hotline: 369.449.8375 or 734-519-1635. MANUAL Your Guide to a Healthy manual is now on-line. Visit [email or web address] ncyGuide to download your free copy documented in this encounter [facility] 10-12-2023 Miscellaneous Notes S: Sarah David is a 23 year old female who presents at 03/05/2024, by Last Menstrual Period for a routine visit. Denies headache, visual changes, chest pain, shortness of breath, vaginal bleeding, leakage of fluid, or dysuria. Feeling well, no complaints. Anatomy US today -prelim normal Discussed brain lesion. Considered congential. No progression. Is of no concern per patient Reviewed Rh negative blood type and need for Rhogam O: See flow sheet Gen: No apparent distress ASSESSMENT/PLAN: 1. Encounter for supervision of normal first in second trimester - ICD9: V22.0, ICD10: Z34.02 (primary diagnosis) 2. 19 weeks gestation of - ICD9: V22.2, ICD10: Z3A.19 RTO 4 weeks Mi Santillan MD documented in this encounter [facility] 10-12-2023 Progress note Formatting of t his note might be different from the original. S: Sarah David is a 23 year old female who presents at 03/05/2024, by Last Menstrual Period for a routine visit. Denies headache, visual changes, chest pain, shortness of breath, vaginal bleeding, leakage of fluid, or dysuria. Feeling well, no complaints. Anatomy US today -prelim normal Discussed brain lesion. Considered congential. No progression. Is of no concern per patient Reviewed Rh negative blood type and need for Rhogam O: See flow sheet Gen: No apparent distress ASSESSMENT/PLAN: 1. Encounter for supervision of normal first in second trimester - ICD9: V22.0, ICD10: Z34.02 (primary diagnosis) 2. 19 weeks gestation of - ICD9: V22.2, ICD10: Z3A.19 RTO 4 weeks Mi Santillan MD [facility] 10-10-2023 Telephone encounter Note Order signed and faxed. Alix Quinones RN [facility] 10-10-2023 Miscellaneous Notes Order signed and faxed. Alix Quinones RN Breast pump order received from [employer]. To EH to sign. Alix Quinones RN documented in this encounter [facility] 10-10-2023 Telephone encounter Note Breast pump order received from [employer]. To EH to sign. Alix Quinones RN [facility] 09-20-2023 Telephone encounter Note 1st risk assessment form submitted 09/20/2023. Mi Macedo RN [facility] 09-20-2023 Miscellaneous Notes 1st risk assessment form submitted 09/20/2023. Mi Macedo RN documented in this encounter [facility] 09-19-2023 History of Present illness Narrative Images from the original note were not included. INITIAL OB ASSESSMENT HPI: Sarah is a 23 year old White Female here to establish Obstetrical Care. Patient's last menstrual period was 05/30/2023 (approximate). from OB Dating Form. was unplanned but accepted Complaints: Severe nausea/vomiting OB History T0 L0 SAB0 IAB0 Ectopic0 Multiple0 Live Births0 Previous history: Prior : never History of 4th degree laceration: NA History of shoulder dystocia: No History of Hypertensive disorders including pre-eclampsia or gestational hypertension: NA History of gestational diabetes: NA Patient's Risk Screening for delivery: Have you had a prior bravo between 20w and 36w6d? No How many pregnancies have you had before? 1 Did you have a previous baby with a GBS Infection? No Please select all that apply for any prior : N/A MEDICAL/PSYCHOSOCIAL HISTORY: History of hemorrhage or bleeding concerns: No Thyroid Disease: No History of chronic hypertension: No History of pre-existing diabetes: No No results found for: "ABORHD" BMI 24.45 kg/(m^2) Last Pap: 10/26/2022 History of abnormal pap: No Prior treatment for cervical dysplasia: none. History of STDs: None Partner History of STDs: None Did you have a partner with Herpes? No Tobacco use: No E-Cigarette/Vaping Use: No Caffeine use: Yes - up to 3-4 pops per day Drug use: Yes - Marijuana, says she stopped when she found out she is Alcohol use: No Multivitamin with Folic acid: No Would refuse blood transfusion if medically necessary: No Social Needs: How often does this describe you? I don't have enough money to pay my bills: Never Within the past 12 months, have you worried that your food would run out before you had money to buy more? Never In the past 12 months, has lack of reliable transportation kept you from going to medical appointments or work, or from getting things needed for daily living? Never In the past 12 months, have you had any concerns about having a place to live, or about the condition or quality of your housing? Never Social History: Do you have any history of depression, anxiety, PTSD, or other mood problems? Yes - depression and anxiety Do you have a history of abuse or trauma that may impact your experience? No Are you currently employed? No Depression/Anxiety Screening: denies symptoms of depression. OB Depression and Anxiety Screening- This Encounter (since 09/18/2023) Over the past 2 weeks have you felt down, depressed, or hopeless? Negative Over the past two weeks, have you felt little interest or pleasure in doing things? Negative Feeling nervous, anxious or on edge 0-Not at all Not being able to stop or control worrying 0-Not al all Anxiety Pre-Screening Total (If >/= 3 additional questions will be reviewed) 0 Genetic Screening: Partner present: Yes Patient verbalized knowledge of partner family health history: Yes Do you or your partner have any personal or family history of defects not previously discussed: No Do you have history of a complicated by anomaly, genetic condition, or demise: No Screening for low dose aspirin use for the prevention of pre-eclampsia: Low dose aspirin should be considered if the patient has one high or two moderate risk factors: High risk factors: None Moderate risk ractors: Nulliparity She does not meet criteria for low dose ASA OB Risk Screening: Completed, no positive findings documented. 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 Do not take more than 20mg in a 24 hour period. (Patient not taking: Reported on 09/12/2023) 12 tablet 1 tiZANidine (ZANAFLEX) 4 mg tablet Take 1 tablet by mouth at bedtime as needed. (Patient not taking: Reported on 09/12/2023) 30 tablet 3 hydrOXYzine HCl (ATARAX) 25 mg tablet Take 1 tablet by mouth every 6 hours as needed for anxiety. (Patient not taking: Reported on 09/12/2023) 30 tablet 3 venlafaxine ER (EFFEXOR XR) 150 mg 24 hr capsule Take 1 capsule by mouth once daily. (Patient not taking: Reported on 09/12/2023) 30 capsule 3 melatonin 3 mg tablet Take 1 tablet at approximately 7-8PM nightly. (Patient not taking: Reported on 09/12/2023) 30 tablet 2 topiramate (TOPAMAX) 25 mg tablet Take 1 tablet at bedtime x 1 week, then increase to 2 tablets at bedtime x1 week, then increase to 3 tablets at bedtime and continue this dose. (Patient not taking: Reported on 09/12/2023) 90 tablet 2 traZODone (DESYREL) 100 mg tablet Take 1 tablet by mouth daily at bedtime. (Patient not taking: Reported on 09/12/2023) 90 tablet 0 norethindrone (AYGESTIN) 5 mg tablet Take 2 tablets by mouth once daily for 10 days. 20 tablet 0 No current facility-administered medications for this visit. Allergies As of Date: 09/19/2023 Allergen Noted Reaction AMOXICILLIN 04/12/2008 Rash AUGMENTIN [AMOXICILLIN-POT CLAVUL*04/12/2008 Rash and Vomiting PENICILLINS 05/06/2005 Rash Fully Assessed 09/19/2023 Does patient have penicillin allergy: Yes, plan for allergy testing. SBIRT Sarah David was given the 4P's screening tool. Sarah answered as follows: OB Opioid Screening - Last Recorded (since 12/23/2022) Did any of your parents have a problem with alcohol or other drug use? Yes dad of alcoholism, mother with drug use Does your partner have a problem with alcohol or other drug use? Yes In the past, have you had difficulties in your life because of alcohol or other drugs, including prescription medications? Yes marijuana In the past month have you drunk any alcohol or used other drugs? No Are you taking medication for pain during the either prescribed or not? No Based on the screen and further questions, she is considered at Low risk due to:Low level of use stopped prior to or immediately upon known . Positive reinforcement of current behavior. Plan to rescreen early third trimester. Yulissa Fields APRN.BOARDING MACHINE OPERATOR REVIEW OF SYSTEMS: GENERAL: Negative for: Fever or Chills HEENT: Negative for: Headache, Impaired Vision, Ringing in Ears, Nosebleeds NECK: Negative for: Swelling, Pain, Stiffness RESPIRATORY: Negative for: Cough, Shortness of breath, Wheezing GASTROINTESTINAL: Negative for: Heartburn, Diarrhea, Blood in stool + constipation and nausea MUSCULOSKELETAL: Negative for: Muscle or joint pain, stiffness, Joint swelling NEUROLOGIC/PSYCHIATRIC: Negative for: Weakness, Paralysis, Numbness, Tingling, Tremor, Anxiety, Depression, Memory loss SKIN: Negative for: Rash, Itching GENITOURINARY: Negative for: vaginal itching, vaginal discharge, hematuria or dysuria PHYSICAL EXAM: BP 92/58 Ht 5' 1" (1.55m) Wt 129 lb 6.4 oz (58.7kg) LMP 05/30/2023 BMI 24.46 kg/(m^2). GENERAL: pleasant in no apparent distress DERMATOLOGY: Normal, without lesions, non-icteric, and non-hirsute NECK: Supple, full range of motion, and no adenopathy CHEST: Normal inspiratory effort BREAST: soft, non-tender, symmetric, no dominant mass, normal nipple-areolar complex, no lymphadenopathy, and no nipple discharge ABDOMEN: soft, non-tender, and no masses NEURO: alert and oriented x3,exam grossly non-focal PELVIS: External genitalia normal without lesions. Perineal body intact. No vaginal or cervical lesions. Cervix closed. Uterus 12+ week size. No adnexal masses or tenderness. Clinical Pelvimetry: Pelvimetry clinically assessed as adequate Limited OB ultrasound exam: not performed ASSESSMENT: 23 year old at 16w0d wks gestational age PLAN: 1) Patient oriented to practice. Patient given new OB orientation folder. Discussed nutrition, folic acid supplementation, dietary guidelines, exercise, smoking, alcohol, caffeine, and drug use. Discussed gestational weight gain guidelines. Discussed routine OB labs including STD/HIV. Discussed how to access Your guide to a health and the Youth Counselor. Discussed aneuploidy screening, nuchal translucency/first trimester early anatomy ultrasound and NIPT. The risks/benefits and limitations of NIPT/aneuploidy screening were reviewed including the potential for false negative and false positive results. The availability of genetic counseling was reviewed. Information on aneuploidy screening was provided. The patient is uncertain. She will call back if she wants to proceed with screening. Pt aware of timing. Discussed myriad carrier screening. We discussed the availability of professional-society guided carrier screening and reviewed the conditions screened and limitations of screening. The availability of genetic counseling was reviewed. Information on carrier screening was provided. The patient Accepts Discussed hemoglobin electrophoresis. Patient: Accepts Reviewed midwifery and tower equipment repairer services that are available. 2) Patient offered option of Virtual Visits. Patient unsure. May consider in future. ACTIVE PROBLEM LIST Encounter for Supervision of Normal First in Second Trimester - 09/19/2023 To start with folic acid and LDA. Comment: Care Checklist Vaccines: [ ] Flu vaccine [ ] declined [ ] RSV vaccine 32 0/7 - 36 6/ (Jan - Jun) [ ] declined [ ] COVID vaccine [ ] declined [ ] TDaP 27-36 [ ] declined First trimester: [ ] Dating US [X] 1st tri labs [X] Pap smear UTD [X] Carrier screening [ ] declined [ ] NIPT screening - checking with insurance [ ] declined [ ] First trimester anatomy scan [ ] declined [X] ASA ppx indicated [ ] not indicated [ ] M Power Consult [ ] not indicated [ ] declined Second trimester: [ ] AFP [ ] declined [ ] Anatomy scan [ ] Mode of Delivery - [ ] Feeding - [ ] Pump ordered [ ] Diabetes screen [ ] CBC, RPR Third trimester (28-30 weeks): [ ] Consent [ ] Contraception - [ ] Senior Programmer Third trimester (36-40 weeks): [ ] GBS [ ] Presentation - [ ] Scheduled [ ] yes - Hibiclens, pre-op instructions, CBC, T&S ordered [ ] no [ ] H&P Late Care Affecting in Second Trimester - 09/19/2023 Comment: First presented at 16 weeks. To confirm dating with anatomy. Nausea and Vomiting During - 09/19/2023 Comment: Vitamin B6 and Unisom doses reviewed. To notify if prescription is needed. Constipation During in Second Trimester - 09/19/2023 Comment: Reviewed Colace and increased water intake. Caffeine Use - 09/19/2023 Comment: Drinking 3-4 pops per day. Discussed recommendation of decreasing caffeine and sugar intake. History of Depression - 09/19/2023 Comment: PHQ 2 negative today. Mental health resources provided. Past history of medication use for depression. Marijuana Use - 09/19/2023 Comment: Stopped upon discovery of . Recommend continued cessation. Risks reviewed. Family History of Genetic Disease - 09/19/2023 Comment: Patient's cousin with a genetic disorder that caused the bones not to form properly. Patient unsure of name. FOB's aunt with either autism or Down Syndrome. Migraines - 02/06/2014 Comment: Advised to take 400 mg of Magnesium per day for migraine prevention. Yulissa Fields APRN.CNP Follow up in 4 weeks for anatomy ultrasound and OB visit. Cardiac activity confirmed with brief bedside ultrasound. Yulissa Fields APRN.AMBER OB point of care ultrasound was performed. See imaging tab for details. Live Lucio MA documented in this encounter [facility] 09-19-2023 Instructions Yulissa Fields APRN.CNP - 09/19/2023 10:42 AM EDT Images from the original note were not included. Please select the following link to access the [facility] Your Guide to a Healthy . [email or web address] MORNING SICKNESS IN by Merary Cotton M.D. for [employer] As you may already know, morning sickness can often be more appropriately called evening sickness or hkwkx-szzdmz-ct-the-day sickness. While there are the luisito few, most women (50-90%) experience some degree of nausea, some have vomiting, and a few develop a severe form of vomiting during called hyperemesis gravidarum. What causes the nausea and vomiting of ? We can't explain why some people feel fine and others are green for months. Even the same woman may feel vastly different in each . There is some relationship between nausea and the level of the hormone hCG. In twin pregnancies, and in other situations where the hCG is greater than expected, nausea and vomiting tend to be worse. In a destined for miscarriage, hCG levels tend to be low, and nausea is often less severe. This being said, a lack of nausea doesn't guarantee that the is destined for miscarriage. The fact that nausea and vomiting are often signs of a healthy can offer a silver lining in the dark cloud of miserable nausea. How long will the nausea last? Fortunately, for most women, nausea and vomiting are a first trimester event, peaking at week 9-10 and waning by week 14-16. When you are feeling bad the weeks can go by slowly but most moms do feel tremendously better by the middle of the . Whether morning sickness is a brief experience or lasts through most of the , there are treatments that can make the weeks or months more tolerable. What can you do about it? Diet: See what works for you. Try eating bland dry foods, and avoid fatty or spicy foods. It is okay to eat a less than perfectly balanced diet in the first trimester. Have your liquids separately from dry foods. Try sports drinks, water, clear juices, Sarthak-aid, or non-caffeinated tea. Avoid carbonated beverages that fill up your stomach. Try eating lots of little meals. If you tend to feel sick when you first wake up, leave crackers next to the bed for a quick snack before rising. Keeping healthy snacks with you all day to nibble when you feel queasy can sometimes even prevent nausea from starting. vitamins and nausea: Pre-christopher vitamins can sometimes worsen nausea in . While folate is necessary, especially early in the , it comes as a smaller pill that many people find more tolerable than the complete vitamin pill. Ask your practitioner if it is okay to temporarily replace vitamins and iron with just a folate pill if you find a significant worsening in the level of your nausea from the vitamins. Alternative therapies: Acupressure may be used to treat nausea in , and is not known to have any risks for the fetus. Wristbands (marketed for seasickness) that put pressure on an acupressure point at the wrist are often available at drugstores or travel stores. Jenna root is used for nausea in many traditional cultures. Some women take fresh grated jenna or jenna tablets. It is possible that the pill form contains other ingredients or contaminants, so you may want to try fresh jenna first. Medications: Emetrol is the only nausea medication approved for use in . It is available over the counter and is soothing to the stomach. A prescription medication called Bendectin was available in the 1970s-1979's and was shown to be safe in , but the company stopped marketing it in the [place] due to the costs of liability coverage. Bendectin contained 10 milligrams of vitamin B6 and 10 milligrams of Doxylamine. Two tablets were given at bedtime and a total of up to 4 tablets could be used in a 24-hour period. Interestingly, Unisom , which contains a higher dose (25 mg.) of the same medication, Doxylamine, is currently marketed as an anam-nhv-sdpqeoq sleeping pill. Ask your practitioner if creating a vitamin B6/Doxylamine combination with bhcf-kug-vuwlvch medications would be safe for you. Prescription medications like Compazine and Phenergan can be used if the benefits outweigh possible risks, but these have not been clearly shown to be safe in . Zofran , an expensive anti-nausea medication often used to treat nausea from chemotherapy, can also be used. Can I throw up so much it harms the baby? The act of vomiting cannot hurt your fetus, which is protected inside the uterus. If you get dehydrated or develop a metabolic imbalance, this can be unhealthy. As long as you can keep down liquids, you and your baby will generally do all right. Eat when you feel able. If you are unable to keep anything down, or if you notice potential signs of dehydration such as lightheadedness, or concentrated and/or infrequent urination, call your practitioner. Some women need brief hospital admission for intravenous fluids and anti-nausea medications if their condition becomes severe. This severe form of nausea and vomiting is called Hyperemesis Gravidarum. As with many symptoms of , remind yourself that this, too, shall pass, and you'll have a wonderful baby to show for it! TREATMENT OPTIONS, SHORT VERSION: Frequent small meals Hydrate throughout day [employer] wrist pressure point applicators Jenna root (powdered, in capsules) 250mg four times a day Vitamin B6 25 mg tablet three times a day Also may be taken with half a tablet of Unisom three times a day (Doxylamine 12.5 mg) If severe (weight loss, dehydration), call us and come in for IV hydration and possible medication in the form of injections. Prescription medications such as Phenergan, Compazine, Reglan Marijuana (Cannabis) March 30, 2019 This sheet talks about exposure to marijuana in and while . This information should not take the place of medical care and advice from your health care provider. What is marijuana? Marijuana, also called pot, weed, or cannabis, is a drug that comes from a plant called cannabis. Marijuana can either be smoked (inhaled) or eaten (edibles). Marijuana is an illegal substance in parts of the [place]. However, some states allow marijuana use by prescription for medical purposes, and some states allow the sale of marijuana for recreational use. The main active chemical in marijuana is jwzel-7-ncsgifeonnlsuuizxfhw (THC), which is what causes you to feel high. Another major component of marijuana is cannabidiol (CBD). The [place]. Food and Drug Administration (FDA) advises against the use of CBD, THC, and marijuana in any form during a or while . What do we know about cannabidiol (CBD)? CBD use is becoming popular in [place] society and can be found in many products ranging from coffee and chocolate, to supplements and tinctures, cosmetics, lotions, suppositories, and bath salts. Studies on THC free products find that many actually contain a measurable amount of THC. Unfortunately there are no studies looking at the use of CBD during or while at this time. How much is known about the effects of marijuana on a ? It is difficult to study marijuana use during . Marijuana contains about 400 different chemicals, and some marijuana preparations can be contaminated with other drugs, pesticides, and/or fungi. Most of the older studies focus on women who inhale marijuana, not ingest (eat) it. Taking edibles might lead to higher levels of marijuana in the body. We also know that the THC in marijuana has become more potent (stronger) over the years. Therefore, studies done years ago on marijuana with lower THC levels may not accurately reflect the possible risks for current marijuana users. Some women who use marijuana during may have other risk factors such as use of alcohol, tobacco, or other drugs, medical conditions, and/or lack of care. Finally, information on the amount used and how much is used can be difficult for researchers to accurately collect. All of these factors explain why studies looking at marijuana use during sometimes find different results. I am using marijuana, but I would like to stop before becoming . How long could it stay in my body? People eliminate drugs at different rates. This is particularly true for marijuana and its metabolites (breakdown products). The way you use marijuana (inhale, ingest, topical) and how often you use it and how much you take can affect how long its metabolites can stay in your body. For some people, it might take up to 30 days for the THC metabolite to be gone from the body. I use marijuana. Can it make it harder for me to become ? Long-term use of marijuana might affect the menstrual cycle, which could make it more difficult to get . The effects on fertility appear to go away when marijuana use is stopped, or once a woman develops tolerance to the drug. Does using marijuana increase the risk for miscarriage? Miscarriage can occur in any . One study found that women who used marijuana were at an increased risk of having a miscarriage. Other studies have not confirmed this finding. Does using marijuana in the first trimester increase the chance of defects? In every , a woman starts with a 3-5% chance of having a baby with a defect. This is called her background risk. Most studies have not found an increase in the chance for defects among babies prenatally exposed to occasional marijuana use. A few studies have suggested a small increase in the chance for gastroschisis (a rare defect in which the infants intestines stick out of an opening in the abdominal wall). However, it can be difficult to draw conclusions from these studies because of the limitations outlined above. While most studies are reassuring regarding defects, without good studies among heavy marijuana users, the fact that marijuana is thought to be more potent now, and because of other potential complications it is best to avoid marijuana during . Could using marijuana in the second or third trimester cause other complications? Possibly. Similar to what is seen with cigarette smoking, smoking marijuana may increase carbon monoxide levels in the blood, which can decrease the amount of oxygen the baby receives. Some studies have suggested that among women who smoke marijuana regularly, there is an increased chance for complications such as premature , low weight, small length, small head size, and stillbirth. Babies that are born prematurely or with low weight can have higher rates of learning problems or other disabilities. In some studies, a dose-response relationship was seen, meaning the more a woman smoked, the higher her risk for these complications to occur. More research is needed to confirm if these complications are caused by the marijuana use itself, or if the women in these studies may have had other risk factors (such as smoking cigarettes). Both THC and CBD might affect how the placenta works. The placenta is the organ that grows during a and controls what can pass from mother to baby and baby to mother. Studies have also shown that THC can cross the placenta during and reach the baby s system. If I smoke marijuana in the third trimester, can it cause my baby to go through withdrawal after ? Some newborns exposed to marijuana have been reported to have temporary withdrawal-like symptoms, such as increased tremors, changes in sleeping patterns, and crying. These symptoms usually go away within 30 days. Does using marijuana in cause long-term problems in behavior or learning for the baby? Possibly. Three studies have followed children prenatally exposed to marijuana, and found that they are at higher risk for problems such as impaired executive functioning (the ability to plan, focus, remember, and multi task), impulsivity, hyperactivity, aggression, depression, and anxiety. These children were also more likely to have problems with attention (ability to pay attention), memory, and academic achievement. When these children reached adulthood, some studies suggest that they are more likely to misuse substances themselves. The problems noted here have been seen more often in children whose mothers were heavy marijuana users (smoked one or more marijuana cigarettes per day). The evidence is not conclusive and some studies report conflicting results. What happens if I use marijuana when I m ? THC has been detected in breast milk. In one recent study, researchers found that breastfed babies ingest approximately 2.5% of the mother s THC dose. The amount of time THC remains in the milk ranges from 6 days to 6 weeks. Available research has not demonstrated clear health concerns except for a possible delay in motor development (learning to crawl and walk on time) when a woman reports smoking marijuana on a daily basis. Because the baby s brain continues to develop during the time that they are being breastfed, experts are worried about the possible effects this drug may have on a nursing when a mother uses it during . Other factors to consider are possible legal implications if a breastfed baby tests positive for marijuana, the fact that there may be other contaminants (mentioned above) in the marijuana, thereby exposing the breastfed baby to other substances, and the possibility that the baby will be directly exposed to second hand smoke. Most professional organizations such as the [place] Academy of Pediatrics, the Academy of Medicine, and the [place] College of Obstetricians and Gynecologists advise that mothers avoid using marijuana. Be sure to talk to your healthcare provider about all your questions. Because marijuana can affect prolactin (a hormone that tells your body to make milk), there is a concern that frequent marijuana users may see a negative effect on the quality and quantity of milk they produce. If a man uses marijuana could it affect his fertility (ability to get partner ) or increase the chance for defects? In men, marijuana use may decrease sperm count (the number of sperm), and motility (the ability for those sperm to reach the egg). These factors could make it more difficult for a man to get his partner . These effects are thought to be temporary, and sperm function is expected to return to normal once a man stops using marijuana. In general, exposures that fathers have are unlikely to increase risks to a . For more information, please see the MotherToBaby fact sheet Paternal Exposures and at https://mothertobaby.org/fact-she ets/wqwzfvgb-yihlegdob-ktoinvtrn/ pdf/. Thank you for your interest in Women's Behavioral Health at [facility]. Your provider has referred you for counseling services. Below you will find a list of options. Psychotherapy Services at [facility] Call Behavioral Health Access Line at [phone] to schedule Individual psychotherapy In-person or virtual Wait time for first evaluation may be 12 or more weeks. Wait list spots may be available. Due to the high volume of patients this option is recommended if you are looking for short term acute symptom coping strategies. 3-406-7-HYUA2OANB - [place] Maternal Mental Health Hotline If you are in suicidal crisis, please call or text 4-107-486-TALK ( ) or visit the National Suicide Prevention Lifeline website. mchb.[facility].gov If you are in crisis, call 911 or go to your nearest Emergency Department Here are some links for wonderful Providers here in the community and surrounding areas. Do not hesitate to contact their offices, many are offering virtual visits during this time. Psychotherapy Services outside of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 remainder of the ROS was reviewed and is negative. LAB/IMAGING: Those performed since patient's last visit have been reviewed. WBC (k/uL) Date Value 07/09/2021 5.43 RBC (m/uL) Date Value 07/09/2021 4.41 Hemoglobin (g/dL) Date Value 07/09/2021 13.3 Hematocrit (%) Date Value 07/09/2021 40.4 MCV (fL) Date Value 07/09/2021 91.6 MCH (pG) Date Value 07/09/2021 30.2 MCHC (g/dL) Date Value 07/09/2021 32.9 RDW-CV (%) Date Value 07/09/2021 12.1 Platelet Count (k/uL) Date Value 07/09/2021 153 MPV (fL) Date Value 07/09/2021 11.6 Glucose (mg/dL) Date Value 07/09/2021 66 (L) BUN (mg/dL) Date Value 07/09/2021 6 (L) Creatinine (mg/dL) Date Value 07/09/2021 0.68 Sodium (mmol/L) Date Value 07/09/2021 138 Potassium (mmol/L) Date Value 07/09/2021 3.7 Chloride (mmol/L) Date Value 07/09/2021 105 CO2 (mmol/L) Date Value 07/09/2021 22 Protein, Total (g/dL) Date Value 07/09/2021 6.8 Albumin (g/dL) Date Value 07/09/2021 4.3 Calcium (mg/dL) Date Value 07/09/2021 9.2 Alkaline Phosphatase (U/L) Date Value 07/09/2021 45 Bilirubin, Total (mg/dL) Date Value 07/09/2021 0.4 AST (U/L) Date Value 07/09/2021 20 ALT (U/L) Date Value 07/09/2021 10 Hep C Antibody IA (no units) Date Value 10/08/2021 Negative MEDICATIONS: traZODone (DESYREL) 100 mg tablet Take 1 tablet by mouth daily at bedtime. venlafaxine ER (EFFEXOR XR) 150 mg 24 hr capsule Take 1 capsule by mouth once daily. rizatriptan (MAXALT INFORMATION CODER) 5 mg disintegrating tablet Take 1 tablet at first sign of migraine, and may repeat in 2 hours if necessary. Do not take more than 20mg in a 24 hour period. tiZANidine (ZANAFLEX) 4 mg tablet Take 1 tablet by mouth at bedtime as needed. hydrOXYzine HCl (ATARAX) 25 mg tablet Take 1 tablet by mouth every 6 hours as needed for anxiety. ondansetron orally disintegrating (ZOFRAN ODT) 4 mg disintegrating tablet Take 1 tablet by mouth every 8 hours as needed for nausea/vomiting. (Patient not taking: Reported on 07/05/2022) HISTORIES PAST MEDICAL HISTORY Diagnosis Date Left ear hearing loss Menarche 2011 Age 11 Migraines PMH - PAST MEDICAL HISTORY OF 01/09/04 normal color vision TMJ (dislocation of temporomandibular joint) FAMILY HISTORY Problem Relation Age of Onset Asthma Mother Anxiety disorder Mother Alcohol/Drug Father ETOH Asthma Brother Asthma Brother sibling ADD/ADHD Brother COPD Other mggm Cancer Paternal Aunt great aunts? SOCIAL HISTORY Social History Tobacco Use Smoking status: Never Passive exposure: Yes Smokeless tobacco: Never Tobacco comments: mom smokes Vaping Use Vaping Use: Never used Substance Use Topics Alcohol use: No Drug use: Yes Types: Marijuana PHYSICAL EXAMINATION BP 98/57 Pulse 78 Temp 36.9 C (98.5 F) (Left Tympanic) Resp 16 Wt 59.6 kg (131 lb 6.4 oz) LMP 06/01/2022 (Approximate) SpO2 99% BMI 24.83 kg/m GENERAL EXAM: General appearance: NAD, pleasant. HEENT: NC/AT, nasal congestion absent, no oral lesions, membranes moist. NECK: No masses, supple. Lungs: CTA bilaterally. CV: RRR nl S1, S2. No carotid bruits. Extr: No cyanosis, clubbing or edema. Skin: Cool to touch. NEUROLOGICAL EXAM: General: Awake, alert, oriented x3 (person,place,time), speech fluent, no dysarthria; comprehension, naming, repetition intact. Fund of knowledge grossly normal. CN: PERRL, fundi with no evidence of papilledema, EOMI and without nystagmus, VFF to confrontation, facial sensation and strength are normal and symmetric, hearing is intact to finger rub bilaterally, palate and tongue movements are intact and symmetric. SCM and trapezius strength normal. Motor: Normal tone, bulk and strength (5/5) bilaterally (throughout extremities x4). Reflexes: 2/4 and symmetric, plantar stimulation is flexor. Coordination: FNF, JANEEN, HTS intact. No tremors. Sensation: Light touch, vibration, temperature intact throughout. No evidence of neglect. Gait: Stable with normal stride and arm swing. Normal tandem. Romberg normal. Assessment and Plan: ASSESSMENT/PLAN: 1. Intractable migraine without aura and without status migrainosus - ICD9: 346.11, ICD10: G43.019 (primary diagnosis) 2. Tension headache - ICD9: 307.81, ICD10: G44.209 Patient with what clinical history would suggest to be a mix of headaches including those of tension and those of migrainous etiology (sensitivities). 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 That said, repeat MRI brain next year would be appropriate or sooner if change in symptoms. As for headaches, likely further provoked by irregular sleep patterns (and fluctuations in melatonin). Pt has never been on an intentional preventative. Will start on Topamax 25mg QHS and titrate up to 75mg QHS by 25mg weekly. SE and ADRs reviewed with pt. Note that emphasis was placed on and risk meds place on development. Pt advised that if she became to stop meds immediately and contact us. Also advised pt to take vitamins. Using OTC control but no OCP. She can continue Maxalt as abortive as Rx'd by PCP. 3. Insomnia, unspecified type - ICD9: 780.52, ICD10: G47.00 4. Delayed sleep phase syndrome - ICD9: 327.31, ICD10: G47.21 Multifactorial and I suspect secondary to underlying mood disorder (does not expand on this during interview) as well as delayed circadian sleep wake cycle. Will refer to behavioral sleep med to aid in insomnia by means of CBTi. PCP has already made referral to psych as well. Encouraged cessation of drug use (cannabis). Provided instructions on how to advance sleep cycle and explained that success will depend on her willingness to change daytime and nighttime behaviors (see pt instructions). To aid in advancing sleep cycle will start on melatonin 3mg at 7PM with goal bedtime of 10PM. SE and ADRs d/w pt. Follow up in 4 weeks or sooner prn (with JI). Ajith Galdamez MD I spent a total of 50 minutes on the date of the service which included preparing to see the patient, [id number] patient care, completing clinical documentation, obtaining and/or reviewing separately obtained history, performing a medically appropriate examination, counseling and educating the patient/family/caregiver, ordering medications, tests, or procedures, and communicating results to the patient/family/caregiver. documented in this encounter [facility] 06-14-2022 Miscellaneous Notes Behavioral Health Social Work Progress Note Patient identified for [facility] from: PCP Reason for referral: Resources Behavioral Health Resources: Psychology - talk therapy [facility] encounter type: Telephone Encounter;Letter Attempts to Outreach: 1 attempt Referral made: Psychology - External;Psychology - Internal Psychology-Internal referral type: Therapy Psychology-External referral type: Therapy Reason for external referral: Wait times at [facility] too long Final Disposition: Resources given Patient Discharged?: Yes Patient reported that caregiver was able to meet their needs today?: Yes SW placed telephone call at the request of the PCP to discuss behavioral health needs. Patient states she was in therapy when she was younger, but has not been since. Interested in evaluated for possible bipolar disorder. Discussed seeing a therapist, patient is interested. Does not use MyChart, states she is "not an ji kind of girl". Will send resources in a letter to her home and will include the following: [facility] [address] [place], [place] [address] [facility] (Telehealth available) [address] [place] [address] [place] [address] (Telehealth available[place] [address] [facility] [place] [address] [facility] (Telehealth available) [address] [place] [address] [facility] (Telehealth available) [address] [place] [address] [phone] VENESSA Howell June 14, 2022 documented in this encounter [facility] 05-25-2022 Miscellaneous Notes Patient has been identified by name and date of : No Patient phones for refill(s): Requested Prescriptions Pending Prescriptions Disp Refills venlafaxine ER (EFFEXOR XR) 150 mg 24 hr capsule 30 capsule 3 Sig: Take 1 capsule by mouth once daily. Date of last office visit in primary care: 05/03/2022 Last 2 Encounter Wt Readings: Date: Wt: 05/03/2022 55.8 kg (123 lb) 03/01/2022 54.9 kg (121 lb) Previous labs/tests for medication: Not applicable Please advise. Thank you. Dane Rodrigez LPN Patient has been identified by name and date of : Yes Requested Prescriptions Pending Prescriptions Disp Refills venlafaxine ER (EFFEXOR XR) 150 mg 24 hr capsule 30 capsule 3 Sig: Take 1 capsule by mouth once daily. RX INSTRUCTIONS: Patient aware RX will be sent to pharmacy. No need to notify patient. Stephanie Altman documented in this encounter [facility] 05-03-2022 History of Present illness Narrative CC: Patient presents with: Headache HPI Sarah David is a 22 year old female who presents today for increase in migraines. Did see neurology this past June and had been started on maxalt and zanaflex, but never followed up as instructed. 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 Takes Venlafaxine for anxiety and migraine prevention but will forget to take 1-2 times a week. Tizanidine is for neck pain that prevents her sleeping. Feels increase in migraines may be related to not being able to sleep. Will fall asleep at 11 but wide awake after a few hours then able to fall asleep again for a couple hours. Migraines vary in pain, severity, and frequency. Can range from 5 times a month or less. Can be triggered by lack of sleep, seasonal changes, or anxiety. Denies any numbness tingling weakness dizziness or confusion. Alcohol use: drinks less than one drink a day Drug use: Yes: Marijuana Current daily Appetite: good Stresses: Denies any major stressor. Suicidal Thoughts: No suicidal ideation, intent or plan Support: Comes from multiple sources including significant other REVIEW OF SYSTEMS General: no fevers, no chills, no night sweats, no recurrent infections, no change in appetite, no change in energy, and no significant changes in weight HEENT: no frequent or significant headaches, no changes in hearing, no visual changes, no nose bleeds, no sinus or nasal problems Neck: no lumps, no pain , and no swelling Respiratory: no cough, no wheezing, no shortness of breath, no hemoptysis Cardiovascular: no chest pain, no chest pressure, no palpitations, and no swelling Neurologic: No weakness, numbness, tingling, dizziness, memory loss, syncope. PAST MEDICAL HISTORY Diagnosis Date Left ear hearing loss Menarche 2011 Age 11 Migraines PMH - PAST MEDICAL HISTORY OF 01/09/04 normal color vision TMJ (dislocation of temporomandibular joint) PAST SURGICAL HISTORY Procedure Laterality Date TYMPANOSTOMY LOCAL/TOPICAL ANESTHESIA < 6 yrs ALLERGIES Amoxicillin, Augmentin [Amoxicillin-Pot Clavulanate], and Penicillins MEDICATIONS rizatriptan (MAXALT INFORMATION CODER) 5 mg disintegrating tablet Take 1 tablet at first sign of migraine, and may repeat in 2 hours if necessary. Do not take more than 20mg in a 24 hour period. tiZANidine (ZANAFLEX) 4 mg tablet Take 1 tablet by mouth at bedtime as needed. ondansetron orally disintegrating (ZOFRAN ODT) 4 mg disintegrating tablet Take 1 tablet by mouth every 8 hours as needed for nausea/vomiting. hydrOXYzine HCl (ATARAX) 25 mg tablet Take 1 tablet by mouth every 6 hours as needed for anxiety. venlafaxine ER (EFFEXOR XR) 150 mg 24 hr capsule Take 1 capsule by mouth once daily. FAMILY HISTORY Problem Relation Age of Onset Asthma Mother Anxiety disorder Mother Alcohol/Drug Father ETOH Asthma Brother Asthma Brother sibling ADD/ADHD Brother COPD Other mggm Cancer Paternal Aunt great aunts? Social History Tobacco Use Smoking status: Never Passive exposure: Yes Smokeless tobacco: Never Tobacco comments: mom smokes Vaping Use Vaping Use: Never used Substance Use Topics Alcohol use: No Drug use: Yes Types: Marijuana PHYSICAL EXAM BP 104/60 (BP Site: Left Arm, BP Position: Sitting, BP Cuff Size: Regular Adult) Pulse 90 Temp 36.6 C (97.9 F) Resp 16 Wt 55.8 kg (123 lb) LMP 12/30/2019 SpO2 100% BMI 23.24 kg/m General Appearance: well appearing, in no acute distress, alert Pysch: mood and affect broad and appropriate Skin: Skin color, texture, turgor normal for age; Eyes: PERRLA, EOM's intact, conjunctiva pink and moist, no icterus, sclera white, non-injected Neck: Thyroid normal size and symmetric without palpable nodules, No adenopathy Lymph nodes: No cervical lymphadenopathy and No supraclavicular lymphadenopathy Lungs: Lungs clear to auscultation. No wheezing, rhonchi, rales. Heart: RRR without murmur, gallop, or rubs. No ectopy Neurological: Gait normal. Reflexes normal and symmetric. Sensation grossly intact.speech normal, mental status intact, muscle tone normal, muscle strength normal Health maintenance reviewed with patient: DEPRESSION ASSESSMENT Never done DTAP,TDAP,TD(7 - Td or Tdap) due on 12/07/2021 INFLUENZA(1) Never done PAP TESTING due on 10/08/2022 HPV VACCINE(1 - 2-dose series) due on 10/08/2022 MENINGOCOCCAL B: Consider based on risk(1 of 2 - Risk Bexsero 2-dose series) due on 10/08/2022 COVID-19 VACCINE(1) due on 10/08/2022 GC (GONORRHEA) SCREENING (18-24) due on 10/08/2022 CHLAMYDIA SCREENING (18-24) due on 10/08/2022 HEPATITIS B Completed HEPATITIS C SCREENING Completed HIV SCREENING Completed DATA REVIEWED: No new labs ASSESSMENT/PLAN: 1. Migraine without status migrainosus, not intractable, unspecified migraine type - ICD9: 346.90, ICD10: G43.909 (primary diagnosis) - Increase related to no taking effexor regularly, verus seasonal change, versus insomnia, versus other cause. - discussed importance of taking effexor daily and starting on trazodone to help with insomnia in hopes this will help with migraines as well - follow up with neurology as recommended by them. - follow up in 6 weeks to evaluate if trazadone is effective and if regular sleep improved her migraines. 2. Insomnia, unspecified type - ICD9: 780.52, ICD10: G47.00 As above Prescription instructions reviewed with patient as applicable. Potential red flag symptoms discussed with the patient. Reviewed appropriate action plan to take if red flag symptoms occur. Patient agreeable to treatment plan. Dora Restrepo APRN.AMBER documented in this encounter [facility] 05-03-2022 Miscellaneous Notes letter will be given to her at her appointment today with Dora Restrepo. Dane Rodrigez LPN Noted, Letter printed for the patient. Regards, Kwabena Marquez MD Patient calling, states that [employer] is requesting a letter stating that patient is being treated for migraines. States that this would be for food stamps. Asking that letter be faxed to [phone]. Please advise. documented in this encounter [facility] 03-15-2022 Miscellaneous Notes called the pharmacy. They report this will go through now. They will get the rx ready for her. called [facility]. They gave me the website to print a PA form. This was done. Completed and faxed to number on the form. The [place] medicaid has changed their PA process. I'm working on it. Zofran is as needed for nausea and vomiting related to migraine which prevents patient from taking her daily medications. Is anything else needed? Thank you Dora Restrepo APRN.AMBER sarah david Cardenas: [id number] help? Call us at Outcome Additional Information Required Effective 02/27, all [place] Medicaid pharmacy authorization requests should be submitted to [place]. The request may be submitted to [facility] Clinical Contact Center via phone at , fax at , or through the portal at [email or web address] Drug Ondansetron 4MG dispersible tablets Form [facility] Non-Medicare Electronic PA Form (2016 NCPDP) Prior Authorization Documentation Prior authorization requested for the following medication: Medication: Zofran disintegrating 4 mg Provider: [employer] Name: [employer] Phone number: [phone] Patient ID number: [id number] Pharmacy Name: [facility] Telephone number: [phone] documented in this encounter [facility] 03-01-2022 History of Present illness Narrative CC: Patient presents with: Recheck: Follow up headade HPI Sarah David is a 22 year old female who presents today for routine follow up on her headaches, but currently they are well controlled. Has not had one in over a month, but states when she does have one she throws up her medications. Also has multiple concerns. Feels she is getting an allergy to some type of food. Has been expanding what kind of food she is trying to eat and has occasionally noticed her abdomen will get a sharp pain, runny nose, and her stomach will start "rumbling". Has thrown up twice with robertson a week ago. Has eaten robertson all of her life without issues and boyfriend ate same robertson without any problems. Has not had any further vomiting. Denies edema, difficulty swallowing, difficulty breathing, nausea, abdominal pain outside of intermittent sharp pain with eating, diarrhea, or constipation. Has not been able to sleep for the past 3 days, has been tossing and turning. Denies any change in medications or diet but drinks a large amount of mountain dew a day. Has been out of the PRN tizanadine for a while also which was as needed for insomnia. States she also has noticed burning with urination for the past week or so. Only lasts for a few seconds. Denies any abdominal pain, difficulty urinating, abnormal vaginal drainage, or any other concerns. REVIEW OF SYSTEMS General: no fevers, no chills, no night sweats, no recurrent infections, no change in appetite, no change in energy, and no significant changes in weight Respiratory: no cough, no wheezing, no shortness of breath, no hemoptysis Cardiovascular: no chest pain, no chest pressure, no palpitations, and no swelling GI: See HPI : See HPI SHIRT CLEANER: Negative for abnormal vaginal bleeding, abnormal vaginal discharge Neurologic: No headache, weakness, dizziness, syncope. PAST MEDICAL HISTORY Diagnosis Date Left ear hearing loss Menarche 2011 Age 11 Migraines PMH - PAST MEDICAL HISTORY OF 01/09/04 normal color vision TMJ (dislocation of temporomandibular joint) PAST SURGICAL HISTORY Procedure Laterality Date TYMPANOSTOMY LOCAL/TOPICAL ANESTHESIA < 6 yrs ALLERGIES Amoxicillin, Augmentin [Amoxicillin-Pot Clavulanate], and Penicillins MEDICATIONS rizatriptan (MAXALT INFORMATION CODER) 5 mg disintegrating tablet Take 1 tablet at first sign of migraine, and may repeat in 2 hours if necessary. Do not take more than 20mg in a 24 hour period. hydrOXYzine HCl (ATARAX) 25 mg tablet Take 1 tablet by mouth every 6 hours as needed for anxiety. tiZANidine (ZANAFLEX) 4 mg tablet Take 1 tablet by mouth at bedtime as needed. venlafaxine ER (EFFEXOR XR) 150 mg 24 hr capsule Take 1 capsule by mouth once daily. FAMILY HISTORY Problem Relation Age of Onset Asthma Mother Anxiety disorder Mother Alcohol/Drug Father ETOH Asthma Brother Asthma Brother sibling ADD/ADHD Brother COPD Other mggm Cancer Paternal Aunt great aunts? Social History Tobacco Use Smoking status: Passive Smoke Exposure - Never Smoker Smokeless tobacco: Never Tobacco comments: mom smokes Vaping Use Vaping Use: Never used Substance Use Topics Alcohol use: No Drug use: Yes Types: Marijuana PHYSICAL EXAM BP 120/72 Pulse 92 Resp 16 Wt 54.9 kg (121 lb) LMP 12/30/2019 BMI 22.86 kg/m General Appearance: well appearing, in no acute distress, alert Pysch: mood and affect broad and appropriate Skin: Skin color, texture, turgor normal for age; Eyes: conjunctiva pink and moist, no icterus, sclera white, non-injected Lungs: Lungs clear to auscultation. No wheezing, rhonchi, rales. Heart: RRR without murmur, gallop, or rubs. No ectopy Abdomen: Abdomen soft, non-tender. Bowel sounds normal. No masses, organomegaly, Negative CVA tenderness BUE Extremities: No deformities, edema, skin discoloration, clubbing or cyanosis. Good capillary refill. Neurological: Gait normal. speech normal, mental status intact Health maintenance reviewed with patient: DEPRESSION ASSESSMENT Never done DTAP,TDAP,TD(7 - Td or Tdap) due on 12/07/2021 INFLUENZA(1) Never done PAP TESTING due on 10/08/2022 HPV VACCINE(1 - 2-dose series) due on 10/08/2022 MENINGOCOCCAL B: Consider based on risk(1 of 2 - Risk Bexsero 2-dose series) due on 10/08/2022 COVID-19 VACCINE(1) due on 10/08/2022 GC (GONORRHEA) SCREENING (18-24) due on 10/08/2022 CHLAMYDIA SCREENING (18-24) due on 10/08/2022 HEPATITIS B Completed HEPATITIS C SCREENING Completed HIV SCREENING Completed DATA REVIEWED: No new labs ASSESSMENT/PLAN: 1. Burning with urination - ICD9: 788.1, ICD10: R30.0 (primary diagnosis) acute - UA DIP, URINE (POC) - negative, probable irritation as cause - keep vaginal area clean and dry, minimize baths especially with bubble bath additives. - follow up for further evaluation if no improvement or symptoms change/worsen. 2. Insomnia, unspecified type - ICD9: 780.52, ICD10: G47.00 - discussed in detail the need to decrease daily intake of caffeine. - tizanidine refilled. 3. Lower abdominal pain - ICD9: 789.09, ICD10: R10.30 - very intermittent, not severe, and assessment negative - keep record of food intake to try and pinpoint if a specific food is causing this. - follow up to review this or if symptoms worsen and/or become more often 4. Migraine without status migrainosus, not intractable, unspecified migraine type - ICD9: 346.90, ICD10: G43.909 -controlled. - ondansetron as ordered for nausea related to migraines. Prescription instructions reviewed with patient as applicable. Potential red flag symptoms discussed with the patient. Reviewed appropriate action plan to take if red flag symptoms occur. Patient agreeable to treatment plan. Dora Restrepo APRN.CNP documented in this encounter [facility] 02-24-2022 Miscellaneous Notes Patient has been identified by name and date of : Yes Patient phones for refill(s): Requested Prescriptions Pending Prescriptions Disp Refills rizatriptan (MAXALT INFORMATION CODER) 5 mg disintegrating tablet 12 tablet 1 Sig: Take 1 tablet at first sign of migraine, and may repeat in 2 hours if necessary. Do not take more than 20mg in a 24 hour period. Date of last office visit in primary care: 10/08/21 Last 2 Encounter Wt Readings: Date: Wt: 10/08/2021 56.2 kg (124 lb) 09/11/2021 56.7 kg (125 lb) Previous labs/tests for medication: Not applicable Please advise. Thank you. Dane Rodrigez LPN Pharmacy verified in Epic Patient has been identified by name and date of : Yes Patient aware RX will be sent to pharmacy. No need to notify patient. Patient phones for refill(s): Requested Prescriptions Pending Prescriptions Disp Refills rizatriptan (MAXALT INFORMATION CODER) 5 mg disintegrating tablet 12 tablet 1 Sig: Take 1 tablet at first sign of migraine, and may repeat in 2 hours if necessary. Do not take more than 20mg in a 24 hour period. Date of last office visit : 10/08/2021 Date of next office visit : 03/01/2022 Last 2 Encounter Wt Readings: Date: Wt: 10/08/2021 56.2 kg (124 lb) 09/11/2021 56.7 kg (125 lb) Please advise. Mi Thornton Pss documented in this encounter [facility] 02-04-2022 Miscellaneous Notes Called the pharmacy no PA is needed. The issue is the qty of 12. Insurance will cover 9 for 30 days. Message left to pt with info. PRIOR AUTHORIZATION Medication for Prior Authorization: rizatriptan Insurance Company: [employer] phone number: [phone] Patient insurance ID number: [id number] Yue Chavez RN Please give patient a call if approved documented in this encounter [facility] 01-22-2022 Miscellaneous Notes Patient has been identified by name and date of : Yes Patient phones for refill(s): Requested Prescriptions Pending Prescriptions Disp Refills rizatriptan (MAXALT INFORMATION CODER) 5 mg disintegrating tablet [Pharmacy Med Name: RIZATRIPTAN 5 MG ODT] 12 tablet 1 Sig: PLEASE SEE ATTACHED FOR DETAILED DIRECTIONS Date of last office visit in primary care: 10/08/2021 Last 2 Encounter Wt Readings: Date: Wt: 10/08/2021 56.2 kg (124 lb) 09/11/2021 56.7 kg (125 lb) Previous labs/tests for medication: Not applicable Please advise. Thank you. Dane Rodrigez LPN documented in this encounter [facility] 01-22-2022 Miscellaneous Notes Patient has been identified by name and date of : Yes Requested Prescriptions Pending Prescriptions Disp Refills rizatriptan (MAXALT INFORMATION CODER) 5 mg disintegrating tablet 12 tablet 1 Sig: PLEASE SEE ATTACHED FOR DETAILED DIRECTIONS RX INSTRUCTIONS: Patient is completely out of this medication, Patient aware RX will be sent to pharmacy. No need to notify patient. [employer] documented in this encounter [facility] 01-04-2022 Miscellaneous Notes Spoke with pt and information listed below given. Pt verbalizes understanding. Lyndsey Kwan LPN Left a message for pt to call the office and ask to speak to a nurse. Lyndsey Kwan LPN A total of 24 tablets were prescribed 2 weeks ago. She should not be using this medication daily, and should contact neurology if this is the case for further direction. Thank you Dora Restrepo APRN.AMBER Spoke to Patient she is needing refill of migraine med. Patient has been identified by name and date of : Yes Patient phones for refill(s): Pending Prescriptions Disp Refills RIZATRIPTAN 5 MG DISINTEGRATING TABLET 12 tablet 1 Sig: PLEASE SEE ATTACHED FOR DETAILED DIRECTIONS KVNG: No Date of last office visit in primary care: 10/08/2021 No future appt scheduled. Last 2 Encounter Wt Readings: Date: Wt: 10/08/2021 56.2 kg (124 lb) 09/11/2021 56.7 kg (125 lb) Previous labs/tests for medication: Not applicable Please advise. Thank you. Марина Sears LPN Patient has been identified by name and date of : Yes Pending Prescriptions Disp Refills TIZANIDINE 4 MG TABLET 30 tablet 3 Sig: Take 1 tablet by mouth at bedtime as needed. KVNG: No VENLAFAXINE ER 150 MG CAPSULE,EXTENDED RELEASE 24 HR 30 capsule 3 Sig: Take 1 capsule by mouth once daily. KVNG: No RX INSTRUCTIONS: Patient aware RX will be sent to pharmacy. No need to notify patient. Elisabeth Sepulveda documented in this encounter [facility] 12-30-2021 Miscellaneous Notes Patient notified and scheduled follow up with Dora. I can give her ativan for anxiety, not sure if will help with the fear of denstists, but hopeful it will make her less anxious rx sent to local pharmacy Sarah David is calling Kwabena Marquez MD today to request medication she can take to help with her fear of the dentist. The dentist suggested to ask her PCP. No chief complaint on file. Patient has been identified by name and birthdate. Duration of symptoms: N/A Person calling: self Call patient at: on cell [phone] (home) [phone] (cell) Was an appointment scheduled: No Closing statement: Results or non-symptom based questions: Thank you for calling [facility], your call will be returned within the next business day. Elisabeth Sepulveda documented in this encounter [facility] 11-27-2021 Miscellaneous Notes Protocol recommends ER or pcp triage. Patient agreeable to ER. States her boyfriend will drive her. Migraine, vomiting- unable to keep liquids down 3 days, vision changes, dizziness/lightheaded, weakness. Reason for Disposition [1] Drinking very little AND [2] dehydration suspected (e.g., no urine > 12 hours, very dry mouth, very lightheaded) Answer Assessment - Initial Assessment Questions 1. DESCRIPTION: 3 days now 2. LIGHTHEADED: Lightheaded, sometimes feels like will faint, worse when moving quickly, woozy, weak upon standing. Has vomited 5 times in last 24 hours. Has been vomiting for 3 days. 3. VERTIGO: Feels like she or the room is spinning or tilting when moving or sitting still. 4. SEVERITY: Moderate, does stumble when walking at times. 5. ONSET: 3 days ago after a migraine. Migraine medication not helping. 6. AGGRAVATING FACTORS: Standing, changing head position make it worse. 7. HEART RATE: Patient felt heart rate for 15 seconds, states it feels regular. Got 17 x 4 = 68. 8. CAUSE: Thinks it has something to do with migraine, has been happening every time she gets a migraine. Gets migraines twice a month. Usually these symptoms go away the day after a migraine. Drinking 2-3 glasses of liquids a day- unable to keep down. 9. RECURRENT SYMPTOM: The last time had dizziness was with last migraine 2-3 weeks ago. In the past has resolved on it's own after a day. 10. OTHER SYMPTOMS Vomiting for 3 days now. No diarrhea. Vision is shifting- pain in left eye- vision zooms in and out. No CP. No fever. Does have muscle aches- neck is killing her. Migraines start in her neck. SOB sometimes. Face goes numb after vomiting, lasts for about 5 min. 11. : is possible but just had period. Protocols used: DIZZINESS - [id number] documented in this encounter [facility] 11-13-2021 Miscellaneous Notes HARISH: 10/08/2021 Patient has been identified by name and date of : Yes Pending Prescriptions Disp Refills TIZANIDINE 4 MG TABLET 30 tablet 0 Sig: Take 1 tablet by mouth at bedtime as needed. KVNG: No RIZATRIPTAN 5 MG DISINTEGRATING TABLET 12 tablet 1 Sig: PLEASE SEE ATTACHED FOR DETAILED DIRECTIONS KVNG: No RX INSTRUCTIONS: completely out and has migraine last few days Patient aware RX will be s ent to pharmacy. No need to notify patient. Abimbola Blanco documented in this encounter [facility] 10-12-2021 Miscellaneous Notes Patient notified. ----- Message from Dora Restrepo APRN.BOARDING MACHINE OPERATOR sent at 10/12/2021 8:08 AM EDT ----- Please let patient know that her lab work is all negative. Thank you Dora Restrepo APRN.CNP documented in this encounter [facility] 09-29-2021 History of Present illness Narrative Radiology Service Progress Note DATE OF SERVICE: September 29, 2021 TIME: 10:24 AM PATIENT IDENTITY VERIFICATION COMPLETED USING TWO (2) STANDARD IDENTIFIERS: Name and Date of confirmed by patient verbally. FALL SCREENING: Has the patient had 2 falls in the last year or 1 fall with injury or currently using an Ambulatory Assistive Device (Walker, Cane, Wheelchair, Crutches, etc.)? No PATIENT GENDER DATA: Female. status: : No status: NO. PATIENT RELEVANT IMPLANT DATA REVIEWED: Yes ALLERGIES: Reviewed and unchanged CONTRAST ALLERGY: NO. EXAM: MRI - CONTRAST TYPE: GROUP II PERIPHERAL IV DATA: Ambulatory: A peripheral IV was started in the Right antecubital site with a Angio cath: 22 gauge. RADIOLOGY DEPARTMENT: MR; Exam(s) Completed: Head: Routine Brain SIGNATURE: RT Marcelino(Esther) PATIENT NAME: Sarah David DATE: September 29, 2021 TIME: 10:24 AM documented in this encounter [facility] 09-11-2021 History of Present illness Narrative CC: Patient presents with: Recheck: Medication follow up HPI Sarah David is a 21 year old female who presents today for refill on Effexor and maxalt for migraines. Was seen in June with multiple complaints and was rescheduled for an annual exam to include follow up for the multiple issues but was a no show. Rescheduled for medication refills today and showed up after her appointment time was finished. Patient with understanding that this will be a very basic visit and she will have to reschedule to review all of her issues. Needing a refill on effexor for migraines and on her maxalt. Is tolerating the 75mg of Effexor daily, but has not seen much improvement in her migraines. States the have not gotten worse but have remained the same. Denies any new or concerning symptoms from previous. Saw neurology for follow up on brain tumor but has not scheduled MRI of the brain yet as ordered. REVIEW OF SYSTEMS General: no fevers, no chills, no night sweats, no recurrent infections, no change in appetite, no change in energy and no significant changes in weight Respiratory: no cough, no wheezing, no shortness of breath, no hemoptysis Cardiovascular: no chest pain, no chest pressure, no palpitations and no swelling Neurologic: No weakness, numbness, tingling, dizziness, memory loss, or syncope. PAST MEDICAL HISTORY Diagnosis Date Left ear hearing loss Menarche 2011 Age 11 Migraines PMH - PAST MEDICAL HISTORY OF 01/09/04 normal color vision TMJ (dislocation of temporomandibular joint) PAST SURGICAL HISTORY Procedure Laterality Date TYMPANOSTOMY LOCAL; UNILATERAL < 6 yrs ALLERGIES Amoxicillin, Augmentin [Amoxicillin-Pot Clavulanate], and Penicillins MEDICATIONS tiZANidine (ZANAFLEX) 4 mg tablet TAKE 1 TABLET BY MOUTH EVERY DAY AT BEDTIME NEEDED rizatriptan (MAXALT INFORMATION CODER) 5 mg disintegrating tablet TAKE 1 TABLET BY MOUTH AT THE ONSET OF HEADACHE. MAY TAKE ANOTHER DOSE AFTER 2HRS. DO NOT EXCEED 20MG PER DAY hydrOXYzine HCl (ATARAX) 25 mg tablet Take 1 tablet by mouth every 6 hours as needed for anxiety. venlafaxine ER (EFFEXOR XR) 37.5 mg 24 hr capsule Take one tablet daily for 4 days. Then increase to 2 tablets daily. naproxen (NAPROSYN) 500 mg tablet Take 1 tablet by mouth three times daily with meals. Take with food. ondansetron orally disintegrating (ZOFRAN ODT) 4 mg disintegrating tablet Take 1 tablet by mouth every 6 hours as needed for Nausea/Vomiting. FAMILY HISTORY Problem Relation Age of Onset Asthma Mother Anxiety disorder Mother Alcohol/Drug Father ETOH Asthma Brother Asthma Brother sibling ADD/ADHD Brother COPD Other mggm Cancer Paternal Aunt great aunts? Social History Tobacco Use Smoking status: Passive Smoke Exposure - Never Smoker Smokeless tobacco: Never Used Tobacco comment: mom smokes Vaping Use Vaping Use: Never used Substance Use Topics Alcohol use: No Drug use: Yes Types: Marijuana PHYSICAL EXAM BP 112/70 Pulse 80 Resp 16 Wt 56.7 kg (125 lb) LMP 12/30/2019 BMI 23.62 kg/m General Appearance: well appearing, in no acute distress, alert Pysch: mood and affect broad and appropriate Eyes: PERRLA, EOM's intact, conjunctiva pink and moist, no icterus, sclera white, non-injected Lungs: Lungs clear to auscultation. No wheezing, rhonchi, rales. Heart: RRR without murmur, gallop, or rubs. No ectopy Health maintenance reviewed with patient: COVID-19 VACCINE(1) Never done MENINGOCOCCAL B: Consider based on risk(1 of 2 - Risk Bexsero 2-dose series) Never done HPV VACCINE(1 - 2-dose series) Never done DEPRESSION SCREENING Never done GC (GONORRHEA) SCREENING (18-24) Never done HEPATITIS C SCREENING Never done HIV SCREENING Never done CHLAMYDIA SCREENING (18-24) Never done PAP TESTING Never done DTAP,TDAP,TD(7 - Td or Tdap) due on 12/07/2021 INFLUENZA(Season Ended) due on 01/28/2022 MENINGOCOCCAL CONJUGATE Completed DATA REVIEWED: Most recent labs Very difficult to assess patients migraines with not having any time left in appointment. Also, no time to re-evaluate other issues as well. Patient needs to reschedule a visit so we can have time to review all of her anxiety/depression, migraines, and the many other discussed issues at original visit. ASSESSMENT/PLAN: 1. Migraine without status migrainosus, not intractable, unspecified migraine type - ICD9: 346.90, ICD10: G43.909 - No change in migraines. Needs to get MRI as ordered. Will continue current dose of Effexor for now but will need increase or new medication change probably at follow up. Maxalt refilled - Go to ER for increase and unrelieved headaches, weakness, confusion, numbness, tingling, or any other concerns. Prescription instructions reviewed with patient as applicable. Potential red flag symptoms discussed with the patient. Reviewed appropriate action plan to take if red flag symptoms occur. Patient agreeable to treatment plan. Dora Restrepo APRN.CNP documented in this encounter [facility] 02-06-2014 History of Past i llness Narrative Problem Noted Date Resolved Date Body mass index equal to or greater than 95th percentile for age in pediatric patient 02/06/2014 10/18/2022 Brain tumor 08/28/2013 06/03/2015 documented as of this encounter (statuses as of 10/26/2022) [facility] History of Past illness Narrative* Problem Noted Date Diagnosed Date Resolved Date Body mass index equal to or greater than 95th percentile for age in pediatric patient 02/06/2014 10/18/2022 Brain tumor 08/28/2013 06/03/2015 documented as of this encounter (statuses as of 12/08/2022) [facility] of Past illness Narrative* Problem Noted Date Diagnosed Date Resolved Date Body mass index equal to or greater than 95th percentile for age in pediatric patient 02/06/2014 10/18/2022 Brain tumor 08/28/2013 06/03/2015 documented as of this encounter (statuses as of 04/03/2023) [facility] History of Past illness Narrative* Problem Noted Date Diagnosed Date Resolved Date Body mass index equal to or greater than 95th percentile for age in pediatric patient 02/06/2014 10/18/2022 Brain tumor 08/28/2013 06/03/2015 documented as of this encounter (statuses as of 09/13/2023) [facility] History of Past illness Narrative* Problem Noted Date Resolved Date Brain tumor 08/28/2013 06/03/2015 documented as of this encounter (statuses as of 09/04/2021) [address] History of Past illness Narrative* Problem Noted Date Resolved Date Brain tumor 08/28/2013 06/03/2015 documented as of this encounter (statuses as of 09/11/2021) [facility] History of Past illness Narrative* Problem Noted Date Resolved Date Brain tumor 08/28/2013 06/03/2015 documented as of this encounter (statuses as of 09/30/2021) [facility] History of Past illness Narrative* Problem Noted Date Resolved Date Brain tumor 08/28/2013 06/03/2015 documented as of this encounter (statuses as of 10/12/2021) [facility] History of Past illness Narrative* Problem Noted Date Resolved Date Brain tumor 08/28/2013 06/03/2015 documented as of this encounter (statuses as of 11/13/2021) [facility] History of Past illness Narrative* Problem Noted Date Resolved Date Brain tumor 08/28/2013 06/03/2015 documented as of this encounter (statuses as of 12/09/2021) [facility] of Past illness Narrative* Problem Noted Date Resolved Date Brain tumor 08/28/2013 06/03/2015 documented as of this encounter (statuses as of 12/30/2021) [facility] of Past illness Narrative* Problem Noted Date Resolved Date Brain tumor 08/28/2013 06/03/2015 documented as of this encounter (statuses as of 01/04/2022) [place] [address]-01-2014 History of Past illness Narrative* Problem Noted Date Resolved Date Brain tumor 08/28/2013 06/03/2015 documented as of this encounter (statuses as of 01/22/2022) [place] [address]01-2014 History of Past illness Narrative* Problem Noted Date Resolved Date Brain tumor 08/28/2013 06/03/2015 documented as of this encounter (statuses as of 01/25/2022) [place] [address]2014 History of Past illness Narrative* Problem Noted Date Resolved Date Brain tumor 08/28/2013 06/03/2015 documented as of this encounter (statuses as of 02/04/2022) [place] [address]2014 History of Past illness Narrative* Problem Noted Date Resolved Date Brain tumor 08/28/2013 06/03/2015 documented as of this encounter (statuses as of 02/17/2022) [place] [address]2014 History of Past illness Narrative* Problem Noted Date Resolved Date Brain tumor 08/28/2013 06/03/2015 documented as of this encounter (statuses as of 02/24/2022) [place] [address]2014 History of Past illness Narrative* Problem Noted Date Resolved Date Brain tumor 08/28/2013 06/03/2015 documented as of this encounter (statuses as of 03/01/2022) [place] [address]2014 History of Past illness Narrative* Problem Noted Date Resolved Date Brain tumor 08/28/2013 06/03/2015 documented as of this encounter (statuses as of 03/15/2022) [place] [address] History of Past illness Narrative* Problem Noted Date Resolved Date Brain tumor 08/28/2013 06/03/2015 documented as of this encounter (statuses as of 05/03/2022) [place] [address] History of Past illness Narrative* Problem Noted Date Resolved Date Brain tumor 08/28/2013 06/03/2015 documented as of this encounter (statuses as of 05/03/2022) [place] [address]2014 History of Past illness Narrative* Problem Noted Date Resolved Date Brain tumor 08/28/2013 06/03/2015 documented as of this encounter (statuses as of 05/31/2022) [place] [address]2014 History of Past illness Narrative* Problem Noted Date Resolved Date Brain tumor 08/28/2013 06/03/2015 documented as of this encounter (statuses as of 06/14/2022) [place] [address] History of Past illness Narrative* Problem Noted Date Resolved Date Brain tumor 08/28/2013 06/03/2015 documented as of this encounter (statuses as of 07/06/2022) [facility] of [facility] illness Narrative* Problem Noted Date Resolved Date Brain tumor 08/28/2013 06/03/2015 documented as of this encounter (statuses as of 08/11/2022) [facility] note* Diagnosis Migraine without status migrainosus, not intractable, unspecified migraine type- Primary documented in this encounter [facility] note* Diagnosis Migraine without status migrainosus, not intractable, unspecified migraine type Brain lesion Other conditions of brain documented in this encounter [facility] noteNo assessment information availableWMet[facility] Work Phone: Evaluation note* Diagnosis Situational anxiety- Primary Other anxiety states [facility]* Diagnosis Burning with urination- Primary Dysuria Insomnia, unspecified type Lower abdominal pain Abdominal pain, other specified site Migraine without status migrainosus, not intractable, unspecified migraine type documented in this encounter [facility] note* Diagnosis Migraine without status migrainosus, not intractable, unspecified migraine type- Primary Insomnia, unspecified type [facility]* Diagnosis Intractable migraine without aura and without status migrainosus- Primary Migraine without aura, with intractable migraine, so stated, without mention of status migrainosus Tension headache Insomnia, unspecified type 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, delayed sleep phase type documented in this encounter [facility] note* Diagnosis NO SHOW- Primary documented in this encounter [facility] note* Diagnosis Anxiety with depression documented [facility] encounter [facility]* Diagnosis Pelvic pain in female Unspecified symptom associated with female genital organs documented [facility]* Diagnosis Missed periods- Primary Absence of menstruation , unspecified gestational age documented in [facility] encounter [facility]* Diagnosis Encounter for supervision of normal first in second trimester- Primary Supervision of normal first with uncertain dates, antepartum state, incidental 16 weeks gestation of state, incidental Family history of genetic disease Family history of other condition Migraine without status migrainosus, not intractable, unspecified migraine type Constipation during in second trimester Late care affecting in second trimester Nausea and vomiting during Caffeine use Other, mixed, or unspecified nondependent drug abuse, unspecified History of depression Personal history of other mental disorder Marijuana use Cannabis abuse, unspecified [facility] Encounter for anatomic survey- Primary 19 weeks gestation of state, incidental [facility] Diagnosis Encounter for supervision of normal first in second trimester- Primary Supervision of normal first 19 weeks gestation of state, incidental [facility] Diagnosis Encounter for supervision of normal first in second trimester- Primary Supervision of normal first 23 weeks gestation of state, incidental [facility] Diagnosis Encounter for supervision of other normal in second trimester- Primary 25 weeks gestation of state, incidental Rh negative state in antepartum period, second trimester Penicillin allergy Personal history of allergy to penicillin [facility] Diagnosis 29 weeks gestation of - Primary state, incidental Encounter for supervision of other normal in second trimester Rh negative state in antepartum period, second trimester Need for vaccination Need for prophylactic vaccination and inoculation against unspecified single disease Rh negative state in antepartum period Rhesus isoimmunization affecting management of mother, antepartum condition [facility] Diagnosis Encounter for supervision of other normal in third trimester- Primary 31 weeks gestation of state, incidental Rh negative state in antepartum period Rhesus isoimmunization affecting management of mother, antepartum condition Penicillin allergy Personal history of allergy to penicillin [facility] Diagnosis Encounter for supervision of high risk in third trimester, antepartum- Primary 33 weeks gestation of state, incidental Excessive weight gain in , third trimester Late care affecting in second trimester Marijuana use Cannabis abuse, unspecified History of depression Personal history of other mental disorder Penicillin allergy Personal history of allergy to penicillin Rubella non-immune status, antepartum Other specified complication, antepartum Rh negative state in antepartum period Rhesus isoimmunization affecting management of mother, antepartum condition documented in this encounter [facility] note* Diagnosis Encounter for supervision of high risk in third trimester, antepartum- Primary 34 weeks gestation of state, incidental documented in this encounter [facility] note* Diagnosis Encounter for supervision of high risk in third trimester, antepartum- Primary Excessive weight gain in , third trimester documented in this encounter [facility] note* Diagnosis Encounter for supervision of high risk in third trimester, antepartum- Primary Excessive weight gain in , third trimester Penicillin allergy Personal history of allergy to penicillin 36 weeks gestation of state, incidental * Assessment & Plan Note - Alicia Gamez MD - 02/10/2024 12:00 PM EDTAssociated Problem(s): Encounter for supervision of high risk in third trimester, antepartum Orders: URINE OB DIP B/O * Assessment & Plan Note - Alicia Gamez MD - 02/10/2024 12:00 PM EDTAssociated Problem(s): Penicillin allergy Orders: URINE OB DIP B/O documented in this encounter [facility] note* Diagnosis Encounter for supervision of high risk in third trimester, antepartum- Primary Excessive weight gain in , third trimester Penicillin allergy Personal history of allergy to penicillin 36 weeks gestation of state, incidental Encounter for supervision of high risk in third trimester, antepartum- Primary Excessive weight gain in , third trimester Need for influenza vaccination Need for prophylactic vaccination and inoculation against influenza 37 weeks gestation of state, incidental * Assessment & Plan Note - Alicia Gamze MD - 02/15/2024 2:12 PM EDT Associated Problem(s): Encounter for supervision of high risk in third trimester, antepartum [facility] Diagnosis Encounter for supervision of high risk in third trimester, antepartum- Primary Excessive weight gain in , third trimester Penicillin allergy Personal history of allergy to penicillin 36 weeks gestation of state, incidental Encounter for supervision of high risk in third trimester, antepartum- Primary Excessive weight gain in , third trimester Need for influenza vaccination Need for prophylactic vaccination and inoculation against influenza 37 weeks gestation of state, incidental 38 weeks gestation of - Primary state, incidental Encounter for supervision of high risk in third trimester, antepartum Rubella non-immune status, antepartum Other specified complication, antepartum Marijuana use Cannabis abuse, unspecified History of depression Personal history of other mental disorder Late care affecting in second trimester Penicillin allergy Personal history of allergy to penicillin [facility]* Diagnosis Encounter for supervision of high risk in third trimester, antepartum- Primary Excessive weight gain in , third trimester Penicillin allergy Personal history of allergy to penicillin 36 weeks gestation of state, incidental Encounter for supervision of high risk in third trimester, antepartum- Primary Excessive weight gain in , third trimester Need for influenza vaccination Need for prophylactic vaccination and inoculation against influenza 37 weeks gestation of state, incidental Encounter for supervision of high risk in third trimester, antepartum- Primary Rubella non-immune status, antepartum Other specified complication, antepartum Marijuana use Cannabis abuse, unspecified History of depression Personal history of other mental disorder 39 weeks gestation of state, incidental Rh negative state in antepartum period Rhesus isoimmunization affecting management of mother, antepartum condition [facility]* Diagnosis Encounter for supervision of high risk in third trimester, antepartum- Primary Excessive weight gain in , third trimester Penicillin allergy Personal history of allergy to penicillin 36 weeks gestation of state, incidental Encounter for supervision of high risk in third trimester, antepartum- Primary Excessive weight gain in , third trimester Need for influenza vaccination Need for prophylactic vaccination and inoculation against influenza 37 weeks gestation of state, incidental Post-operative state- Primary Other postprocedural status Nausea Nausea alone documented in this encounter [facility] note* Diagnosis Encounter for supervision of high risk in third trimester, antepartum- Primary Excessive weight gain in , third trimester Penicillin allergy Personal history of allergy to penicillin 36 weeks gestation of state, incidental Encounter for supervision of high risk in third trimester, antepartum- Primary Excessive weight gain in , third trimester Need for influenza vaccination Need for prophylactic vaccination and inoculation against influenza 37 weeks gestation of state, incidental state- Primary Routine follow-up RUQ pain Abdominal pain, right upper quadrant S/P section Other postprocedural status Nausea Nausea alone [facility] Diagnosis Encounter for supervision of high risk in third trimester, antepartum- Primary Excessive weight gain in , third trimester Penicillin allergy Personal history of allergy to penicillin 36 weeks gestation of state, incidental Encounter for supervision of high risk in third trimester, antepartum- Primary Excessive weight gain in , third trimester Need for influenza vaccination Need for prophylactic vaccination and inoculation against influenza 37 weeks gestation of state, incidental RUQ pain- Primary Abdominal pain, right upper quadrant Elevated LFTs Other abnormal blood chemistry state Routine follow-up [facility] Diagnosis Encounter for supervision of high risk in third trimester, antepartum- Primary Excessive weight gain in , third trimester Penicillin allergy Personal history of allergy to penicillin 36 weeks gestation of state, incidental Encounter for supervision of high risk in third trimester, antepartum- Primary Excessive weight gain in , third trimester Need for influenza vaccination Need for prophylactic vaccination and inoculation against influenza 37 weeks gestation of state, incidental Post-operative state Other postprocedural status Nausea Nausea alone [facility]* Diagnosis Encounter for supervision of high risk in third trimester, antepartum- Primary Excessive weight gain in , third trimester Penicillin allergy Personal history of allergy to penicillin 36 weeks gestation of state, incidental Encounter for supervision of high risk in third trimester, antepartum- Primary Excessive weight gain in , third trimester Need for influenza vaccination Need for prophylactic vaccination and inoculation against influenza 37 weeks gestation of state, incidental RUQ pain Abdominal pain, right upper quadrant [facility]* Diagnosis Encounter for supervision of high risk in third trimester, antepartum- Primary Excessive weight gain in , third trimester Penicillin allergy Personal history of allergy to penicillin 36 weeks gestation of state, incidental Encounter for supervision of high risk in third trimester, antepartum- Primary Excessive weight gain in , third trimester Need for influenza vaccination Need for prophylactic vaccination and inoculation against influenza 37 weeks gestation of state, incidental Right upper quadrant pain- Primary Abdominal pain, right upper quadrant Costochondritis Tietze's disease documented in this encounter [facility] note* Diagnosis Encounter for supervision of high risk in third trimester, antepartum (HCC)- Primary Excessive weight gain in , third trimester (HCC) Penicillin allergy Personal history of allergy to penicillin 36 weeks gestation of (HCC) state, incidental Nasal polyp- Primary Unspecified nasal polyp Environmental allergies Other allergy, other than to medicinal agents [facility] Diagnosis Encounter for supervision of high risk in third trimester, antepartum (HCC)- Primary Excessive weight gain in , third trimester (HCC) Penicillin allergy Personal history of allergy to penicillin 36 weeks gestation of (HCC) state, incidental Right wrist pain Pain in joint, forearm Wrist weakness Other musculoskeletal symptoms referable to limbs documented in this encounter [facility]* Diagnosis Encounter for supervision of high risk in third trimester, antepartum (HCC)- Primary Excessive weight gain in , third trimester (HCC) Penicillin allergy Personal history of allergy to penicillin 36 weeks gestation of (HCC) state, incidental Pain in right wrist- Primary Pain in joint, forearm documented in this encounter [facility] note* Diagnosis Encounter for supervision of high risk in third trimester, antepartum (HCC)- Primary Excessive weight gain in , third trimester (HCC) Penicillin allergy Personal history of allergy to penicillin 36 weeks gestation of (HCC) state, incidental Pain in right wrist Pain in joint, forearm documented in this encounter [facility] for referral (narrative)* Diagnostic Procedure Only (Routine) - Closed Specialty Diagnoses / Procedures Referred By Christina hinds Referred To Contact US IMAGING Diagnoses Pelvic pain in female Procedures US FEMALE PELVIS TRANSVAG US TRANSVAGINAL Saskia Farias APRN.BOARDING MACHINE OPERATOR [address] [place] [address] [place] [address] Referral ID Status Reason Start Date Expiration Date V isits Requested Visits Authorized [id number] Closed Auto-Generate d Referral 10/18/2022 11/17/2023 1 1 [facility] for referral (narrative)* Diagnostic Procedure Only (Routine) - Pending Review Specialty Diagnoses / Procedures Referred By Contac t Referred To Contact [facility] Diagnoses with uncertain dates, antepartum Procedures OBSTETRIC ULTRASOUND WHI US PREG UTERUS AFTER 1ST TRIMEST GESTATION Yulissa Fields APRN.CNP [address] [place] [address] [address] Referral ID Status Reason Start Date Expiration Date Visits Requested Visits Authorized [id number] Pending Review Auto-Generat ed Referral 09/19/2023 09/18/2024 1 1 [facility] for referral (narrative)* Diagnostic Procedure Only (Routine) - New Request Specialty Diagnoses / Procedures Referred By Contac t Referred To Contact [facility] Diagnoses Encounter for supervision of high risk in third trimester, antepartum Excessive weight gain in , third trimester Procedures OBSTETRIC ULTRASOUND WHI US PREG UTERUS AFTER 1ST TRIMEST GESTATION Camille Robertson APRN.CNM [address] [place] [address] [facility] [address] [place] [id number] Referral ID Status Reason Start Date Expiration Date Visits Requested Visits Authorized [id number] New Request Auto-Generat ed Referral 01/18/2024 01/17/2025 1 1 [facility] for referral (narrative)* Diagnostic Procedure Only (Routine) - Closed Specialty Diagnoses / Procedures Referred By Contac t Referred To Contact XR IMAGING Diagnoses Post-operative state Nausea Procedures XR ABDOMEN 2V ROUTINE SUPINE W UPRIGHT/DECUB/CTL RADIOLOGIC EXAM ABDOMEN 2 VIEWS Lex Phillips MD [address] [place] [address] [place] [address] Referral ID Status Reason Start Date Expiration Date V isits Requested Visits Authorized [id number] Closed Auto-Generate d Referral 03/08/2024 04/07/2025 1 1 [facility] for referral (narrative)* Diagnostic Procedure Only (Routine) - Authorized Specialty Diagnoses / Procedures Referred By Contac t Referred To Contact [facility] IMAG[facility] Diagnoses RUQ pain Procedures US ABD RIGHT UPPER QUADRANT US ABDOMINAL REAL TIME W/IMAGE LIMITED Naga Marks MD [address] [place] [address] [place] [address] Referral ID Status Reason Start Date Expiration Date Visits Requested Visits Authorized [id number] Authorized Auto-Generat ed Referral 04/07/2025 1 1 [facility] for referral (narrative)* Diagnostic Procedure Only (Routine) - Closed Specialty Diagnoses / Procedures Referred By Contac t Referred To Contact XR IMAGING Diagnoses Post-operative state Nausea Procedures XR ABDOMEN 2V ROUTINE SUPINE W UPRIGHT/DECUB/CTL RADIOLOGIC EXAM ABDOMEN 2 VIEWS Lex Phillips MD [address] [facility] [place] [address] [place] [address] Referral ID Status Reason Start Date Expiration Date V isits Requested Visits Authorized [id number] Closed Auto-Generate d Referral 03/08/2024 04/07/2025 1 1 [facility] for referral (narrative)* Diagnostic Procedure Only (Routine) - Closed Specialty Diagnoses / Procedures Referred By Contac t Referred To Contact US IMAGING Diagnoses RUQ pain Procedures US ABD RIGHT UPPER QUADRANT US ABDOMINAL REAL TIME W/IMAGE LIMITED Naga Marks MD [address] [facility] [address] [place] [address] Referral ID Status Reason Start Date Expiration Date V isits Requested Visits Authorized [id number] Closed Auto-Generate d Referral 03/08/2024 04/07/2025 1 1 [facility] Diagnostic Procedure Only (Routine) - Closed Specialty Diagnoses / Procedures Referred By Contac t Referred To Contact XR IMAGING Diagnoses Post-operative state Nausea Procedures XR ABDOMEN 2V ROUTINE SUPINE W UPRIGHT/DECUB/CTL RADIOLOGIC EXAM ABDOMEN 2 VIEWS Lex Phillips MD [address] [place] [address] [place] [address] Referral ID Status Reason Start Date Expiration Date V isits Requested Visits Authorized [id number] Closed Auto-Generate d Referral 03/08/2024 04/07/2025 1 1 [facility] Reason for Referral Specialty Diagnoses / Procedures Referred By Contac t Referred To Contact MR IMAGING Diagnoses Migraine without status migrainosus, not intractable, unspecified migraine type Brain lesion Procedures MRI BRAIN WO/W IVCON MRI BRAIN BRAIN STEM W/O W/CONTRAST MATERIAL Gabi Osorio MD [address] [place] [address] [facility] Referral ID Status Reason Start Date Expiration Date V isits Requested Visits Authorized [id number] Closed Auto-Generate d Referral 09/14/2021 11/13/2021 1 1 Specialty Diagnoses / Procedures Referred By Contac t Referred To Contact Diagnoses , unspecified gestational age Procedures CONSULT TO [facility]AIL [facility]ARD OFFICE/OUTPATIENT NEW HIGH MDM 60 MINUTES Wendy Andrew, BUSINESS CONTROL MANAGER.BOARDING MACHINE OPERATOR [address] [id number] Referral ID Status Reason Start Date Expiration Date Visits Requested Visits Authorized [id number] Authorized PCP Requested Referral Auto-Generate d Referral 09/12/2023 09/11/2024 1 1 Specialty Diagnoses / Procedures Referred By Contac t Referred To Contact General Surgery Diagnoses RUQ pain Elevated LFTs state Procedures CONSULT TO GENERAL SURGERY Naga Marks MD [address] [place] [address] Floyd Avelar MD [address] [address] Referral ID Status Reason Start Date Expiration Date Visits Requested Visits Authorized [id number] Ref Not Required PCP Requested Referral 4 03/09/2025 1 1 Chief Complaint and Reason for Visit Chief Complaint HEADACHE Advance Directives Advance Directive Response Recorded Date/ Time Living Will No November 27, 2021 1 0:15am Power of [employer] 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 No November 27, 2021 10:15am Summary Purpose Family History No Family History Records FoundNo Family History Records FoundNo Family History Records Found Additional Source Comments Source Comments (unrecognize d section and content) In the event this informatio n is protected by the Federal Confidentiality of Alcohol and Drug Abuse Patient Records regulations: The Federal rules restrict any use of the information to criminally investigate or prosecute any alcohol or drug abuse patient.[facility] the event this information is protected by the Federal Confidentiality of Alcohol and Drug Abuse Patient Records regulations: The Federal rules restrict any use of the information to criminally investigate or prosecute any alcohol or drug abuse patient.[facility] the event this information is protected by the Federal Confidentiality of Alcohol and Drug Abuse Patient Records regulations: The Federal rules restrict any use of the information to criminally investigate or prosecute any alcohol or drug abuse patient.[facility] the event this information is protected by the Federal Confidentiality of Alcohol and Drug Abuse Patient Records regulations: The Federal rules restrict any use of the information to criminally investigate or prosecute any alcohol or drug abuse patient.[facility] the event this information is protected by the Federal Confidentiality of Alcohol and Drug Abuse Patient Records regulations: The Federal rules restrict any use of the information to criminally investigate or prosecute any alcohol or drug abuse patient.[facility] the event this information is protected by the Federal Confidentiality of Alcohol and Drug Abuse Patient Records regulations: The Federal rules restrict any use of the information to criminally investigate or prosecute any alcohol or drug abuse patient.[facility] the event this information is protected by the Federal Confidentiality of Alcohol and Drug Abuse Patient Records regulations: The Federal rules restrict any use of the information to criminally investigate or prosecute any alcohol or drug abuse patient.[facility] the event this information is protected by the Federal Confidentiality of Alcohol and Drug Abuse Patient Records regulations: The Federal rules restrict any use of the information to criminally investigate or prosecute any alcohol or drug abuse patient.[facility] the event this information is protected by the Federal Confidentiality of Alcohol and Drug Abuse Patient Records regulations: The Federal rules restrict any use of the information to criminally investigate or prosecute any alcohol or drug abuse patient.[facility] the event this information is protected by the Federal Confidentiality of Alcohol and Drug Abuse Patient Records regulations: The Federal rules restrict any use of the information to criminally investigate or prosecute any alcohol or drug abuse patient.[facility] the event this information is protected by the Federal Confidentiality of Alcohol and Drug Abuse Patient Records regulations: The Federal rules restrict any use of the information to criminally investigate or prosecute any alcohol or drug abuse patient.[facility] the event this information is protected by the Federal Confidentiality of Alcohol and Drug Abuse Patient Records regulations: The Federal rules restrict any use of the information to criminally investigate or prosecute any alcohol or drug abuse patient.[facility] the event this information is protected by the Federal Confidentiality of Alcohol and Drug Abuse Patient Records regulations: The Federal rules restrict any use of the information to criminally investigate or prosecute any alcohol or drug abuse patient.[facility] the event this information is protected by the Federal Confidentiality of Alcohol and Drug Abuse Patient Records regulations: The Federal rules restrict any use of the information to criminally investigate or prosecute any alcohol or drug abuse patient.[facility] the event this information is protected by the Federal Confidentiality of Alcohol and Drug Abuse Patient Records regulations: The Federal rules restrict any use of the information to criminally investigate or prosecute any alcohol or drug abuse patient.[facility] the event this information is protected by the Federal Confidentiality of Alcohol and Drug Abuse Patient Records regulations: The Federal rules restrict any use of the information to criminally investigate or prosecute any alcohol or drug abuse patient.[facility] Center[facility] the event this information is protected by the Federal Confidentiality of Alcohol and Drug Abuse Patient Records regulations: The Federal rules restrict any use of the information to criminally investigate or prosecute any alcohol or drug abuse patient.[facility] the event this information is protected by the Federal Confidentiality of Alcohol and Drug Abuse Patient Records regulations: The Federal rules restrict any use of the information to criminally investigate or prosecute any alcohol or drug abuse patient.[facility] Center[facility] the event this information is protected by the Federal Confidentiality of Alcohol and Drug Abuse Patient Records regulations: The Federal rules restrict any use of the information to criminally investigate or prosecute any alcohol or drug abuse patient.[facility] CenterIn the event this information is protected by the Federal Confidentiality of Alcohol and Drug Abuse Patient Records regulations: The Federal rules restrict any use of the information to criminally investigate or prosecute any alcohol or drug abuse patient.[facility] CenterIn the event this information is protected by the Federal Confidentiality of Alcohol and Drug Abuse Patient Records regulations: The Federal rules restrict any use of the information to criminally investigate or prosecute any alcohol or drug abuse patient.[facility] CenterIn the event this information is protected by the Federal Confidentiality of Alcohol and Drug Abuse Patient Records regulations: The Federal rules restrict any use of the information to criminally investigate or prosecute any alcohol or drug abuse patient.[facility] CenterIn the event this information is protected by the Federal Confidentiality of Alcohol and Drug Abuse Patient Records regulations: The Federal rules restrict any use of the information to criminally investigate or prosecute any alcohol or drug abuse patient.[facility] CenterIn the event this information is protected by the Federal Confidentiality of Alcohol and Drug Abuse Patient Records regulations: The Federal rules restrict any use of the information to criminally investigate or prosecute any alcohol or drug abuse patient.[facility] CenterIn the event this information is protected by the Federal Confidentiality of Alcohol and Drug Abuse Patient Records regulations: The Federal rules restrict any use of the information to criminally investigate or prosecute any alcohol or drug abuse patient.[facility] CenterIn the event this information is protected by the Federal Confidentiality of Alcohol and Drug Abuse Patient Records regulations: The Federal rules restrict any use of the information to criminally investigate or prosecute any alcohol or drug abuse patient.[facility] CenterIn the event this information is protected by the Federal Confidentiality of Alcohol and Drug Abuse Patient Records regulations: The Federal rules restrict any use of the information to criminally investigate or prosecute any alcohol or drug abuse patient.[facility] CenterIn the event this information is protected by the Federal Confidentiality of Alcohol and Drug Abuse Patient Records regulations: The Federal rules restrict any use of the information to criminally investigate or prosecute any alcohol or drug abuse patient.[facility] CenterIn the event this information is protected by the Federal Confidentiality of Alcohol and Drug Abuse Patient Records regulations: The Federal rules restrict any use of the information to criminally investigate or prosecute any alcohol or drug abuse patient.[facility] CenterIn the event this information is protected by the Federal Confidentiality of Alcohol and Drug Abuse Patient Records regulations: The Federal rules restrict any use of the information to criminally investigate or prosecute any alcohol or drug abuse patient.[facility] CenterIn the event this information is protected by the Federal Confidentiality of Alcohol and Drug Abuse Patient Records regulations: The Federal rules restrict any use of the information to criminally investigate or prosecute any alcohol or drug abuse patient.[facility] CenterIn the event this information is protected by the Federal Confidentiality of Alcohol and Drug Abuse Patient Records regulations: The Federal rules restrict any use of the information to criminally investigate or prosecute any alcohol or drug abuse patient.[facility] CenterIn the event this information is protected by the Federal Confidentiality of Alcohol and Drug Abuse Patient Records regulations: The Federal rules restrict any use of the information to criminally investigate or prosecute any alcohol or drug abuse patient.[facility] CenterIn the event this information is protected by the Federal Confidentiality of Alcohol and Drug Abuse Patient Records regulations: The Federal rules restrict any use of the information to criminally investigate or prosecute any alcohol or drug abuse patient.[facility] CenterIn the event this information is protected by the Federal Confidentiality of Alcohol and Drug Abuse Patient Records regulations: The Federal rules restrict any use of the information to criminally investigate or prosecute any alcohol or drug abuse patient.[facility] CenterIn the event this information is protected by the Federal Confidentiality of Alcohol and Drug Abuse Patient Records regulations: The Federal rules restrict any use of the information to criminally investigate or prosecute any alcohol or drug abuse patient.[facility] CenterIn the event this information is protected by the Federal Confidentiality of Alcohol and Drug Abuse Patient Records regulations: The Federal rules restrict any use of the information to criminally investigate or prosecute any alcohol or drug abuse patient.[facility] CenterIn the event this information is protected by the Federal Confidentiality of Alcohol and Drug Abuse Patient Records regulations: The Federal rules restrict any use of the information to criminally investigate or prosecute any alcohol or drug abuse patient.[facility] CenterIn the event this information is protected by the Federal Confidentiality of Alcohol and Drug Abuse Patient Records regulations: The Federal rules restrict any use of the information to criminally investigate or prosecute any alcohol or drug abuse patient.[facility] CenterIn the event this information is protected by the Federal Confidentiality of Alcohol and Drug Abuse Patient Records regulations: The Federal rules restrict any use of the information to criminally investigate or prosecute any alcohol or drug abuse patient.[facility] CenterIn the event this information is protected by the Federal Confidentiality of Alcohol and Drug Abuse Patient Records regulations: The Federal rules restrict any use of the information to criminally investigate or prosecute any alcohol or drug abuse patient.[facility] CenterIn the event this information is protected by the Federal Confidentiality of Alcohol and Drug Abuse Patient Records regulations: The Federal rules restrict any use of the information to criminally investigate or prosecute any alcohol or drug abuse patient.[facility] CenterIn the event this information is protected by the Federal Confidentiality of Alcohol and Drug Abuse Patient Records regulations: The Federal rules restrict any use of the information to criminally investigate or prosecute any alcohol or drug abuse patient.[facility] CenterIn the event this information is protected by the Federal Confidentiality of Alcohol and Drug Abuse Patient Records regulations: The Federal rules restrict any use of the information to criminally investigate or prosecute any alcohol or drug abuse patient.[facility] CenterIn the event this information is protected by the Federal Confidentiality of Alcohol and Drug Abuse Patient Records regulations: The Federal rules restrict any use of the information to criminally investigate or prosecute any alcohol or drug abuse patient.[facility] CenterIn the event this information is protected by the Federal Confidentiality of Alcohol and Drug Abuse Patient Records regulations: The Federal rules restrict any use of the information to criminally investigate or prosecute any alcohol or drug abuse patient.[facility] CenterIn the event this information is protected by the Federal Confidentiality of Alcohol and Drug Abuse Patient Records regulations: The Federal rules restrict any use of the information to criminally investigate or prosecute any alcohol or drug abuse patient.[facility] CenterIn the event this information is protected by the Federal Confidentiality of Alcohol and Drug Abuse Patient Records regulations: The Federal rules restrict any use of the information to criminally investigate or prosecute any alcohol or drug abuse patient.[facility] CenterIn the event this information is protected by the Federal Confidentiality of Alcohol and Drug Abuse Patient Records regulations: The Federal rules restrict any use of the information to criminally investigate or prosecute any alcohol or drug abuse patient.[facility] CenterIn the event this information is protected by the Federal Confidentiality of Alcohol and Drug Abuse Patient Records regulations: The Federal rules restrict any use of the information to criminally investigate or prosecute any alcohol or drug abuse patient.[facility] CenterIn the event this information is protected by the Federal Confidentiality of Alcohol and Drug Abuse Patient Records regulations: The Federal rules restrict any use of the information to criminally investigate or prosecute any alcohol or drug abuse patient.[facility] CenterIn the event this information is protected by the Federal Confidentiality of Alcohol and Drug Abuse Patient Records regulations: The Federal rules restrict any use of the information to criminally investigate or prosecute any alcohol or drug abuse patient.[facility] CenterIn the event this information is protected by the Federal Confidentiality of Alcohol and Drug Abuse Patient Records regulations: The Federal rules restrict any use of the information to criminally investigate or prosecute any alcohol or drug abuse patient.[facility] CenterIn the event this information is protected by the Federal Confidentiality of Alcohol and Drug Abuse Patient Records regulations: The Federal rules restrict any use of the information to criminally investigate or prosecute any alcohol or drug abuse patient.[facility] CenterIn the event this information is protected by the Federal Confidentiality of Alcohol and Drug Abuse Patient Records regulations: The Federal rules restrict any use of the information to criminally investigate or prosecute any alcohol or drug abuse patient.[facility] CenterIn the event this information is protected by the Federal Confidentiality of Alcohol and Drug Abuse Patient Records regulations: The Federal rules restrict any use of the information to criminally investigate or prosecute any alcohol or drug abuse patient.[facility] CenterIn the event this information is protected by the Federal Confidentiality of Alcohol and Drug Abuse Patient Records regulations: The Federal rules restrict any use of the information to criminally investigate or prosecute any alcohol or drug abuse patient.[facility] CenterIn the event this information is protected by the Federal Confidentiality of Alcohol and Drug Abuse Patient Records regulations: The Federal rules restrict any use of the information to criminally investigate or prosecute any alcohol or drug abuse patient.[facility] CenterIn the event this information is protected by the Federal Confidentiality of Alcohol and Drug Abuse Patient Records regulations: The Federal rules restrict any use of the information to criminally investigate or prosecute any alcohol or drug abuse patient.[facility] CenterIn the event this information is protected by the Federal Confidentiality of Alcohol and Drug Abuse Patient Records regulations: The Federal rules restrict any use of the information to criminally investigate or prosecute any alcohol or drug abuse patient.[facility] CenterIn the event this information is protected by the Federal Confidentiality of Alcohol and Drug Abuse Patient Records regulations: The Federal rules restrict any use of the information to criminally investigate or prosecute any alcohol or drug abuse patient.[facility] Reason for Visit (unrecogniz ed section and content) Reason Comments Refill Request Reason Comments Recheck Medication follow up Specialty Diagnoses / Procedures Referred By Contac t Referred To Contact MR IMAGING Diagnoses Migraine without status migrainosus, not intractable, unspecified migraine type Brain lesion Procedures MRI BRAIN WO/W IVCON MRI BRAIN BRAIN STEM W/O W/CONTRAST MATERIAL Gabi Osorio MD [address] [place] [address] Mr Imaging Referral ID Status Reason Start Date Expiration Date V isits Requested Visits Authorized [id number] Closed Auto-Generate d Referral 09/14/2021 11/13/2021 1 1 Reason Comments Results Reason Onset Date Comments Refill Request 11/13/2021 Reason Comments Dizziness Reason Comments Patient Request Reason Onset Date Comments Refill Request 12/29/2021 Reason Comments Med Change Request Reason Comments Insurance Authorization Reason Onset Date Comments Refill Request 02/23/2022 Reason Comments Recheck Follow up headade Reason Comments Elidia PA Reason Comments Letter Reason Comments Headache Reason Onset Date Comments Refill Request 05/25/2022 Reason Comments Behavioral Health Social Work Reason Comments New Patient Insomnia & migraines Reason Comments No Show Reason Onset Date Comments Refill Request Refill Request 12/07/2022 Reason Comments Radiology US Specialty Diagnoses / Procedures Referred By Contac t Referred To Contact US IMAGING Diagnoses Pelvic pain in female Procedures US FEMALE PELVIS TRANSVAG US TRANSVAGINAL Saskia Farias APRN.BOARDING MACHINE OPERATOR [address] [place] [address] [place] [address] Referral ID Status Reason Start Date Expiration Date V isits Requested Visits Authorized [id number] Closed Auto-Generate d Referral 10/18/2022 11/17/2023 1 1 Reason Comments test Possible , no period x 2 or 3 months Reason Comments Initial OB Visit Specialty Diagnoses / Procedures Referred By Contac t Referred To Contact Diagnoses , unspecified gestational age Procedures CONSULT TO JAIL GUARD OFFICE/OUTPATIENT NEW HIGH MDM 60 MINUTES Wendy Andrew, BUSINESS CONTROL MANAGER.BOARDING MACHINE OPERATOR [address] [place] [address] Referral ID Status Reason Start Date Expiration Date V isits Requested Visits Authorized [id number] Closed PCP Requested Referral Auto-Generated Referral 09/12/2023 09/11/2024 1 1 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 [address] [facility] [address] [place] [address] Referral ID Status Reason Start Date Expiration Date Visits Requested Visits Authorized [id number] Authorized Auto-Generat ed Referral 10/12/2023 05/29/2024 1 20 Reason Onset Date Comments Care 10/12/2023 Reason Comments Information Reason Comments PRAF Reason Onset Date Comments Care 11/09/2023 Reason Onset Date Comments Care 11/23/2023 Reason Onset Date Comments Care 12/21/2023 Reason Onset Date Comments Care 01/04/2024 Reason Comments Referral Request Reason Onset Date Comments Care 01/18/2024 Reason Comments Appointment Specialty Diagnoses / Procedures Referred By Contac t Referred To Contact [facility] Diagnoses Encounter for supervision of high risk in third trimester, antepartum Excessive weight gain in , third trimester Procedures OBSTETRIC ULTRASOUND WHI US PREG UTERUS AFTER 1ST TRIMEST GESTATION Camille Robertson BUSINESS CONTROL MANAGER.CNM [address] [place] [address] [facility] [address] [place] [address] Referral ID Status Reason Start Date Expiration Date V isits Requested Visits Authorized [id number] Closed Auto-Generate d Referral 01/18/2024 01/17/2025 1 1 Reason Onset Date Comments Care 02/10/2024 Reason Onset Date Comments Care 02/15/2024 Immunizations 02/15/2024 Flu vaccination Reason Onset Date Comments Care 02/21/2024 Reason Comments Ob Delivery Note Reason Onset Date Comments Care 02/28/2024 Reason Comments Care Reason Comments Early Incision Check Reason Comments Orders Specialty Diagnoses / Procedures Referred By Contac t Referred To Contact US IMAGING Diagnoses RUQ pain Procedures US ABD RIGHT UPPER QUADRANT US ABDOMINAL REAL TIME W/IMAGE LIMITED Naga Marks MD [address] [address] [place] [address] Referral ID Status Reason Start Date Expiration Date V isits Requested Visits Authorized [id number] Closed Auto-Generate d Referral 03/08/2024 04/07/2025 1 1 Reason Comments Consult RUQ pain Reason Comments Allergies Possible allergies? Back pain upper back Reason Comments Wrist Pain Reason Comments Right wrist pain Referred by Dora nicole Specialty Diagnoses / Procedures Referred By Contac t Referred To Contact Orthopedics Diagnoses Right wrist pain Wrist weakness Procedures CONSULT TO ORTHOPAEDICS OFFICE/OUTPATIENT NEW HIGH MDM 60 MINUTES Dora Restrepo APRN.BOARDING MACHINE OPERATOR [address] [place] [address] Phone: tel: fax: Referral ID Status Reason Start Date Expiration Date V isits Requested Visits Authorized [id number] Closed PCP Requested Referral 10/17/2024 10/17/2025 1 1 Reason Comments OT EVAL Specialty Diagnoses / Procedures Referred By Contac t Referred To Contact OCCUPATIONAL THERAPY Diagnoses Pain in right wrist Procedures CONSULT TO ELEVATOR OPERATOR FREIGHT OCCUPATIONAL THERAPY EVAL HIGH COMPLEX 60 MINS Vijay Guo V, DO [address] [place] [address] Phone: tel: fax: Lukasz De La O OT/L [address] [place] [address] Phone: tel: fax: Referral ID Status Reason Start Date Expiration Date Visits Requested Visits Authorized [id number] Authorized Auto-Generat ed Referral 05/30/2024 05/29/2025 99 99 Reason Comments Patient Question Care Teams (unrecognized sec tion and content) Efficiency Miner Blasting Relationship Specialty Start Date End Date Kwabena Marquez MD [address] [place] [address] PCP - General Internal Medicine 07/03/19 Efficiency Miner Blasting Relationship Specialty Start Date End Date Kwabena Marquez MD [address] [place] [address] PCP - General Internal Medicine 07/03/19 Efficiency Miner Blasting Relationship Specialty Start Date End Date Kwabena Marquez MD [address] [place] [address] PCP - General Internal Medicine 07/03/19 Efficiency Miner Blasting Relationship Specialty Start Date End Date Kwabena Marquez MD [address] [place] [address] PCP - General Internal Medicine 07/03/19 Efficiency Miner Blasting Relationship Specialty Start Date End Date Kwabena Marquez MD [address] [place] [address] PCP - General Internal Medicine 07/03/19 Efficiency Miner Blasting Relationship Specialty Start Date End Date Kwabena Marquez MD [address] [place] [address] PCP - General Internal Medicine 07/03/19 Efficiency Miner Blasting Relationship Specialty Start Date End Date Kwabena Marquez MD [address] [place] [address] PCP - General Internal Medicine 07/03/19 Efficiency Miner Blasting Relationship Specialty Start Date End Date Kwabena Marquez MD [address] [place] [address] PCP - General Internal Medicine 07/03/19 Efficiency Miner Blasting Relationship Specialty Start Date End Date Kwabena Marquez MD [address] [facility] [address] PCP - General Internal Medicine 07/03/19 Efficiency Miner Blasting Relationship Specialty Start Date End Date Kwabena Marquez MD [address] [facility] [address] PCP - General Internal Medicine 07/03/19 Efficiency Miner Blasting Relationship Specialty Start Date End Date Kwabena Marquez MD [address] [facility] [address] PCP - General Internal Medicine 07/03/19 Efficiency Miner Blasting Relationship Specialty Start Date End Date Kwabena Marquez MD [address] [facility] [address] PCP - General Internal Medicine 07/03/19 Efficiency Miner Blasting Relationship Specialty Start Date End Date Kwabena Marquez MD [address] [facility] [address] PCP - General Internal Medicine 07/03/19 Efficiency Miner Blasting Relationship Specialty Start Date End Date Kwabena Marquez MD [address] [facility] [address] PCP - General Internal Medicine 07/03/19 Efficiency Miner Blasting Relationship Specialty Start Date End Date Kwabena Marquez MD [address] [facility] [address] PCP - General Internal Medicine 07/03/19 Efficiency Miner Blasting Relationship Specialty Start Date End Date Kwabena Marquez MD [address] [facility] [address] PCP - General Internal Medicine 07/03/19 Efficiency Miner Blasting Relationship Specialty Start Date End Date Kwabena Marquez MD [address] [facility] [address] PCP - General Internal Medicine 07/03/19 Efficiency Miner Blasting Relationship Specialty Start Date End Date Kwabena Marquez MD [address] [place] [address] PCP - General Internal Medicine 07/03/19 Efficiency Miner Blasting Relationship Specialty Start Date End Date Kwabena Marquez MD [address] [place] [address] PCP - General Internal Medicine 07/03/19 Efficiency Miner Blasting Relationship Specialty Start Date End Date Kwabena Marquez MD [address] [place] [address] PCP - General Internal Medicine 07/03/19 Efficiency Miner Blasting Relationship Specialty Start Date End Date Kwabena Marquez MD [address] [place] [address] PCP - General Internal Medicine 07/03/19 Efficiency Miner Blasting Relationship Specialty Start Date End Date Kwabena Marquez MD [address] [place] [address] PCP - General Internal Medicine 07/03/19 Efficiency Miner Blasting Relationship Specialty Start Date End Date Kwabena Marquez MD [address] [place] [address] PCP - General Internal Medicine 07/03/19 Efficiency Miner Blasting Relationship Specialty Start Date End Date Kwabena Marquez MD [address] [place] [address] PCP - General Internal Medicine 07/03/19 Efficiency Miner Blasting Relationship Specialty Start Date End Date Kwabena Marquez MD [address] [place] [address] PCP - General Internal Medicine 07/03/19 Efficiency Miner Blasting Relationship Specialty Start Date End Date Kwabena Marquez MD [address] [place] [address] PCP - General Internal Medicine 07/03/19 Efficiency Miner Blasting Relationship Specialty Start Date End Date Kwabena Marquez MD [address] [place] [address] PCP - General Internal Medicine 07/03/19 Efficiency Miner Blasting Relationship Specialty Start Date End Date Kwabena Marquez MD [address] [place] [address] PCP - General Internal Medicine 07/03/19 Efficiency Miner Blasting Relationship Specialty Start Date End Date Kwabena Marquez MD [address] [place] [address] PCP - General Internal Medicine 07/03/19 Efficiency Miner Blasting Relationship Specialty Start Date End Date Kwabena Marquez MD [address] [place] [address] PCP - General Internal Medicine 07/03/19 Efficiency Miner Blasting Relationship Specialty Start Date End Date Kwabena Marquez MD [address] [place] [address] PCP - General Internal Medicine 07/03/19 Efficiency Miner Blasting Relationship Specialty Start Date End Date Kwabena Marquez MD [address] [place] [address] PCP - General Internal Medicine 07/03/19 Efficiency Miner Blasting Relationship Specialty Start Date End Date Kwabena Marquez MD [address] [place] [address] PCP - General Internal Medicine 07/03/19 Efficiency Miner Blasting Relationship Specialty Start Date End Date Kwabena Marquez MD [address] [place] [address] PCP - General Internal Medicine 07/03/19 Efficiency Miner Blasting Relationship Specialty Start Date End Date Kwabena Marquez MD [address] [facility] [place] [address] PCP - General Internal Medicine 07/03/19 Efficiency Miner Blasting Relationship Specialty Start Date End Date Kwabena Marquez MD [address] [facility] [place] [address] PCP - General Internal Medicine 07/03/19 Efficiency Miner Blasting Relationship Specialty Start Date End Date Kwabena Marquez MD [address] [facility] [place] [address] PCP - General Internal Medicine 07/03/19 Efficiency Miner Blasting Relationship Specialty Start Date End Date Kwabena Marquez MD [address] [facility] [place] [address] PCP - General Internal Medicine 07/03/19 Dora Restrepo APRN.BOARDING MACHINE OPERATOR [address] [place] [address] Internal Medicine 03/16/24 Efficiency Miner Blasting Relationship Specialty Start Date End Date Kwabena Marquez MD [address] [place] [address] PCP - General Internal Medicine 07/03/19 Dora Restrepo APRN.BOARDING MACHINE OPERATOR [address] [place] [address] Internal Medicine 03/16/24 Dora Restrepo APRN.BOARDING MACHINE OPERATOR [address] [facility] [place] [address] [employer] Received Internal Medicine 05/06/24 Efficiency Miner Blasting Relationship Specialty Start Date End Date Kwabena Marquez MD [address] [facility] [address] PCP - General Internal Medicine 07/03/19 Older, MCKAYLA JohnN.BOARDING MACHINE OPERATOR [address] [facility] [place] [address] Internal Medicine 03/16/24 Lauro, Dora, BUSINESS CONTROL MANAGER.BOARDING MACHINE OPERATOR [address] [place] [address] [employer] Received Internal Medicine 05/06/24 Efficiency Miner Blasting Relationship Specialty Start Date End Date Kwabena Marquez MD [address] [place] [address] PCP - General Internal Medicine 07/03/19 Lauro, Dora, BUSINESS CONTROL MANAGER.BOARDING MACHINE OPERATOR [address] [place] [address] Internal Medicine 03/16/24 Older, Dora, BUSINESS CONTROL MANAGER.BOARDING MACHINE OPERATOR [address] [place] [address] [employer] Received Internal Medicine 05/06/24 Efficiency Miner Blasting Relationship Specialty Start Date End Date Kwabena Marquez MD [address] [place] [address] PCP - General Internal Medicine 07/03/19 Dora Restrepo APRN.BOARDING MACHINE OPERATOR [address] [place] [address] Internal Medicine 03/16/24 Dora Restrepo APRN.BOARDING MACHINE OPERATOR [address] [place] [address] [employer] Received Internal Medicine 05/06/24 Goals (unrecognized section and content) Goals may be documented in a n alternate section INFORMATION SOURCE (unrecogn ized section and content) DATE CREATED AUTHOR 03/28/2024 [facility] DATE CREATED AUTHOR AUTHOR'S ORGANIZ ATION 11/07/2024 [facility] DATE CREATED AUTHOR AUTHOR'S ORGANIZ ATION 11/10/2024 [facility] FOR RECORDS PERTAINING TO PATIENTS WHO ARE OR HAVE BEEN ENROLLED IN A CHEMICAL DEPENDENCY/SUBSTANCEABUSE PROGRAM, SOME INFORMATION MAY BE OMITTED. This clinical summary was aggregated from multiple sources. Caution should be exercised in using it in the provision of clinical care. This summary normalizes information from multiple sources, and as a consequence, information in this document may materially change the coding, format and clinical context of patient data. In addition, data may be omitted in some cases. CLINICAL DECISIONS SHOULD BE BASED ON THE PRIMARY CLINICAL RECORDS. [employer] provides no warranty or guarantee of the accuracy or completeness of information in this document.
[2024-12-19] MEDS: 0.9% Normal Saline (1000mL) 1,000 ML 999 ML IV (21:18)
--- NOTE | 2024-12-19 21:34 | CT_ITS ---
PROCEDURE: BRAIN/HEAD WITHOUT CONTRAST 12/19/2024 REASON FOR EXAM: HEADACHE TECHNIQUE: BRAIN/HEAD WITHOUT CONTRAST Coronal and Sagittal reconstruction series were provided. One or more dose reduction techniques were used (e.g., Automated exposure control, adjustment of the mA and/or kV according to patient size, use of iterative reconstruction technique. RADIATION DOSE SUMMARY: CTDlvol: 44.99 mGy DLP: 796.11 mGycm COMPARISON: None. FINDINGS: No acute intracranial hemorrhage, extra-axial collection, mass effect or evidence of acute infarct. Ventricles and subarachnoid spaces are normal in size. Nonspecific small foci of amorphous mineralization within the bilateral basal ganglia globi pallidi regions. Orbital contents are unremarkable. Intact skull base and calvarium. Clear paranasal sinuses and mastoid air cells. CT/Brain/Head without Contrast IMPRESSION: No acute intracranial abnormality. Reading Location: [id number]
[2024-12-19 22:56] VITALS: BP 121/75; PULSE 68; RESP 14; TEMP 37.2; O2SAT 98
== END 2024-12-19 22:57 | disposition home or self-care (01) ==
PROVIDERS: Emergency Provider Emergency Medicine; PCP Nurse Practitioner; Visit Provider Emergency Medicine
DX: J32.9 Chronic sinusitis, unspecified (principal); B96.89 Other specified bacterial agents as the cause of diseases classified elsewhere; D64.9 Anemia, unspecified
CPT/HCPCS: 70450; 96361; 96374; 96375; 99282; A4216

== ENCOUNTER 2025-05-22 05:41 | Emergency (ER) | payer SELFPAY ==
[2025-05-22 05:42] VITALS: BP 125/75; PULSE 81; RESP 18; TEMP 36.8; O2SAT 97; BMI 28.1
[2025-05-22] MEDS: 0.9% Normal Saline (1000mL) 1,000 ML 999 ML IV (05:59)
[2025-05-22] MEDS: Ketorolac 30 MG/ML Syringe IV (06:00)
[2025-05-22] MEDS: DiphenhydrAMINE 50 MG/ML Syringe IV (06:02)
--- NOTE | 2025-05-22 06:06 | EDS_ITS ---
HPI History of Present Illness Chief Complaint: Headache Informant: patient Narrative Narrative: Patient is a 25-year-old female with history depression as well as migraine headache. She states she has medication to help prevent migraine and then also medication to help once the symptoms begin. She states she noticed symptoms on Tuesday and took her medication and seemed to have improvement. However symptoms returned on Tuesday and this time progressed with bouts of nausea and vomiting. She states that she cannot keep her medication or fluids down and secondary to this her headache has persisted. She states that when symptoms have progressed to this point she is typically needed seen in the ER for IV treatment and therefore presents at this time [facility] Medical History intolerance to labor, delivered, current hospitalization Rubella non-immune status, antepartum Brain lesion Family history of hearing loss at age younger than 7 years Headache Depression Home Medications ?Medication ?Instructions ?Recorded ?Last Taken ?Type acetaminophen 325 mg tablet (Pain 650 mg (2 x 325 mg) PO Q6H PRN 03/05/24 Unknown Rx Relief (acetaminophen)) pain #30 tabs docusate sodium 100 mg capsule 100 mg PO DAILY constip ation #30 03/05/24 Unknown Rx (Colace) caps ferrous sulfate 325 mg (65 mg 325 mg PO QODAY #30 tabs 03/05/24 Unknown Rx iron) tablet ibuprofen 600 mg tablet 600 mg PO Q6H PRN pain #30 t abs 03/05/24 Unknown Rx azithromycin 500 mg tablet 500 mg PO DAILY 5 days #5 t abs 12/19/24 Unknown Rx metoclopramide HCl 5 mg tablet 5 mg PO Q8H PRN nausea and 12/19/24 Unknown Rx (Reglan) vomiting 7 days #21 tabs Allergy/AdvReac Type Severity Reaction Status Date / Time amoxicillin trihydrate (From Allergy Rash Verified 05/22/25 05:45 Augmentin) Penicillins Allergy Rash Verified 05/22/25 05:45 potassium clavulanate (From Allergy Rash Verified 05/22/25 05:45 Augmentin) Social History Smoking Status: Never smoker ROS ROS ED Constitutional Constitutional ED: Denies chills or fever(s) Eyes Eyes: Reports other Details: Positive photophobia ENT ENT ED: Reports rhinorrhea; Denies sore throat Cardiovascular Cardiovascular: Denies chest pain Respiratory/Chest Respiratory/Chest: Denies cough or dyspnea Gastrointestinal Gastrointestinal: Reports nausea and vomiting; Denies abdominal pain or diarrhea Genitourinary Genitourinary ED: Reports other Details: Patient denies any concern for Musculoskeletal Musculoskeletal: Denies myalgias or neck pain Integumentary Denies rash Neurologic Neurologic: Reports headache(s) Hematologic/Lymphatic Hematologic/Lymphatic: Denies easy bleeding or easy bruising EXAM Physical Exam Const Vital Signs: 05/22/25 05:42 05/22/25 07:07 Temperature 98.2 F 98.2 F Temperature Source Oral Pulse Rate 81 69 Respiratory Rate 18 18 Blood Pressure 125/75 H 106/61 Blood Pressure Mean 91 76 Pulse Ox 97 100 Oxygen Delivery Method Room Air Positive well nourished and well developed General Appearance ED: well developed; Negative for pallor HEENT HEENT Narrative: Normocephalic atraumatic No tongue or lip swelling no oral lesions no airway edema or compromise No secondary findings in the posterior pharynx to suggest infection Eyes PERRL and EOMs intact bilaterally General Eye ED: Negative for scleral icterus Neck supple Neck Narrative: No nuchal rigidity or meningeal signs noted Resp normal respiratory effort and clear to auscultation bilaterally Cardio regular rate and regular rhythm GI non-tender, non-distended and no masses GI Narrative: Soft nontender and nondistended with hyperactive bowel sounds No voluntary guarding or rigidity or pulsatile mass No peritoneal signs Auscultation: hyperactive bowel sounds Palpation: soft Extremity normal to inspection Neuro oriented x3, CN's II-XII intact bilaterally and no sensory deficits noted Neuro Narrative: GCS of 15 Cranial nerves II through XII are grossly intact without focal neurologic deficit No pronator drift no dysmetria no truncal ataxia NIH stroke scale score of 0 Sensorium / Orientation: alert Motor Exam: strength 5/5 throughout Psych mental status grossly normal Skin no rashes or lesions noted General Skin Exam: Negative for jaundice or pallor MDM MDM MDM Narrative Medical decision making narrative: Patient arrived to the ER with stable vitals and a normal neurologic exam. She reported a headache that came on gradually increased over the course of hours and was sensitive to light and sound and felt similar nature to her previous migraine. Chart review revealed that she had a CT scan in November of this year which revealed no obvious findings. By physical exam she did not report or have signs of trauma so I have low concern for traumatic subarachnoid or subdural hemorrhage. Therefore the symptoms are most consistent with intractable migraine I elected to treat her with IV fluid Toradol Benadryl Reglan and Decadron. On reevaluation she reports resolution of her headache and her neurologic exam remains normal as well as her vitals. Therefore patient is otherwise safe for discharge and can follow-up with her family doctor for repeat evaluation History & Record Review Discussion w/independent historian: Patient Additional record(s) reviewed:: Prior ED visit Discharge Plan Triage Chief Complaint: Headache ED Provider: Asaf Jc Dx/Rx/DC Orders Clinical Impression: Cephalgia, History of depression, Nausea and vomiting Instructions: ED Headache Unspecified Prescriptions: No Action acetaminophen [Pain Relief (acetaminophen)] 325 mg tablet 650 mg PO Q6H PRN (Reason: pain) Qty: 30 0RF ibuprofen 600 mg tablet 600 mg PO Q6H PRN (Reason: pain) Qty: 30 0RF docusate sodium [Colace] 100 mg capsule 100 mg PO DAILY Qty: 30 0RF ferrous sulfate 325 mg (65 mg iron) tablet 325 mg PO QODAY Qty: 30 0RF metoclopramide HCl [Reglan] 5 mg tablet 5 mg PO Q8H PRN (Reason: nausea and vomiting) 7 Days Qty: 21 0RF azithromycin 500 mg tablet 500 mg PO DAILY 5 Days Qty: 5 0RF Primary Care Provider: SANDER PIRERE Referrals: SANDRE PIERRE NP-C [Primary Care Provider, Internal Medicine] Activity Restrictions/Additional Instructions: Please continue all your home medication as directed by your doctor and return to the ER should you have any further concerns Print Language: Amharic Disposition Disposition: Home, Self Care Discharge Date/Time: 05/22/25 07:18
--- OUTSIDE RECORDS SUMMARY | 2025-05-22 06:41 | XMS RPT_ITS | CCD ---
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 an alarm now which is helping. - Frequency of migraines varies; often influenced by sleep patterns. - Recent migraine lasted 3 days; 2 doses of rizatriptan was ineffective. - Sarah is unable to eat or drink during migraines, leading to emesis and inability to take medications. - Describes initial symptoms as neck stiffness and difficulty holding head up. - Most migraines are managed with rizatriptan, but some are resistant to treatment. - Previous severe migraine required hospitalization due to dyspnea and dehydration. - No confusion, falls, weakness, or numbness associated with migraines. Anxiety: - Sarah reports increased anxiety with episodes of hand tremors, making it difficult to hold objects. - No suicidal or homicidal ideations. REVIEW OF SYSTEMS See HPI PAST MEDICAL HISTORY Diagnosis Date Anxiety and depression Insomnia Left ear hearing loss Menarche 2012 Age 11 Migraines PMH - PAST MEDICAL HISTORY OF 01/09/2004 normal color vision Scoliosis TMJ (dislocation of temporomandibular joint) PAST SURGICAL HISTORY Procedure Laterality Date DELIVERY ONLY 03/03/2024 TYMPANOSTOMY LOCAL/TOPICAL ANESTHESIA < 6 yrs ALLERGIES Amoxicillin, Augmentin [Amoxicillin-Pot Clavulanate], and Penicillins MEDICATIONS rizatriptan (MAXALT CANE CUTTER) 10 mg disintegrating tablet Take 1 tablet at first sign of migraine, and may repeat in 2 hours if necessary. Do not take more than 20mg in a 24 hour period. venlafaxine ER (EFFEXOR XR) 75 mg 24 hr capsule Take 1 capsule by mouth once daily. ondansetron (ZOFRAN) 4 mg tablet Take 1 tablet by mouth every 8 hours as needed for nausea/vomiting. loratadine (CLARITIN) 10 mg tablet Take 1 tablet by mouth once daily. fluticasone (FLONASE) 50 mcg/actuation nasal spray Use 2 sprays in each nostril once daily. Rinse mouth after use. FAMILY HISTORY Problem Relation Age of Onset Asthma Mother Anxiety disorder Mother Alcohol/Drug Father ETOH Diabetes Father Asthma Brother Asthma Brother sibling ADD/ADHD Brother Breast Cancer Maternal Grandmother Cancer Paternal Aunt great aunts? COPD Other mggm SOCIAL HISTORY[1] PHYSICAL EXAM BP 106/60 Pulse 98 Resp 16 Wt 72.6 kg (160 lb) LMP 05/30/2023 (Approximate) SpO2 98% BMI 30.23 kg/m? General Appearance: well appearing, in no [...] strength normal Health maintenance reviewed with patient: Influenza Vaccine(1) due on 01/28/2025 HPV Vaccine(1 - 3-dose series) due on 01/09/2026 Cervical Cancer Screening due on 10/18/2025 DTaP,Tdap,Td Vaccine(8 - Td or Tdap) due on 12/20/2033 Hepatitis B Vaccine Completed Hepatitis C Screening Completed HIV Screening Completed DATA REVIEWED: Most recent labs Labs: - Blood work: No abnormalities reported. Assessment/Plan 1. Migraine with aura and without status migrainosus, not intractable (G43.109) 2. Nausea (R11.0) - Migraines variably controlled with current regimen; recent episode lasted 3 days despite timely use of rizatriptan, with severe nausea and vomiting preventing oral medication intake. - Increase rizatriptan dose to 10 mg at onset of migraine; may repeat once within 24 hours if needed, not to exceed 20 mg in 24 hours. - Provided prescription for Zofran with refills to manage migraine-associated nausea and vomiting. - Advised patient to maintain adequate supply of Zofran and to use at onset of migraine-related nausea. - Educated on proper use of rizatriptan and Zofran; discussed need for prompt treatment at first sign of migraine. - Discussed potential for alternative the (more content not included)... Normal [facility] CBC W Auto Differential pane l (Bld)on 01-09-2025 Basophils (Bld) [#/Vol] 0.06 10*3/uL Normal <0.11 [facility] Comment on above: Order Comment: Mark lema Type: BLOOD SPECIMENOrdering Facility: [facility] Address: [address] [place] [address] Performed By: #### 5 7021-8 ####[facility] LABCLIA [id number] [place] [address] [place] Basophils/100 WBC (Bld) 0.6 % Normal [facility] Comment on above: Order Comment: Mark lema Type: BLOOD SPECIMENOrdering Facility: [facility] Address: [address] [place] [address] Performed By: #### 5 7021-8 ####[facility] LABCLIA [id number] [place] [id number] [place] Differential cell count method Nom (Bld) Auto Normal [facility] Comment on above: Order Comment: Mark lema Type: BLOOD SPECIMENOrdering Facility: [facility] Address: [address] [place] [address] Performed By: #### 5 7021-8 ####[facility] LABCLIA [id number] [id number] [address] [place] Eosinophils (Bld) [#/Vol] 0.28 10*3/uL Normal <0.46 [facility] Comment on above: Order Comment: Speci men Type: BLOOD SPECIMENOrdering Facility: [facility] Address: [address] [place] [address] Performed By: #### 5 7021-8 ####[facility] LABCLIA [id number] [facility] [place] [address] [place] Eosinophils/100 WBC (Bld) 2.8 % Normal [facility] Comment on above: Order Comment: Speci men Type: BLOOD SPECIMENOrdering Facility: [facility] Address: [address] [place] [address] Performed By: #### 5 7021-8 ####[facility] LABCLIA [id number] [place] [address] [place] Erythrocyte distribution width (RBC) [Ratio] 12.1 % Normal 11.5-15.0 [facility] Comment on above: Order Comment: Speci men Type: BLOOD SPECIMENOrdering Facility: [facility] Address: [address] [place] [address] Performed By: #### 5 7021-8 ####[facility] LABCLIA [id number] [place] [address] [place] Hematocrit (Bld) [Volume fraction] 43.0 % Normal 36.0-46.0 [facility] Comment on above: Order Comment: Speci men Type: BLOOD SPECIMENOrdering Facility: [facility] Address: [address] [place] [address] Performed By: #### 5 7021-8 ####[facility] LABCLIA [id number] [place] [id number] [place] Hemoglobin (Bld) [Mass/Vol] 14.4 g/dL Normal 11.5-15.5 [facility] Comment on above: Order Comment: Speci men Type: BLOOD SPECIMENOrdering Facility: [facility] Address: [address] [place] [address] Performed By: #### 5 7021-8 ####[facility] LABCLIA [id number] [place] [address] [place] Immature granulocytes (Bld) [#/Vol] 0.03 10*3/uL Normal <0.10 [facility] Comment on above: Order Comment: Speci men Type: BLOOD SPECIMENOrdering Facility: [facility] Address: [address] [place] [address] Performed By: #### 5 7021-8 ####[facility] LABCLIA [id number] [place] [address] [place] Immature granulocytes/100 WBC (Bld) 0.3 % Normal [facility] Comment on above: Order Comment: Speci men Type: BLOOD SPECIMENOrdering Facility: [facility] Address: [address] [place] [address] Performed By: #### 5 7021-8 ####[facility] LABCLIA [id number] [place] [address] [place] Lymphocytes (Bld) [#/Vol] 3.08 10*3/uL Normal 1.00-4.00 [facility] Comment on above: Order Comment: Speci men Type: BLOOD SPECIMENOrdering Facility: [facility] Address: [address] [place] [address] Performed By: #### 5 7021-8 ####[facility] LABCLIA [id number] [place] [address] [place] Lymphocytes/100 WBC (Bld) 31.2 % Normal [facility] Comment on above: Order Comment: Speci men Type: BLOOD SPECIMENOrdering Facility: [facility] Address: [address] [place] [address] Performed By: #### 5 7021-8 ####[facility] LABCLIA [id number] [place] [address] [place] MCH (RBC) [Entitic mass] 30.3 pg Normal 26.0-34.0 [facility] Comment on above: Order Comment: Speci men Type: BLOOD SPECIMENOrdering Facility: [facility] Address: [address] [place] [address] Performed By: #### 5 7021-8 ####[facility] LABCLIA [id number] [place] [address] [place] MCHC (RBC) [Mass/Vol] 33.5 g/dL Normal 30.5-36.0 [facility] Comment on above: Order Comment: Speci men Type: BLOOD SPECIMENOrdering Facility: [facility] Address: [address] [place] [address] Performed By: #### 5 7021-8 ####[facility] LABCLIA [id number] [place] [address] [place] MCV (RBC) [Entitic vol] 90.3 fL Normal 80.0-100.0 [facility] Comment on above: Order Comment: Speci men Type: BLOOD SPECIMENOrdering Facility: [facility] Address: [address] [place] [address] Performed By: #### 5 7021-8 ####[facility] LABIA [id number] [place] [address] [place] Monocytes (Bld) [#/Vol] 0.67 10*3/uL Normal <0.87 [facility] Comment on above: Order Comment: Speci men Type: BLOOD SPECIMENOrdering Facility: [facility] Address: [address] [place] [address] Performed By: #### 5 7021-8 ####[facility] LABCLIA [id number] [address] [place] Monocytes/100 WBC (Bld) 6.8 % Normal [facility] Comment on above: Order Comment: Speci men Type: BLOOD SPECIMENOrdering Facility: [facility] Address: [address] [place] [address] Performed By: #### 5 7021-8 ####[facility] LABCLIA [id number] [address] [address] [place] Neutrophils (Bld) [#/Vol] 5.75 10*3/uL Normal 1.45-7.50 [facility] Comment on above: Order Comment: Speci men Type: BLOOD SPECIMENOrdering Facility: [facility] Address: [address] [place] [address] Performed By: #### 5 7021-8 ####[facility] LABCLIA [id number] [place] [address] [place] Neutrophils/100 WBC (Bld) 58.3 % Normal [facility] Comment on above: Order Comment: Speci men Type: BLOOD SPECIMENOrdering Facility: [facility] Address: [address] [place] [address] Performed By: #### 5 7021-8 ####[facility] LABCLIA [id number] [place] [address] [place] Nucleated RBC (Bld) [#/Vol] 10*3/uL Normal <0.01 [facility] Comment on above: Order Comment: Speci men Type: BLOOD SPECIMENOrdering Facility: [facility] Address: [address] [place] [address] Performed By: #### 5 7021-8 ####[facility] LABCLIA [id number] [place] [id number] [place] Nucleated RBC/100 WBC (Bld) [Ratio] 0.0 /100 WBC Normal [facility] Comment on above: Order Comment: Speci men Type: BLOOD SPECIMENOrdering Facility: [facility] Address: [address] [place] [address] Performed By: #### 5 7021-8 ####[facility] LABCLIA [id number] [address] [address] [place] Platelet mean volume (Bld) [Entitic vol] 12.1 fL Normal 9.0-12.7 [facility] Comment on above: Order Comment: Speci men Type: BLOOD SPECIMENOrdering Facility: [facility] Address: [address] [place] [address] Performed By: #### 5 7021-8 ####[facility] LABIA [id number] [place] [id number] [place] Platelets (Bld) [#/Vol] 215 10*3/uL Normal 150-400 [facility] Comment on above: Order Comment: Speci men Type: BLOOD SPECIMENOrdering Facility: [facility] Address: [address] [place] [address] Performed By: #### 5 7021-8 ####[facility] LABIA [id number] [place] [address] [place] RBC (Bld) [#/Vol] 4.76 10*6/uL Normal 3.90-5.20 [facility] Comment on above: Order Comment: Speci men Type: BLOOD SPECIMENOrdering Facility: [facility] Address: [address] [place] [address] Performed By: #### 5 7021-8 ####[facility] LABIA [id number] [place] [id number] [place] WBC (Bld) [#/Vol] 9.87 10*3/uL Normal 3.70-11.00 [facility] Comment on above: Order Comment: Speci men Type: BLOOD SPECIMENOrdering Facility: [facility] Address: [address] [place] [address] Performed By: #### 5 7021-8 ####[facility] LABIA [id number] [place] [id number] [place] CNOVon 01-09-2025 CNOV Office Visit (INTMWS ) SARAH DAVID ([id number]) 2000 F Date Time Provider Department 01/09/25 2:20 PM DORA RESTREPO INTSEAN During your visit today, we recorded the following information about you: Pulse Respiration Blood pressure Weight 72/minute 16/minute 108/60 73 kg Dora Restrepo APRN.SENIOR JAVA ARCHITECT 01/09/2025 3:39 PM Signed CC: Patient presents with: Physical: Annual Physical HPI Sarah David is a 24 year old female who presents today for annual exam. Recording using [employer] software for draft documentation of the visit was discussed with the patient/authorized care support representative; all questions welcomed and answered. Patient/authorized care support representative agreed to proceed Sneezing: - Intermittent sneezing episodes since childbirth 10 months ago. - Episodes last ~20 minutes, followed by a 5-minute break, then another 20-minute episode; can be asymptomatic for 1-2 weeks before recurrence. - Associated with itchy, watery eyes; one eye swells shut during episodes. - No new pets or cleaning products. - Denies known environmental allergies; only known allergies are to medications. - Not currently taking any allergy medications. - has also had a cough and some sinus congestion as well. Cough usually produces clear to white sputum. A few times has been brown. Denies rash, wheezing, edema, dizziness, fever, chills, ear pain, chest pain, or shortness of breath. Foot Callus: - Painful, rough callus on Juniors foot x1 month. - Believes it is due to abnormal standing posture. - Has applied lotion without improvement. - Denies attempting to shave it down. - No fever, chills, drainage, loss of sensation, falls, or injury associated with the callus. Chronic Migraines: - Experiencing 1-3 migraines per month, lasting 1-3 days each. - New symptom of dyspnea during migraines, leading to an ER visit a few weeks ago. - Taking venlafaxine daily for migraine prevention - Confusion about medication use due to multiple prescriptions for nausea. - Has not filled venlafaxine prescription in over a month; reports inconsistent medication adherence. - Using alarms to improve medication adherence. - Taking rizatriptan at the onset of migraines but due to her multiple nausea prescriptions, forgot about this one Anxiety: - History of anxiety, previously managed with venlafaxine. - Reports occasional anxiety attacks with palpitations, diaphoresis, and tremors, lasting 15-20 minutes. - Anxiety attacks occur randomly, witnessed by her boyfriend 3-4 times. Have had these since childhood - No suicidal or homicidal ideations. - Appetite is stable. - Sleep is adequate but not restful. REVIEW OF SYSTEMS General: no fevers, no chills, no night sweats, no recurrent infections, no change in appetite, no change in energy, and no significant changes in weight Cardiovascular: no chest pain, no chest pressure, no palpitations, and no swelling GI: No nausea, vomiting, or diarrhea : No history of dysuria, frequency or incontinence Endocrine: no fatigue, no weight gain, no weight loss, no cold intolerance, no heat intolerance, no neck pain/pressure, no polyuria, no polyphagia, and no polydipsia Neurologic: No headache, weakness, numbness, tingling, neck stiffness, tremor, vertigo, dizziness, memory loss, syncope. PAST MEDICAL HISTORY Diagnosis Date Anxiety and depression Insomnia Left ear hearing loss Menarche 2012 Age 11 Migraines PMH - PAST MEDICAL HISTORY OF 01/09/2004 normal color vision Scoliosis TMJ (dislocation of temporomandibular joint) PAST SURGICAL HISTORY Procedure Laterality Date DELIVERY ONLY 03/03/2024 TYMPANOSTOMY LOCAL/TOPICAL ANESTHESIA < 6 yrs ALLERGIES Amoxicillin, Augmentin [Amoxicillin-Pot Clavulanate], and Penicillins MEDICATIONS venlafaxine ER (EFFEXOR XR) 37.5 mg 24 hr capsule Take 1 capsule by mouth once daily. rizatriptan 5 mg disintegrating tablet Take 1 tablet at first sign of migraine, and may repeat in 2 hours if necessary. Do not take more than 20mg in a 24 hour period. loratadine (CLARITIN) 10 mg tablet Take 1 tablet by mouth once daily. fluticasone (FLONASE) 50 mcg/actuation nasal spray Use 2 sprays in each nostril once daily. Rinse mouth after use. ondansetron (ZOFRAN) 4 mg tablet Take 1 tablet by mouth every 8 hours as needed for nausea/vomiting. FAMILY HISTORY Problem Relation Age of Onset Asthma Mother Anxiety disorder Mother Alcohol/Drug Father ETOH Diabetes Father Asthma Brother Asthma Brother sibling ADD/ADHD Brother Breast Cancer Maternal Grandmother Cancer Paternal Aunt great aunts? COPD Other mggm SOCIAL HISTORY[1] PHYSICAL EXAM BP 108/60 Pulse 72 Resp 16 Wt 73 kg (161 lb) LMP 05/30/2023 (Approximate) SpO2 100% BMI 30.42 kg/m? General Appearance: well appearing, in no acute distress, alert Py (more content not included)... Normal [facility] Comprehensive metabolic 2000 panelon 01-09-2025 Albumin [Mass/Vol] 4.4 g/dL Normal 3.9-4.9 [facility] Comment on above: Order Comment: Speci men Type: BLOOD SPECIMENOrdering Facility: [facility] Address: [address] [place] [address] Performed By: #### 2 4323-8, 3015-3 ####[facility] LABCLIA [id number] [place] [address] [place] ALP [Catalytic activity/Vol] 77 U/L Normal 34-123 [facility] Comment on above: Order Comment: Speci men Type: BLOOD SPECIMENOrdering Facility: [facility] Address: [address] [place] [address] Performed By: #### 2 4323-8, 3015-3 ####[facility] LABCLIA [id number] [place] [id number] [place] ALT [Catalytic activity/Vol] 17 U/L Normal 7-38 [facility] Comment on above: Order Comment: Speci men Type: BLOOD SPECIMENOrdering Facility: [facility] Address: [address] [place] [address] Performed By: #### 2 4323-8, 6-3 ####[facility] LABCLIA [id number] [place] [id number] [place] Anion gap [Moles/Vol] 10 mmol/L Normal 8-15 [facility] Comment on above: Order Comment: Speci men Type: BLOOD SPECIMENOrdering Facility: [facility] Address: [address] [place] [address] Performed By: #### 2 4323-8, 3016-3 ####[facility] LABCLIA [id number] [place] [address] [place] AST [Catalytic activity/Vol] 25 U/L Normal 13-35 [facility] Comment on above: Order Comment: Speci men Type: BLOOD SPECIMENOrdering Facility: [facility] Address: [address] [place] [address] Performed By: #### 2 4323-8, 6-3 ####[facility] LABCLIA [id number] [place] [address] [place] Bilirubin [Mass/Vol] 0.3 mg/dL Normal 0.2-1.3 [facility] Comment on above: Order Comment: Speci men Type: BLOOD SPECIMENOrdering Facility: [facility] Address: [address] [place] [address] Performed By: #### 2 4323-8, 6-3 ####[facility] LABCLIA [id number] [place] [id number] [place] Calcium [Mass/Vol] 9.1 mg/dL Normal 8.5-10.2 [facility] Comment on above: Order Comment: Speci men Type: BLOOD SPECIMENOrdering Facility: [facility] Address: [address] [place] [address] Performed By: #### 2 4323-8, 3016-3 ####[facility] LABCLIA [id number] [place] [id number] [place] Chloride [Moles/Vol] 108 mmol/L High 98-107 [facility] Comment on above: Order Comment: Speci men Type: BLOOD SPECIMENOrdering Facility: [facility] Address: [address] [place] [address] Performed By: #### 2 4323-8, 3015-3 ####[facility] LABCLIA [id number] [address] [address] [place] CO2 [Moles/Vol] 22 mmol/L Normal 22-30 [facility] Comment on above: Order Comment: Speci men Type: BLOOD SPECIMENOrdering Facility: [facility] Address: [address] [place] [address] Performed By: #### 2 4323-8, 3015-07 ####[facility] LABIA [id number] [place] [id number] [place] Creatinine [Mass/Vol] 0.70 mg/dL Normal 0.58-0.96 [facility] Comment on above: Order Comment: Speci men Type: BLOOD SPECIMENOrdering Facility: [facility] Address: [address] [place] [address] Performed By: #### 2 4323-8, 3 ####[facility] LABIA [id number] [place] [address] [place] eGFRcr SerPlBld CKD-EPI 2020 123 mL/min/1.73m??? Normal >=60 [facility] Comment on above: Order Comment: Speci men Type: BLOOD SPECIMENOrdering Facility: [facility] Address: [address] [place] [address] Result Comment: Clara mated Glomerular Filtration Rate [...] reflect actual GFR. Performed By: #### 2 4323-8, 3015-3 ####[facility] LABCLIA [id number] [address] [address] [place] Glucose [Mass/Vol] 72 mg/dL Low 74-99 [facility] Comment on above: Order Comment: Speci men Type: BLOOD SPECIMENOrdering Facility: [facility] Address: [address] [place] [address] Result Comment: The [place] [employer] (ADA) provides guidance for cutoff [...] Standards of Medical Care in Diabetes 2016, [place] [employer]. Diabetes Care. 2016.39(Suppl 1). Performed By: #### 2 4323-8, 3015-3 ####[facility] LABIA [id number] [place] [id number] [place] Potassium [Moles/Vol] 4.4 mmol/L Normal 3.7-5.1 [facility] Comment on above: Order Comment: Speci men Type: BLOOD SPECIMENOrdering Facility: [facility] Address: [address] [place] [address] Performed By: #### 2 4323-8, 3015-3 ####[facility] LABIA [id number] [address] [address] [place] Protein [Mass/Vol] 7.1 g/dL Normal 6.3-8.0 [facility] Comment on above: Order Comment: Speci men Type: BLOOD SPECIMENOrdering Facility: [facility] Address: [address] [place] [address] Performed By: #### 2 4323-8, 3015-3 ####[facility] LABCLIA [id number] [address] [address] [place] Sodium [Moles/Vol] 140 mmol/L Normal 136-144 [facility] Comment on above: Order Comment: Speci men Type: BLOOD SPECIMENOrdering Facility: [facility] Address: [address] [place] [address] Performed By: #### 2 4323-8, 3016-3 ####[facility] LABIA [id number] [place] [id number] [place] Urea nitrogen [Mass/Vol] 8 mg/dL Normal 7-21 [facility] Comment on above: Order Comment: Speci men Type: BLOOD SPECIMENOrdering Facility: [facility] Address: [address] [place] [address] Performed By: #### 2 4323-8, 6-3 ####[facility] LABIA [id number] [place] [address] [place] TSH SerPl-aCncon 01-09-2025 TSH Qn 0.781 m[IU]/L Normal 0.270-4.200 [facility] Comment on above: Order Comment: Speci men Type: BLOOD SPECIMENOrdering Facility: [facility] Address: [address] [place] [address] Result Comment: If t he patient is , TSH reference range varies by gestational period: First Trimester (weeks 9-12): 0.180-2.990 mIU/L Second Trimester: 0.110-3.980 mIU/L Third Trimester: 0.480-4.710 mIU/L Rodriguez Hoffman et al. A Practical Approach for the Verifications and Determination of Site- and Trimester-Specific Reference Intervals for Thyroid Function tests in . Thyroid, 2019:29:3:412-420. Gabino Jones et al. 2017 Guidelines of the [place] Thyroid Association for the Diagnosis and Management of Thyroid Disease during and the . Thyroid, 2017:27:3:315-389. Performed By: #### 2 4323-8, 6-3 ####[facility] LABCLIA [id number] [address] [place] Brain/Head without Contrasto n 12-19-2024 Brain/Head without Contrast [facility] Imaging Services [address] [place] [address] Brain/Head without Contrast MR#: [id number] Acct: [id number] Name: SARAH DAVID Rep #: [id number] : 2000 F 24 From: Javier Guardado MD PCP: KASHMIR HINTON Status: REG ER Study: Brain/Head without Contrast Date of Exam: 11/28 08/21 Exam# [id number] Ordering Dr: Eulogio Schmid DO PROCEDURE: BRAIN/HEAD WITHOUT CONTRAST 12/19/2024 REASON FOR EXAM: HEADACHE TECHNIQUE: BRAIN/HEAD WITHOUT CONTRAST Coronal and Sagittal reconstruction series were provided. One or more dose reduction techniques were used (e.g., Automated exposure control, adjustment of the mA and/or kV according to patient size, use of iterative reconstruction technique. RADIATION DOSE SUMMARY: CTDlvol: 44.99 mGy DLP: 796.11 mGycm COMPARISON: None. FINDINGS: No acute intracranial hemorrhage, extra-axial collection, mass effect or evidence of acute infarct. Ventricles and subarachnoid spaces are normal in size. Nonspecific small foci of amorphous mineralization within the bilateral basal ganglia globi pallidi regions. Orbital contents are unremarkable. Intact skull base and calvarium. Clear paranasal sinuses and mastoid air cells. CT/Brain/Head without Contrast IMPRESSION: No acute intracranial abnormality. Reading Location: [facility] CC: BILINGUAL TEACHER AIDE-C DORA RESTREPO; Dr. Eulogio Schmid DO Teacher Resource: Signed Normal [facility] Emergency Department Summary on 12-19-2024 Emergency Department Summary [facility] Medical Records Department [address] [place] [address] Emergency Department Summary 12/19/24 MR#: [id number] Acct: [id number] Name: SARAH DAVID Rep #: [id number] : 2000 24 From: Eulogio Schmid DO PCP: DORA RESTREPO, BILINGUAL TEACHER AIDE-C Status:REG ER Location: ED HPI History of Present Illness Chief Complaint: Headache PFSH PFSH Medical History intolerance to labor, delivered, current hospitalization Rubella non-immune status, antepartum Brain lesion Family history of hearing loss at age younger than 7 years Headache Depression Home Medications ???Medication ???Instructions ???Recorded ???Last Taken ???Type acetaminophen 325 mg tablet (Pain 650 mg (2 x 325 mg) PO Q6H PRN Unknown Rx Relief (acetaminophen)) pain #30 tabs docusate sodium 100 mg capsule 100 mg PO DAILY constipation #30 1 Unknown Rx (Colace) caps ferrous sulfate 325 mg (65 mg 325 mg PO QODAY #30 tabs 03/05/24 Unknown Rx iron) tablet ibuprofen 600 mg tablet 600 mg PO Q6H PRN pain #30 tabs Unknown Rx azithromycin 500 mg tablet 500 mg PO DAILY 5 days #5 tabs Unknown Rx metoclopramide HCl 5 mg tablet 5 mg PO Q8H PRN nausea and 5 Unknown Rx (Reglan) vomiting 7 days #21 tabs Allergy/AdvReac Type Severity Reaction Status Date / Time amoxicillin trihydrate (From Allergy Rash Verified 12/19/24 19:51 Augmentin) Penicillins Allergy Rash Verified 12/19/24 19:51 potassium clavulanate (From Allergy Rash Verified 12/19/24 19:51 Augmentin) Social History Smoking Status: Never smoker EXAM Physical Exam Const Vital Signs: 12/19/24 19:51 Temperature 98.9 F Temperature Source Temporal Pulse Rate 92 Respiratory Rate 14 Blood Pressure 114/74 Blood Pressure Mean 87 Pulse Ox 99 Oxygen Delivery Method Room Air MDM MDM MDM Narrative Medical decision making narrative: HISTORY OF PRESENT ILLNESS: Chief complaint: Headache 24-year-old female history of of anemia, migraines presents with headache. Notes this began earlier today. Gradual onset. No association with neck stiffness, fever or sick contacts. No syncope, seizures or focal neurologic deficits noted. No head trauma noted. Consistent with prior migraine. No abdominal pain noted. Of note patient does note sinus pressure congestion for 9 days. Notes yellowish/brownish discharge concerned she has a sinus infection REVIEW OF SYSTEMS: Pertinent positives: Headache Pertinent negatives: As per HPI PHYSICAL EXAM: Nursing triage notes reviewed, Vital signs reviewed Constitutional: please see [facility] HENT: MMM Eyes: Pupils equal round and reactive to light, Extraocular muscles intact Neck: No stridor, no JVD, full neck ROM, no carotid bruits Lungs: Clear to auscultation, No wheezing or rales. No increased work of breathing, no conversational dyspnea, no accessory muscle use, no nasal flaring. No respiratory distress noted Heart: Regular rate and rhythm, No murmurs, No rubs and No gallops, 2+ distal pulses (radial, femoral, posterior tibial) in all extremities Abdomen: Soft, there is no tenderness, rigidity, rebound or guarding, no obvious peritoneal signs, no palpable pulsatile abdominal masses, no auscultated abdominal bruit : No CVAT Extremities: No edema Neuro: Alert and oriented x3, neuro exam at baseline, cranial nerves II through XII are intact. No pain with extraocular muscle movement. There is negative test of skew. 5 of 5 strength in upper and lower extremities in flexion extension. Intact sensation to light touch in upper and lower extremity dermatomes. No truncal or extremity ataxia. No dysdiadochokinesia. Normal gait. 2+ reflexes in upper and lower extremities. No meningeal signs. Negative Babinski. NIH of 0. Skin: No rash or lesions noted MEDICAL DECISION MAKING: Chief Complaint: please see [facility] External records reviewed: Reviewed prior ED visit in which patient presented for similar symptoms. During his visit patient received IV fluids, Reglan and Benadryl. Factors affecting care: n history of headache, brain lesion Social determinants of health: none History obtained from others: none Consults: none [facility] Narrative: Patient was initially hemodynamically stable, afebrile nontoxic-appearing. Initial exam without focal neurologic deficit I considered the following differential diagnosis: Primary headache (migraine, tension headache cluster headache), secondary headache (ICH, subarachnoid hemorrhage), meningitis, carotid artery dissection, sinus headache While I considered carotid artery dissection The patient's exam was not consistent with this etiology While I (more content not included)... Normal [facility] [id number] 11-07-2024 [id number] HNO ID: [id number] Author: LUKASZ DE LA O OT/L Service: ? Author Type: Occupational Therapist Type: [id number] Filed: 11/07/2024 18:52 Note Text: [facility] Rehabilitation and Sports Therapy Occupational Therapy Plan of Care Certification Patient Name: Sarah David : 2000 [facility] #: [id number] Date: 11/07/2024 To: Vijay Guo V, DO From Therapist: VERONICA Weiner RE: Patient Certification/ Recertification Your review, approval and electronic signature are required in order to comply with Payor: [facility] MEDICAID / Plan: [email or web address] / Product Type: Medicaid / [...] prior functional tasks. 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 Patient Goals: To reduce pain and increase ROM and use of hand Time Frame for Goals and Treatment : 02/07/25 Planned Interventions, Frequency, and Duration: Current Frequency: 1x/week Duration: 4 weeks Total Number of Visits Planned: 4 Planned Treatment Interventions: Therapeutic exercise (12485), Therapeutic activities (59374), Manual therapy (08093), Self-fdc management (75888), Patient/Family/Caregi joseph Education, Ultrasound (60249) PLAN FOR NEXT VISIT: Ultrasound, check kt tape, power web stability, wrist strengthening Patient demonstrates good understanding of plan of care and treatment. The above goals and plan of care were discussed and agreed upon by patient/family. For further details regarding this patient refer to the Occupational Therapy electronically documented visit dated 11/07/2024. Provider Attestation I have reviewed the treatment plan for Sarah David, CC# [id number] for the period of 11/07/24 -- 12/07/24, established on 11/07/2024. Signature certifies the need for therapy services. [facility] 11-07-[address] [facility] Telephone (4CQ) SARAH DAVID Gunjan ([id number]) 2000 F Date Time Provider Department 11/07/24 VIJAY GUO V 4CQ During your visit today, we recorded the following information about you: Rosalia Brennan 11/07/2024 12:16 PM Signed Pt called in stated that her ins denied her MRI as physical therapy has not been done yet. Pt stated she was told that Dr. Guo could resubmit stating why patient should not have PT and could do further damage. Pt stated insurance would most likely cover MRI if provider stated reason why not to to PT. Please advise, Thank you Carolina Mulligan MA 11/07/2024 3:13 PM Signed ? Vijay Guo 11/06/2024 8:17 AM Looks like she will need 4 weeks of PT before MRI is approved. Since it is her wrist that is the issue, she will need Occ Therapy, which is available at [facility]. I will place [facility] Carolina Mulligan MA 11/07/2024 3:13 PM Signed I called and spoke with the patient. [...] I would send her request the physician. Carolina Mulligan MA 11/07/2024 4:43 PM Signed Vijay Guo V, DO You1 hour ago [...] cost of the MRI. Vijay Guo DO Allergies As of Date: 11/07/2024 Noted Allergy Reaction AMOXICILLIN 04/12/2008 2 - Rash AUGMENTIN (AMOXICILLIN-POT CLAVUL*04/12/2008 2 - Rash 11 - Vomiting PENICILLINS 05/06/2005 2 - Rash Date Reviewed: 10/23/2024 Reviewed by: Paige Mejia MA - Fully Assessed Reason for Visit: Patient Question [4557] Prescriptions as of 12/18/2024 - ondansetron (ZOFRAN) 4 mg tablet Take [...] once daily. Problem List As Of Date 11/07/2024 Noted Resolved Malformation [Q89.9] 08/28/2013 Brain tumor [...] depression [Z86.59] 09/19/2023 Marijuana use [F12.90] 09/19/2023 Penicillin allergy [Z88.0] 09/19/2023 Rubella non-immune status, antepartum [O09.899,*09/21/2023 Rh negative state in antepartum period [O26.899*09/21/2023 Encounter Status:Closed by CAROLINA MULLIGAN on 12/18/24 [facility] CNTHERAPYon 11-07-2024 CNTHERAPY OT/PT/Speech Visit ([facility]) SARAH DAVID ([id number]) 2000 F Date Time Provider Department 11/07/24 5:00 PM LUKASZ DE LA O [facility] Date Time Provider Department [place] 11/07/2024 5:00 PM [id number][facility] for Visit: OT EVAL [748] OT Discharge [750] Visit Diagnosis:Pain in right wrist [M25.531] Allergies As of Date: 11/07/2024 Noted Allergy Reaction AMOXICILLIN 04/12/2008 2 - Rash AUGMENTIN (AMOXICILLIN-POT CLAVUL*04/12/2008 2 - Rash 11 - Vomiting PENICILLINS 05/06/2005 2 - Rash Date Reviewed: 10/23/2024 Reviewed by: Paige Mejia MA - Fully Assessed Prescriptions as of 01/14/2025 - venlafaxine ER (EFFEXOR XR) 37.5 mg 24 hr capsule Take 1 capsule by mouth once daily. - rizatriptan 5 mg disintegrating tablet Take 1 tablet at first sign of migraine, and may repeat in 2 hours if necessary. Do not take more than 20mg in a 24 hour period. - loratadine (CLARITIN) 10 mg tablet Take 1 tablet by mouth once daily. - fluticasone (FLONASE) 50 mcg/actuation nasal spray Use 2 sprays in each nostril once daily. Rinse mouth after use. - ondansetron (ZOFRAN) 4 mg tablet Take 1 tablet by mouth every 8 hours as needed for nausea/vomiting. Annotated image of OT HAND STRENGTHENING ISOMETRIC ELBOW WRIST HAND PG 2 last updated by Lukasz De La O, OT/L on 11/07/2024 5:35 PM Annotated image of OT HAND STRENGTHENING ISOMETRIC ELBOW WRIST HAND PG 3 last updated by Lukasz De La O, OT/L on 11/07/2024 5:[address] [facility] 10-23-2024 [facility] Office Visit (WS ) SARAH DAVID ([id number]) 2000 F Date Time Provider Department 10/23/24 1:30 PM VIJAY GUO V [facility] During your visit today, we recorded the following information about you: Paige Mejia MA 10/23/2024 2:17 PM Signed Patient presents with: Right wrist pain : Referred by Dora [facility] [employer]OWS[employer] DATA Pain Pain Level: 8 Pain [...] and a sensation of her tendons getting stuck between her bones, causing additional pain. She [...] splint to support the wrist. Recording using [employer] software for draft documentation of the visit was discussed with the patient/authorized care support representative; all questions welcomed and answered. Patient/authorized care support representative agreed to proceed Paige Mejia MA 10/23/2024 2:17 PM Signed PT ASSESSMENT - CASTING ROOM Sarah presents for Application of brace. Applied Glenna and Keene Modabber wrist brace to Right wrist. Patient tolerated well. Patient has been instructed in Care and proper application of brace. Patient signed Ines PPA electronically for billing and verbalized understanding. Paige Mejia MA Referring Provider: DORA RESTREPO [[id number]] Allergies As of Date: 10/23/2024 Noted Allergy Reaction AMOXICILLIN 04/12/2008 2 - Rash AUGMENTIN (AMOXICILLIN-POT CLAVUL*04/12/2008 2 - Rash 11 - Vomiting PENICILLINS 05/06/2005 2 - Rash Date Reviewed: 10/23/2024 Reviewed by: Paige Mejia MA - Fully Assessed Reason for Visit: Right wrist pain [Other] Cmt: Referred by Dora Restrepo Visit Diagnoses:Right wrist pain [M25.531] Wrist weakness [R29.898] Order(s):CONSULT TO ORTHOPAEDICS [9026] Order #: [id number]: 1 MRI WRIST WO IVCON RIGHT [2033178] Order #: [id number] FUTURE Prescriptions as of 10/23/2024 - ondansetron [...] during [O21 (more content not included)... Normal [facility] CNOVon 10-17-2024 CNOV Office Visit (INTMWS ) SARAH DAVID ([id number]) 2000 F Date Time Provider Department 10/17/24 11:00 AM DORA RESTREPO During your visit today, we recorded the following information about you: Pulse Respiration Blood pressure Weight 88/minute 16/minute 116/72 76.2 kg Dora Restrepo APRN.SENIOR JAVA ARCHITECT 10/18/2024 4:19 PM Signed CC: Patient presents with: Wrist Pain: R wrist pain x 2 weeks HPI Sarah David is a 24 year old female who presents today for right wrist pain and migraines. Recording using [employer] software for draft documentation of the visit was discussed with the patient/authorized care support representative; all questions welcomed and answered. Patient/authorized care support representative agreed to proceed Right Wrist Pain and Weakness: - Initial injury in childhood from a fall out of a tree, resulting in a clicking noise with certain motions. - Progression of symptoms over the years, including: - Clicking noise. - Pinky locking and hollowing out. - Sensation of ligaments getting caught in [...] Anxiety and Depression: - Anxiety described as bad, but depression is not as bad. - Anxiety primarily focused on her child. [...] and also (more content not included)... Normal [facility] XR WRIST 3V PA/LAT/OBL RTon 10-17-2024 [...] soft tissue swelling. IMPRESSION: No acute abnormality Teacher Resource: PSCB Transcribe Date/Time: Oct 19 2024 2:23P Dictated by : ZORAIDA AVALOS MD This examination was interpreted and the report reviewed and electronically signed by: ZORAIDA AVALOS MD on Oct 19 2024 2:25PM EST [id number] Normal [facility] CNOVon 09-03-2024 CNOV Office Visit (INTMWS ) SARAH DAVID ([id number]) 2000 F Date Time Provider Department 09/03/24 11:00 AM DORA RESTREPO During your visit today, we recorded the following information about you: Pulse Respiration Blood pressure Weight 84/minute 16/minute 112/70 77.6 kg OlderDora APRN.SENIOR JAVA ARCHITECT 09/03/2024 3:12 PM Signed CC: Patient presents [...] nausea/vomiting. (Patient not taking: Reported on 03/16/2024) Jazykyvx-Sg-Ozp-Fe-FA tab Take 1 tablet by mouth once [...] Never done Anxiety Screening Never done Covid-19 Vaccine() Never done Cervical Cancer Screening due on 10/18/2025 DTaP,Tdap,Td Vaccine(8 - Td or Tdap) due on 12/20/2033 Hepatitis B Vaccine Completed Influenza Vaccine Completed Hepatitis C Screening (more content not included)... Normal [facility] CNOVon 03-16-2024 CNOV Office Visit (GENSWS ) SARAH DAVID ([id number]) 2000 F Date Time Provider Department 03/16/24 [...] 03/17/2024 5:59 AM Signed HISTORY AND PHYSICAL [facility] 2000 REFERRING PHYSICIAN: Naga Marks MD CHIEF [...] every other (more content not included)... Normal [facility] CNPNon 03-09-2024 CNPN Telephone (OBGYWM) SARAH DAVID ([id number]) 2000 F Date Time Provider Department 03/09/24 NAGA MARKS OBGYWM During your visit today, we recorded the following information about you: Naga Marks MD 03/09/2024 10:26 AM Signed See result note Consult placed to general surgery Mi Connell RN 03/09/2024 11:31 AM Signed Patient notified that she needs seen by General Surgery. No results note available yet. Aware imaging is still in process. Transferred to [facility]. Mi Connell RN Allergies As [...] Order(s):CONSULT TO GENERAL SURGERY [9011] Order #: [id number]: 1 FUTURE Prescriptions as of 03/09/2024 - ferrous sulfate (IRON ORAL) Take by mouth. - ondansetron (ZOFRAN) 4 mg tablet Take 1 tablet by mouth every 8 hours as needed for nausea/vomiting. - Suqribrz-Ju-Lsn-Fe-FA tab Take 1 tablet by mouth once [...] Status:Closed by NAGA MARKS on 03/09/24 Normal [facility] No Panel InformationOrdered By: Ccf Provider on 03-09-2024 [facility] US ABD RIGHT UPPER QUADRANTo [...] exam of the right upper quadrant abdomen. Teacher Resource: DESIREE Transcribe Date/Time: Mar 09 2024 11:28A Dictated by : ISABEL BRADFORD MD This examination was interpreted and the report reviewed and electronically signed by: ISABEL BRADFORD MD on Mar 09 2024 11:31AM EST [id number] Normal [facility] US Abdomen RUQon 03-09-2024 IMPRESSION: Unremarkable sonographic exam of the right upper quadrant abdomen. Teacher Resource: [facility] Transcribe Date/Time: Mar 09 2024 11:28A Dictated by : ISABEL BRADFORD MD This examination was interpreted and the report reviewed and electronically signed by: ISABEL BRADFORD MD on Mar 09 2024 11:31AM EST DIVISION OF RADIOLOGY * * *Final Report* * * DATE OF EXAM: Mar 09 2024 9:14AM [facility] 1032 - US ABD RIGHT UPPER QUADRANT [...] limits. Ascites: None. DIVISION OF RADIOLOGY Provider, [facility] - 03/09/2024 * * *Final Report* * [...] exam of the right upper quadrant abdomen. Teacher Resource: DES[employer]REE Transcribe Date/Time: Mar 09 2024 11:28A Dictated by : ISABEL BRADFORD MD This examination was interpreted and the report reviewed and electronically signed by: ISABEL BRADFORD MD on Mar 09 2024 11:31AM EST [facility] Radiology Study observation (narrative) [facility] XR Abdomen Supine and Uprigh ton 03-09-2024 IMPRESSION: No evidence of free air or bowel obstruction. Teacher Resource: DESIREE Transcribe Date/Time: Mar 09 2024 4:58P Dictated by : ISABEL BRADFORD MD This examination was interpreted and the report reviewed and electronically signed by: ISABEL BRADFORD MD on Mar 09 2024 4:58PM EST DIVISION OF RADIOLOGY * * *Final Report* [...] structures appear intact. DIVISION OF RADIOLOGY [facility] * * *Final Report* [...] evidence of free air or bowel obstruction. Teacher Resource: [facility] Transcribe Date/Time: Mar 09 2024 4:58P Dictated by : ISABEL BRADFORD MD This examination was interpreted and the report reviewed and electronically signed by: ISABEL BRADFORD MD on Mar 09 2024 4:58PM EST [facility] Amylase SerPl-cCncon 10- 024 Amylase [Catalytic activity/Vol] 30 U/L Normal 30-104 [facility] Comment on above: Order Comment: Speci men Type: BLOOD SPECIMENOrdering Facility: [facility] Address: [address] [place] [address] Performed By: #### 3 040-3, 1798-8 ####[facility] LABCLIA [id number] [place] [address] [place] CBC W Auto Differential pane l (Bld)on 03-08-2024 Basophils (Bld) [#/Vol] 0.03 10*3/uL [facility] Basophils/100 WBC (Bld) 0.3 % [facility] Differential cell count method Nom (Bld) Auto [facility] Eosinophils (Bld) [#/Vol] 0.09 10*3/uL [facility] Eosinophils/100 WBC (Bld) 0.8 % [facility] Erythrocyte distribution width (RBC) [Ratio] 11.7 % 11.5 - 15.0 % [facility] Hematocrit (Bld) [Volume fraction] 27.9 % Low 36.0 - 46.0 % [facility] Hemoglobin (Bld) [Mass/Vol] 9.7 g/dL Low 11.5 - 15.5 g/dL [facility] Immature granulocytes (Bld) [#/Vol] 0.23 10*3/uL High [facility] Immature granulocytes/100 WBC (Bld) 2.1 % [facility] Interpretation and review of laboratory results Abnormal [facility] Lymphocytes (Bld) [#/Vol] 2.16 10*3/uL [facility] Lymphocytes/100 WBC (Bld) 19.8 % [facility] MCH (RBC) [Entitic mass] 31.6 pg 26.0 - 34.0 pg [facility] MCHC (RBC) [Mass/Vol] 34.8 g/dL 30.5 - 36.0 g/dL [facility] MCV (RBC) [Entitic vol] 90.9 fL 80.0 - 100.0 fL [facility] Monocytes (Bld) [#/Vol] 0.98 10*3/uL High [facility] Monocytes/100 WBC (Bld) 9.0 % [facility] Neutrophils (Bld) [#/Vol] 7.42 10*3/uL [facility] Neutrophils/100 WBC (Bld) 68.0 % [facility] Nucleated RBC (Bld) [#/Vol] 0.03 10*3/uL High [facility] Nucleated RBC/100 WBC (Bld) [Ratio] 0.3 % /100 WBC [facility] Platelet mean volume (Bld) [Entitic vol] 9.1 fL 9.0 - 12.7 fL [facility] Platelets (Bld) [#/Vol] 228 10*3/uL [facility] RBC (Bld) [#/Vol] 3.07 10*6/uL Low 3.90 - 5.2 0 m/uL [facility] WBC (Bld) [#/Vol] 10.91 10*3/uL [facility] Basophils (Bld) [#/Vol] 0.03 10*3/uL Normal <0.11 [facility] Comment on above: Order Comment: Speci men Type: BLOOD SPECIMENOrdering Facility: [facility] Address: [address] [place] [address] Performed By: #### 5 7021-8 ####[facility] [id number] [place] [address] [place] Basophils/100 WBC (Bld) 0.3 % Normal [facility] [facility] Comment on above: Order Comment: Speci men Type: BLOOD SPECIMENOrdering Facility: [facility] Address: [address] [place] [address] Performed By: #### 5 7021-8 ####[facility] [id number] [place] [address] [place] Differential cell count method Nom (Bld) Auto Normal [facility] Comment on above: Order Comment: Speci men Type: BLOOD SPECIMENOrdering Facility: [facility] Address: [address] [place] [address] Performed By: #### 5 7021-8 ####[facility] [id number] [place] [address] [place] Eosinophils (Bld) [#/Vol] 0.09 10*3/uL Normal <0.46 [facility] Comment on above: Order Comment: Speci men Type: BLOOD SPECIMENOrdering Facility: [facility] Address: [address] [place] [address] Performed By: #### 5 7021-8 ####[facility] MILLNAYANWDIDIERLIA [id number] [place] [address] [place] Eosinophils/100 WBC (Bld) 0.8 % Normal [facility] Comment on above: Order Comment: Speci men Type: BLOOD SPECIMENOrdering Facility: [facility] Address: [address] [place] [address] Performed By: #### 5 7021-8 ####[facility] OBIWNCLIA [id number] [place] [address] [place] Erythrocyte distribution width (RBC) [Ratio] 11.7 % Normal 11.5-15.0 [facility] Comment on above: Order Comment: Speci men Type: BLOOD SPECIMENOrdering Facility: [facility] Address: [address] [place] [address] Performed By: #### 5 7021-8 ####[facility]CL[facility] [id number] [place] [address] [place] Hematocrit (Bld) [Volume fraction] 27.9 % Low 36.0-46.0 [facility] Comment on above: Order Comment: Speci men Type: BLOOD SPECIMENOrdering Facility: [facility] Address: [address] [place] [address] Performed By: #### 5 7021-8 ####[facility] ORANGEWNCLIA [id number] [place] [address] [place] Hemoglobin (Bld) [Mass/Vol] 9.7 g/dL Low 11.5-15.5 [facility] Comment on above: Order Comment: Speci men Type: BLOOD SPECIMENOrdering Facility: [facility] Address: [address] [place] [address] Performed By: #### 5 7021-8 ####[facility] HOSPITALDIDIERLIA [id number] [place] [address] [place] Immature granulocytes (Bld) [#/Vol] 0.23 10*3/uL High <0.10 [facility] Comment on above: Order Comment: Speci men Type: BLOOD SPECIMENOrdering Facility: [facility] Address: [address] [place] [address] Performed By: #### 5 7021-8 ####[facility] [id number] [place] [address] [place] Immature granulocytes/100 WBC (Bld) 2.1 % Normal [facility] Comment on above: Order Comment: Speci men Type: BLOOD SPECIMENOrdering Facility: [facility] Address: [address] [place] [address] Performed By: #### 5 7021-8 ####[facility] [id number] [place] [address] [place] Lymphocytes (Bld) [#/Vol] 2.16 10*3/uL Normal 1.00-4.00 [facility] Comment on above: Order Comment: Speci men Type: BLOOD SPECIMENOrdering Facility: [facility] Address: [address] [place] [address] Performed By: #### 5 7021-8 ####[facility] [id number] [place] [address] [place] Lymphocytes/100 WBC (Bld) 19.8 % Normal [facility] Comment on above: Order Comment: Speci men Type: BLOOD SPECIMENOrdering Facility: [facility] Address: [address] [place] [address] Performed By: #### 5 7021-8 ####[facility] [id number] [place] [address] [place] MCH (RBC) [Entitic mass] 31.6 pg Normal 26.0-34.0 [facility] Comment on above: Order Comment: Speci men Type: BLOOD SPECIMENOrdering Facility: [facility] Address: [address] [place] [address] Performed By: #### 5 7021-8 ####[facility]ITALNCTIMPANOGOS [facility] [id number] [place] [address] [place] MCHC (RBC) [Mass/Vol] 34.8 g/dL Normal 30.5-36.0 [facility] Comment on above: Order Comment: Speci men Type: BLOOD SPECIMENOrdering Facility: [facility] Address: [address] [place] [address] Performed By: #### 5 7021-8 ####[facility]ITALNCTIMPAN[facility] [id number] [place] [address] [place] MCV (RBC) [Entitic vol] 90.9 fL Normal 80.0-100.0 [facility] Comment on above: Order Comment: Speci men Type: BLOOD SPECIMENOrdering Facility: [facility] Address: [address] [place] [address] Performed By: #### 5 7021-8 ####[facility]ITALNCLIA [id number] [place] [address] [place] Monocytes (Bld) [#/Vol] 0.98 10*3/uL High <0.87 [facility] Comment on above: Order Comment: Speci men Type: BLOOD SPECIMENOrdering Facility: [facility] Address: [address] [place] [address] Performed By: #### 5 7021-8 ####[facility]OS[facility]ITALNCLI [id number] [place] [address] [place] Monocytes/100 WBC (Bld) 9.0 % Normal [facility] Comment on above: Order Comment: Speci men Type: BLOOD SPECIMENOrdering Facility: [facility] Address: [address] [place] [address] Performed By: #### 5 7021-8 ####[facility] MILLWNCLIA [id number] [place] [address] [place] Neutrophils (Bld) [#/Vol] 7.42 10*3/uL Normal 1.45-7.50 [facility] Comment on above: Order Comment: Speci men Type: BLOOD SPECIMENOrdering Facility: [facility] Address: [address] [place] [address] Performed By: #### 5 7021-8 ####[facility] ORANGEWNCLIA [id number] [place] [address] [place] Neutrophils/100 WBC (Bld) 68.0 % Normal [facility] Comment on above: Order Comment: Speci men Type: BLOOD SPECIMENOrdering Facility: [facility] Address: [address] [place] [address] Performed By: #### 5 7021-8 ####[facility]ITALNCLIA [id number] [place] [address] [place] Nucleated RBC (Bld) [#/Vol] 0.03 10*3/uL High <0.01 [facility] Comment on above: Order Comment: Speci men Type: BLOOD SPECIMENOrdering Facility: [facility] Address: [address] [place] [address] Performed By: #### 5 7021-8 ####[facility] MILLWNCLIA [id number] [place] [address] [place] Nucleated RBC/100 WBC (Bld) [Ratio] 0.3 /100 WBC Normal [facility] Comment on above: Order Comment: Speci men Type: BLOOD SPECIMENOrdering Facility: [facility] Address: [address] [place] [address] Performed By: #### 5 7021-8 ####[facility]ITALNCLIA [id number] [place] [address] [place] Platelet mean volume (Bld) [Entitic vol] 9.1 fL Normal 9.0-12.7 [facility] Comment on above: Order Comment: Speci men Type: BLOOD SPECIMENOrdering Facility: [facility] Address: [address] [place] [address] Performed By: #### 5 7021-8 ####[facility] [id number] [place] [address] [place] Platelets (Bld) [#/Vol] 228 10*3/uL Normal 150-400 [facility] Comment on above: Order Comment: Speci men Type: BLOOD SPECIMENOrdering Facility: [facility] Address: [address] [place] [address] Performed By: #### 5 7021-8 ####[facility] [id number] [place] [address] [place] RBC (Bld) [#/Vol] 3.07 10*6/uL Low 3.90-5.20 [facility] Comment on above: Order Comment: Speci men Type: BLOOD SPECIMENOrdering Facility: [facility] Address: [address] [place] [address] Performed By: #### 5 7021-8 ####[facility] CENTERLIA [id number] [place] [address] [place] WBC (Bld) [#/Vol] 10.91 10*3/uL Normal 3.70-11.00 [facility] Comment on above: Order Comment: Speci men Type: BLOOD SPECIMENOrdering Facility: [facility] Address: [address] [place] [address] Performed By: #### 5 7021-8 ####[facility]ITALNCLIA [id number] [place] [address] [place] CNPNon 03-08-2024 CNPN Telephone (OBGYWM) GRACESARAH Gunjan ([id number]) 2000 F Date Time Provider Department 03/08/24 NAGA MARKS OBGYWM During your visit today, we recorded [...] BLOOD COUNT AND DIFFERENTIAL [SQCBCDIF] Order #: [id number] FUTURE COMPREHENSIVE METABOLIC PANEL [SQCMP] Order #: [id number] FUTURE AMYLASE [SQAMYL] Order #: [id number] FUTURE LIPASE [SQLIPA] Order #: [id number] FUTURE XR ABDOMEN 2V ROUTINE SUPINE W UPRIGHT/DECUB/CTL [[id number]] Order #: [id number] FUTURE Prescriptions as of 03/08/2024 - Xopgcbve-Oz-Pmk-Fe-FA tab Take 1 tablet by mouth once [...] Status:Closed by ALIX QUINONES on 03/08/24 Normal [facility] Comprehensive metabolic 2000 panelon 03-08-2024 Albumin [Mass/Vol] 3.3 g/dL Low 3.9-4.9 [facility] Comment on above: Order Comment: Speci men Type: BLOOD SPECIMENOrdering Facility: [facility] Address: [address] [place] [address] Performed By: #### 2 4323-8 ####[facility] LABCLIA [id number] [place] [address] [place] ALP [Catalytic activity/Vol] 141 U/L High 34-123 [facility] Comment on above: Order Comment: Speci men Type: BLOOD SPECIMENOrdering Facility: [facility] Address: [address] [place] [address] Performed By: #### 2 4323-8 ####[facility] LABCLIA [id number] [place] [address] [place] ALT [Catalytic activity/Vol] 24 U/L Normal 7-38 [facility] Comment on above: Order Comment: Speci men Type: BLOOD SPECIMENOrdering Facility: [facility] Address: [address] [place] [address] Performed By: #### 2 4323-8 ####[facility] LABCLIA [id number] [place] [address] [place] Anion gap [Moles/Vol] 13 mmol/L Normal 8-15 [facility] Comment on above: Order Comment: Speci men Type: BLOOD SPECIMENOrdering Facility: [facility] Address: [address] [place] [address] Performed By: #### 2 4323-8 ####[facility] LABCLIA [id number] [place] [address] [place] AST [Catalytic activity/Vol] 55 U/L High 13-35 [facility] Comment on above: Order Comment: Speci men Type: BLOOD SPECIMENOrdering Facility: [facility] Address: [address] [place] [address] Performed By: #### 2 4323-8 ####[facility] LABCLIA [id number] [place] [address] [place] Bilirubin [Mass/Vol] 0.3 mg/dL Normal 0.2-1.3 [facility] Comment on above: Order Comment: Speci men Type: BLOOD SPECIMENOrdering Facility: [facility] Address: [address] [place] [address] Performed By: #### 2 4323-8 ####[facility] LABCLIA [id number] [place] [address] [place] Calcium [Mass/Vol] 8.7 mg/dL Normal 8.5-10.2 [facility] Comment on above: Order Comment: Speci men Type: BLOOD SPECIMENOrdering Facility: [facility] Address: [address] [place] [address] Performed By: #### 2 4323-8 ####[facility] LABCLIA [id number] [place] [address] [place] Chloride [Moles/Vol] 107 mmol/L Normal 98-107 [facility] Comment on above: Order Comment: Speci men Type: BLOOD SPECIMENOrdering Facility: [facility] Address: [address] [place] [address] Performed By: #### 2 4323-8 ####[facility] LABCLIA [id number] [place] [address] [place] CO2 [Moles/Vol] 18 mmol/L Low 22-30 [facility] Comment on above: Order Comment: Speci men Type: BLOOD SPECIMENOrdering Facility: [facility] Address: [address] [place] [address] Performed By: #### 2 4323-8 ####[facility] LABCLIA [id number] [facility] [place] [address] [place] Creatinine [Mass/Vol] 0.73 mg/dL Normal 0.58-0.96 [facility] Comment on above: Order Comment: Speci men Type: BLOOD SPECIMENOrdering Facility: [facility] Address: [address] [place] [address] Performed By: #### 2 4323-8 ####[facility] LABCLIA [id number] [facility] [place] [address] [place] Creatinine and Glomerular filtration rate.predicted panel (S/P/Bld) 117 mL/min/1.73m??? Normal >=60 [facility] Comment on above: Order Comment: Speci men Type: BLOOD SPECIMENOrdering Facility: [facility] Address: [address] [place] [address] Result Comment: Clara mated Glomerular Filtration Rate [...] actual GFR. Performed By: #### 2 4323-8 ####[facility] LABIA [id number] [place] [address] [place] Glucose [Mass/Vol] 89 mg/dL Normal 74-99 [facility] Comment on above: Order Comment: Speci men Type: BLOOD SPECIMENOrdering Facility: [facility] Address: [address] [place] [address] Result Comment: The [place] [employer] (ADA) provides guidance for cutoff [...] Standards of Medical Care in Diabetes 2016, [place] [employer]. Diabetes Care. 2016.39(Suppl 1). Performed By: #### 2 4323-8 ####[facility] LABCLIA [id number] [place] [address] [place] Potassium [Moles/Vol] 3.8 mmol/L Normal 3.7-5.1 [facility] Comment on above: Order Comment: Speci men Type: BLOOD SPECIMENOrdering Facility: [facility] Address: [address] [place] [address] Performed By: #### 2 4323-8 ####[facility] LABCLIA [id number] [place] [address] [place] Protein [Mass/Vol] 6.3 g/dL Normal 6.3-8.0 [facility] Comment on above: Order Comment: Speci men Type: BLOOD SPECIMENOrdering Facility: [facility] Address: [address] [place] [address] Performed By: #### 2 4323-8 ####[facility] LABCLIA [id number] [place] [address] [place] Sodium [Moles/Vol] 138 mmol/L Normal 136-144 [facility] Comment on above: Order Comment: Speci men Type: BLOOD SPECIMENOrdering Facility: [facility] Address: [address] [place] [address] Performed By: #### 2 4323-8 ####[facility] LABCLIA [id number] [place] [address] [place] Urea nitrogen [Mass/Vol] 9 mg/dL Normal 7-21 [facility] Comment on above: Order Comment: Speci men Type: BLOOD SPECIMENOrdering Facility: [facility] Address: [address] [place] [address] Performed By: #### 2 4323-8 ####[facility] LABCLIA [id number] [place] [address] [place] Lipase SerPl-cCncon 03-08-20 24 Lipase [Catalytic activity/Vol] 25 U/L Normal 16-61 [facility] Comment on above: Order Comment: Speci men Type: BLOOD SPECIMENOrdering Facility: [facility] Address: [address] [place] [address] Performed By: #### 3 040-3, 1798-8 ####[facility] LABCLIA [id number] [address] [place] XR ABD 2V SUPINE [...] evidence of free air or bowel obstruction. Teacher Resource: DESIREE Transcribe Date/Time: Mar 09 2024 4:58P Dictated by : ISABEL BRADFORD MD This examination was interpreted and the report reviewed and electronically signed by: ISABEL BRADFORD MD on Mar 09 2024 4:58PM EST [id number] N Normal [facility] Abdomen Supine and Uprigh ton 03-08-2024 Radiology Study observation (narrative) [facility] CBC W/Diff, Automatedon - Absolute Lymph 2.12 X10 3/uL Normal 0.83-4.51 [facility] Comment on above: Performed By: #### L 100.0100 #### [facility] [address] [place], [address] Absolute Neut 16.1 X10 3/uL High 2.0-7.7 [facility] Comment on above: Performed By: #### L 100.0100 #### [facility] [address] [place], [address] Basophils/100 WBC (Bld) 0.3 % Normal 0-1 [facility] Comment on above: Performed By: #### L 100.0100 #### [facility] [address] [place], [address] Eosinophils/100 WBC (Bld) 0.9 % Normal 0-5 [facility] Comment on above: Performed By: #### L 100.0100 #### [facility] [address] [place], [address] Erythrocyte distribution width (RBC) [Ratio] 12.3 % Normal 11.6-14.6 [facility] Comment on above: Performed By: #### L 100.0100 #### [facility] [address] [place], [address] Hematocrit (Bld) [Volume fraction] 25.3 % Low 37-47 [facility] Comment on above: Performed By: #### L 100.0100 #### [facility] [address] [place], [address] Hemoglobin (Bld) [Mass/Vol] 8.7 g/dL Low 12.0-15.0 [facility] Comment on above: Performed By: #### L 100.0100 #### [facility] [address] [place], [address] IG% 1.100 High 0.0-0.9 [facility] Comment on above: Result Comment: IG% - Immature Granulocytes (promyelocytes, myelocytes and metamyelocytes) > 1% indicates that a LEFT SHIFT is Present. Performed By: #### L 100.0100 #### [facility] [address] [place], [address] Lymphocytes/100 WBC (Bld) 10.7 % Low 19-41 [facility] Comment on above: Performed By: #### L 100.0100 #### [facility] [address] [place], [address] MCH (RBC) [Entitic mass] 32.1 pg High 27.0-32.0 [facility] Comment on above: Performed By: #### L 100.0100 #### [facility] [address] [place], [address] MCHC (RBC) [Mass/Vol] 34.4 g/dL Normal 32-36 [facility] Comment on above: Performed By: #### L 100.0100 #### [facility] [address] [place], [address] MCV (RBC) [Entitic vol] 93.4 fL Normal 81-99 [facility] Comment on above: Performed By: #### L 100.0100 #### [facility] [address] [place], [address] Monocytes/100 WBC (Bld) 6.2 % Normal 0-10 [facility] Comment on above: Performed By: #### L 100.0100 #### [facility] [address] [place], [address] Neutrophils/100 WBC (Bld) 80.8 % High 47-70 [facility] Comment on above: Performed By: #### L 100.0100 #### [facility] [address] [place], [address] Nucleated RBC (Bld) [#/Vol] 0 10*3/uL Normal 0-5 [facility] Comment on above: Performed By: #### L 100.0100 #### [facility] [address] [place], [address] Platelet mean volume (Bld) [Entitic vol] 11.0 fL Normal 6.2-12.0 [facility] Comment on above: Performed By: #### L 100.0100 #### [facility] [address] [place], [address] Platelets (Bld) [#/Vol] 156 10*3/uL Normal 150-450 [facility] Comment on above: Performed By: #### L 100.0100 #### [facility] [address] [place], [address] RBC (Bld) [#/Vol] 2.71 10*6/uL Low 4.2-5.4 [facility] Comment on above: Performed By: #### L 100.0100 #### [facility] [address] [place], [address] RDW SD 42.0 fl Normal 35.1-43.9 [facility] Comment on above: Performed By: #### L 100.0100 #### [facility] [address] [place], [address] WBC (Bld) [#/Vol] 19.9 10*3/uL High 4.4-11.0 [facility] Comment on above: Performed By: #### L 100.0100 #### [facility] [address] [place], [address] Discharge Instructionon 10-0 Discharge Instruction [facility] Medical Records Department [address] [place] [address] Instructions for Home/Discharge Instructions 03/05/24 0559 MR#: [id number] Acct: [id number] Name: SARAH DAVID Rep #: [id number] : 2000 24 From: Naga Marks DO PCP: DORA RESTREPO NP-Stacy Status:ADM IN Discharge Instructions Diet Discharge Diet: [...] 30 0RF Referrals / Follow Up: DORA RESTREPO, BILINGUAL TEACHER AIDE-C [Primary Care Provider] - Disposition Disposition (needs filled in before D/C Order can be placed): Home, Self Care 03/05/24 0600 Naga Kendrick RODRIGUEZ CC: BILINGUAL TEACHER AIDE-C DORA RESTREPO Signed Normal [facility] CBC-Complete Blood Cnt No Di ffon 03-04-2024 Erythrocyte distribution width (RBC) [Ratio] 12.4 % Normal 11.6-14.6 [facility] Comment on above: Order Comment: Comme nts: Day #1 Reason for Laboratory Test Performed By: #### L 100.0500 #### [facility] [address] [place], [address] Hematocrit (Bld) [Volume fraction] 28.1 % Low 37-47 [facility] Comment on above: Order Comment: Comme nts: Day #1 Reason for Laboratory Test Performed By: #### L 100.0500 #### [facility] [address] [place], [address] Hemoglobin (Bld) [Mass/Vol] 9.6 g/dL Low 12.0-15.0 [facility] Comment on above: Order Comment: Comme nts: Day #1 Reason for Laboratory Test Performed By: #### L 100.0500 #### [facility] [address] [place], [address] MCH (RBC) [Entitic mass] 31.8 pg Normal 27.0-32.0 [facility] Comment on above: Order Comment: Comme nts: Day #1 Reason for Laboratory Test Performed By: #### L 100.0500 #### [facility] [address] [place], [address] MCHC (RBC) [Mass/Vol] 34.2 g/dL Normal 32-36 [facility] Comment on above: Order Comment: Comme nts: Day #1 Reason for Laboratory Test Performed By: #### L 100.0500 #### [facility] [address] [place], [address] MCV (RBC) [Entitic vol] 93.0 fL Normal 81-99 [facility] Comment on above: Order Comment: Comme nts: Day #1 Reason for Laboratory Test Performed By: #### L 100.0500 #### [facility] [address] [place], [address] Platelet mean volume (Bld) [Entitic vol] 11.2 fL Normal 6.2-12.0 [facility] Comment on above: Order Comment: Comme nts: Day #1 Reason for Laboratory Test Performed By: #### L 100.0500 #### [facility] [address] [place], [address] Platelets (Bld) [#/Vol] 155 10*3/uL Normal 150-450 [facility] Comment on above: Order Comment: Comme nts: Day #1 Reason for Laboratory Test Performed By: #### L 100.0500 #### [facility] [address] [place], [address] RBC (Bld) [#/Vol] 3.02 10*6/uL Low 4.2-5.4 [facility] Comment on above: Order Comment: Comme nts: Day #1 Reason for Laboratory Test Performed By: #### L 100.0500 #### [facility] [address] [place], [address] RDW SD 41.9 fl Normal 35.1-43.9 [facility] Comment on above: Order Comment: Comme nts: Day #1 Reason for Laboratory Test Performed By: #### L 100.0500 #### [facility] [address] [place], [address] WBC (Bld) [#/Vol] 27.5 10*3/uL High 4.4-11.0 [facility] Comment on above: Order Comment: Comme nts: Day #1 Reason for Laboratory Test Performed By: #### L 100.0500 #### [facility] [address] [place], [place], [address] BRho(D) IGon 03-03-2024 Rho(D) IG Normal [facility] Comment on above: Result Comment: [id number] Rho(D) IG PRSMD TRFSD 03/03/24 1152 Performed By: #### B Rho(D) IG, BRHNM #### [facility] [address] [place], [place], [address] Operative Reporton Operative Report [facility] Medical Records Department [address] [place] [address] Operative Report 03/03/24 0736 MR#: [id number] Acct: [id number] Name: SARAH DAVID Rep #: [id number] : 2000 24 From: Naga Marks DO PCP: DORA RESTREPO BILINGUAL TEACHER AIDE-C Status:ADM IN Location: [id number] Problems Associated Problem List Diagnoses (1) Marijuana [...] adnexa. Normal appearing placenta. Surgeon: Naga Marks pocket and pulley machine operator: Jonathan CORTES Type of Anesthesia: Spinal Special [...] in a running locked fashion. Several additional [id number] sutures were placed for hemostasis. The lower [...] prepping and draping the patient, delivery of and closure up until closure of subcutaneous space. Grafts/Implants Used: None Procedure Start Time: 06:30 Procedure Stop Time: 07:30 Complications None Admit VTE Documentation VTE Present (more content not included)... Normal [facility] Rh Negative Mom [facility] ABO and Rh group Nom (Bld) Blood group A Rh(D) negative Normal [facility] Comment on above: Order Comment: Comme nts: Age > 13 Weeks [facility] [id number] Performed By: #### B Rho(D) IG, BRHNM #### [facility] [address] [place], [address] ABO and Rh group Nom (Bld) Blood group O Rh(D) positive Normal [facility] Comment on above: Order Comment: Comme nts: Age > 13 Weeks [facility] [id number] Performed By: #### B Rho(D) IG, BRHNM #### [facility] [address] [place], [address] DIRECT ANTIGLOB Negative Normal NEGATIVE [facility] Comment on above: Order Comment: Comme nts: Age > 13 Weeks [facility] [id number] Performed By: #### B Rho(D) IG, BRHNM #### [facility] [address] [place], [address] SCREEN Negative Normal NEGATIVE [facility] Comment on above: Order Comment: Comme nts: Age > 13 Weeks babyboy shank [id number] Performed By: #### B Rho(D) IG, BRHNM #### [facility] [address] [place], [address] MOM'S ABS Negative Normal [facility] Comment on above: Order Comment: Comme nts: Age > 13 Weeks babyboy shank [id number] Performed By: #### B Rho(D) IG, BRHNM #### [facility] [address] [place], [address] (ROM) Rupture Of Membraneson 03-02-2024 ROM Positive Abnormal Negative [facility] Comment on above: Result Comment: Amni otic fluid present indicates rupture of Membranes. RESULTS CALLED TO DANE SMART 03/02/24 0747 Ally Munguia. REPORT READ BACK BY SAME . Performed By: #### L 205.1000 #### [facility] [address] [place], [address] CBC W/Diff, Automatedon 10-0 Absolute Lymph 1.73 X10 3/uL Normal 0.83-4.51 [facility] Comment on above: Performed By: #### L 100.0100, BTS, N49995-8 #### [facility] [address] [place], [address] Absolute Neut 14.1 X10 3/uL High 2.0-7.7 [facility] Comment on above: Performed By: #### L 100.0100, BTS, S09069-9 #### [facility] [address] [place], [address] Basophils/100 WBC (Bld) 0.3 % Normal 0-1 [facility] Comment on above: Performed By: #### L 100.0100, BTS, I49652-2 #### [facility] [address] [place], [address] Eosinophils/100 WBC (Bld) 0.1 % Normal 0-5 [facility] Comment on above: Performed By: #### L 100.0100, BTS, B51438-6 #### [facility] [address] [place], [address] Erythrocyte distribution width (RBC) [Ratio] 11.8 % Normal 11.6-14.6 [facility] Comment on above: Performed By: #### L 100.0100, BTS, K07531-6 #### [facility] [address] [place], [address] Hematocrit (Bld) [Volume fraction] 35.0 % Low 37-47 [facility] Comment on above: Performed By: #### L 100.0100, BTS, [id number] #### [facility] [address] [place], [address] Hemoglobin (Bld) [Mass/Vol] 12.3 g/dL Normal 12.0-15.0 [facility] Comment on above: Performed By: #### L 100.0100, BTS, C86075-4 #### [facility] [address] [place], [address] IG% 0.700 Normal 0.0-0.9 [facility] Comment on above: Result Comment: IG% - Immature Granulocytes (promyelocytes, myelocytes and metamyelocytes) > 1% indicates that a LEFT SHIFT is Present. Performed By: #### L 100.0100, BTS, G49473-1 #### [facility] [address] [place], [address] Lymphocytes/100 WBC (Bld) 10.3 % Low 19-41 [facility] Comment on above: Performed By: #### L 100.0100, BTS, B60183-5 #### [facility] [address] [place], [address] MCH (RBC) [Entitic mass] 31.7 pg Normal 27.0-32.0 [facility] Comment on above: Performed By: #### L 100.0100, BTS, V29153-6 #### [facility] [address] [place], [address] MCHC (RBC) [Mass/Vol] 35.1 g/dL Normal 32-36 [facility] Comment on above: Performed By: #### L 100.0100, BTS, C10428-4 #### [facility] [address] [place], [address] MCV (RBC) [Entitic vol] 90.2 fL Normal 81-99 [facility] [place] Comment on above: Performed By: #### L 100.0100, BTS, S52136-6 #### [facility] [address] [place], [address] Monocytes/100 WBC (Bld) 4.7 % Normal 0-10 [facility] [place] Comment on above: Performed By: #### L 100.0100, BTS, U75648-8 #### [facility] [address] [place], [address] Neutrophils/100 WBC (Bld) 83.9 % High 47-70 [facility] Comment on above: Performed By: #### L 100.0100, BTS, R50738-4 #### [facility] [address] [place], [address] Nucleated RBC (Bld) [#/Vol] 0 10*3/uL Normal 0-5 [facility] Comment on above: Performed By: #### L 100.0100, BTS, [id number] #### [facility] [address] [place], [address] Platelet mean volume (Bld) [Entitic vol] 11.6 fL Normal 6.2-12.0 [facility] Comment on above: Performed By: #### L 100.0100, BTS, F26587-0 #### [facility] [address] [place], [address] Platelets (Bld) [#/Vol] 178 10*3/uL Normal 150-450 [facility] Comment on above: Performed By: #### L 100.0100, BTS, U02532-0 #### [facility] [address] [place], [address] RBC (Bld) [#/Vol] 3.88 10*6/uL Low 4.2-5.4 [facility] Comment on above: Performed By: #### L 100.0100, BTS, W45977-4 #### [facility] [address] [place], [address] RDW SD 38.8 fl Normal 35.1-43.9 [facility] Comment on above: Performed By: #### L 100.0100, BTS, P34040-5 #### [facility] [address] [place], [address] WBC (Bld) [#/Vol] 16.8 10*3/uL High 4.4-11.0 [facility] Comment on above: Performed By: #### L 100.0100, BTS, L85820-1 #### [facility] [address] [place], [address] H AND P Exam - OB/GYNon H&P Exam - GROUP PROGRAM MANAGER [facility] Medical Records Department [address] [place] [address] H P Exam - GROUP PROGRAM MANAGER 03/02/24 1010 MR#: [id number] Acct: [id number] Name: SARAH DAVID Rep #: [id number] : 2000 24 From: Naga Marks DO PCP: DORA RESTREPO BILINGUAL TEACHER AIDE-C Status:ADM IN Location: UL545-3 HPI - General General Date of Admission: 03/02/24 Date of Service: 03/02/24 Chief Complaint: SROM and labor HPI Narrative SARAH DAVID, is a 24 F who presents with SROM for clear fluid and contractions. PFSH PFSH Medical History (Updated 03/02/24 @ 10:57 by [...] 03/02/24 1130 Cosigner Signature (if applicable): CC: BILINGUAL TEACHER AIDEGlenna RESTREPO; Dr. Naga Marks, DO Signed Normal [facility] L509.8000on 03-02-2024 Syphilis Abs Non-Reactive Normal [facility] Comment on above: Performed By: #### L 509.8000 #### [facility] [address] [place], [address] Type AND Screenon 03-02-2024 Ab SCREEN GEL TNP Normal [facility] Comment on above: Order Comment: Comme nts: Age > 13 [facility] [id number] Performed By: #### B Rho(D) IG, BRHNM #### [facility] [address] [place], [address] ABO and Rh group Nom (Bld) Blood group A Rh(D) negative Normal [facility] Comment on above: Order Comment: Comme nts: Age > 13 Weeks [facility] [id number] Performed By: #### B Rho(D) IG, BRHNM #### [facility] [address] [place], [address] Urine Drug Screen (VISTA)on 03-02-2024 AMPHETAMINES Negative Normal <1000 ng/mL [facility] Comment on above: Performed By: #### L 505.5000 #### [facility] [address] [place], [address] BARBITIURATES Negative Normal < 200 ng/mL [facility] Comment on above: Performed By: #### L 505.5000 #### [facility] [address] [place], [address] BENZODIAZIPINE Negative Normal < 200 ng/mL [facility] Comment on above: Performed By: #### L 505.5000 #### [facility] [address] [place], [address] COCAINE Negative Normal < 300 ng/mL [facility] Comment on above: Performed By: #### L 505.5000 #### [facility] [address] [place], [address] ECSTACY Negative Normal < 500 ng/mL [facility] Comment on above: Performed By: #### L 505.5000 #### [facility] [address] [place], [address] METHADONE Negative Normal < 300 ng/mL [facility] Comment on above: Performed By: #### L 505.5000 #### [facility] [address] [place], [address] OPIATES Negative Normal < 300 ng/mL [facility] Comment on above: Performed By: #### L 505.5000 #### [facility] [address] [place], [address] PCP Negative Normal < 25 ng/mL [facility] Comment on above: Performed By: #### L 505.5000 #### [facility] [address] [place], [address] THC Positive Abnormal < 50 ng/mL [facility] Comment on above: Performed By: #### L 505.5000 #### [facility] [address] [place], [address] VISTA UDS PH 5 Normal [facility] Comment on above: Performed By: #### L 505.5000 #### [facility] [address] [place], [address] URINE OB DIP B/Oon 4 Glucose Ql (U) Negative Neg mg/dL [facility] Interpretation and review of laboratory results Normal [facility] Protein.monoclonal (U) [Mass/Vol] Negative Neg mg/dL [facility] [place] URINE OB DIP B/Oon 4 Glucose Ql (U) Negative Neg mg/dL [facility] Interpretation and review of laboratory results Normal [facility] Protein.monoclonal (U) [Mass/Vol] Negative Neg mg/dL [facility] [place] URINE OB DIP B/Oon 4 Glucose Ql (U) Negative Neg mg/dL [facility] Protein.monoclonal (U) [Mass/Vol] Negative Neg mg/dL [facility] [place] URINE OB DIP B/Oon 4 Glucose Ql (U) Negative Neg mg/dL [facility] Interpretation and review of laboratory results Normal [facility] Protein.monoclonal (U) [Mass/Vol] Negative Neg mg/dL [facility] [place] Examination level ultrasound on 02-01-2024 [facility] Examination level ultrasound on 01-26-2024 Radiology [facility]ative[facility] level [facility] on 10-12-2023 Indication anatomy [...] 12 oz EFW by: Hadlock (HC-AC-FL) Extended Label Folder 5.1 mm CM 2.8 mm 3% Nicolaides [...] normal LVOT view: normal 3-vessel view: normal 2-umkuws-vveqakd view: normal Heart / Thorax Situs: situs [...] visualized Lt ovary: Visualized Performed By: Laurel Rebolledo, LORE, RVT Read By: Jody Howard M.D. MATERNAL MEDICINE [facility] Radiology Study observation (narrative) [facility] TYPE + SCREEN PRENATALon ABO group Nom (Bld) A [facility] Blood group antibody screen Ql Negative [facility] HIstorical Ab Scr Status Negative [facility] Rh Nom (Bld) Negative [facility] Type and Screen Expiration 09/22/2023 23:59 [facility] [place] CBC panel Auto (Bld)on 09-18 Erythrocyte distribution width (RBC) [Ratio] 12.1 % 11.5 - 15.0 % [facility] Hematocrit (Bld) [Volume fraction] 35.4 % Low 36.0 - 46.0 % [facility] Hemoglobin (Bld) [Mass/Vol] 12.5 g/dL 11.5 - 15.5 g/dL [facility] Interpretation and review of laboratory results Abnormal [facility] MCH (RBC) [Entitic mass] 31.5 pg 26.0 - 34.0 pg [facility] MCHC (RBC) [Mass/Vol] 35.3 g/dL 30.5 - 36.0 g/dL [facility] MCV (RBC) [Entitic vol] 89.2 fL 80.0 - 100.0 fL [facility] Nucleated RBC (Bld) [#/Vol] NINF [facility] Platelet mean volume (Bld) [Entitic vol] 10.3 fL 9.0 - 12.7 fL [facility] Platelets (Bld) [#/Vol] 155 10*3/uL [facility] RBC (Bld) [#/Vol] 3.97 10*6/uL 3.90 - 5.2 0 m/uL [facility] WBC (Bld) [#/Vol] 8.57 10*3/uL [facility] HbA1c (Bld)on 09-19-2023 Average glucose Estimated from glycated hemoglobin (Bld) [Mass/Vol] 85 mg/dL [facility] Comment on above: eAG: (Estimated aver age glucose) is a calculated value from HgbA1c and is care support representative of the average blood glucose level in the last 2-3 month period. HbA1c (Bld) [Mass fraction] 4.6 % 4.3 - 5.6 % [facility] Comment on above: [place] Diabetes As sociation guidelines indicate that patients with HgbA1c in the range 5.7-6.4% are at increased risk for development of diabetes, and intervention by lifestyle modification may be beneficial. HgbA1c greater or equal to 6.5% is considered diagnostic of diabetes. [facility] UA DIP,URINE HCG (POC)on Beta HCG ( test) Ql (U) Positive Abnormal Negative [facility] Hospice Coordinator (POCT) Internal QC OK [facility] US FEMALE PELVIS TRANSVAGon 10-26-2022 [facility] UA DIP, URINE (POC)on 2021 BILIRUBIN UA (POCT) Negative Negative [facility] CLARITY UA (POCT) Clear [facility] COLOR UA (POCT) Yellow [facility] GLUCOSE UA (POCT) Negative Negative mg/dL [facility] HEMOGLOBIN/BLOOD UA (POCT) Negative Negative [facility] KETONE UA (POCT) Negative Negative mg/dL [facility] LEUKOCYTES UA (POCT) Negative Negative [facility] NITRITE UA (POCT) Negative Negative [facility] PH UA (POCT) 6.5 4.5 - 8.0 [facility] Protein Ql (U) Negative Negative mg/dL [facility] SPECIFIC GRAVITY UA (POCT) 1.025 1.005 - 1.030 [facility] UROBILINOGEN UA (POCT) 1.0 E.U./dL Nusrat l E.U./dL [facility] MRI BRAIN WO/W IVCONon 09-29 [facility] Vital Signs Date Time Vital Sign Value Performing Clinician Facility 01-09-2025 14:12-0400 Body mass index (BMI) [Ratio] 30.42 kg/m2 Dora Restrepo APRN.AMBER Work Phone: [facility] 01-09-2025 14:12040 Body weight 73.03 kg Dora Restrepo APRN.CNP Work Phone: [facility] 01-09-2025 14:12-040 Diastolic blood pressure 60 mm[Hg] Dora Restrepo APRNSHAYAN Work Phone: [facility] 01-09-2025 14:12-0400 Heart rate 72 /min Dora Older SUPERINTENDENT CEMETERY.SENIOR JAVA ARCHITECT Work Phone: [facility] 01-09-2025 14:12-0400 Respiratory rate 16 /min Dora Older SUPERINTENDENT CEMETERY.SENIOR JAVA ARCHITECT Work Phone: [facility] 01-09-2025 14:12-0400 SaO2% (BldA) [Mass fraction] 100 % Dora Older SUPERINTENDENT CEMETERY.SENIOR JAVA ARCHITECT Work Phone: [facility] 01-09-2025 14:12-0400 Systolic blood pressure 108 mm[Hg] Dora Older SUPERINTENDENT CEMETERY.SENIOR JAVA ARCHITECT Work Phone: [facility] 12-19-2024 22:56-0400 Body temperature 98.9 [degF] DORA OLDER BILINGUAL TEACHER AIDE-C Work Phone: [facility] 12-19-2024 22:56-0400 Diastolic blood pressure 75 mm[Hg] DORA OLDER BILINGUAL TEACHER AIDE-C Work Phone: [facility] 12-19-2024 22:56-0400 Heart rate 68 /min DORA OLDER BILINGUAL TEACHER AIDE-C Work Phone: [facility] 12-19-2024 22:56-0400 Respiratory rate 14 /min DORA OLDER BILINGUAL TEACHER AIDE-C Work Phone: [facility] 12-19-2024 22:56-0400 SaO2% (BldA) [Mass fraction] 98 % DORA OLDER BILINGUAL TEACHER AIDE-C Work Phone: [facility] 12-19-2024 22:56-0400 Systolic blood pressure 121 mm[Hg] DORA OLDER BILINGUAL TEACHER AIDE-C Work Phone: [facility] 12-19-2024 19:51-0400 Body height 154.94 cm DORA OLDER BILINGUAL TEACHER AIDE-C Work Phone: [facility] 12-19-2024 19:51-0400 Body mass index (BMI) [Ratio] 30.2 kg/m2 DORA OLDER BILINGUAL TEACHER AIDE-C Work Phone: [facility] 12-19-2024 19:51-0400 Body weight 72.7 kg DORA OLDER BILINGUAL TEACHER AIDE-C Work Phone: [facility] 09-03-2024 11:07-0400 Body mass index (BMI) [Ratio] 32.31 kg/m2 Dora Older SUPERINTENDENT CEMETERY.SENIOR JAVA ARCHITECT Work Phone: [facility] 09-03-2024 11:07-0400 Body weight 77.56 kg Dora Older SUPERINTENDENT CEMETERY.SENIOR JAVA ARCHITECT Work Phone: [facility] 09-03-2024 11:07-0400 Diastolic blood pressure 70 mm[Hg] Dora Older SUPERINTENDENT CEMETERY.SENIOR JAVA ARCHITECT Work Phone: [facility] 09-03-2024 11:07-0400 Heart rate 84 /min Dora Older SUPERINTENDENT CEMETERY.SENIOR JAVA ARCHITECT Work Phone: [facility] 09-03-2024 11:07-0400 Respiratory rate 16 /min Dora Older SUPERINTENDENT CEMETERY.SENIOR JAVA ARCHITECT Work Phone: [facility] 09-03-2024 11:07-0400 SaO2% (BldA) [Mass fraction] 96 % Dora Older SUPERINTENDENT CEMETERY.SENIOR JAVA ARCHITECT Work Phone: [facility] 09-03-2024 11:07-0400 Systolic blood pressure 112 mm[Hg] Dora Older SUPERINTENDENT CEMETERY.SENIOR JAVA ARCHITECT Work Phone: [facility] 03-16-2024 15:35-0400 Body height 154.9 cm Floyd Avelar MD Work Phone: [facility] 03-16-2024 15:35-0400 Body mass index (BMI) [Ratio] 31.06 kg/m2 Floyd Avelar MD Work Phone: [facility] 03-16-2024 15:35-0400 Body temperature 97 [degF] Floyd Avelar MD Work Phone: [facility] 03-16-2024 15:35-0400 Body weight 74.57 kg Floyd Avelar MD Work Phone: [facility] 03-16-2024 15:35-0400 Diastolic blood pressure 92 mm[Hg] Floyd Avelar MD Work Phone: [facility] 03-16-2024 15:35-0400 Heart rate 102 /min Floyd Avelar MD Work Phone: [facility] 03-16-2024 15:35-0400 SaO2% (BldA) [Mass fraction] 99 % Floyd Avelar MD Work Phone: [facility] 03-16-2024 15:35-0400 Systolic blood pressure 128 mm[Hg] Floyd Avelar MD Work Phone: [facility] 03-08-2024 15:39-0400 Body mass index (BMI) [Ratio] 32.91 kg/m2 Naga Marks MD Work Phone: [facility] 03-08-2024 15:39-0400 Body weight 79.02 kg Naga Marks MD Work Phone: [facility] 03-08-2024 15:39-0400 Diastolic blood pressure 90 mm[Hg] Naga Marks MD Work Phone: [facility] 03-08-2024 15:39-0400 Systolic blood pressure 128 mm[Hg] Naga Marks MD Work Phone: [facility] 02-28-2024 14:35-0400 Body mass index (BMI) [Ratio] 34.77 kg/m2 Camille Robertson APRN.CNM Work Phone: [facility] 02-28-2024 14:35-0400 Body weight 83.46 kg Camille Robertson APRN.CNM Work Phone: [facility] 02-28-2024 14:35-0400 Diastolic blood pressure 72 mm[Hg] Camille Robertson APRN.CNM Work Phone: [facility] 02-28-2024 14:35-0400 Systolic blood pressure 110 mm[Hg] Camille Robertson APRN.CNM Work Phone: [facility] 02-21-2024 14:37-0400 Body mass index (BMI) [Ratio] 34.31 kg/m2 Camille Robertson SUPERINTENDENT CEMETERY.CNM Work Phone: [facility] 02-21-2024 14:37-0400 Body weight 82.37 kg Camille Robertson SUPERINTENDENT CEMETERY.CNM Work Phone: [facility] 02-21-2024 14:37-0400 Diastolic blood pressure 80 mm[Hg] Camille Robertson SUPERINTENDENT CEMETERY.CNM Work Phone: [facility] 02-21-2024 14:37-0400 Systolic blood pressure 120 mm[Hg] Camille Robertson SUPERINTENDENT CEMETERY.CNM Work Phone: [facility] 02-15-2024 13:51-0400 Body mass index (BMI) [Ratio] 34.39 kg/m2 Alicia Meeks MD Work Phone: [facility] 02-15-2024 13:51-0400 Body weight 82.56 kg Alicia Meeks MD Work Phone: [facility] 02-15-2024 13:51-0400 Diastolic blood pressure 76 mm[Hg] Alicia Meeks MD Work Phone: [facility] 02-15-2024 13:51-0400 Systolic blood pressure 118 mm[Hg] Alicia Meeks MD Work Phone: [facility] 02-10-2024 11:38-0400 Body mass index (BMI) [Ratio] 34.77 kg/m2 Alicia Meeks MD Work Phone: [facility] 02-10-2024 11:38-0400 Body weight 83.46 kg Alicia Meeks MD Work Phone: [facility] 02-10-2024 11:38-0400 Diastolic blood pressure 74 mm[Hg] Alicia Meeks MD Work Phone: [facility] 02-10-2024 11:38-0400 Systolic blood pressure 116 mm[Hg] Aliciayayo Meeks MD Work Phone: [facility] 01-26-2024 11:09-0400 Diastolic blood pressure 66 mm[Hg] Mi Santillan MD Work Phone: [facility] 01-26-2024 11:09-0400 Systolic blood pressure 108 mm[Hg] Mi Santillan MD Work Phone: [facility] 01-18-2024 14:31-0400 Body mass index (BMI) [Ratio] 33.44 kg/m2 Camille Robertson SUPERINTENDENT CEMETERY.CNM Work Phone: [facility] 01-18-2024 14:31-0400 Body weight 80.29 kg Camille Robertson SUPERINTENDENT CEMETERY.CNM Work Phone: [facility] 01-18-2024 14:31-0400 Diastolic blood pressure 76 mm[Hg] Camille Robertson SUPERINTENDENT CEMETERY.CNM Work Phone: [facility] 01-18-2024 14:31-0400 Systolic blood pressure 114 mm[Hg] Camille Robertson SUPERINTENDENT CEMETERY.CNM Work Phone: [facility] 01-04-2024 15:49-0400 Body mass index (BMI) [Ratio] 32.31 kg/m2 Dee Haury SUPERINTENDENT CEMETERY.SENIOR JAVA ARCHITECT Work Phone: [facility] 01-04-2024 15:49-0400 Body weight 77.56 kg Dee Haury SUPERINTENDENT CEMETERY.SENIOR JAVA ARCHITECT Work Phone: [facility] 01-04-2024 15:49-0400 Diastolic blood pressure 60 mm[Hg] Dee Haury SUPERINTENDENT CEMETERY.SENIOR JAVA ARCHITECT Work Phone: [facility] 01-04-2024 15:49-0400 Systolic blood pressure 108 mm[Hg] Dee Haury SUPERINTENDENT CEMETERY.SENIOR JAVA ARCHITECT Work Phone: [facility] 12-21-2023 13:15-0400 Body mass index (BMI) [Ratio] 31.44 kg/m2 Mi Santillan MD Work Phone: [facility] 12-21-2023 13:15-0400 Body weight 75.48 kg Mi Santillan MD Work Phone: [facility] 12-21-2023 13:15-0400 Diastolic blood pressure 64 mm[Hg] Mi Santillan MD Work Phone: [facility] 12-21-2023 13:15-0400 Systolic blood pressure 102 mm[Hg] Mi Santillan MD Work Phone: [facility] 11-23-2023 14:28-0400 Body mass index (BMI) [Ratio] 29.48 kg/m2 Dee Haury SUPERINTENDENT CEMETERY.SENIOR JAVA ARCHITECT Work Phone: [facility] 11-23-2023 14:28-0400 Body weight 70.76 kg Dee Hahayden SUPERINTENDENT CEMETERY.SENIOR JAVA ARCHITECT Work Phone: [facility] 11-23-2023 14:28-0400 Diastolic blood pressure 62 mm[Hg] Dee Haury SUPERINTENDENT CEMETERY.SENIOR JAVA ARCHITECT Work Phone: [facility] 11-23-2023 14:28-0400 Heart rate 86 /min Dee Haury SUPERINTENDENT CEMETERY.SENIOR JAVA ARCHITECT Work Phone: [facility] 11-23-2023 14:28-0400 Respiratory rate 12 /min Dee Haury SUPERINTENDENT CEMETERY.SENIOR JAVA ARCHITECT Work Phone: [facility] 11-23-2023 14:28-0400 SaO2% (BldA) [Mass fraction] 100 % Dee Haury SUPERINTENDENT CEMETERY.SENIOR JAVA ARCHITECT Work Phone: [facility] 11-23-2023 14:28-0400 Systolic blood pressure 108 mm[Hg] Dee Haury SUPERINTENDENT CEMETERY.SENIOR JAVA ARCHITECT Work Phone: [facility] 11-09-2023 11:07-0400 Body mass index (BMI) [Ratio] 28.72 kg/m2 Mi Santillan MD Work Phone: [facility] 11-09-2023 11:07-0400 Body weight 68.95 kg Mi Santillan MD Work Phone: [facility] 11-09-2023 11:07-0400 Diastolic blood pressure 60 mm[Hg] Mi Santillan MD Work Phone: [facility] 11-09-2023 11:07-0400 Systolic blood pressure 100 mm[Hg] Mi Santillan MD Work Phone: [facility] 10-12-2023 09:11-0400 Body mass index (BMI) [Ratio] 26.19 kg/m2 Mi Santillan MD Work Phone: [facility] 10-12-2023 09:11-0400 Body weight 62.87 kg Mi Santillan MD Work Phone: [facility] 10-12-2023 09:11-0400 Diastolic blood pressure 68 mm[Hg] Mi Santillan MD Work Phone: [facility] 10-12-2023 09:11-0400 Systolic blood pressure 102 mm[Hg] Mi Santillan MD Work Phone: [facility] 09-19-2023 10:59-0400 Body height 154.9 cm Dee Haury SUPERINTENDENT CEMETERY.SENIOR JAVA ARCHITECT Work Phone: [facility] 09-19-2023 10:59-0400 Body mass index (BMI) [Ratio] 24.45 kg/m2 Dee Haury SUPERINTENDENT CEMETERY.SENIOR JAVA ARCHITECT Work Phone: [facility] 09-19-2023 10:59-0400 Body weight 58.7 kg Dee Haury SUPERINTENDENT CEMETERY.SENIOR JAVA ARCHITECT Work Phone: [facility] 09-19-2023 10:59-0400 Diastolic blood pressure 58 mm[Hg] Dee Haury SUPERINTENDENT CEMETERY.SENIOR JAVA ARCHITECT Work Phone: [facility] 09-19-2023 10:59-0400 Systolic blood pressure 92 mm[Hg] Dee Haury SUPERINTENDENT CEMETERY.SENIOR JAVA ARCHITECT Work Phone: [facility] 09-12-2023 17:20-0400 Body temperature 98.6 [degF] Wendy Andrew SUPERINTENDENT CEMETERY.SENIOR JAVA ARCHITECT Work Phone: [facility] 09-12-2023 17:20-0400 Body weight 58.4 kg Wendy Praisler-Wood SUPERINTENDENT CEMETERY.SENIOR JAVA ARCHITECT Work Phone: [facility] 09-12-2023 17:20-0400 Diastolic blood pressure 78 mm[Hg] Wendy Praisler-Wood SUPERINTENDENT CEMETERY.SENIOR JAVA ARCHITECT Work Phone: [facility] 09-12-2023 17:20-0400 Heart rate 82 /min Wendy Praisler-Wood SUPERINTENDENT CEMETERY.SENIOR JAVA ARCHITECT Work Phone: [facility] 09-12-2023 17:20-0400 Respiratory rate 21 /min Wendy Praisler-Wood SUPERINTENDENT CEMETERY.SENIOR JAVA ARCHITECT Work Phone: [facility] 09-12-2023 17:20-0400 SaO2% (BldA) [Mass fraction] 100 % Wendy Praisler-Wood SUPERINTENDENT CEMETERY.SENIOR JAVA ARCHITECT Work Phone: [facility] 09-12-2023 17:20-0400 Systolic blood pressure 110 mm[Hg] Wendy Praisler-Wood SUPERINTENDENT CEMETERY.SENIOR JAVA ARCHITECT Work Phone: [facility] 07-05-2022 15:35-0500 Body temperature 98.49 [degF] Ajith Galdamez Jr., MD Work Phone: [facility] 07-05-2022 15:35-0500 Body weight 59.6 kg Ajith Galdamez Jr., MD Work Phone: [facility] 07-05-2022 15:35-0500 Diastolic blood pressure 57 mm[Hg] Ajith Galdamez Jr., MD Work Phone: [facility] 07-05-2022 15:35-0500 Heart rate 78 /min Ajith Galdamez Jr., MD Work Phone: [facility] 07-05-2022 15:35-0500 Respiratory rate 16 /min Ajith Galdamez Jr., MD Work Phone: [facility] 07-05-2022 15:35-0500 SaO2% (BldA) [Mass fraction] 99 % Ajith Galdamez Jr., MD Work Phone: [facility] 07-05-2022 15:35-0500 Systolic blood pressure 98 mm[Hg] Ajith Galdamez Jr., MD Work Phone: [facility] 05-03-2022 10:29-0500 Body temperature 97.9 [degF] Dora Older SUPERINTENDENT CEMETERY.SENIOR JAVA ARCHITECT Work Phone: [facility] 05-03-2022 10:29-0500 Body weight 55.79 kg Dora Older SUPERINTENDENT CEMETERY.SENIOR JAVA ARCHITECT Work Phone: [facility] 05-03-2022 10:29-0500 Diastolic blood pressure 60 mm[Hg] Dora Older SUPERINTENDENT CEMETERY.SENIOR JAVA ARCHITECT Work Phone: [facility] 05-03-2022 10:29-0500 Heart rate 90 /min Dora Older SUPERINTENDENT CEMETERY.SENIOR JAVA ARCHITECT Work Phone: [facility] 05-03-2022 10:29-0500 Respiratory rate 16 /min Dora Older SUPERINTENDENT CEMETERY.SENIOR JAVA ARCHITECT Work Phone: [facility] 05-03-2022 10:29-0500 SaO2% (BldA) [Mass fraction] 100 % Dora Older SUPERINTENDENT CEMETERY.SENIOR JAVA ARCHITECT Work Phone: [facility] 05-03-2022 10:29-0500 Systolic blood pressure 104 mm[Hg] Dora Older SUPERINTENDENT CEMETERY.SENIOR JAVA ARCHITECT Work Phone: [facility] 03-01-2022 11:39-0400 Body weight 54.88 kg Dora Older SUPERINTENDENT CEMETERY.SENIOR JAVA ARCHITECT Work Phone: [facility] 03-01-2022 11:39-0400 Diastolic blood pressure 72 mm[Hg] Dora Older SUPERINTENDENT CEMETERY.SENIOR JAVA ARCHITECT Work Phone: [facility] 03-01-2022 11:39-0400 Heart rate 92 /min Dora Older SUPERINTENDENT CEMETERY.SENIOR JAVA ARCHITECT Work Phone: [facility] 03-01-2022 11:39-0400 Respiratory rate 16 /min Dora Older SUPERINTENDENT CEMETERY.SENIOR JAVA ARCHITECT Work Phone: [facility] 03-01-2022 11:39-0400 Systolic blood pressure 120 mm[Hg] Dora Older SUPERINTENDENT CEMETERY.SENIOR JAVA ARCHITECT Work Phone: [facility] 11-27-2021 10:07-0400 Body height 154.94 cm [facility] Work Phone: 11-27-2021 10:07-0400 Body mass index (BMI) [Ratio] 23.6 kg/m2 [facility] Work Phone: 11-27-2021 10:07-0400 Body temperature 97.5 [degF] [facility] Work Phone: 11-27-2021 10:07-0400 Body weight 56.69 kg [facility] Work Phone: 11-27-2021 10:07-0400 Diastolic blood pressure 70 mm[Hg] [facility] Work Phone: 11-27-2021 10:07-0400 Heart rate 77 /min [facility] Work Phone: 11-27-2021 10:07-0400 Respiratory rate 16 /min [facility] Work Phone: 11-27-2021 10:07-0400 SaO2% (BldA) [Mass fraction] 100 % [facility] Work Phone: 11-27-2021 10:07-0400 Systolic blood pressure 111 mm[Hg] [facility] Work Phone: 09-11-2021 14:45-0400 Body weight 56.7 kg Dora Older SUPERINTENDENT CEMETERY.SENIOR JAVA ARCHITECT Work Phone: [facility] 09-11-2021 14:45-0400 Diastolic blood pressure 70 mm[Hg] Droa Older SUPERINTENDENT CEMETERY.SENIOR JAVA ARCHITECT Work Phone: [facility] 09-11-2021 14:45-0400 Heart rate 80 /min Dora Older SUPERINTENDENT CEMETERY.SENIOR JAVA ARCHITECT Work Phone: [facility] 09-11-2021 14:45-0400 Respiratory rate 16 /min Dora Restrepo SUPERINTENDENT CEMETERY.SENIOR JAVA ARCHITECT Work Phone: [facility] 09-11-2021 14:45-0400 Systolic blood pressure 112 mm[Hg] Dora Restrepo SUPERINTENDENT CEMETERY.SENIOR JAVA ARCHITECT Work Phone: [facility] Encounters Encounter Date Encounter Type Care Provider Facility Start: 02-21-2025 End: 02-21-2025 ambulatory [facility] Facility:[facility] Start: 02-20-2025 End: 02-20-[facility] Start: 01-09-2025 End: 01-09-2025 [facility] Facility:[facility] Start: 01-09-2025 End: 01-09-2025 Patient encounter procedure Dora Restrepo SUPERINTENDENT CEMETERY.SENIOR JAVA ARCHITECT Work Phone: [facility] Start: 01-09-2025 End: 01-09-2025 Periodic preventive med est patient 18-39 yrs Dora Restrepo SUPERINTENDENT CEMETERY.SENIOR JAVA ARCHITECT Work Phone: [facility] [place] Comment on above: Annual physical exam (Primary Dx); Callus of foot; Pain in right foot; Migraine with aura and without status migrainosus, not intractable; Anxiety with depression; Allergic sinusitis Start: 01-09-2025 End: 01-09-2025 [facility] Start: 12-19-2024 End: 12-19-2024 Emergency department patient visit DORA RESTREPO BILINGUAL TEACHER AIDE-C Work Phone: -Emergency Department Work Phone: Start: 11-07-2024 End: 11-07-2024 Patient encounter procedure Lukasz De La O OT/L Work Phone: [facility] Comment on above: Pain in right wrist Start: 11-07-2024 End: 11-07-2024 ambulatory Lukasz De La O OT/L Work Phone: [facility] Start: 11-07-2024 End: 12-18-2024 Telephone encounter Vijay uGo DO Work Phone: [address] [place] [address] Comment on above: Patient Question Start: 11-06-2024 End: 11-06-2024 Orders Only Vijay Guo DO Work Phone: Orthopaedics Comment on above: Pain in right wrist (Primary Dx) Start: 10-24-2024 End: 12-24-2024 Follow-up encounter Dora Restrepo APRN.SENIOR JAVA ARCHITECT Work Phone: [facility] [place] Start: 10-23-2024 End: 10-23-2024 Patient encounter procedure Vijay Guo DO Work Phone: [facility] [place] Comment on above: Right wrist pain; Wrist weakness Start: 10-23-2024 End: 10-23-2024 ambulatory VIJAY FRED Facility:[facility] Start: 10-17-2024 End: 10-17-2024 ambulatory DORA RESTREPO Facility:[facility] Start: 10-13-2024 End: 10-13-2024 ambulatory Hanna Sharma RN Work Phone: NURSE MANAGER STAFFING Comment on above: Wrist Pain Start: 09-03-2024 End: 09-03-2024 ambulatory DORA RESTREPO Facility:[facility] Start: 09-03-2024 End: 09-03-2024 Patient encounter procedure Dora Restrepo SUPERINTENDENT CEMETERY.SENIOR JAVA ARCHITECT Work Phone: [facility] [place] Comment on above: Nasal polyp (Primary Dx); Environmental allergies Start: 03-16-2024 End: 03-16-2024 Patient encounter procedure Floyd Avelar MD Work Phone: General Surgery Comment on above: Right upper quadrant pain (Primary Dx); Costochondritis Start: 03-16-2024 End: 03-16-2024 ambulatory FLOYD AVELAR Facility:[facility] Start: 03-09-2024 End: 03-09-2024 Telephone encounter Naga Marks MD Work Phone: OB/Gynecology Comment on above: Orders Start: 03-09-2024 End: 03-09-2024 ambulatory NAGA MARKS Facility:[facility] Start: 03-09-2024 End: 03-09-2024 Subsequent hospital visit by physician [facility] Work Phone: Radiology Comment on above: RUQ pain [R10.11] Start: 03-08-2024 End: 03-08-2024 ambulatory NAGA MARKS Facility:[facility] Start: 03-08-2024 End: 03-08-2024 Patient encounter procedure Naga Marks MD Work Phone: OB/Gynecology Comment on above: state (Pr imary Dx); RUQ pain; S/P section; Nausea Start: 03-08-2024 End: 03-08-2024 ambulatory LEX PHILLIPS Facility:[facility] Start: 03-08-2024 End: 03-08-2024 Subsequent hospital visit by physician [facility] Work Phone: Radiology Comment on above: Post-operative state [Z98.890] Start: 03-08-2024 End: 03-08-2024 Telephone encounter Naga Marks MD Work Phone: OB/Gynecology Comment on above: Care Start: 03-05-2024 End: 03-05-2024 ambulatory Naga Marks MD Work Phone: OB/Gynecology Comment on above: Ob Delivery Note Start: 03-02-2024 End: 03-05-2024 Evaluation and management of inpatient DORA OLDER Facility:[facility] Start: 02-28-2024 End: 02-28-2024 Patient encounter procedure Camille Robertson APRN.CNM Work Phone: OB/Gynecology Comment on above: Encounter for superv ision of high risk in third trimester, antepartum (Primary Dx); Rubella non-immune status, antepartum; Marijuana use; History of depression; 39 weeks gestation of ; Rh negative state in antepartum period Start: 02-21-2024 End: 02-21-2024 Patient encounter procedure Camille Robertson APRN.CNM Work Phone: OB/Gynecology Comment on above: 38 weeks gestation o f (Primary Dx); Encounter for supervision of high risk in third trimester, antepartum; Rubella non-immune status, antepartum; Marijuana use; History of depression; Late care affecting in second trimester; Penicillin allergy Start: 02-15-2024 End: 02-15-2024 Patient encounter procedure Alicia Meeks MD Work Phone: OB/Gynecology Comment on above: Encounter for superv ision of high risk in third trimester, antepartum (Primary Dx); Excessive weight gain in , third trimester; Need for influenza vaccination; 37 weeks gestation of Start: 02-10-2024 End: 02-10-2024 Patient encounter procedure [...] weeks gestation of Start: 01-26-2024 End: 01-26-2024 Patient encounter procedure [facility] [place] [facility] Work Phone: OB/Gynecology Comment on above: Encounter for superv ision of high risk in third trimester, antepartum (Primary Dx); Excessive weight gain in , third trimester Start: 01-18-2024 End: 01-18-2024 Patient encounter procedure [...] End: 01-15-2024 ambulatory Janet Boyle RN NURSE MANAGER STAFFING Start: 01-15-2024 End: 01-15-2024 Patient encounter procedure Janet Boyle RN NURSE MANAGER STAFFING Comment on above: Referral Request Start: 01-04-2024 End: 01-04-2024 Patient encounter procedure Dee Fields APRN.SENIOR JAVA ARCHITECT Work Phone: OB/Gynecology Comment on above: Encounter for superv ision of other normal in third trimester (Primary Dx); 31 weeks gestation of ; Rh negative state in antepartum period; Penicillin allergy Start: 12-27-2023 Telephone encounter [facility] Comment on above: PR[facility] Start: 12-21-2023 End: 12-21-2023 Office outpatient visit 15 minutes Mi Santillan MD Work Phone: OB/Gynecology Comment on above: 29 weeks gestation o f (Primary Dx); Encounter for supervision of other normal in second trimester; Rh negative state in antepartum period, second trimester; Need for vaccination; Rh negative state in antepartum period Start: 11-23-2023 End: 11-23-2023 Patient encounter procedure Dee Fields APRN.SENIOR JAVA ARCHITECT Work Phone: OB/Gynecology Comment on above: Encounter for superv ision of other normal in second trimester (Primary Dx); 25 weeks gestation of ; Rh negative state in antepartum period, second trimester; Penicillin allergy Start: 11-15-2023 Refill Dee SALGUERO RN.SENIOR JAVA ARCHITECT Work Phone: OB/Gynecology Comment on above: Med Change Request Start: 11-09-2023 End: 11-09-2023 Office outpatient visit 15 minutes Mi Santillan MD Work Phone: OB/Gynecology Comment on above: Encounter for superv ision of normal first in second trimester (Primary Dx); 23 weeks gestation of Start: 10-25-2023 Telephone encounter [facility] Comment on above: PR[facility] Start: 10-24-2023 ambulatory Dee Ramos RN NURSE MANAGER STAFFING Comment on above: Information Start: 10-13-2023 E-mail encounter fro m caregiver Saskia Farias APRN.AMBER Work Phone: OB/Gynecology Start: 10-13-2023 Patient encounter procedure Saskia Farias APRN.SENIOR JAVA ARCHITECT Work Phone: OB/Gynecology Comment on above: 10/20/23 appointment Start: 10-12-2023 End: 10-12-2023 Patient encounter procedure [facility] Work Phone: OB/Gynecology Comment on above: Encounter for anatomic survey (Primary Dx); 19 weeks gestation of Encounter for superv ision of normal first in second trimester (Primary Dx); 19 weeks gestation of Start: 10-10-2023 Telephone encounter Dee newton APRN.SENIOR JAVA ARCHITECT Work Phone: OB/Gynecology Comment on above: Breast Pump Start: 09-20-2023 Telephone encounter [facility] Comment on above: [facility] ([facility]) Start: 09-19-2023 End: 09-19-2023 Patient encounter procedure Dee Fields APRN.CNP Work Phone: OB/Gynecology Comment on above: Encounter [...] Start: 09-12-2023 End: 09-12-2023 Patient encounter procedure Wendy Andrew APRN.CNP Work Phone: [facility] Comment on above: Missed periods (Prim breanna Dx); , unspecified gestational age Start: 12-05-2022 Refill Dora Restrepo APRN, .CNP Work Phone: [facility] [place] Comment on above: Refill Request; Refi ll Request Start: 10-26-2022 Telephone encounter Saskia harding APRN.SENIOR JAVA ARCHITECT Work Phone: OB/Gynecology Comment on above: Results Start: 10-26-2022 End: 10-26-2022 Subsequent hospital visit by physician [facility] Work Phone: Radiology Comment on above: Pelvic pain in femal e [R10.2] Start: 08-11-2022 End: 08-11-2022 Patient encounter procedure Latosha Sherwood SUPERINTENDENT CEMETERY.SENIOR JAVA ARCHITECT Work Phone: Psychiatry Comment on above: NO SHOW (Primary Dx) Start: 07-05-2022 End: 07-05-2022 Patient encounter procedure Ajith Galdamez MD Work Phone: Neurology Comment on above: Intractable migraine without aura and without status migrainosus (Primary Dx); Tension headache; Insomnia, unspecified type; Delayed sleep phase syndrome Start: 06-14-2022 Telephone encounter Manuela oropeza VENEER SHEET REPAIRER Work Phone: Adult Psychology Comment on above: Behavioral Health So cial Work Start: 05-25-2022 Refill Kwabena Hollins Work Phone: [facility] [place] Comment on above: Refill Request Start: 05-03-2022 End: 05-03-2022 Patient encounter procedure Dora Restrpeo APRN.SENIOR JAVA ARCHITECT Work Phone: [facility] [place] Comment on above: Migraine without sta tus migrainosus, not intractable, unspecified migraine type (Primary Dx); Insomnia, unspecified type Start: 04-30-2022 Telephone encounter Kwabena carr MD Work Phone: [facility] [place] Comment on above: Letter Start: 03-03-2022 Telephone encounter Kwabena carr MD Work Phone: [facility] [place] Comment on above: Elidia BURNS Start: 03-01-2022 End: 03-01-2022 Patient encounter procedure Dora Restrepo APRN.SENIOR JAVA ARCHITECT Work Phone: [facility] [place] Comment on above: Burning with urinati on (Primary Dx); Insomnia, unspecified type; Lower abdominal pain; Migraine without status migrainosus, not intractable, unspecified migraine type Start: 02-23-2022 Refill Kwabena Hollins Work Phone: [facility] [place] Comment on above: Refill Request Start: 02-17-2022 Refill Dora NovaSENIOR JAVA ARCHITECT Work Phone: [facility] [place] Comment on above: Refill Request Start: 02-03-2022 Telephone encounter Kwabena carr MD Work Phone: [facility] [place] Comment on above: Insurance Authorizat ion Start: 01-22-2022 Refill Kwabena Hollins Work Phone: [facility] Comment on above: Refill Request Start: 01-22-2022 Refill Dora NovaSENIOR JAVA ARCHITECT Work Phone: [facility] Comment on above: Med Change Request Start: 12-29-2021 Telephone encounter Kwabena carr MD Work Phone: [facility] [place] Comment on above: Patient Request Refill Request Start: 11-27-2021 ambulatory Kwabena Hollins Work Phone: [facility] [place] Comment on above: Dizziness Start: 11-27-2021 End: 11-27-2021 Emergency department patient visit [facility] Start: 11-13-2021 Refill Kwabena Hollins Work Phone: [facility] [place] Comment on above: Refill Request Start: 10-12-2021 Telephone encounter Dora Restrepo APRN.SENIOR JAVA ARCHITECT Work Phone: [facility] [place] Comment on above: Results Start: 09-29-2021 End: 09-29-2021 Subsequent hospital visit by physician [facility] (I-Stat/1.5t) Work Phone: Radiology Comment on above: Migraine without sta tus migrainosus, not intractable, unspecified migraine type [G43.909] Start: 09-11-2021 End: 09-11-2021 Patient encounter procedure Dora Restrepo APRN.SENIOR JAVA ARCHITECT Work Phone: [facility] [place] Comment on above: Migraine without sta tus migrainosus, not intractable, unspecified migraine type (Primary Dx) Start: 09-04-2021 Refill Dora Restrepo APRN .SENIOR JAVA ARCHITECT Work Phone: [facility] [place] Comment on above: Refill Request Procedures Date Procedure Procedure Detail Performing Clinician Start: 12-19-2024 CT of head without contrast DORA RESTREPO BILINGUAL TEACHER AIDE-C Work Phone: Start: 03-09-2024 Us abdominal real ti me w/image limited Naga Marks MD Work Phone: Start: 03-08-2024 Radiologic exam abdo men 2 views Lex Phillips MD Work Phone: Start: 03-02-2024 Antibody screen [facility] Comment on above: Order Comment: Comme nts: Age > 13 Weeks babyboy shank [id number] Performed By: #### B Rho(D) IG, BRHNM #### [facility] [address] [place], [address] Start: 02-28-2024 Urnls dip stick/tabl et rgnt non-auto w/o micrscp Camille Robertson APRN.CNM Work Phone: Start: 02-21-2024 Urnls dip stick/tabl et rgnt non-auto w/o micrscp Lex Phillips MD Work Phone: Start: 02-15-2024 Urnls dip stick/tabl et rgnt non-auto w/o micrscp Alicia Meeks MD Work Phone: Start: 02-10-2024 Urnls dip stick/tabl et rgnt non-auto w/o micrscp Ruth Morris MD Work Phone: Start: 01-26-2024 Us preg uterus after 1st trimest 05/30 gestation Camille Robertson APRN.CNM Work Phone: Start: 10-12-2023 Us preg uterus after 1st trimest 05/30 gestation Dee Fields SUPERINTENDENT CEMETERY.SENIOR JAVA ARCHITECT Work Phone: Start: 09-12-2023 UA DIP,URINE HCG (POC) [facility] Provider Start: 10-26-2022 Us transvaginal Saskia todd SUPERINTENDENT CEMETERY.SENIOR JAVA ARCHITECT Work Phone: Start: 03-01-2022 Urnls dip stick/tabl et rgnt auto w/o microscopy Dora Restrepo APRN.CNP Work Phone: Start: 10-08-2021 Adult depression screening assessment Dora Restrepo APRN.CNP Work Phone: Start: 09-29-2021 Mri brain brain stem w/o w/contrast material Gabi Osorio MD Work Phone: H/O: section S/P sectio n Naga Marks MD Work Phone: Plan of Treatment Date Care Activity Detail Author Start: 2059 RSV Vaccine (1 - 1-d ose 60+ series) RSV Vaccine (1 - 1-dose 60+ series) [facility] Start: 12-20-2033 Urine microalbumin profile DTaP,Tdap,Td Vaccine (8 - Td or Tdap) [facility] Start: 01-09-2026 HPV Vaccine (1 - 3-d ose series) HPV Vaccine (1 - 3-dose series) [facility] Comment on above: Postponed from 01/16 (Declined at this time) Start: 10-18-2025 PAP TESTING PAP TESTING [facility] Start: 10-18-2025 Screening for malign ant neoplasm of cervix [facility] Start: 02-21-2025 End: 02-21-2025 Patient encounter procedure 02/21/2025 2:45 PM EDT Office Visit Podiatry [address] [place], [place] [id number] Xochitl Ochoa [address] [place], [place] [id number] Dx: Callus of foot [L84]; Pain in right foot [M79.671] Podiatry Comment on above: Dx: Callus of foot [ L84]; Pain in right foot [M79.671] Start: 02-20-2025 End: 02-20-2025 Patient encounter procedure 02/20/2025 2:00 PM EDT Office Visit [facility] Medicine [place] [address] [place] [address] Dora Restrepo APRN.CNP [address], [place] [id number] FOLLOW UP [facility] [place] Comment on above: FOLLOW UP Start: 01-28-2025 Influenza vaccination Influenza Vacc ine (#1) [facility] Start: 01-09-2025 End: 04-10-2025 CBC W Auto Differential panel - Blood [facility] Work Phone: Comment on above: Expected: 01/09/2025 , Expires: 04/10/2025 Start: 01-09-2025 End: 04-10-2025 Comprehensive metabolic 2000 panel - Serum or Plasma [facility] Comment on above: Expected: 01/09/2025 , Expires: 04/10/2025 Start: 01-09-2025 End: 04-10-2025 Thyrotropin [Units/volume] in Serum or Plasma [facility] Comment on above: Expected: 01/09/2025 , Expires: 04/10/2025 Start: 12-19-2024 [facility] Start: 11-07-2024 End: 11-07-2024 Patient encounter procedure 11/07/2024 5:00 PM EDT OT/PT/Speech Visit [facility] [address] [place] [address] Lukasz De La O OT/L [address] [place] [address] Pain in right wrist [M25.531] [facility] Comment on above: Pain in right wrist [M25.531] Start: 11-01-2024 End: 11-01-2024 Patient encounter procedure 11/01/2024 3:30 PM EDT Appointment Radiology [address] [place] [address] x: Right wrist pain [M25.531] Radiology Comment on above: x: Right wrist pain [M25.531] Start: 10-17-2024 End: 10-17-2024 Patient encounter procedure 10/17/2024 11:00 AM EDT Office Visit [facility] [place] [address] [place] [address] Dora Restrepo APRN.SENIOR JAVA ARCHITECT [address] [place] [address] RT WRIST PAIN [facility] [place] Comment on above: RT WRIST PAIN Start: 03-16-2024 End: 03-16-2024 Patient encounter procedure 03/16/2024 3:00 PM EDT Office Visit General Surgery [address] [place] [address] Floyd Avelar MD [address] [address] RUQ pain General Surgery Comment on above: RUQ pain Start: 03-09-2024 End: 03-09-2024 Patient encounter procedure 03/09/2024 9:00 AM EDT Appointment Radiology [address] [place] [address] RUQ pain [R10.11] Radiology Comment on above: RUQ pain [R10.11] Start: 03-08-2024 End: 06-07-2024 Amylase [Enzymatic activity/volume] in Serum or Plasma [facility] Comment on above: Expected: 03/08/2024 , Expires: 06/07/2024 Start: 03-08-2024 End: 06-07-2024 Comprehensive metabolic 2000 panel - Serum or Plasma [facility] Work Phone: Comment on above: Expected: 03/08/2024 , Expires: 06/07/2024 Start: 03-08-2024 End: 06-07-2024 Lipase [Enzymatic activity/volume] in Serum or Plasma [facility] Comment on above: Expected: 03/08/2024 , Expires: 06/07/2024 Start: 02-28-2024 End: 02-28-2024 Patient encounter procedure 02/28/2024 2:30 PM EDT Routine Office Visit OB/Gynecology [address] [place] [address] Camille Robertson APRN.CNM [address] [place] [address] OB Routine OB/Gynecology Comment on above: OB Routine Start: 02-21-2024 End: 02-21-2024 Patient encounter procedure 02/21/2024 2:30 PM EDT Routine Office Visit OB/Gynecology [address] [place], [place] [address] Lex Phillips MD [address] [place] [address] OB Routine OB/Gynecology Comment on above: OB Routine Start: 02-15-2024 End: 02-15-2024 Patient encounter procedure 02/15/2024 1:40 PM EDT Routine Office Visit OB/Gynecology [address] [place], [place] [id number] Alicia Albert MD [address] [place], [place] [id number] OB OB/Gynecology Comment on above: OB Start: 02-10-2024 End: 02-10-2024 Patient encounter procedure OB/Gynecology Comment on above: Growth Growth/OB OB Start: 01-29-2024 Covid-19 Vaccine ( season) Covid-19 Vaccine ( season) [facility] Start: 01-29-2024 Covid-19 Vaccine ( season) Covid-19 Vaccine ( season) [facility] Start: 01-29-2024 Influenza vaccination [facility] Start: 01-29-2024 RSV Vaccine (1 - Ris k 1-dose series) RSV Vaccine (1 - Risk 1-dose series) [facility] Start: 01-26-2024 End: 01-26-2024 Patient encounter procedure OB/Gynecology Comment on above: Growth Growth / OB Start: 01-18-2024 End: 01-18-2024 Patient encounter procedure 01/18/2024 2:30 PM EDT Routine Office Visit OB/Gynecology [address] [place], [place] [id number] Camille Robertson APRN.[facility] [address] [place] [place] [address] OB OB/Gynecology Comment on above: OB Start: 01-18-2024 End: 01-17-2025 OBSTETRIC ULTRASOUND WHI OBSTETRIC ULTRASOUND WHI Anc Imaging Routine Encounter for supervision of high risk in third trimester, antepartum Excessive weight gain in , third trimester Expected: 01/18/2024, Expires: 01/17/2025 [facility] Work Phone: Comment on above: Expected: 01/18/2024 , Expires: 01/17/2025 Start: 12-26-2023 End: 12-26-2023 Patient encounter procedure 12/26/2023 10:00 AM EDT Office Visit Allergy [address] [address] Jose J Cannon MD [address] [place] [address] Penicillin allergy [Z88.0] Allergy Comment on above: Penicillin allergy [ Z88.0] Start: 12-21-2023 End: 03-21-2024 TYPE + SCREEN [facility] Work Phone: Comment on above: Expected: 12/21/2023 , Expires: 03/21/2024 Start: 12-21-2023 End: 12-21-2023 Patient encounter procedure 12/21/2023 1:10 PM EDT Routine Office Visit OB/Gynecology [address] [place] [address] Mi Santillan MD [address] [place] [address] OB OB/Gynecology Comment on above: OB Start: 12-09-2023 End: 03-09-2024 CBC W Auto Differential panel - Blood COMPLETE BLOOD COUNT AND DIFFERENTIAL Lab Routine Encounter for supervision of normal first in second trimester 23 weeks gestation of Expected: 12/09/2023 (Approximate), Expires: 03/09/2024 [facility] Comment on above: Expected: 12/09/2023 (Approximate), Expires: 03/09/2024 Start: 12-09-2023 End: 03-09-2024 GESTATIONAL GLUCOSE SCREEN, 1-HOUR, 50 GRAM, NON-FASTING GESTATIONAL GLUCOSE SCREEN, 1-HOUR, 50 GRAM, NON-FASTING Lab Routine Encounter for supervision of normal first in second trimester 23 weeks gestation of Expected: 12/09/2023 (Approximate), Expires: 03/09/2024 [facility] Comment on above: Expected: 12/09/2023 (Approximate), Expires: 03/09/2024 Start: 12-09-2023 End: 03-09-2024 SYPHILIS TOTAL W/REFLEX SYPHILIS TOTAL W/REFLEX Lab Routine Encounter for supervision of normal first in second trimester 23 weeks gestation of Expected: 12/09/2023 (Approximate), Expires: 03/09/2024 [facility] Comment on above: Expected: 12/09/2023 (Approximate), Expires: 03/09/2024 Start: 12-09-2023 End: 03-09-2024 TYPE + SCREEN TYPE + SCREEN Blood Bank Routine Encounter for supervision of normal first in second trimester 23 weeks gestation of Expected: 12/09/2023 (Approximate), Expires: 03/09/2024 [facility] Work Phone: Comment on above: Expected: 12/09/2023 (Approximate), Expires: 03/09/2024 Start: 11-23-2023 End: 11-23-2023 Patient encounter procedure 11/23/2023 2:30 PM EDT Routine Office Visit OB/Gynecology [address] [place] [address] Dee Fields, SUPERINTENDENT CEMETERY.SENIOR JAVA ARCHITECT [address] [place] [address] [place] [address] OB OB/Gynecology Comment on above: OB Start: 11-09-2023 End: 11-09-2023 Patient encounter procedure 11/09/2023 11:10 AM EDT Routine Office Visit OB/Gynecology [address] [place] [address] Mi Santillan MD [address] [place] [address] OB OB/Gynecology Comment on above: OB Start: 10-20-2023 End: 10-20-2023 Patient encounter procedure 10/20/2023 9:30 AM EDT Office Visit OB/Gynecology [address] [place] [address] Saskia Farias APRN.SENIOR JAVA ARCHITECT [address] [place] [address] f/u in 1 year for annual PARKING PATROLLER exam OB/Gynecology Comment on above: f/u in 1 year for an nual PARKING PATROLLER exam Start: 10-19-2023 CHLAMYDIA SCREENING (18-24) CHLAMYDIA SCREENING (18-24) [facility] Start: 10-19-2023 GC (GONORRHEA) SCREENING (18-24) GC (GONORRHEA) SCREENING (18-24) [facility] Start: 10-12-2023 End: 10-12-2023 Patient encounter procedure OB/Gynecology Comment on above: Anatomy OB Start: 09-19-2023 End: 12-19-2023 CARRIER SCREEN, STANDARD [facility] Comment on above: Expected: 09/19/2023 , Expires: 12/19/2023 Start: 09-19-2023 End: 12-19-2023 HEMOGLOBIN EVALUATION CASCADE [facility] Comment on above: Expected: 09/19/2023 , Expires: 12/19/2023 Start: 09-19-2023 End: 12-19-2023 Hepatitis B virus surface Ag [Presence] in Serum [facility] Comment on above: Expected: 09/19/2023 , Expires: 12/19/2023 Start: 09-19-2023 End: 12-19-2023 Hepatitis C virus Ab [Presence] in Serum [facility] Comment on above: Expected: 09/19/2023 , Expires: 12/19/2023 Start: 09-19-2023 End: 12-19-2023 HIV 1+2 Ab [Presence] in Serum or Plasma by Immunoassay [facility] Comment on above: Expected: 09/19/2023 , Expires: 12/19/2023 Start: 09-19-2023 End: 09-18-2024 OBSTETRIC ULTRASOUND WHI OBSTETRIC ULTRASOUND WHI Anc Imaging Routine with uncertain dates, antepartum Expected: 09/19/2023, Expires: 09/18/2024 [facility] Comment on above: Expected: 09/19/2023 , Expires: 09/18/2024 Start: 09-19-2023 End: 12-19-2023 RUBELLA IGG ANTIBODY [facility] Comment on above: Expected: 09/19/2023 , Expires: 12/19/2023 Start: 09-19-2023 End: 12-19-2023 SYPHILIS TOTAL W/REFLEX [facility] Comment on above: Expected: 09/19/2023 , Expires: 12/19/2023 Start: 05-30-2023 Behavioral Health Screening Behavioral Health Screening [facility] Start: 01-28-2023 Covid-19 Vaccine ( season) Covid-19 Vaccine () [facility] Start: 01-28-2023 Influenza vaccination [facility] Start: 10-08-2022 Adult depression screening assessment DEPRESSION SCREENING [facility] Start: 10-08-2022 CHLAMYDIA SCREENING (18-24) CHLAMYDIA SCREENING (18-24) [facility] Start: 10-08-2022 COVID-19 VACCINE (#1) COVID-19 VACCI NE (#1) [facility] Comment on above: Postponed from 01/16 (Declined at this time) Postponed from 07/19 (Declined at this time) Start: 10-08-2022 GC (GONORRHEA) SCREENING (18-24) GC (GONORRHEA) SCREENING (18-24) [facility] Start: 10-08-2022 HPV VACCINE (1 - 2-d ose series) HPV VACCINE (1 - 2-dose series) [facility] Comment on above: Postponed from 01/16 (Declined at this time) Start: 10-08-2022 MENINGOCOCCAL B: Consider based on risk (1 of 2 - Risk Bexsero 2-dose series) MENINGOCOCCAL B: Consider based on risk (1 of 2 - Risk Bexsero 2-dose series) [facility] Comment on above: Postponed from 01/16 (Declined at this time) Start: 10-08-2022 PAP TESTING PAP TESTING [facility] Comment on above: Postponed from 01/16 (Declined at this time) Start: 05-30-2022 [facility] Start: 01-28-2022 Influenza vaccination [facility] Start: 12-07-2021 Urine microalbumin profile [facility] Start: 05-30-2021 DEPRESSION ASSESSMENT DEPRESSION ASS ESSMENT [facility] Start: 01-17-2020 PAP TESTING PAP TESTING [facility] Start: 2017 Anxiety Screening Anxiety Screening [facility] Start: 2017 CHLAMYDIA SCREENING (18-24) CHLAMYDIA SCREENING (18-24) [facility] Start: 2017 Depression Screening Depression Scre ening [facility] Start: 2017 GC (GONORRHEA) SCREENING (18-24) GC (GONORRHEA) SCREENING (18-24) [facility] Start: 2017 HEPATITIS C SCREENING HEPATITIS C SC REENING [facility] Start: 2017 HIV SCREENING HIV SCREENING [facility] Start: 2015 Meningococcal B Vaccine: Consider Based On Risk (1 of 2 - Patient Seeks Protection) Meningococcal B Vaccine: Consider Based On Risk (1 of 2 - Patient Seeks Protection) [facility] Start: 2015 MENINGOCOCCAL B: Consider based on risk (1 of 2 - Patient Seeks Protection) MENINGOCOCCAL B: Consider based on risk (1 of 2 - Patient Seeks Protection) [facility] Start: 2014 HPV Vaccine (1 - 3-d ose series) HPV Vaccine (1 - 3-dose series) [facility] Start: 2013 PEDS TO ADULT TRANSITION ANNUAL ASSESSMENT PEDS TO ADULT TRANSITION ANNUAL ASSESSMENT [facility] Start: 2011 Adult depression screening assessment DEPRESSION SCREENING [facility] Start: 2011 PEDS TO ADULT TRANSITION INITIAL DISCUSSION PEDS TO ADULT TRANSITION INITIAL DISCUSSION [facility] Start: 2010 HPV VACCINE (1 - 2-d ose series) HPV VACCINE (1 - 2-dose series) [facility] Start: 2009 MENINGOCOCCAL B: Consider based on risk (1 of 2 - Risk Bexsero 2-dose series) MENINGOCOCCAL B: Consider based on risk (1 of 2 - Risk Bexsero 2-dose series) [facility] Start: 01-17-2008 HPV VACCINE (1 - 2-d ose series) HPV VACCINE (1 - 2-dose series) [facility] Start: 01-17-2004 COVID-19 VACCINE (1) COVID-19 VACCIN E (1) [facility] Start: 1999 COVID-19 VACCINE (#1) COVID-19 VACCI NE (#1) [facility] Bacteria identified in Urine by Culture URINE CULTURE Microbiology Routine with uncertain dates, antepartum 09/19/2023 11:44 AM EDT [facility] Chlamydia trachomatis+Neisseria gonorrhoeae DNA [Presence] in Unspecified specimen by JJ with probe detection GONORRHEA/CHLAMYDIA NAAT Lab Routine with uncertain dates, antepartum 09/19/2023 11:44 AM EDT [facility] End: 11-22-2025 MR Wrist - right WO contrast MRI WRIST WO IVCON RIGHT Radiology Routine Right wrist pain 1 Occurrences starting 10/23/2024 until 11/22/2025 [facility] Work Phone: Comment on above: 1 Occurrences starti ng 10/23/2024 until 11/22/2025 Patient Education ED, Migraine (Classical) [facility] Work Phone: Patient referral [facility] Work Phone: POC AUTO MECHANICS TEACHER ULTRASOUND POC AUT[employer] MECHANICS TEACHER ULTRASO UND Anc Imaging Routine with uncertain dates, antepartum Ordered: 09/19/2023 [facility] Work Phone: Comment on above: Ordered: 09/19/2023 ROUTINE, GR OUP B STREP PCR ROUTINE, GROUP B STREP PCR Microbiology Routine 36 weeks gestation of 02/10/2024 12:02 PM EDT [facility] Work Phone: End: 04-07-2025 US Abdomen RUQ US ABD RIGHT UPPER QUADRANT Radiology Routine RUQ pain 1 Occurrences starting 03/08/2024 until 04/07/2025 [facility] Work Phone: Comment on above: 1 Occurrences starti ng 03/08/2024 until 04/07/2025 End: 04-07-2025 XR Abdomen Supine and Upright XR ABDOMEN 2V ROUTINE SUPINE W UPRIGHT/DECUB/CTL Radiology Routine Post-operative state Nausea 1 Occurrences starting 03/08/2024 until 04/07/2025 [facility] Work Phone: Comment on above: 1 Occurrences starti ng 03/08/2024 until 04/07/2025 XR Abdomen Supine an d Upright XR ABDOMEN 2V ROUTINE SUPINE W UPRIGHT/DECUB/CTL Radiology Routine Post-operative state Nausea 03/08/2024 2:50 PM EDT [facility] Immunizations Immunization Date Immunization Notes Care Provider Fa marlon 03-04-2024 measles, mumps and rubella virus vaccine DORA RESTREPO BILINGUAL TEACHER AIDE-C Work Phone: [facility] 02-15-2024 influenza, seasonal, injectable Alicia Meeks MD Work Phone: [facility] 02-15-2024 influenza virus vacc ine, unspecified formulation Vijay Guo V, Work Phone: [facility] 12-21-2023 RHO(D) immune globul in- IV or IM Mi Santillan MD Work Phone: [facility] 12-21-2023 tetanus toxoid, redu prema diphtheria toxoid, and acellular pertussis vaccine, adsorbed Mi Santillan MD Work Phone: [facility] 08-09-2016 meningococcal polysaccharide (groups A, C, Y and W-135) diphtheria toxoid conjugate vaccine (MCV4P) Dora Restrepo SUPERINTENDENT CEMETERY.SENIOR JAVA ARCHITECT Work Phone: [facility] 12-08-2011 Meningococcal, MCV4, unspecified conjugate formulation(groups A, C, Y and W-135) Dora Restrepo SUPERINTENDENT CEMETERY.SENIOR JAVA ARCHITECT Work Phone: [facility] Work Phone: 07-11-2012 tetanus toxoid, redu prema diphtheria toxoid, and acellular pertussis vaccine, adsorbed Dora Older SUPERINTENDENT CEMETERY.[facility] Work Phone: [facility] Work Phone: 01-09-2004 diphtheria, tetanus toxoids and acellular pertussis vaccine Dora Older SUPERINTENDENT CEMETERY.[facility] Work Phone: [facility] Work Phone: 01-09-2004 measles, mumps and rubella virus vaccine Dora Older SUPERINTENDENT CEMETERY.[facility] Work Phone: [facility] Work Phone: 01-09-2004 poliovirus vaccine, inactivated Dora Older SUPERINTENDENT CEMETERY.[facility] Work Phone: [facility] Work Phone: 12-04-2002 varicella virus vaccine Dora Older SUPERINTENDENT CEMETERY.[facility] Work Phone: [facility] Work Phone: 08-08-2000 diphtheria, tetanus toxoids and acellular pertussis vaccine Dora Older SUPERINTENDENT CEMETERY.[facility] Work Phone: [facility] Work Phone: 08-08-2000 hepatitis B vaccine, pediatric or pediatric/adolescent dosage Dora Older SUPERINTENDENT CEMETERY.[facility] Work Phone: [facility] Work Phone: 08-08-2000 poliovirus vaccine, inactivated Dora Older SUPERINTENDENT CEMETERY.[facility] Work Phone: [facility] Work Phone: 05-12-2000 hepatitis B vaccine, pediatric or pediatric/adolescent dosage Dora Older SUPERINTENDENT CEMETERY.[facility] Work Phone: [facility] Work Phone: 01-27-2000 diphtheria, tetanus toxoids and acellular pertussis vaccine Dora Older SUPERINTENDENT CEMETERY.[facility] Work Phone: [facility] Work Phone: 01-27-2000 haemophilus influenz ae type b vaccine, HbOC conjugate Dora Older SUPERINTENDENT CEMETERY.[facility] Work Phone: [facility] Work Phone: 01-27-2000 hepatitis B vaccine, pediatric or pediatric/adolescent dosage Dora Older SUPERINTENDENT CEMETERY.[facility] Work Phone: [facility] Work Phone: 01-27-2000 measles, mumps and rubella virus vaccine Dora Older SUPERINTENDENT CEMETERY.SENIOR JAVA ARCHITECT Work Phone: [facility] Work Phone: 1999 diphtheria, tetanus toxoids and acellular pertussis vaccine Dora Older SUPERINTENDENT CEMETERY.SENIOR JAVA ARCHITECT Work Phone: [facility] Work Phone: 1999 haemophilus influenz ae type b vaccine, HbOC conjugate Dora Older SUPERINTENDENT CEMETERY.[facility] Work Phone: [facility] Work Phone: 1999 poliovirus vaccine, inactivated Dora Older SUPERINTENDENT CEMETERY.[facility] Work Phone: [facility] Work Phone: 1999 diphtheria, tetanus toxoids and acellular pertussis vaccine Dora Older SUPERINTENDENT CEMETERY.SENIOR JAVA ARCHITECT Work Phone: [facility] Work Phone: 1999 haemophilus influenz ae type b vaccine, HbOC conjugate Dora Older SUPERINTENDENT CEMETERY.[facility] Work Phone: [facility] Work Phone: 1999 poliovirus vaccine, inactivated Dora Older SUPERINTENDENT CEMETERY.[facility] Work Phone: [facility] Work Phone: Payers Date Payer Category Payer Self-pay [id number] 2017 Medicaid [employer] [id number] 2017-Present [phone] [address] [place] [address] Medicaid [id number] 2017 Medicaid [id number] 2013 Unknown SELF PAY INSURANCE [id number] 00 [id number] 2013 Unknown [id number] Unknown [id number] Unknown [id number] Social History Date Type Detail Facility Start: 03-10-2018 End: 05-03-2022 Tobacco smoking status NHIS Never smoked tobacco [facility] Start: 09-24-2020 End: 01-09-2025 Alcohol intake Current non-drinker of alcohol (finding) [facility] Start: 2000 Sex Assigned At Not on file [facility] Start: 08-23-2021 End: 05-03-2022 Exposure to SARS-CoV-2 (event) Not sure [facility] Start: 09-28-2021 End: 03-01-2022 Exposure to SARS-CoV-2 (event) Unable to assess [facility] Start: 11-27-2021 Tobacco smoking status VTIS Unknown if ever smoked [facility] Work Phone: Start: 1999 Sex Assigned At Female [facility] History of tobacco use Passive smoker [facility] Start: 03-10-2018 End: 05-03-2022 Tobacco use and exposure Smokeless tobacco non-user [facility] Start: 05-03-2022 Tobacco Comment mom smokes [facility] Start: 09-30-2022 End: 10-18-2022 History of Social function [facility] Start: 09-30-2022 End: 10-18-2022 Tobacco use panel [facility] Start: 04-30-2012 National Score (1-100), lower number is lower risk 66 [facility] Start: 09-12-2023 Gender identity Identifies as female gender (finding) [facility] Start: 09-12-2023 Sexual orientation Heterosexual (finding) [facility] Start: 06-13-2023 [facility] Do you belong to any clubs or organizations such as mandaen groups, unions, fraternal or athletic groups, or school groups? No [facility] Are you now , , , , never or living with a partner? Living with partner [facility] How often to you hav e a drink containing alcohol? Monthly or less [facility] How many standard dr inks containing alcohol do you have on a typical day? 1 or 2 [facility] How often do you hav e 6 or more drinks on 1 occasion? Never [facility] How hard is it for y ou to pay for the very basics like food, housing, medical care, and heating Not very hard [facility] Do you feel stress - tense, restless, nervous, or anxious, or unable to sleep at night because your mind is troubled all the time - these days [OSQ] Rather much [facility] (I/We) worried miguel er (my/our) food would run out before (I/we) got money to buy more. Never true [facility] Goals Date Patient Goal Desired Activity /State Personal health goal Functional Status Date Assessment Result Facility 11-18-2014 Are you deaf, or do you have serious difficulty hearing No 11/18/2014 1:38 PM EDT Mercy Pfeiffer LPN No [facility] 11-18-2014 Are you blind, or do you have serious difficulty seeing, even when wearing glasses No 11/18/2014 1:38 PM EDT [facility] Pfeiffer LPN No [facility] 11-18-2014 Do you have serious difficulty walking or climbing stairs No 11/18/2014 1:38 PM EDT [facility]cy Pfeiffer LPN No [facility] 11-18-2014 Do you have difficul ty dressing or bathing No 11/18/2014 1:38 PM EDT [facility] Pfeiffer LPN No [facility] 11-18-2014 Because of a physica l, mental, or emotional condition, do you have difficulty doing errands alone such as visiting a physician's office or shopping No 11/18/2014 1:38 PM EDT Mercy Pfeiffer LPN No [facility] Mental Status Date Assessment Result Facility 12-19-2024 Cognitive function Level Of Cons ciousness Awake;Alert;Appropriate;Fol lows Commands [facility] Work Phone: 11-27-2021 Cognitive function Level Of Cons ciousness Awake;Alert;Appropriate;Fol lows Commands [facility] Work Phone: 11-18-2014 Because of a physica l, mental, or emotional condition, do you have serious difficulty concentrating, remembering, or making decisions No 11/18/2014 1:38 PM EDT Mercy Pfeiffer LPN No [facility] Clinical Notes 08-28-2013 to 02-21-2025 Patient Dora Willard APRN.[facility] - 01/09/2025 2:35 PM EDT Note Date & Type Note Facility 02-21-2025 Note HNO ID: [id number] Author: XOCHITL OCHOA, ? Service: ? Author Type: Physician Type: Progress Notes Filed: 02/21/2025 15:21 Note Text: Consultation requested by Dr. Restrepo for an opinion regarding callus. My final recommendations will be communicated back to the requesting physician by way of shared Medical record or letter to requesting physician via US mail. Subjective The patient is a 25-year-old female presenting with painful calluses on the plantar aspect of both feet, with the right foot being more affected than the left. The patient reports that the calluses began approximately 2 years ago, but have progressively worsened over the past year, coinciding with the of her child. She attributes the development and exacerbation of the calluses to her standing posture, which places most of her weight on the lateral aspects of her feet, particularly when performing activities such as washing dishes. She also notes significant changes in her foot size and shape during , which have persisted . The patient currently wears [employer] Dude shoes, stating they are the only footwear that fits comfortably given the changes in her feet. She has not attempted any treatments for the calluses, such as filing them down, due to concerns about potentially worsening the condition. She denies any other foot-related issues or symptoms. Musculoskeletal: (+) right foot pain Objective Last menstrual period 05/30/2023, not currently . - Cardiovascular: Dorsalis pedis and posterior tibial pulses palpable bilaterally; capillary refill <5 seconds; warm temperature from proximal to distal. - Musculoskeletal: Neutral arch noted in weight-bearing stance. - Skin: Large callus on the plantar aspect of bilateral fifth metatarsals, right more severe than left. Assessment AND Plan # Callus of foot (L84) # Pain in right foot (M79.671) Chronic, worsening calluses on the plantar aspect of bilateral fifth metatarsal heads, right greater than left, with associated pain. Exam findings consistent with callus formation due to increased shear forces and pressure from foot mechanics and footwear. No evidence of plantar keratosis after debridement. - Debrided calluses on both feet with 15 blade. - Provided gel inserts and demonstrated use of donut hole pad to offload pressure from callus sites. - Discussed custom orthotics as a future option if gel inserts are effective. - Educated patient on weekly use of a pumice stone or file to prevent callus thickening. - Advised on the importance of supportive footwear to reduce pressure on the lateral aspects of the feet. - Patient expressed understanding and agreement with the conservative management plan. Recording using [employer] software for draft documentation of the visit was discussed with the patient/authorized care support representative; all questions welcomed and answered. Patient/authorized care support representative agreed to proceed Xochitl Ochoa DPM [facility] 02-21-2025 Note HNO ID: [id number] Author: PAIGE MEJIA MA Service: ? Author Type: Composition Roll Maker And Cutter Type: Progress Notes Filed: 02/21/2025 15:21 Note Text: Patient presents with: Right Foot - New, Pain, Callous Left Foot - New, Pain, Callous AMB ROOMING INTAKE FLOWSHEET DATA Pain Pain Level: 5 Pain Location: Foot-Right Description: Stabbing Duration Amount of Time: 1 Duration Units: Years Frequency: Intermittent (Occurs with weight bearing) Intervention/Comfort measure: (None) Patient states she has had the callous's for 2 years and gotten painful in the past year. Her pain is on the lateral aspect of her feet. Taking no med's for the pain. Referred by Dora Restrepo. [facility] 02-20-2025 Note HNO ID: [id number] Author: DORA RESTREPO APRN.AMBER Service: ? Author Type: Nurse Practitioner Type: Progress Notes Filed: 02/20/2025 14:53 Note Text: CC: Patient presents with: Recheck: 6 week follow up medication JATINDER David is a 25 year old female who presents today for migraine follow up. Recording using [employer] software for draft documentation of the visit was discussed with the patient/authorized care support representative; all questions welcomed and answered. Patient/authorized care support representative agreed to proceed Migraines: - Sarah David is currently taking Effexor once daily. Has struggled in the past with taking meds regularly but using an alarm now which is helping. - Frequency of migraines varies; often influenced by sleep patterns. - Recent migraine lasted 3 days; 2 doses of rizatriptan was ineffective. - Sarah is unable to eat or drink during migraines, leading to emesis and inability to take medications. - Describes initial symptoms as neck stiffness and difficulty holding head up. - Most migraines are managed with rizatriptan, but some are resistant to treatment. - Previous severe migraine required hospitalization due to dyspnea and dehydration. - No confusion, falls, weakness, or numbness associated with migraines. Anxiety: - Sarah reports increased anxiety with episodes of hand tremors, making it difficult to hold objects. - No suicidal or homicidal ideations. REVIEW OF SYSTEMS See HPI PAST MEDICAL HISTORY Diagnosis Date Anxiety and depression Insomnia Left ear hearing loss Menarche 2012 Age 11 Migraines PMH - PAST MEDICAL HISTORY OF 01/09/2004 normal color vision Scoliosis TMJ (dislocation of temporomandibular joint) PAST SURGICAL HISTORY Procedure Laterality Date DELIVERY ONLY 03/03/2024 TYMPANOSTOMY LOCAL/TOPICAL ANESTHESIA < 6 yrs ALLERGIES Amoxicillin, Augmentin [Amoxicillin-Pot Clavulanate], and Penicillins MEDICATIONS rizatriptan (MAXALT CANE CUTTER) 10 mg disintegrating tablet Take 1 tablet at first sign of migraine, and may repeat in 2 hours if necessary. Do not take more than 20mg in a 24 hour period. venlafaxine ER (EFFEXOR XR) 75 mg 24 hr capsule Take 1 capsule by mouth once daily. ondansetron (ZOFRAN) 4 mg tablet Take 1 tablet by mouth every 8 hours as needed for nausea/vomiting. loratadine (CLARITIN) 10 mg tablet Take 1 tablet by mouth once daily. fluticasone (FLONASE) 50 mcg/actuation nasal spray Use 2 sprays in each nostril once daily. Rinse mouth after use. FAMILY HISTORY Problem Relation Age of Onset Asthma Mother Anxiety disorder Mother Alcohol/Drug Father ETOH Diabetes Father Asthma Brother Asthma Brother sibling ADD/ADHD Brother Breast Cancer Maternal Grandmother Cancer Paternal Aunt great aunts? COPD Other mggm SOCIAL HISTORY[1] PHYSICAL EXAM BP 106/60 Pulse 98 Resp 16 Wt 72.6 kg (160 lb) LMP 05/30/2023 (Approximate) SpO2 98% BMI 30.23 kg/m? General Appearance: well appearing, in no [...] strength normal Health maintenance reviewed with patient: Influenza Vaccine(1) due on 01/28/2025 HPV Vaccine(1 - 3-dose series) due on 01/09/2026 Cervical Cancer Screening due on 10/18/2025 DTaP,Tdap,Td Vaccine(8 - Td or Tdap) due on 12/20/2033 Hepatitis B Vaccine Completed Hepatitis C Screening Completed HIV Screening Completed DATA REVIEWED: Most recent labs Labs: - Blood work: No abnormalities reported. Assessment/Plan 1. Migraine with aura and without status migrainosus, not intractable (G43.109) 2. Nausea (R11.0) - Migraines variably controlled with current regimen; recent episode lasted 3 days despite timely use of rizatriptan, with severe nausea and vomiting preventing oral medication intake. - Increase rizatriptan dose to 10 mg at onset of migraine; may repeat once within 24 hours if needed, not to exceed 20 mg in 24 hours. - Provided prescription for Zofran with refills to manage migraine-associated nausea and vomiting. - Advised patient to maintain adequate supply of Zofran and to use at onset of migraine-related nausea. - Educated on proper use of rizatriptan and Zofran; discussed need for prompt treatment at first sign of migraine. - Discussed potential for alternative therapies or neurology referral if migraines remain uncontrolled with current adjustments. - Follow-up in 8 weeks to reassess migraine control and medication efficacy. 3. Anxiety with depression (F41.8) - Anxiety symptoms persist with current venlafaxin (more content not included)... [facility] 01-14-2025 Note HNO ID: [id number] Author: LUKASZ DE LA O OT/L Service: ? Author Type: Occupational Therapist Type: Progress Notes Filed: 01/14/2025 16:53 Note Text: 01/14/2025 [facility]AB[facility]ATION [facility] SPORTS THERAPY OCCUPATIONAL THERAPY DISCONTINUANCE OF CARE Plan of Care Period: Start of Care Date: 11/07/24 Last Visit Date: 11/07/2024 Therapy Program: Patient did not return for follow up care as planned. Please refer to last visit note for interventions provided for this episode of care. Assessment: Unable to formally assess goal achievement. Reason for Discontinuation of Care: Patient has not returned to therapy or scheduled additional follow-up appointments. Lukasz De La O OT/[facility] 01-09-2025 Instructions Dora Restrepo APRN.CNP - 01/09/2025 2:53 PM EDT - A referral has been sent to podiatry for the painful callus on your foot; podiatry will contact you to schedule removal and evaluation. - Continue venlafaxine (Effexor) once daily as before; your prescription has been refilled. - Take rizatriptan (Maxalt) at the very first sign of a migraine; you may repeat one dose in 2 hours if needed. - Begin ogiv-njl-hlkazyb antihistamine: take 1 tablet of Claritin each morning. - Use Flonase nasal spray at bedtime: 2 sprays in each nostril, aiming slightly outward; rinse your mouth and throat after each use. - Schedule and complete blood work to re-check your blood counts, thyroid function, and related labs. documented in this encounter [facility] 01-09-2025 Note HNO ID: [id number] Author: DORA RESTREPO APRN.AMBER Service: ? Author Type: Nurse Practitioner Type: Progress Notes Filed: 01/09/2025 15:39 Note Text: CC: Patient presents with: Physical: Annual Physical HPI Sarah David is a 24 year old female who presents today for annual exam. Recording using [employer] software for draft documentation of the visit was discussed with the patient/authorized care support representative; all questions welcomed and answered. Patient/authorized care support representative agreed to proceed Sneezing: - Intermittent sneezing episodes since childbirth 10 months ago. - Episodes last ~20 minutes, followed by a 5-minute break, then another 20-minute episode; can be asymptomatic for 1-2 weeks before recurrence. - Associated with itchy, watery eyes; one eye swells shut during episodes. - No new pets or cleaning products. - Denies known environmental allergies; only known allergies are to medications. - Not currently taking any allergy medications. - has also had a cough and some sinus congestion as well. Cough usually produces clear to white sputum. A few times has been brown. Denies rash, wheezing, edema, dizziness, fever, chills, ear pain, chest pain, or shortness of breath. Foot Callus: - Painful, rough callus on Sarah's foot x1 month. - Believes it is due to abnormal standing posture. - Has applied lotion without improvement. - Denies attempting to shave it down. - No fever, chills, drainage, loss of sensation, falls, or injury associated with the callus. Chronic Migraines: - Experiencing 1-3 migraines per month, lasting 1-3 days each. - New symptom of dyspnea during migraines, leading to an ER visit a few weeks ago. - Taking venlafaxine daily for migraine prevention - Confusion about medication use due to multiple prescriptions for nausea. - Has not filled venlafaxine prescription in over a month; reports inconsistent medication adherence. - Using alarms to improve medication adherence. - Taking rizatriptan at the onset of migraines but due to her multiple nausea prescriptions, forgot about this one Anxiety: - History of anxiety, previously managed with venlafaxine. - Reports occasional anxiety attacks with palpitations, diaphoresis, and tremors, lasting 15-20 minutes. - Anxiety attacks occur randomly, witnessed by her boyfriend 3-4 times. Have had these since childhood - No suicidal or homicidal ideations. - Appetite is stable. - Sleep is adequate but not restful. REVIEW OF SYSTEMS General: no fevers, no chills, no night sweats, no recurrent infections, no change in appetite, no change in energy, and no significant changes in weight Cardiovascular: no chest pain, no chest pressure, no palpitations, and no swelling GI: No nausea, vomiting, or diarrhea : No history of dysuria, frequency or incontinence Endocrine: no fatigue, no weight gain, no weight loss, no cold intolerance, no heat intolerance, no neck pain/pressure, no polyuria, no polyphagia, and no polydipsia Neurologic: No headache, weakness, numbness, tingling, neck stiffness, tremor, vertigo, dizziness, memory loss, syncope. PAST MEDICAL HISTORY Diagnosis Date Anxiety and depression Insomnia Left ear hearing loss Menarche 2012 Age 11 Migraines PMH - PAST MEDICAL HISTORY OF 01/09/2004 normal color vision Scoliosis TMJ (dislocation of temporomandibular joint) PAST SURGICAL HISTORY Procedure Laterality Date DELIVERY ONLY 03/03/2024 TYMPANOSTOMY LOCAL/TOPICAL ANESTHESIA < 6 yrs ALLERGIES Amoxicillin, Augmentin [Amoxicillin-Pot Clavulanate], and Penicillins MEDICATIONS venlafaxine ER (EFFEXOR XR) 37.5 mg 24 hr capsule Take 1 capsule by mouth once daily. rizatriptan 5 mg disintegrating tablet Take 1 tablet at first sign of migraine, and may repeat in 2 hours if necessary. Do not take more than 20mg in a 24 hour period. loratadine (CLARITIN) 10 mg tablet Take 1 tablet by mouth once daily. fluticasone (FLONASE) 50 mcg/actuation nasal spray Use 2 sprays in each nostril once daily. Rinse mouth after use. ondansetron (ZOFRAN) 4 mg tablet Take 1 tablet by mouth every 8 hours as needed for nausea/vomiting. FAMILY HISTORY Problem Relation Age of Onset Asthma Mother Anxiety disorder Mother Alcohol/Drug Father ETOH Diabetes Father Asthma Brother Asthma Brother sibling ADD/ADHD Brother Breast Cancer Maternal Grandmother Cancer Paternal Aunt great aunts? COPD Other mggm SOCIAL HISTORY[1] PHYSICAL EXAM BP 108/60 Pulse 72 Resp 16 Wt 73 kg (161 lb) LMP 05/30/2023 (Approximate) SpO2 100% BMI 30.42 kg/m? General Appearance: well appearing, in no acute distress, alert Pysch: mood and affect broad and appropriate Eyes: PERRLA, EOM's intact, conjunctiva pink and moist, no icterus, sclera white, non-injected Nose/sinus: Nares normal. Septum midline. Mucosa normal. No drainage., No sinus tenderness Neck: Thyroid nor (more content not included)... [facility] 01-09-2025 History of Present illness Narrative CC: Patient presents with: Physical: Annual Physical HPI Sarah David is a 24 year old female who presents today for annual exam. Recording using [employer] software for draft documentation of the visit was discussed with the patient/authorized care support representative; all questions welcomed and answered. Patient/authorized care support representative agreed to proceed Sneezing: - Intermittent sneezing episodes since childbirth 10 months ago. - Episodes last ~20 minutes, followed by a 5-minute break, then another 20-minute episode; can be asymptomatic for 1-2 weeks before recurrence. - Associated with itchy, watery eyes; one eye swells shut during episodes. - No new pets or cleaning products. - Denies known environmental allergies; only known allergies are to medications. - Not currently taking any allergy medications. - has also had a cough and some sinus congestion as well. Cough usually produces clear to white sputum. A few times has been brown. Denies rash, wheezing, edema, dizziness, fever, chills, ear pain, chest pain, or shortness of breath. Foot Callus: - Painful, rough callus on Vahid foot x1 month. - Believes it is due to abnormal standing posture. - Has applied lotion without improvement. - Denies attempting to shave it down. - No fever, chills, drainage, loss of sensation, falls, or injury associated with the callus. Chronic Migraines: - Experiencing 1-3 migraines per month, lasting 1-3 days each. - New symptom of dyspnea during migraines, leading to an ER visit a few weeks ago. - Taking venlafaxine daily for migraine prevention - Confusion about medication use due to multiple prescriptions for nausea. - Has not filled venlafaxine prescription in over a month; reports inconsistent medication adherence. - Using alarms to improve medication adherence. - Taking rizatriptan at the onset of migraines but due to her multiple nausea prescriptions, forgot about this one Anxiety: - History of anxiety, previously managed with venlafaxine. - Reports occasional anxiety attacks with palpitations, diaphoresis, and tremors, lasting 15-20 minutes. - Anxiety attacks occur randomly, witnessed by her boyfriend 3-4 times. Have had these since childhood - No suicidal or homicidal ideations. - Appetite is stable. - Sleep is adequate but not restful. REVIEW OF SYSTEMS General: no fevers, no chills, no night sweats, no recurrent infections, no change in appetite, no change in energy, and no significant changes in weight Cardiovascular: no chest pain, no chest pressure, no palpitations, and no swelling GI: No nausea, vomiting, or diarrhea : No history of dysuria, frequency or incontinence Endocrine: no fatigue, no weight gain, no weight loss, no cold intolerance, no heat intolerance, no neck pain/pressure, no polyuria, no polyphagia, and no polydipsia Neurologic: No headache, weakness, numbness, tingling, neck stiffness, tremor, vertigo, dizziness, memory loss, syncope. PAST MEDICAL HISTORY Diagnosis Date Anxiety and depression Insomnia Left ear hearing loss Menarche 2012 Age 11 Migraines PMH - PAST MEDICAL HISTORY OF 01/09/2004 normal color vision Scoliosis TMJ (dislocation of temporomandibular joint) PAST SURGICAL HISTORY Procedure Laterality Date DELIVERY ONLY 03/03/2024 TYMPANOSTOMY LOCAL/TOPICAL ANESTHESIA < 6 yrs ALLERGIES Amoxicillin, Augmentin [Amoxicillin-Pot Clavulanate], and Penicillins MEDICATIONS venlafaxine ER (EFFEXOR XR) 37.5 mg 24 hr capsule Take 1 capsule by mouth once daily. rizatriptan 5 mg disintegrating tablet Take 1 tablet at first sign of migraine, and may repeat in 2 hours if necessary. Do not take more than 20mg in a 24 hour period. loratadine (CLARITIN) 10 mg tablet Take 1 tablet by mouth once daily. fluticasone (FLONASE) 50 mcg/actuation nasal spray Use 2 sprays in each nostril once daily. Rinse mouth after use. ondansetron (ZOFRAN) 4 mg tablet Take 1 tablet by mouth every 8 hours as needed for nausea/vomiting. FAMILY HISTORY Problem Relation Age of Onset Asthma Mother Anxiety disorder Mother Alcohol/Drug Father ETOH Diabetes Father Asthma Brother Asthma Brother sibling ADD/ADHD Brother Breast Cancer Maternal Grandmother Cancer Paternal Aunt great aunts? COPD Other mggm SOCIAL HISTORY[1] PHYSICAL EXAM BP 108/60 Pulse 72 Resp 16 Wt 73 kg (161 lb) LMP 05/30/2023 (Approximate) SpO2 100% BMI 30.42 kg/m General Appearance: well appearing, in no acute distress, alert Pysch: mood and affect broad and appropriate Eyes: PERRLA, EOM's intact, conjunctiva pink and moist, no icterus, sclera white, non-injected Nose/sinus: Nares normal. Septum midline. Mucosa normal. No drainage., No sinus tenderness Neck: Thyroid normal size and symmetric without palpable nodules, Neck supple, No adenopathy Lymph nodes: No cervical lymphadenopathy and No supraclavicular lymphadenopathy Lungs: Lungs clear to auscultation. No wheezing, rhonchi, rales. Heart: RRR without murmur, gallop, or rubs. No ectopy Abdomen: Abdomen soft, non-tender. Bowel sounds normal. No masses, organomegaly Extremities:Normal exam of the extremities. Callus noted to lateral side of right foot without redness, drainage, open areas, or edema,. Reports palpation is tender. Neurological: Gait normal. Reflexes normal and symmetric. Sensation intact., speech normal, mental status intact, muscle tone normal, muscle strength normal Health maintenance reviewed with patient: HPV Vaccine(1 - 3-dose series) Never done Depression Screening Never done Anxiety Screening Never done Influenza Vaccine(1) due on 01/28/2025 Cervical Cancer Screening due on 10/18/2025 DTaP,Tdap,Td Vaccine(8 - Td or Tdap) due on 12/20/2033 Hepatitis B Vaccine Completed Hepatitis C Screening Completed HIV Screening Completed DATA REVIEWED: No new labs Assessment/Plan 1. Annual physical exam (Z00.00) - Due for annual blood work; will recheck thyroid and other labs. 2. Callus of foot (L84) 3. Pain in right foot (M79.671) - Callus on foot causing significant pain for approximately one month; no signs of infection or injury. - Advised patient to soak foot and use a pumice stone to soften and reduce the callus. - Discussed possibility of a plantar wart beneath the callus since it is tender - Refer to podiatry for further evaluation and management. 4. Migraine with aura and without status migrainosus, not intractable (G43.109) - Migraines occurring 1-3 times per month, lasting 1-3 days; new symptom of dyspnea during migraines. With change in migraine will check thyroid level as well. - Continue venlafaxine once daily for migraine prevention. - will reconsider increasing dose after 6 weeks of regular use and resolving allergic sinusitis - Clarified use of rizatriptan (Maxalt) at first sign of migraine, may repeat in 2 hours if necessary. - Educated on importance of medication adherence to prevent worsening symptoms. - Order annual blood work to rule out other potential triggers. 5. Anxiety with depression (F41.8) - Anxiety and depression generally controlled on venlafaxine, but experiencing occasional acute anxiety attacks. - Advised on importance of consistent medication adherence; refill venlafaxine. - Reviewed concept of neurochemical imbalance wth depression/anxiety, treatment options and benefits of counseling in combination with medication. Also reviewed benefits of sleep hygeine, diet and exercise - Instructed patient to contact office or [id number] after-hours promptly should condition worsen or any new symptoms appear. - Counseling Center [facility] and after hours crisis line 6. Allergic sinusitis (J30.9) - Intermittent sneezing episodes with associated itchy, watery eyes; no new environmental exposures. - Lungs clear on exam; sinus congestion noted. - Start Claritin 1 tablet in the morning. - Start Flonase 2 sprays each nostril before bed; instructed on proper administration technique. - Discussed option of allergy testing if symptoms persist. Prescription instructions reviewed with patient as applicable. Potential red flag symptoms discussed with the patient. Reviewed appropriate action plan to take if red flag symptoms occur. Patient agreeable to treatment plan. Dora Restrepo APRN.AMBER [1] Social History Tobacco Use Smoking status: Never Passive exposure: Yes Smokeless tobacco: Never Tobacco comments: mom smokes Vaping Use Vaping status: Never Used Substance Use Topics Alcohol use: No Drug use: Yes Types: Marijuana Comment: non recentley documented in this encounter [facility] 12-19-2024 Discharge summary [facility] 12-19-2024 Radiology Diagnostic study note [facility] Imaging Services [address], [place] [address] Brain/Head without Contrast MR#: [id number] Acct: [id number] Name: SARAH DAVID Rep #: [id number] : 2000 F 24 From: Damien Guardado MD PCP: DORA OLDER, BILINGUAL TEACHER AIDE-C Status: REG ER Study:Brain/Head without Contrast Date of Exa m: 12/19/24 Exam# [id number] Ordering Dr: Patricia Schmid DO PROCEDURE: BRAIN/HEAD WITHOUT CONTRAST 12/19/2024 REASON FOR EXAM: HEADACHE TECHNIQUE: BRAIN/HEAD WITHOUT CONTRAST Coronal and Sagittal reconstruction series were provided. One or more dose reduction techniques were used (e.g., Automated exposure control, adjustment of the mA and/or kV according to patient size, use of iterative reconstruction technique. RADIATION DOSE SUMMARY: CTDlvol: 44.99 mGy DLP: 796.11 mGycm COMPARISON: None. FINDINGS: No acute intracranial hemorrhage, extra-axial collection, mass effect or evidence of acute infarct. Ventricles and subarachnoid spaces are normal in size. Nonspecific small foci of amorphous mineralization within the bilateral basal ganglia globi pallidi regions. Orbital contents are unremarkable. Intact skull base and calvarium. Clear paranasal sinuses and mastoid air cells. CT/Brain/Head without Contrast IMPRESSION: No acute intracranial abnormality. Reading Location: [id number] CC: BILINGUAL TEACHER AIDE-C DORA RESTREPO; Dr. Eulogio Schmid DO ~ Teacher Resource: Signed [facility] 12-19-2024 Discharge summary Note Date/Time December 19, 2024 10:39pm [facility] Medical Records Department [address] [place] [address] Emergency Department Summary 12/19/24 MR#: [id number] Acct: [id number] Name: SARAH DAVID Rep #:[id number] : 2000 24 From: Eulogio Patricia PCP: DORA RESTREPO NP-C Status:REG ER Location: ED HPI History of Present Illness Chief Complaint: Headache PFSH PFSH Medical History intolerance to labor, delivered, current hospitalization Rubella non-immune status, antepartum Brain lesion Family history of hearing loss at age younger than 7 years Headache Depression Home Medications ?Medication ?Instructions ?Recorded ?Last Taken ?Type acetaminophen 325 mg tablet (Pain 650 mg (2 x 325 mg) PO Q6H PRN 03/05/24 Unknown Rx Relief (acetaminophen)) pain #30 tabs docusate sodium 100 mg capsule 100 mg PO DAILY constip ation #30 03/05/24 Unknown Rx (Colace) caps ferrous sulfate 325 mg (65 mg 325 mg PO QODAY #30 tabs 03/05/24 Unknown Rx iron) tablet ibuprofen 600 mg tablet 600 mg PO Q6H PRN pain #30 t abs 03/05/24 Unknown Rx azithromycin 500 mg tablet 500 mg PO DAILY 5 days #5 t abs 12/19/24 Unknown Rx metoclopramide HCl 5 mg tablet 5 mg PO Q8H PRN nausea and 12/19/24 Unknown Rx (Reglan) vomiting 7 days #21 tabs Allergy/AdvReac Type Severity Reaction Status Date / Time amoxicillin trihydrate (From Allergy Rash Verified 12/19/24 19:51 Augmentin) Penicillins Allergy Rash Verified 12/19/24 19:51 potassium clavulanate (From Allergy Rash Verified 12/19/24 19:51 Augmentin) Social History Smoking Status: Never smoker EXAM Physical Exam Const Vital Signs: 12/19/24 19:51 Temperature 98.9 F Temperature Source Temporal Pulse Rate 92 Respiratory Rate 14 Blood Pressure 114/74 Blood Pressure Mean 87 Pulse Ox 99 Oxygen Delivery Method Room Air MDM MDM MDM Narrative Medical decision making narrative: HISTORY OF PRESENT ILLNESS: Chief complaint: Headache 24-year-old female history of of anemia, migraines presents with headache. Notes this began earlier today. Gradual onset. No association with neck stiffness, fever or sick contacts. No syncope, seizures or focal neurologic deficits noted. No head trauma noted. Consistent with prior migraine. No abdominal pain noted. Of note patient does note sinus pressure congestion for 9days. Notes yellowish/brownish discharge concerned she has a sinus infection REVIEW OF SYSTEMS: Pertinent positives: Headache Pertinent negatives: As per HPI PHYSICAL EXAM: Nursing triage notes reviewed, Vital signs reviewed Constitutional: please see mdm HENT: MMM Eyes: Pupils equal round and reactive to light, Extraocular muscles intact Neck: No stridor, no JVD, full neck ROM, no carotid bruits Lungs: Clear to auscultation, No wheezing or rales. No increased work of breathing, no conversational dyspnea, no accessory muscle use, no nasal flaring. No respiratory distress noted Heart: Regular rate and rhythm, No murmurs, No rubs and No gallops, 2+ distal pulses (radial, femoral, posterior tibial) in all extremities Abdomen: Soft, there is no tenderness, rigidity, rebound or guarding, no obviousperitoneal signs, no palpable pulsatile abdominal masses, no auscultated abdominal bruit : No CVAT Extremities: No edema Neuro: Alert and oriented x3, neuro exam at baseline, cranial nerves II through XII are intact. No pain with extraocular muscle movement. There is negative test of skew. 5 of 5 strength in upper and lower extremities in flexion extension. Intact sensation to light touch in upper and lower extremity dermatomes. No truncal or extremity ataxia. No dysdiadochokinesia. Normal gait. 2+ reflexes in upper and lower extremities. No meningeal signs. Negative Babinski. NIH of 0. Skin: No rash or lesions noted MEDICAL DECISION MAKING: Chief Complaint: please see HPI External records reviewed: Reviewed prior ED visit in which patient presented for similar symptoms. During his visit patient received IV fluids, Reglan and Benadryl. Factors affecting care: n history of headache, brain lesion Social determinants of health: none History obtained from others: none Consults: none MDM Narrative: Patient was initially hemodynamically stable, afebrile nontoxic-appearing. Initial exam without focal neurologic deficit I considered the following differential diagnosis: Primary headache (migraine, tension headache cluster headache), secondary headache (ICH, subarachnoid hemorrhage), meningitis, carotid artery dissection, sinus headache While I considered carotid artery dissection The patient's exam was not consistent with this etiology While I considered meningitis the patient's history and physical exam not consistent with meningitis I obtained CT scan to further determine if the patient was suffering from a life-threatening etiology. Gave IV fluids, Reglan, Decadron and Tylenol ALL IMAGES (IF OBTAINED) HAVE BEEN PERSONALLY REVIEWED AND INTERPRETED BY MYSELF. CT scan negative for ICH or sinusitis Given patient's head sinus congestion for 9 days we will give antibiotics to cover bacterial sinusitis. The patient and/or family, caregivers express understanding. The patient and/orfamily, caregivers agrees with the plan. Shared decision making: I will have a discussion with the patient and or visitors regarding risk/benefits of further testing or admission. They will be made aware of of the risk/benefits inherent in this decision they will be given the opportunity to voice understanding. Total critical care time today provided was at least 0 minutes. This excludes separately billable procedures. Critical care time (if documented) is secondary to the patient having high probability of clinically significant/life threatening deterioration in the patient's condition which required my urgent intervention. Impression: 1. Acute headache 2. Bacterial sinusitis 3. History of migraine Dispo: Discharge home This note was generated with [employer] dictation software. It may contain incorrectwords, spelling, and punctuation that were not noted in review of the chart prior to signing. Radiography Diagnostic Testing: Clinical Impression(s) from Imaging Studies Brain CT 12/19/24 21:34 IMPRESSION: No acute intracranial abnormality. Reading Location: [facility] Discharge Plan Triage Chief Complaint: Headache ED Provider: Eulogio Schmid Dx/Rx/DC Orders Instructions: ED, Migraine (Classical) Prescriptions: New metoclopramide HCl [Reglan] 5 mg tablet 5 mg PO Q8H PRN (Reason: nausea and vomiting) 7 Days Qty: 21 0RF azithromycin 500 mg tablet 500 mg PO DAILY 5 Days Qty: 5 0RF No Action acetaminophen [Pain Relief (acetaminophen)] 325 mg tablet 650 mg PO Q6H PRN (Reason: pain) Qty: 30 0RF ibuprofen 600 mg tablet 600 mg PO Q6H PRN (Reason: pain) Qty: 30 0RF docusate sodium [Colace] 100 mg capsule 100 mg PO DAILY Qty: 30 0RF ferrous sulfate 325 mg (65 mg iron) tablet 325 mg PO QODAY Qty: 30 0RF Primary Care Provider: DORA RESTREPO Referrals: Jam Cox MD [Non-Staff -Ordering Privileges] - Activity Restrictions/Additional Instructions: Thank you for trusting us with your care today! Your CT scan showed no evidence of obvious brain abnormalities. Your sinuses appeared clear on the CT scan. Given the duration of your symptoms we will prophylactic give antibiotics to treat bacterial sinusitis. Please take Reglan as needed for nausea vomiting control at home. Please take Tylenol (2 pills, 650 mg), ibuprofen (2 pills, 400 mg) every 6 hoursas needed for pain and fever control. Please return to the emergency department if your symptoms change or worsen. Please follow with local Neurology for further outpatient evaluation and management. Print Language: French Disposition Disposition: Home, Self Care What to do if you have Problems For any increased pain, shortness of breath, bleeding, nausea or vomiting, chestpain, or any unexpected problems, contact your Primary Care Provider. Call [facility] [facility] ([phone]) or report to the closest Emergency Room. Call 911 if necessary. 12/19/241 <Electronically signed by Eulogio Schmid DO> Cosigner Signature (if applicable): CC: KASHMIR RESTERPO ~ Signed [facility] Work Phone: 1(696) 344-790706-11-2025 NoteHNO ID: [id number] Author: LUKASZ DE LA O OT/L Service: ? Author Type: Occupational Therapist Type: Progress Notes Filed: 11/07/2024 18:53 Note Text: Episode Visit Count: 1 Therapist That Will Accept/Oversee The Plan Of Care: EDGARDO Weiner Start of Care Date: 11/07/24 Onset Date: 08/28/24 Plan of Care Certification Date: 11/07/24 Next Certification Due Date: 12/07/24 Patient Identified by Name and Date of : Yes [facility] [...] prior functional tasks. 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 Patient Goals: To reduce pain and increase ROM and use of hand Time Frame for Goals and Treatment : 02/07/25 Planned Interventions, Frequency, and Duration: Current Frequency: 1x/week Duration: 4 weeks Total Number of Visits Planned: 4 Planned Treatment Interventions: Therapeutic exercise (36247), Therapeutic activities (33865), Manual therapy (91797), Self-fdc management (57429), Patient/Family/Caregiver Education, Ultrasound (02185) PLAN FOR NEXT VISIT: Ultrasound, check kt [...] general population and i (more content not included)...[id number] History of Present illness Narrative* Lukasz De La O OT/L - 11/07/2024 6:47 PM EDT Episode Visit Count: 1 Therapist That Will Accept/Oversee The Plan Of Care: EDGARDO Weiner Start of Care Date: 11/07/24 Onset Date: 08/28/24 Plan of Care Certification Date: 11/07/24 Next Certification Due Date: 12/07/24 Patient Identified by Name and Date of : Yes [facility] [...] motion, sensation, strength, and symptom management. PROMIS (Patient- Reported Outcomes Measurement Information System) scores were reviewed [...] demonstrate independence with ongoing home recommendations/exercise program throughouttherapy plan of care. Patient will improve function in Right wrist in order to be able to perform prior functional tasks. Patient will report a decrease in pain in Right wrist to 1/10 with prior functional tasks. 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 Patient Goals: To reduce pain and increase ROM and use of hand Time Frame for Goals and Treatment : 02/07/25 Planned Interventions, Frequency, and Duration: Current Frequency: 1x/week Duration: 4 weeks Total Number of Visits Planned: 4 Planned Treatment Interventions: Therapeutic exercise (04078), Therapeutic activities (37014), Manual therapy (68256), Self-fdc management (78963), Patient/Family/Caregiver Education, Ultrasound (16809) PLAN FOR NEXT VISIT: Ultrasound, check kt [...] brace and wears it when doing repetitive activitiesand when sleeping. Functional Limitations: gripping, pinching, twisting, [...] AROM: Right Limitation Thumb AROM: WFL Strength: Client Delivery Specialist Position 2, Wrist Sensation: Reports tingling or numbness (Occasional tingling in R hand) Hand Strength R Client Delivery Specialist Position 2 (lbs): 50 lbs L Client Delivery Specialist Position 2 (lbs): 55 lbs UE AROM R Forearm Supination: 90 Degrees R Forearm Pronation: 90 Degrees R Wrist Extension: 75 Degrees R Wrist Flexion: 75 Degrees R Wrist Radial Deviation: 15 Degrees (Pt reports that it doesn't feel right to radially deviate) R Wrist Ulnar Deviation: 40 Degrees Thumb AROM: WFL UE and Cervical Strength R Forearm Supination: 5/5 ([place] like wrist was going to pop with MMT) R Forearm Pronation: 5/5 ([place] like wrist was going to pop with [...] of findings with focus on coordination, stability, andstrengthening. Educated on the role of OT, OT [...] rest. Educated on purpose, wear, and use oftape and to remove with any evidence of [...] : 1746 VERONICA Weiner documented in this encounterBarney [facility]06-[facility] Telephone encounter Note * Telephone Encounter - Carolina Mulligan MA - 11/07/2024 4:29 PM EDT Images from the original note were not included. Vijay Guo V, DO You1 hour ago (3:16 PM) The insurance company does not decide if the MRI is needed, only if they are going to cover the cost. There is always the option of paying out of pocket for testing that insurance will not cover, butthat can be expensive. Insurance companies have protocols they follow. A peer-peer meeting can be done, but does not in any way guarantee the insurance company will change their recommendation for PTprior to covering the cost of the MRI. Vijay Guo DO [facility]06-11-2025 Miscellaneous Notes* Telephone Encounter - Carolina Mulligan MA - 11/07/2024 4:29 PM EDT Images from the original note were not included. Vijay Guo V DO You1 hour ago (3:16 PM) The insurance company does not decide if the MRI is needed, only if they are going to cover the cost. There is always the option of paying out of pocket for testing that insurance will not cover, butthat can be expensive. Insurance companies have protocols they follow. A peer-peer meeting can be done, but does not in any way guarantee the insurance company will change their recommendation for PTprior to covering the cost of the MRI. Vijay Guo DO * Telephone Encounter - Carolina Mulligan MA - 11/07/2024 3:06 PM EDT I called and spoke with the patient. [...] I would send her request the physician. * Telephone Encounter - Carolina Mulligan MA - 11/07/2024 2:46 PM EDT ? Vijay Guo 11/06/2024 8:17 AM Looks like she will need 4 weeks of PT before MRI is approved. Since it is her wrist that is the issue, she will need Occ Therapy, which is available at [facility]. I will place an [facility]. * Telephone Encounter - Rosalia Brennan - 11/07/2024 12:14 PM EDT Pt called in stated that her ins denied her MRI as physical therapy has not been done yet. Pt stated she was told that Dr. Guo could resubmit stating why patient should not have PT and could do further damage. Pt stated insurance would most likely cover MRI if provider stated reason why not to toPT. Please advise, Thank you documented in this encounterBarney [facility]06-11-2025 Telephone encounter Note * Telephone Encounter - Carolina Mulligan MA - 11/07/2024 3:06 PM EDT I called and spoke with the patient. [...] I would send her request the physician. [facility]06-11-[facility] Telephone encounter Note* Telephone Encounter - Carolina Mulligan MA - 11/07/2024 2:46 PM EDT ? Vijay Guo 11/06/2024 8:17 AM Looks like she will need 4 weeks of PT before MRI is approved. Since it is her wrist that is the issue, she will need Occ Therapy, which is available at [facility]. I will place an order [facility]. [facility]06-[facility] Telephone encounter Note* Telephone Encounter - Rosalia Brennan - 11/07/2024 12:14 PM EDT Pt called in stated that her ins denied her MRI as physical therapy has not been done yet. Pt stated she was told that Dr. Guo could resubmit stating why patient should not have PT and could do further damage. Pt stated insurance would most likely cover MRI if provider stated reason why not to toPT. Please advise, Thank you [facility]05-27-2025 NoteHNO ID: [id number] Author: PAIGE MEJIA MA Service: ? Author Type: Composition Roll Maker And Cutter Type: Progress Notes Filed: 10/23/2024 14:17 Note Text: PT ASSESSMENT - CASTING ROOM Sarah presents for Application of brace. Applied Glenna and Keene Modabber wrist brace to Right wrist. Patient tolerated well. Patient has been instructed in Care and proper application of brace. Patient signed Ines QUIJANO electronically for billing and verbalized understanding. Paige Mejia [facility]05-27-2025 History of Present illness Narrative* Paige Mejia MA - 10/23/2024 1:50 PM EDT PT ASSESSMENT - CASTING ROOM Sarah presents for Application of brace. Applied Glenna and Keene Modabber wrist brace to Right wrist. Patient tolerated well. Patient has been instructed in Care and proper application of brace. Patient signed Ines QUIJANO electronically for billing and verbalized understanding. Paige Mejia MA * Vijay Guo V, DO - 10/23/2024 1:42 PM EDT Brittany Smith is a 24-year-old female presenting with chronic right wrist pain that has acutely worsened over the past 4-5 weeks. Sarah reports a history of right wrist issues dating back to childhood, initially characterized by a clicking noise without significant discomfort. Approximately 4-5 weeks ago, while vacuuming, sheexperienced a loud pop in her wrist accompanied [...] and a sensation of her tendons getting stuck between her bones, causing additional pain. She has tried icing and heating the wrist, which provided temporary relief but was followed by worsening pain. She denies using a wrist splint. She denies any metal implants that would contraindicatean MRI. Constitutional: (+) diaphoresis Gastrointestinal: (+) nausea [...] splint to support the wrist. Recording using [employer] software for draft documentation of the visit was discussed with the patient/authorized care support representative; all questions welcomed and answered. Patient/authorized care support representative agreed to proceed * Paige Mejia MA - 10/23/2024 1:27 PM EDT Patient presents with: Right wrist pain : Referred by Dora Restrepo [facility]B [facility] INTAKE FLOWSHEET DATA Pain Pain Level: 8 Pain Location: Wrist-Right Description: Aching, Cramping, Dull, Numbness, Radiating, Sharp, Shooting, Sore, Stabbing, Throbbing, Tightness Duration Amount of Time: 4 Duration Units: Weeks Frequency: Intermittent Intervention/Comfort measure: Distractions, Massage, Positioning documented in this encounterBarney Children'S [facility] Center05-27-2025 NoteHNO ID: [id number] Author: VIJAY GUO, DO Service: ? Author Type: Physician Type: Progress Notes Filed: 10/23/2024 14:17 Note Text: Subjective Sarah is a 24-year-old female presenting [...] and a sensation of her tendons getting stuck between her bones, causing additional pain. She [...] splint to support the wrist. Recording using [employer] software for draft documentation of the visit was discussed with the patient/authorized care support representative; all questions welcomed and answered. Patient/authorized care support representative agreed to proceedR[facility]ide [facility]05-27-2025 NoteHNO ID: [id number] Author: PAIGE MEJIA MA Service: ? Author Type: Composition Roll Maker And Cutter Type: Progress Notes Filed: 10/23/2024 14:17 Note Text: Patient presents with: Right wrist pain : Referred by Dora Restrepo AMB ROOMING INTAKE FLOWSHEET DATA Pain Pain Level: 8 Pain Location: Wrist-Right Description: Aching, Cramping, Dull, Numbness, Radiating, Sharp, Shooting, Sore, Stabbing, Throbbing, Tightness Duration Amount of Time: 4 Duration Units: Weeks Frequency: Intermittent Intervention/Comfort measure: Distractions, Massage, PositioningRiverside [facility] Hospital05-21-2025 NoteHNO ID: [id number] Author: BARBARA PALOMO Tech Service: ? Author [...] PATIENT PRESENTS WITH AN IMPLANTABLE OR ATTACHED PATIENT CONSUMER MARKETER: No RADIOLOGY DEPARTMENT: General X-ray: Exam(s) Completed: Upper Extremity X-Ray(s): Wrist, right PERIPHERAL IV DATA: Not applicable SIGNED BY: Giorgi Billy October 17, 2024 11:38 [facility]05-21-2025 NoteHNO ID: [id number] Author: DORA RESTREPO APRN.CNP Service: ? Author Type: Nurse Practitioner Type: Progress Notes Filed: 10/18/2024 16:19 Note Text: CC: Patient presents with: Wrist Pain: R wrist pain x 2 weeks HPI Sarah David is a 24 year old female who presents today for right wrist pain and migraines. Recording using [employer] software for draft documentation of the visit was discussed with the patient/authorized care support representative; all questions welcomed and answered. Patient/authorized care support representative agreed to proceed Right Wrist Pain and Weakness: - Initial injury in childhood from a fall out of a tree, resulting in a clicking noise with certain motions. - Progression of symptoms over the years, including: - Clicking noise. - Pinky locking and hollowing out. - Sensation of ligaments getting caught in [...] Anxiety and Depression: - Anxiety described as bad, but depression is not as bad. - Anxiety primarily focused on her child. [...] with patient: HPV Vac (more content not included)...[facility]05-17-2025 Telephone encounter Note* Telephone Encounter - Hanna Sharma RN - 10/13/2024 3:15 PM EDT Reason for Call: Wrist pain and popping that started about 2-3 weeks ago Patient also states that she has had chronic migraines since she was 11 years old (noted on problemlist). The migraines subsided while she was but [...] express care, or emergency room. Transferred to [facility] in the appointment center for scheduling. 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 7. OTHER SYMPTOMS: sometimes it feels like her hand falls asleep / goes numb. She feels a popping sound before the pain occurs. no rash, swelling, fever. 8. : Not now; gave about 8 months ago Protocols used: Wrist [id number] [facility] Work Phone: 1(981) 942-717305-17-2025 Miscellaneous Notes* Telephone Encounter - Hanna Sharma RN - 10/13/2024 3:15 PM EDT Reason for Call: Wrist pain and popping that started about 2-3 weeks ago Patient also states that she has had chronic migraines since she was 11 years old (noted on problemlist). The migraines subsided while she was but [...] express care, or emergency room. Transferred to [facility] in the appointment center for scheduling. 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 7. OTHER SYMPTOMS: sometimes it feels like her hand falls asleep / goes numb. She feels a popping sound before the pain occurs. no rash, swelling, fever. 8. : Not now; gave about 8 months ago Protocols used: Wrist [id number] documented in this encounterBarney Children'S Medical Center04-07-2025 NoteHNO ID: [id number] Author: DORA RESTREPO APRN.SENIOR JAVA ARCHITECT Service: ? Author Type: Nurse Practitioner Type: [...] nausea/vomiting. (Patient not taking: Reported on 03/16/2024) Ymqcxart-[id number]-Wba-Fe-FA tab Take 1 tablet by mouth once [...] treatment 2. Environmental a (more content not included)...[facility] 09-03-2024 History of Present illness Narrative* Dora Restrepo APRN.SENIOR JAVA ARCHITECT - 09/03/2024 11:22 AM EDT CC: Patient presents with: Allergies: Possible allergies? [...] She has no associated intermittent scratchy throat .Patient states that she does smoke marijuana occasionally, which is not new, and boyfriend vapes, but not usually in the house. They have 2 air purifier in the house and have scrubbed the carpet to see if that was the cause. Also has 3 cats and a dog which she has never had issues with in the past.Denies any other associated symptoms family history is [...] nausea/vomiting. (Patient not taking: Reported on 03/16/2024) Uqnfathg-Eu-Npb-Fe-FA tab Take 1 tablet by mouth once daily. (Patient not taking: Reportedon 03/08/2024) FAMILY HISTORY Problem Relation Age of [...] plan. Dora Restrepo APRN.CNP documented in this encounterBarney [facility]10-19-2024 NoteHNO ID: [id number] Author: FLOYD AVELAR MD Service: ? Author [...] nausea/vomiting. (Patient not taking: Reported on 03/16/2024) Hkgzhour-Zw-Yqu-Fe-FA tab Take 1 tablet by mouth once [...] entered by the nurse and reviewed by ks Nursing Notes: Renetta Downing RN 03/16/2024 4:02 [...] skin rash. Neurologic: The (more content not included)...[facility] 03-17-2024 History of Present illness Narrative* Floyd Avelar MD - 03/17/2024 5:54 AM EDT HISTORY AND PHYSICAL Sarah Hollins Grace 2000 REFERRING PHYSICIAN: Naga Marks MD CHIEF [...] moves bends over or lays in certain positions.The pain will occur suddenly and is severe [...] would describe her symptoms as more colicky innature, but with further discussion is seem to be the majority of her symptoms were musculoskeletaltowards the back area. She notes the pain [...] nausea/vomiting. (Patient not taking: Reported on 03/16/2024) Acizxoch-Oa-Mwu-Fe-FA tab Take 1 tablet by mouth once daily. (Patient not taking: Reportedon 03/08/2024) No current facility-administered medications for this [...] entered by the nurse and reviewed by ks Nursing Notes: Renetta Downing RN 03/16/2024 4:02 [...] nourished, well hydrated in no acute distress. Thepatient is oriented to time, place, and person. VITALS: Blood pressure 128/92, pulse 102, temperature 36.1 C (97 F), height 154.9 cm (5' 1), weight 74.6 kg (164 lb 6.4 oz), last menstrual period 05/30/2023, SpO2 99%, not currently . HEENT: Normal cephalic, ataumatic, pupils are equally round, sclera are anicteric, mucous membranesare moist, oropharynx is clear. Neck has no [...] improved. Floyd Avelar MD documented in this encounterBarney [facility] Center10-18-2024 Nurse Note* Renetta Downing RN - 03/16/2024 4:00 PM EDT REVIEW OF SYSTEMS: General: The patient denies [...] N/A Last Colonoscopy: None Renetta Downing RN [facility]10-18-2024 Nurse Note* Renetta Downing RN - 03/16/2024 4:00 PM EDT REVIEW OF SYSTEMS: General: The patient denies [...] None Renetta Downing RN documented in this encounterBarney Children'S Medical Center10-11-2024 Telephone encounter Note * Telephone Encounter - Mi Connell RN - 03/09/2024 11:30 AM EDT Patient notified that she needs seen by General Surgery. No results note available yet. Aware imaging is still in process. Transferred to [facility]. Mi Connell RN [facility]10-11-2024 Miscellaneous Notes* Telephone Encounter - Mi Connell RN - 03/09/2024 11:30 AM EDT Patient notified that she needs seen by General Surgery. No results note available yet. Aware imaging is still in process. Transferred to [facility]. Mi Connell, RN * Telephone Encounter - Naga Marks MD - 03/09/2024 10:25 AM EDT See result note Consult placed to general surgery documented in this encounterBarney Children'S Medical Center10-11-2024 Telephone encounter Note * Telephone Encounter - Naga Marks MD - 03/09/2024 10:25 AM EDT See result note Consult placed to general surgery [facility]10-11-20[facility] History of Present illness Narrative* Camille Coreas RDMS - 03/09/2024 9:00 AM EDT Radiology Service Progress Note PATIENT NAME: Sarah David DATE OF SERVICE: March 09, 2024 TIME: 11:26 AM PATIENT IDENTITY VERIFICATION COMPLETED USING TWO (2) IDENTIFIERS: Name and Date of confirmedby patient verbally. FALL SCREENING: Has the patient had 2 falls in the last year or 1 fall with injury or currently using an Ambulatory Assistive Device (Walker, Cane, Wheelchair, Crutches, etc.)? No PATIENT GENDER DATA: Female. status: : No status: NO. PATIENT RELEVANT IMPLANT DATA REVIEWED: Not Applicable PATIENT PRESENTS WITH AN IMPLANTABLE OR ATTACHED PATIENT CONSUMER MARKETER: No RADIOLOGY DEPARTMENT: Ultrasound PERIPHERAL IV DATA: Not applicable SIGNED BY: Camille Coreas RDMS T March 09, 2024 11:26 AM documented in this encounterBarney Children'S Medical Center10-11-2024 NoteHNO ID: [id number] Author: CAMILLE COREAS RDMS Service: ? Author Type: Truck Cleaner Type: Progress Notes Filed: 03/09/2024 11:26 Note [...] PATIENT PRESENTS WITH AN IMPLANTABLE OR ATTACHED PATIENT CONSUMER MARKETER: No RADIOLOGY DEPARTMENT: Ultrasound PERIPHERAL IV DATA: Not applicable SIGNED BY: Camille Coreas RDMS RVT March 09, 2024 11:26 [facility]10-10-2024 NoteHNO ID: [id number] Author: NAGA MARKS MD Service: ? Author [...] bassinet/crib in parent's room, feels rested some [place] since delivery: Not resumed Emotional support: Yes [...] 6 week visit and as needed Naga Marks, [facility]10-10-2024 History of Present illness Narrative* Naga Marks MD - 03/08/2024 3:32 PM EDT EARLY VISIT Sarah David is a 24 year old here for 1 week visit. Delivery Summary: C/S 03/03/2024 Having nausea and upper abdominal pain. She states after eating she has a burning pain centrally inher upper abdomen that radiates into her RUQ [...] bassinet/crib in parent's room, feels rested some [place] since delivery: Not resumed Emotional support: Yes [...] abdomen. Non distended. /Incision: No incisional redness, swelling,or drainage Pelvic: Deferred Bimanual: Deferred ASSESSMENT AND [...] needed Naga Marks DO documented in this encounterBarney Children'S Medical Center10-10-2024 History of Present illness Narrative* Richie Cross RT(R) - 03/08/2024 2:30 PM EDT Radiology Service Progress Note PATIENT NAME: Sarah David DATE OF SERVICE: March 08, 2024 TIME: 2:50 PM PATIENT IDENTITY VERIFICATION COMPLETED USING TWO (2) IDENTIFIERS: Name and Date of confirmedby patient verbally. FALL SCREENING: Has the patient had 2 falls in the last year or 1 fall with injury or currently using an Ambulatory Assistive Device (Walker, Cane, Wheelchair, Crutches, etc.)? No PATIENT GENDER DATA: Female. status: : No status: NO. PATIENT RELEVANT IMPLANT DATA REVIEWED: Not Applicable PATIENT PRESENTS WITH AN IMPLANTABLE OR ATTACHED PATIENT CONSUMER MARKETER: No RADIOLOGY DEPARTMENT: General X-ray: Exam(s) Completed: Abdomen X-Ray: Abdomen with Upright PERIPHERAL IV DATA: Not applicable SIGNED BY: RT Ney(Esther) March 08, 2024 2:50 PM documented in this encounterBarney Children'S Medical Center10-10-2024 NoteHNO ID: [id number] Author: RICHIE CROSS RT(R) Service: ? Author [...] PATIENT PRESENTS WITH AN IMPLANTABLE OR ATTACHED PATIENT CONSUMER MARKETER: No RADIOLOGY DEPARTMENT: General X-ray: Exam(s) Completed: Abdomen X-Ray: Abdomen with Upright PERIPHERAL IV DATA: Not applicable SIGNED BY: RT Ney(R) March 08, 2024 2:50 [facility] Telephone encounter Note* Telephone Encounter - Alix Quinones RN - 03/08/2024 12:16 PM EDT Patient notified and will get it done prior to appt. Alix Quinones RN [facility]10-10-2024 Miscellaneous Notes* Telephone Encounter - Alix Quinones RN - 03/08/2024 12:16 PM EDT Patient notified and will get it done prior to appt. Alix Quinones RN * Telephone Encounter - Lex Phillips MD - 03/08/2024 12:08 PM EDT Done Lex Phillips MD * Telephone Encounter - Alix Quinones RN - 03/08/2024 12:04 PM EDT SW called office and wants a KUB done prior to patient's appointment today. She was about to start another surgery case and asked that another provider file that order so patient can have it done prior to her appt with SW this afternoon. Can you please file and we can notify pt? I wasn't sure what KUB to order. Alix Quinones RN * Telephone Encounter - Alix Quinones RN - 03/08/2024 11:51 AM EDT Patient notified and scheduled for today at 3:30. Alix Quinones RN * Telephone Encounter - Naga Marks MD - 03/08/2024 11:41 AM EDT Would prefer for her to be seen before giving nausea medications to eval. I can see her today at 3 pm or after once done with surgery if she wants to come in today thanks. Labs ordered for CBC with diff and CMP to have done before appointment * Telephone Encounter - Alix Quinones RN - 03/08/2024 10:11 AM EDT Patient delivered via c/s by ARON on 03/03/24. Scheduled for incision check tomorrow with SW. Stated since she has been home she has been struggling with nausea and not able to eat much other then fruit. States it feels like she ate too much spicy food all the time when she hasn't. She has tried tums,sprite, mint gum and none has helped. Asking if there is anything she can get to help with nausea. Pharmacy correct. Please advise. Alix Quinones RN documented in this encounterBarney Children'S Medical Center10-10-2024 Telephone encounter Note * Telephone Encounter - Lex Phillips MD - 03/08/2024 12:08 PM EDT Done Lex Phillips MD [facility] Work Phone: 1(854) 675-717110-10-2024 Telephone encounter Note* Telephone Encounter - Alix Quinones RN - 03/08/2024 12:04 PM EDT SW called office and wants a KUB done prior to patient's appointment today. She was about to start another surgery case and asked that another provider file that order so patient can have it done prior to her appt with SW this afternoon. Can you please file and we can notify pt? I wasn't sure what KUB to order. Alix Quinones RN [facility]10-10-2024 Telephone encounter Note* Telephone Encounter - Alix Quinones RN - 03/08/2024 11:51 AM EDT Patient notified and scheduled for today at 3:30. Alix Quinones RN [facility]10-10-2024 Telephone encounter Note* Telephone Encounter - Naga Marks MD - 03/08/2024 11:41 AM EDT Would prefer for her to be seen before giving nausea medications to eval. I can see her today at 3 pm or after once done with surgery if she wants to come in today thanks. Labs ordered for CBC with diff and CMP to have done before appointment [facility]10-10-2024 Telephone encounter Note* Telephone Encounter - Alix Quinones RN - 03/08/2024 10:11 AM EDT Patient delivered via c/s by ARON on 03/03/24. Scheduled for incision check tomorrow with ARON. Stated since she has been home she has been struggling with nausea and not able to eat much other then fruit. States it feels like she ate too much spicy food all the time when she hasn't. She has tried tums,sprite, mint gum and none has helped. Asking if there is anything she can get to help with nausea. Pharmacy correct. Please advise. Alix Quinones RN [facility]10-07-2024 History of Present illness Narrative* Alix Quinones RN - 03/05/2024 9:04 AM EDT Patient delivered via by Dr. Marks on 03/03/24 at [facility]. See OB history. Alix Quinones RN documented in this encounterBarney Children'S Medical Center10-07-2024 [facility] Medical Records Department [address] [place] [address] Discharge Summary 03/05/24 0603 MR#: [id number] Acct: [id number] Name: SARAH DAVID Rep #: [id number] : 2000 24 From: Naga Marks DO PCP: KASHMIR HINTON Status:ADM IN Location: [place] [address]1 Providers Date of Admission: 03/02/24 Date of Discharge: 03/05/24 Primary Care Physician: KASHMIR HINOTN Reason For Visit: INDUCTION Diagnosis Discharge Diagnosis [...] 80.8 H, Lymph % (Auto) 10.7 L, Steele % (Auto) 6.2, Eos % (Auto) 0.9, [...] 03/05/24 0605 Cosigner Signature (if applicable): CC: BILINGUAL TEACHER AIDEGlenna RESTREPO; Dr. Ramon (more content not included)...[facility]10-01-2024 Progress note* Quick Notes - Camille Robertson APRN.CNM - 02/28/2024 3:13 PM EDT GRACE-S: Sarah David is a 24 year old female who presents at 39w1d with JACINTO:03/05/2024, by Last Menstrual Period for a routine visit. Denies headache, visual changes, chest pain, shortness of breath,vaginal bleeding, leakage of fluid, or dysuria. Feeling [...] RTO in 1 week Camille Robertson APRN.CNM [facility]10-01-2024 Miscellaneous Notes* Quick Notes - Camille Robertson APRN.CNM - 02/28/2024 3:13 PM EDT GRACE-S: Sarah David is a 24 year old female who presents at 39w1d with JACINTO:03/05/2024, by Last Menstrual Period for a routine visit. Denies headache, visual changes, chest pain, shortness of breath,vaginal bleeding, leakage of fluid, or dysuria. Feeling [...] week Camille Robertson APRN.CNM documented in this encounterBarney Children'S Medical Center10-01-2024 Instructions* Patient Instructions* Live Lucio MA - 02/28/2024 2:32 PM EDT SEQUENTIAL SCREENINGS The [facility] offers sequential screenings for women who are interested in screenings for chromosomal abnormalities and certain defects during a . The sequential screen combinesultrasound and blood tests to determine the risk [...] this testing. It will require an appointment withour regulatory and compliance technician. This is not an ultrasound performed [...] the above symptoms, contact our office at [phone] and ask to speak with anurse. After hours, you can call doctors registry at [phone] OR call [facility] at [phone] ask to have the doctor montessori program director paged. If you consider this an emergency, dial 9- or go to your nearest emergency department. NEED HELP? Are you dealing with a violent or abusive relationship? Are you a victim of rape or sexual assult? Call [facility] ([place]) 24 hour Crisis Hotline: 293.916.8424 or 714-241-6950. MANUAL Your Guide to a Healthy manual is now on-line. Visit [email or web address] to download your free copy documented in this encounterBarney Children'S Medical Center09-24-2024 Progress note* Quick Notes - Camille Robertson APRN.CNM - 02/21/2024 2:49 PM EDT GRACE-S: Sarah David is a 24 year old female who presents at 38w1d with JACINTO:03/05/2024, by Last Menstrual Period for a routine visit. Denies headache, visual changes, chest pain, shortness of breath,vaginal bleeding, leakage of fluid, or dysuria. Feeling [...] RTO in 1 week Camille Robertson APRN.CNM [facility]09-24-2024 Miscellaneous Notes* Quick Notes - Camille Robertson APRN.CNM - 02/21/2024 2:49 PM EDT GRACE-S: Sarah David is a 24 year old female who presents at 38w1d with JACINTO:03/05/2024, by Last Menstrual Period for a routine visit. Denies headache, visual changes, chest pain, shortness of breath,vaginal bleeding, leakage of fluid, or dysuria. Feeling [...] week Camille Robertson APRN.CNM documented in this encounterBarney Children'S Medical Center09-24-2024 Instructions* Patient Instructions* Hanna Esposito MA - 02/21/2024 2:30 PM EDT SEQUENTIAL SCREENINGS The [facility] offers sequential screenings for women who are interested in screenings for chromosomal abnormalities and certain defects during a . The sequential screen combinesultrasound and blood tests to determine the risk [...] this testing. It will require an appointment withour regulatory and compliance technician. This is not an ultrasound performed [...] the above symptoms, contact our office at [phone] and ask to speak with anurse. After hours, you can call doctors registry at [phone] OR call [facility] at [phone] ask to have the doctor montessori program director paged. If you consider this an emergency, dial 1-0-6 or go to your nearest emergency department. NEED HELP? Are you dealing with a violent or abusive relationship? Are you a victim of rape or sexual assult? Call [facility] ([place]) 24 hour Crisis Hotline: 465.118.5078 or 642-508-2492. MANUAL Your Guide to a Healthy manual is now on-line. Visit [email or web address] to download your free copy documented in this encounterBarney Children'S Medical Center09-18-2024 Progress note* Quick Notes - Alicia Albert MD - 02/15/2024 2:06 PM EDT DM-Pt doing well. Denies vaginal Bleeding, Leaking [...] labor reviewed. RTO weekly Alicia Galicia MD [facility]09-18-2024 Miscellaneous Notes* Quick Notes - Alicia Albert MD - 02/15/2024 2:06 PM EDT DM-Pt doing well. Denies vaginal Bleeding, Leaking [...] weekly Alicia Galicia MD documented in this encounterBarney Children'S Medical Center09-18-2024 Instructions* Patient Instructions* Deanna Scott MA - 02/15/2024 1:49 PM EDT SEQUENTIAL SCREENINGS The [facility] offers sequential screenings for women who are interested in screenings for chromosomal abnormalities and certain defects during a . The sequential screen combinesultrasound and blood tests to determine the risk [...] this testing. It will require an appointment withour regulatory and compliance technician. This is not an ultrasound performed [...] the above symptoms, contact our office at [phone] and ask to speak with anurse. After hours, you can call doctors registry at [phone] OR call [facility] at [phone] ask to have the doctor montessori program director paged. If you consider this an emergency, dial 91-9 or go to your nearest emergency department. NEED HELP? Are you dealing with a violent or abusive relationship? Are you a victim of rape or sexual assult? Call [facility] ([place]) 24 hour Crisis Hotline: 368.423.6773 or 372-615-3765. MANUAL Your Guide to a Healthy manual is now on-line. Visit [email or web address] to download your free copy documented in this encounterBarney Children'S Medical Center09-13-2024 Progress note* Quick Notes - Alicia Albert MD - 02/10/2024 11:58 AM EDT DM-Pt doing well. Denies vaginal Bleeding, Leaking [...] confirmed on Ultrasound today Alicia Galicia MD [facility]09-13-2024 Miscellaneous Notes* Quick Notes - Alicia Albert MD - 02/10/2024 11:58 AM EDT DM-Pt doing well. Denies vaginal Bleeding, Leaking [...] today Alicia Galicia MD documented in this encounterBarney Children'S Medical Center09-13-2024 Instructions* Patient Instructions* Tiffany Taylor MA - 02/10/2024 11:38 AM EDT SEQUENTIAL SCREENINGS The [facility] offers sequential screenings for women who are interested in screenings for chromosomal abnormalities and certain defects during a . The sequential screen combinesultrasound and blood tests to determine the risk [...] this testing. It will require an appointment withour regulatory and compliance technician. This is not an ultrasound performed [...] the above symptoms, contact our office at [phone] and ask to speak with anurse. After hours, you can call doctors registry at [phone] OR call [facility] at [phone] ask to have the doctor montessori program director paged. If you consider this an emergency, dial 7-4-3 or go to your nearest emergency department. NEED HELP? Are you dealing with a violent or abusive relationship? Are you a victim of rape or sexual assult? Call [facility] ([place]) 24 hour Crisis Hotline: 805.579.9376 or 955-672-8396. MANUAL Your Guide to a Healthy manual is now on-line. Visit [email or web address] to download your free copy documented in this encounterBarney Children'S Medical Center09-04-2024 Note Indication Evaluation of growth Impression remote [...] Hadlock Femur 64.0 mm 32w 6d 27% Blair EFW 2,543 g 34w 5d 59% Hadlock EFW (lb) 5 lb EFW (oz) 10 oz EFW by: Hadlock (HC-AC-FL) Extended Label Folder 7.0 mm Extremities / Bony Struc FL [...] know sex: yes Performed By: Rita Vera RUST Read By: Ashok Pulido M.D.MATERNAL [id number] Progress note* Quick Notes - Mi Santillan MD - 01/26/2024 12:15 PM EDT S: Sarah David is a 24 year old female who presents at 03/05/2024, by Last Menstrual Period for a routine visit. Denies headache, visual changes, chest pain, shortness of breath, vaginal bleeding,leakage of fluid, or dysuria. Feeling well, no complaints. Good movement, No contractions O: See flow sheet Gen: No apparent distress Abd: Gravid, nontender NATALI 17 EFW - pending report ASSESSMENT/PLAN: 1. Encounter for supervision of high risk in third trimester, antepartum - ICD9: V23.9, ICD10: O09.93 (primary diagnosis) PTL precautions 2. 34 weeks gestation of - ICD9: V22.2, ICD10: Z3A.34 Mi Santillan MD [facility]08-29-2024 Miscellaneous Notes* Quick Notes - Mi Santillan MD - 01/26/2024 12:15 PM EDT S: Sarah David is a 24 year old female who presents at 03/05/2024, by Last Menstrual Period for a routine visit. Denies headache, visual changes, chest pain, shortness of breath, vaginal bleeding,leakage of fluid, or dysuria. Feeling well, no [...] Z3A.34 Mi Santillan MD documented in this encounterBarney Children'S Medical Center08-21-2024 Telephone encounter Note * Telephone Encounter - Kendy Hennessy - 01/18/2024 3:19 PM EDT No available slots for Growth US in 2 wk patient wondering if ok to have this on 02/09 if not she is ok to travel to other locations.Please assist and advice. Many thanks [facility]08-21-2024 Miscellaneous Notes* Telephone Encounter - Hennessy, Kendy - 01/18/2024 3:19 PM EDT No available slots for Growth US in 2 wk patient wondering if ok to have this on 02/09 if not she is ok to travel to other locations.Please assist and advice. Many thanks documented in this encounterBarney Children'S Medical Center08-21-2024 Progress note* Quick Notes - Camille Robertson APRN.CNM - 01/18/2024 2:40 PM EDT GRACE-S: Sarah David is a 24 year [...] RTO in 2 weeks Camille Robertson APRN.CNM [facility]08-21-2024 Miscellaneous Notes* Quick Notes - Camille Robertson APRN.CNM - 01/18/2024 2:40 PM EDT GRACE-S: Sarah David is a 24 year [...] weeks Camille Robertson APRN.CNM documented in this encounterBarney Children'S Medical Center08-21-2024 Instructions* Patient Instructions* Camille Robertson APRN.CNM - 01/18/2024 2:30 PM EDT Images from the original note were not included. SEQUENTIAL SCREENINGS The [facility] offers sequential screenings for women who are interested in screenings for chromosomal abnormalities and certain defects during a . The sequential screen combinesultrasound and blood tests to determine the risk [...] this testing. It will require an appointment withour regulatory and compliance technician. This is not an ultrasound performed [...] the above symptoms, contact our office at [phone] and ask to speak with anurse. After hours, you can call doctors registry at [phone] OR call [facility] at [phone] ask to have the doctor montessori program director paged. If you consider this an emergency, dial 91-6 or go to your nearest emergency department. NEED HELP? Are you dealing with a violent or abusive relationship? Are you a victim of rape or sexual assult? Call [facility] ([facility] 24 hour Crisis Hotline: 406.676.7164 or 119-963-4887. MANUAL Your Guide to a Healthy manual is now on-line. Visit [email or web address] to download your free copy What is [...] they were common before the , they arerarely done today. However, sometimes your health care provider may recommend an episiotomy just asyour baby is being born. For example, an [...] time. This massage--using 2 fingers to stretch yourperineal tissues--is performed by you, in your home, [...] their partners do this massage. See the instructionsfor perineal massage on the next page for more information. Are there any risks to perineal massage during ? Not that we know of. It is free. It doesn't hurt. It is easy to do. And most women don't mind doingit. However, you should not stretch the perineum until it hurts or massage too often, which can hurt the skin in that area. Do not do perineal massage more than once or twice a week. Women who do it more often do not have a lower risk of perineal tearing. Check with your health care provider beforebeginning perineal massage. And, if you believe your [...] lubricant such as vitamin E oil, coconut oil,almond oil, or any vegetable oil used for cooking--like olive oil. You may also try a water?solublejelly, such as K?Y jelly, or your body's [...] to do the massage (instead of thumbs). Thesame side?to?side, U?shaped, downward pressure method should be used. Good communication is important--be sure to tell your partner if you have too much pain or burning! Figure 1 1 Perineal Massage Kit Grade Level: 7.2 Approved May 2015. This handout replaces Perineal Massage in published in Volume 50, Issue 1, May/Jun 2004 Preparing for labor: Eat dates to [...] make an easy pie crust in the tester food products. Add soaked dates to homemade nut butter for a sweet treat. Add dates to rosaura homemade salad dressing. Add dates during easily with these yummy (paleo friendly) bars made from dates. What Is Red Raspberry Babbitt Tea? Red raspberry leaf tea comes from the leaves of the red raspberry plant. This herbal tea has been used for centuries to support respiratory, digestive and uterine health, particularly during and childbearing years. While usually known as a female herb, red raspberry leaf tea can also helpsupport the prostate and various stomach ailments in [...] , and too. How Much Red Raspberry Babbitt Tea to Drink? With your doctor or manager process improvement s approval, start with 1 cup of red raspberry leaf tea per day startingin the second trimester. Watch for any uterine cramping or other reactions. If you don t experienceany, you can talk to your healthcare provider about increasing to 2 cups per day. Again, watch for any uterine cramping. If you notice any, cut back on your dosage for two weeks and try again. Keep in mind, some moms have irritable uteruses and can only drink red raspberry leaf tea once theyreach their due date because of uterine cramping. Is Red Raspberry Babbitt Tea the Same as Raspberry Babbitt Tea? How About Plain Old Raspberry Tea? Sometimes. You really need to look at the ingredients to be sure. Note that there is no difference between red raspberry leaf and raspberry leaf. [employer] Op or [employer] Raspberry Babbitt Tea are two good brands. The red raspberry leaf teas that we recommend are 100% red raspberry leaf. Other teas labeled as raspberry are often a blend of rosehips, hibiscus, raspberry leaves, and raspberry flavor. So they maynot be as effective. The teas to avoid are raspberry-flavored herbal teas, which may have ingredients like hibiscus, elfego hips, apples, elderberries, natural and artificial raspberry flavors. Teas like this don t containraspberry leaf at all and thus won t offer any of the potential benefits of RRLT outlined in this article. [employer] www.[employer].CloudTags I named this 'circuit' after my friend Candida Rosa, who shared and discussed it with me when I was working with a client whose labor seemed to be stalled out and no longer progressing... This circuit is useful to help get the baby lined up, ideally, in the Left Occiput Anterior (DENISA) Position, both before labor begins and when some corrections need to be done during labor. Prenatally, this position set can help to rotate a baby. As a natural method of induction, this can help get things going if baby just needed a gentle nudge of position to set things off. To the best of my knowledge, this group of positions will not hurt a baby that is already lined up correctly. - Leena Zazueta Before you Begin..... This circuit takes at [...] and use this time to get totally relaxed.This position allows the baby to scoot out [...] pillows. Sink into the bed and relax somemore. If you fall asleep, that's totally okay [...] sideways, 2 at a time, (have a director alliance marketing downstairs of you!), take a walk outside [...] the pelvis. Candida Rosa: Circuit Creator - www.Metabarundbirthcollective.CloudTags Leena Zazueta, CD, BDT (JARROD), LCCE, FACCE: Supporting Content - www.leenaSoft Health Technologiesbarry.CloudTags Dee Brown: Photography - www.ManfluaverbrowMom Trusted.CloudTags Maxine Biswas CD/CDT (ELYSSA): Print and Cigar Tobacco Processing Supervisor - www.Kaikeba.com.[place] Circuit Masterminds [employer] www.[employer].CloudTags documented in this encounterBarney [facility]08-[facility] Miscellaneous Notes* Telephone Encounter - Janet Boyle RN - 01/15/2024 10:45 AM EDT Patient calling with questions about how to schedule appointment for her unborn child to establish care with a livestock brands inspector. Patient denies any new or worsening symptoms of which a provider is not aware:Yes. Patient was advised to discuss with her OB provider, our Appointment center cannot schedulean appointment until the baby is born/has a medical record number, and babies are seen by a pediatri jay in the hospital after . Mother verbalized understanding. documented in this encounterBarney Children'S Medical Center08-18-2024 Telephone encounter Note * Telephone Encounter - Janet Boyle RN - 01/15/2024 10:45 AM EDT Patient calling with questions about how to schedule appointment for her unborn child to establish care with a livestock brands inspector. Patient denies any new or worsening symptoms of which a provider is not aware:Yes. Patient was advised to discuss with her OB provider, our Appointment center cannot schedulean appointment until the baby is born/has a medical record number, and babies are seen by a pediatri jay in the hospital after . Mother verbalized understanding. [facility]08-07-[facility] Miscellaneous Notes* Quick Notes - Dee Fields APRN.CNP - 01/04/2024 4:07 PM EDT EH - S: Sarah is a 23 [...] in 2 weeks or sooner as needed. Dee Fields APRN.SENIOR JAVA ARCHITECT documented in this encounterBarney Children'S Medical Center08-07-2024 Progress note* Quick Notes - Dee Fields APRN.CNP - 01/04/2024 4:07 PM EDT EH - S: Sarah is a 23 [...] in 2 weeks or sooner as needed. Dee Fields APRN.SENIOR JAVA ARCHITECT [facility]08-07-2024 Instructions* Patient Instructions* Tiffany Taylor MA - 01/04/2024 3:45 PM EDT SEQUENTIAL SCREENINGS The [facility] offers sequential screenings for women who are interested in screenings for chromosomal abnormalities and certain defects during a . The sequential screen combinesultrasound and blood tests to determine the risk [...] this testing. It will require an appointment withour regulatory and compliance technician. This is not an ultrasound performed [...] the above symptoms, contact our office at [phone] and ask to speak with anurse. After hours, you can call doctors registry at [phone] OR call [facility] at [phone] ask to have the doctor montessori program director paged. If you consider this an emergency, dial 0-4-8 or go to your nearest emergency department. NEED HELP? Are you dealing with a violent or abusive relationship? Are you a victim of rape or sexual assult? Call [facility] ([place]) 24 hour Crisis Hotline: 870.621.6417 or 668-464-6118. MANUAL Your Guide to a Healthy manual is now on-line. Visit [email or web address] to download your free copy documented in this encounterBarney Children'S Medical Center07-30-2024 Telephone encounter Note * Telephone Encounter - Amber Cadena RN - 12/27/2023 11:20 AM EDT 3rd risk assessment form submitted 12/27/23 Amber Cadena RN [facility]07-30-2024 Miscellaneous Notes* Telephone Encounter - Amber Cadena RN - 12/27/2023 11:20 AM EDT 3rd risk assessment form submitted 12/27/23 Amber Cadena RN documented in this encounterBarney Children'S Medical Center07-24-2024 Progress note* Quick Notes - Mi Santillan MD - 12/21/2023 1:59 PM EDT S: Sarah David is a 23 year old female who presents at 03/05/2024, by Last Menstrual Period for a routine visit. Denies headache, visual changes, chest pain, shortness of breath, vaginal bleeding,leakage of fluid, or dysuria. Feeling well, no [...] 646.83, ICD10: O26.899, Z67.91 Mi Santillan MD [facility]07-24-[facility]24 Miscellaneous Notes* Quick Notes - Mi Santillan MD - 12/21/2023 1:59 PM EDT S: Sarah David is a 23 year old female who presents at 03/05/2024, by Last Menstrual Period for a routine visit. Denies headache, visual changes, chest pain, shortness of breath, vaginal bleeding,leakage of fluid, or dysuria. Feeling well, no [...] Z67.91 Mi Santillan MD documented in this encounterBarney Children'S Medical Center07-24-2024 History of Present illness Narrative* Mayra Hearn RN - 12/21/2023 1:51 PM EDT Sarah David 23 year old is here for her injection of Rhophylac. Sarah David Antibody Screen (no units) Date Value 11/23/2023 Negative Sarah David is RH Negative Rhophylac was given without incident. See immunizations for details of immunizations administered today. Provider MARIN was present in office at time of injection Sarah David was given her Rhophylac pocket card. Mayra Hearn RN * Hanna Esposito MA - 12/21/2023 1:15 PM EDT Patient identified by name and date of [...] severely ill: Yes Patient denies history of Guillain-Bowen Syndrome (a severe paralytic illness): Yes Tdap Adacel injection was given without incident. See immunizations for details of immunizations administered today. VIS sheet provided: Yes Provider Mi Santillan MD was present in office at time of injection. Hanna Esposito MA documented in this encounterBarney Children'S Medical Center07-24-2024 Instructions* Patient Instructions* Hanna Esopsito MA - 12/21/2023 1:10 PM EDT SEQUENTIAL SCREENINGS The [facility] offers sequential screenings for women who are interested in screenings for chromosomal abnormalities and certain defects during a . The sequential screen combinesultrasound and blood tests to determine the risk [...] this testing. It will require an appointment withour regulatory and compliance technician. This is not an ultrasound performed [...] the above symptoms, contact our office at [phone] and ask to speak with anurse. After hours, you can call doctors registry at [phone] OR call [facility] at [phone] ask to have the doctor montessori program director paged. If you consider this an emergency, dial 9-1- or go to your nearest emergency department. NEED HELP? Are you dealing with a violent or abusive relationship? Are you a victim of rape or sexual assult? Call [facility] Crisis Hotline: 823.295.8185 or 467-941-0161. MANUAL Your Guide to a Healthy manual is now on-line. Visit [email or web address] to download your free copy documented in this encounterBarney Children'S Medical Center06-26-2024 Miscellaneous Notes* Quick Notes - Dee Fields APRN.SENIOR JAVA ARCHITECT - 11/23/2023 2:30 PM EDT EH - S: Sarah is a 23 [...] in 4 weeks or sooner as needed. Dee Fields APRN.AMBER documented in this encounterBarney Children'S Medical Center06-26-2024 Progress note* Quick Notes - Dee Fields APRN.CNP - 11/23/2023 2:30 PM EDT EH - S: Sarah is a 23 [...] in 4 weeks or sooner as needed. Dee Fields APRN.AMBER [facility]06-26-2024 Instructions* Patient Instructions* Roberta LucioANA LAURA - 11/23/2023 2:17 PM EDT SEQUENTIAL SCREENINGS The [facility] offers sequential screenings for women who are interested in screenings for chromosomal abnormalities and certain defects during a . The sequential screen combinesultrasound and blood tests to determine the risk [...] this testing. It will require an appointment withour regulatory and compliance technician. This is not an ultrasound performed [...] the above symptoms, contact our office at [phone] and ask to speak with anurse. After hours, you can call doctors registry at [phone] OR call [facility] at [phone] ask to have the doctor montessori program director paged. If you consider this an emergency, dial 9-1-6 or go to your nearest emergency department. NEED HELP? Are you dealing with a violent or abusive relationship? Are you a victim of rape or sexual assult? Call [facility] ([place]) 24 hour Crisis Hotline: 114.822.5646 or 690-126-7934. MANUAL Your Guide to a Healthy manual is now on-line. Visit [email or web address] to download your free copy SEQUENTIAL SCREENINGS The [facility] offers sequential screenings for women who are interested in screenings for chromosomal abnormalities and certain defects during a . The sequential screen combinesultrasound and blood tests to determine the risk [...] this testing. It will require an appointment withour regulatory and compliance technician. This is not an ultrasound performed [...] the above symptoms, contact our office at [phone] and ask to speak with anurse. After hours, you can call doctors registry at [phone] OR call [facility] at [phone] ask to have the doctor montessori program director paged. If you consider this an emergency, dial 0-0-1 or go to your nearest emergency department. NEED HELP? Are you dealing with a violent or abusive relationship? Are you a victim of rape or sexual assult? Call [facility] ([place]) 24 hour Crisis Hotline: 215.902.1783 or 782-091-7201. MANUAL Your Guide to a Healthy manual is now on-line. Visit [email or web address] to download your free copy documented in this encounterBarney Children'S [facility] Center06-18-2024 Telephone encounter Note * Telephone Encounter - Mi Santillan MD - 11/15/2023 4:30 PM EDT Prescription changed [facility]06-[facility]24 Miscellaneous Notes* Telephone Encounter - Mi Santillan MD - 11/15/2023 4:30 PM EDT Prescription changed * Telephone Encounter - Laurel Daugherty RN - 11/15/2023 3:35 PM EDT Can you review request from pharmacy? Pharmacy comment: Product Backordered/Unavailable:ASPIRIN CAPSULES ARE NOT AVAILABLE. CAN WE CHANGETO TABS? documented in this encounterBarney Children'S Medical Center06-18-2024 Telephone encounter Note * Telephone Encounter - Laurel Daugherty RN - 11/15/2023 3:35 PM EDT Can you review request from pharmacy? Pharmacy comment: Product Backordered/Unavailable:ASPIRIN CAPSULES ARE NOT AVAILABLE. CAN WE CHANGETO TABS? [facility]06-[facility] Progress note* Quick Notes - Mi Santillan MD - 11/09/2023 11:18 AM EDT S: Sarah David is a 23 year old female who presents at 03/05/2024, by Last Menstrual Period for a routine visit. Denies headache, visual changes, chest pain, shortness of breath, vaginal bleeding,leakage of fluid, or dysuria. Feeling well, no [...] GRAM, NON-FASTING - SYPHILIS TOTAL W/REFLEX Mi Snatillan MD [facility]06-12-2024 Miscellaneous Notes* Quick Notes - Mi Santillan MD - 11/09/2023 11:18 AM EDT S: Sarah David is a 23 year old female who presents at 03/05/2024, by Last Menstrual Period for a routine visit. Denies headache, visual changes, chest pain, shortness of breath, vaginal bleeding,leakage of fluid, or dysuria. Feeling well, no [...] - SYPHILIS TOTAL W/REFLEX Mi Santillan MD documented in this encounterBarney Children'S Medical Center06-12-2024 Instructions* Patient Instructions* Heather Hopper MA - 11/09/2023 11:03 AM EDT SEQUENTIAL SCREENINGS The [facility] offers sequential screenings for women who are interested in screenings for chromosomal abnormalities and certain defects during a . The sequential screen combinesultrasound and blood tests to determine the risk [...] this testing. It will require an appointment withour regulatory and compliance technician. This is not an ultrasound performed [...] the above symptoms, contact our office at [phone] and ask to speak with anurse. After hours, you can call doctors registry at [phone] OR call [facility] at [phone] ask to have the doctor montessori program director paged. If you consider this an emergency, dial 9-1-6 or go to your nearest emergency department. NEED HELP? Are you dealing with a violent or abusive relationship? Are you a victim of rape or sexual assult? Call [facility] ([place]) 24 hour Crisis Hotline: 484.239.3849 or 402-646-4632. MANUAL Your Guide to a Healthy manual is now on-line. Visit [email or web address] to download your free copy documented in this encounterBarney Children'S [facility] Center05-28-2024 Telephone encounter Note * Telephone Encounter - Amber Cadena RN - 10/25/2023 1:55 PM EDT 2nd risk assessment form submitted 10/25/23 Amber Cadena RN [facility]05-28-2024 Miscellaneous Notes* Telephone Encounter - Amber Cadena RN - 10/25/2023 1:55 PM EDT 2nd risk assessment form submitted 10/25/23 Amber Cadena RN documented in this encounterBarney Children'S Medical Center05-27-2024 Telephone encounter Note * Telephone Encounter - Dee Ramos RN - 10/24/2023 4:03 PM EDT Reason for call: GROUP PROGRAM MANAGER Patient of Dee Fields APRN.CNP and Dr. Santillan calling states she is about 5 months and she is concerned because she swallowed a foreign body (tongue ring) and she isconcerned it will could cause complications with her . Would like to speak with GROUP PROGRAM MANAGER montessori program director. Outcome: Conferenced to answering service for Dr. Santillan. GO TO THE EMERGENCY ROOM OR CALL 911 IF: * You develop any new symptoms * Your condition worsens * You are concerned or anxious about your condition for any other reason. If you have any questions, you can call Nurse java web application developer back. [facility]05-27-2024 Miscellaneous Notes* Telephone Encounter - Dee Ramos RN - 10/24/2023 4:03 PM EDT Reason for call: GROUP PROGRAM MANAGER Patient of Dee Fields APRN.CNP and Dr. Santillan calling states she is about 5 months and she is concerned because she swallowed a foreign body (tongue ring) and she isconcerned it will could cause complications with her . Would like to speak with GROUP PROGRAM MANAGER montessori program director. Outcome: Conferenced to answering service for Dr. Santillan. GO TO THE EMERGENCY ROOM OR CALL 911 IF: * You develop any new symptoms * Your condition worsens * You are concerned or anxious about your condition for any other reason. If you have any questions, you can call Nurse java web application developer back. documented in this encounterBarney Children'S [facility] Center05-24-2024 Telephone encounter Note * Telephone Encounter - Roberta Cano LPN - 10/21/2023 3:02 PM EDT Spoke with pt and clarified that she does not need to be seen for yearly exam at this time. Roberta Cano LPN [facility]05-24-2024 Miscellaneous Notes* Telephone Encounter - Roberta Cano LPN - 10/21/2023 3:02 PM EDT Spoke with pt and clarified that she does not need to be seen for yearly exam at this time. Roberta Cano LPN documented in this encounterBarney Children'S [facility] Center05-15-2024 Instructions* Patient Instructions* Live Lucio MA - 10/12/2023 9:10 AM EDT SEQUENTIAL SCREENINGS The [facility] offers sequential screenings for women who are interested in screenings for chromosomal abnormalities and certain defects during a . The sequential screen combinesultrasound and blood tests to determine the risk [...] this testing. It will require an appointment withour regulatory and compliance technician. This is not an ultrasound performed [...] the above symptoms, contact our office at [phone] and ask to speak with anurse. After hours, you can call [facility] at [phone] OR call [facility] at [phone] ask to have the doctor montessori program director paged. If you consider this an emergency, dial 9-1-1 or go to your nearest emergency department. NEED HELP? Are you dealing with a violent or abusive relationship? Are you a victim of rape or sexual assult? Call [facility] ([place]) 24 hour Crisis Hotline: 817.770.7768 or 316-053-9899. MANUAL Your Guide to a Healthy manual is now on-line. Visit [email or web address] to download your free copy documented in this encounterBarney Children'S [facility] Center05-15-2024 Miscellaneous Notes* Quick Notes - Mi Santillan MD - 10/12/2023 9:01 AM EDT S: Sarah David is a 23 year old female who presents at 03/05/2024, by Last Menstrual Period for a routine visit. Denies headache, visual changes, chest pain, shortness of breath, vaginal bleeding,leakage of fluid, or dysuria. Feeling well, no [...] weeks Mi Santillan MD documented in this encounterBarney Children'S Medical Center05-15-2024 Progress note* Quick Notes - Mi Santillan MD - 10/12/2023 9:01 AM EDT S: Sarah David is a 23 year old female who presents at 03/05/2024, by Last Menstrual Period for a routine visit. Denies headache, visual changes, chest pain, shortness of breath, vaginal bleeding,leakage of fluid, or dysuria. Feeling well, no [...] Z3A.19 RTO 4 weeks Mi Santillan MD [facility]05-13-2024 Telephone encounter Note* Telephone Encounter - Alix Quinones RN - 10/10/2023 11:50 AM EDT Order signed and faxed. Alix Quinones RN [facility]05-13-2024 Miscellaneous Notes* Telephone Encounter - Alix Quinones RN - 10/10/2023 11:50 AM EDT Order signed and faxed. Alix Quinones RN * Telephone Encounter - Alix Quinones RN - 10/10/2023 9:29 AM EDT Breast pump order received from [employer] To to sign. Alix Quinones RN documented in this encounterBarney Children'S [facility] Center05-13-2024 Telephone encounter Note * Telephone Encounter - Alix Quinones RN - 10/10/2023 9:29 AM EDT Breast pump order received from [employer] To to sign. Alix Quinones RN [facility]04-23-[facility] Telephone encounter Note* Telephone Encounter - Mi Macedo RN - 09/20/2023 11:53 AM EDT 1st risk assessment form submitted 09/20/2023. Mi Macedo RN [facility]04-23-2024 Miscellaneous Notes* Telephone Encounter - Mi Macedo RN - 09/20/2023 11:53 AM EDT 1st risk assessment form submitted 09/20/2023. Mi Macedo RN documented in this encounterBarney Children'S Medical Center04-22-2024 History of Present illness Narrative* Dee Fields APRN.AMBER - 09/19/2023 11:00 AM EDT Images from the original note [...] pre-existing diabetes: No No results found for: ABORHD BMI 24.45 kg/(m^2) Last Pap: 10/26/2022 History [...] Medications Medication Sig Dispense Refill rizatriptan (MAXALT CANE CUTTER) 5 mg disintegrating tablet Take 1 tablet at first sign of migraine, and may repeat in 2 hours if necessary. Do not take more than 20mg in a 24 hour period. (Patient not taking: Reported on 09/12/2023) 12 tablet 1 tiZANidine (ZANAFLEX) 4 mg tablet Take 1 tablet by mouth at bedtime as needed. (Patient not taking:Reported on 09/12/2023) 30 tablet 3 hydrOXYzine HCl [...] behavior. Plan to rescreen early third trimester. Dee Fields APRN.SENIOR JAVA ARCHITECT REVIEW OF SYSTEMS: GENERAL: Negative for: Fever [...] dysuria PHYSICAL EXAM: BP 92/58 Ht 5' 1 (1.55m) Wt 129 lb 6.4 oz (58.7kg) [...] Your guide to a health and the Batch Records Clerk. Discussed aneuploidy screening, nuchal translucency/first trimester early anatomy ultrasound and NIPT. The risks/benefits and limitations of NIPT/aneuploidy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 Notes* Telephone Encounter - VENESSA Howell - 06/14/2022 2:10 PM EST Behavioral Health Social Work Progress Note Patient identified for [facility] from: PCP Reason for referral: Resources Behavioral Health Resources: Psychology - talk therapy [facility] encounter type: Telephone Encounter;Letter Attempts to Outreach: 1 attempt Referral made: Psychology - External;Psychology - Internal Psychology-Internal referral type: Therapy Psychology-External referral type: Therapy Reason for external referral: Wait times at [facility] too long Final Disposition: Resources given Patient [...] Does not use MyChart, states she is not an ji kind of girl. Will send resources in a letter to her home and will include the following: [facility] [address] [place] [address] [facility] (Telehealth available) [address] [place] [address] [facility] (Telehealth available) [address] [place] [address] [facility] (Telehealth available) [address], [address] [place] [address] [facility] (Telehealth available) [address] [place] [address] [place], [place] [phone] VENESSA Howell June 14, 2022 documented in this encounterBarney Children'S Medical Center12-27-2022 Miscellaneous Notes* Telephone Encounter - Dane Rodrigez ANA LAURA - 05/25/2022 1:47 PM EST Patient has been identified by name and [...] Please advise. Thank you. Dane Rodrigez LPN * Telephone Encounter - Stephanie Altman - 05/25/2022 12:51 PM EST Patient has been identified by name and date of : Yes Requested Prescriptions Pending Prescriptions Disp Refills venlafaxine ER (EFFEXOR XR) 150 mg 24 hr capsule 30 capsule 3 Sig: Take 1 capsule by mouth once daily. RX INSTRUCTIONS: Patient aware RX will be sent to pharmacy. No need to notify patient. Stephanie Atlman documented in this encounterBarney Children'S Medical Center12-05-2022 History of Present illness Narrative* Dora Restrepo, BRITNEY.AMBER - 05/03/2022 10:35 AM EST CC: Patient presents with: Headache HPI Sarah [...] migraine prevention but will forget to take 1- 2 times a week. Tizanidine is for neck [...] [Amoxicillin-Pot Clavulanate], and Penicillins MEDICATIONS rizatriptan (MAXALT CANE CUTTER) 5 mg disintegrating tablet Take 1 tablet [...] plan. Dora Restrepo APRN.AMBER documented in this encounterBarney Children'S Medical Center12-05-2022 Miscellaneous Notes* Telephone Encounter - Dane Rodrigez LPN - 05/03/2022 9:51 AM EST letter will be given to her at her appointment today with Dora Restrepo. Dane Rodrigez LPN * Telephone Encounter - Kwabena Marquez MD - 04/30/2022 5:48 PM EST Noted, Letter printed for the patient. Regards, Kwabena Marquez MD * Telephone Encounter - Suim Glass LPN - 04/30/2022 11:22 AM EST Patient calling, states that job and family services is requesting a letter stating that patient isbeing treated for migraines. States that this would be for food stamps. Asking that letter be faxedto [phone]. Please advise. documented in this encounterBarney Children'S Medical Center10-17-2022 Miscellaneous Notes* Telephone Encounter - Halina Haney LPN - 03/15/2022 2:20 PM EDT called the pharmacy. They report this will go through now. They will get the rx ready for her. * Telephone Encounter - Halina Haney LPN - 03/05/2022 2:16 PM EDT called [facility]. They gave me the website to print a PA form. This was done. Completed and faxed tonumber on the form. * Telephone Encounter - Halina Haney LPN - 03/05/2022 8:59 AM EDT The [place] medicaid has changed their PA process. I'm working on it. * Telephone Encounter - Dora Restrepo APRN.CNP - 03/05/2022 8:07 AM EDT Zofran is as needed for nausea and vomiting related to migraine which prevents patient from taking her daily medications. Is anything else needed? Thank you Dora Restrepo APRN.CNP * Telephone Encounter - Halina Haney LPN - 03/04/2022 3:35 PM EDT sarah david Cardenas: [id number] help? Call us at Outcome Additional Information Required Effective 02/27, all [place] Medicaid pharmacy authorization requests should be submitted to [place]. The request may be submitted to [facility] Clinical Contact Center via phone at , fax [phone], or through the portal at [email or web address] Drug Ondansetron 4MG dispersible tablets Form [facility] Non-Medicare Electronic PA Form (2016 NCPDP) * Telephone Encounter - Barbra Gutierrez RN - 03/03/2022 2:07 PM EDT Prior Authorization Documentation Prior authorization requested for the following medication: Medication: Zofran disintegrating 4 mg Provider: [employer] Company Name: [employer] Phone number: [phone] Patient ID number: [id number] Pharmacy Name: [facility] Telephone number: [phone] documented in this encounterBarney Children'S Medical Center10-03-2022 History of Present illness Narrative* Dora Restrepo APRN.SENIOR JAVA ARCHITECT - 03/01/2022 11:44 AM EDT CC: Patient presents with: Recheck: Follow up [...] runny nose, and her stomach will start rumbling. 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 Dora Restrepo APRN.CNP documented in this encounterBarney Children'S Medical Center09-28-2022 Miscellaneous Notes* Telephone Encounter - Dane Rodrigez LPN - 02/24/2022 8:29 AM EDT Patient has been identified by name and date of : Yes Patient phones for refill(s): Requested Prescriptions Pending Prescriptions Disp Refills rizatriptan (MAXALT CANE CUTTER) 5 mg disintegrating tablet 12 tablet 1 [...] Please advise. Thank you. Dane Rodrigez LPN * Telephone Encounter - Mi Thornton Pss - 02/23/2022 9:00 AM EDT Pharmacy verified in Epic Patient has been identified by name and date of : Yes Patient aware RX will be sent to pharmacy. No need to notify patient. Patient phones for refill(s): Requested Prescriptions Pending Prescriptions Disp Refills rizatriptan (MAXALT CANE CUTTER) 5 mg disintegrating tablet 12 tablet 1 [...] advise. Mi Thornton Pss documented in this encounterBarney Children'S Medical Center09-08-2022 Miscellaneous Notes* Telephone Encounter - Halina Haney LPN - 02/04/2022 11:21 AM EDT Called the pharmacy no PA is needed. The issue is the qty of 12. Insurance will cover 9 for 30 days. Message left to pt with info. * Telephone Encounter - Yue Chavez RN - 02/03/2022 1:18 PM EDT PRIOR AUTHORIZATION Medication for Prior Authorization: rizatriptan Insurance Company: [employer] phone number: [phone] Patient insurance ID number: [id number] Yue Chavez RN Please give patient a call if approved documented in this encounterBarney Children'S Medical Center08-26-2022 Miscellaneous Notes* Telephone Encounter - Dane Rodrigez LPN - 01/22/2022 4:41 PM EDT Patient has been identified by name and date of : Yes Patient phones for refill(s): Requested Prescriptions Pending Prescriptions Disp Refills rizatriptan (MAXALT CANE CUTTER) 5 mg disintegrating tablet [Pharmacy Med Name: RIZATRIPTAN 5 MG ODT] 12 tablet 1 Sig: PLEASE SEE ATTACHED FOR DETAILED DIRECTIONS Date of last office visit in primary care: 10/08/2021 Last 2 Encounter Wt Readings: Date: Wt: 10/08/2021 56.2 kg (124 lb) 09/11/2021 56.7 kg (125 lb) Previous labs/tests for medication: Not applicable Please advise. Thank you. Dane Rodrigez LPN documented in this encounterBarney Children'S Medical Center08-26-2022 Miscellaneous Notes* Telephone Encounter - Elyse [facility] - 01/22/2022 2:24 PM EDT Patient has been identified by name and date of : Yes Requested Prescriptions Pending Prescriptions Disp Refills rizatriptan (MAXALT CANE CUTTER) 5 mg disintegrating tablet 12 tablet 1 Sig: PLEASE SEE ATTACHED FOR DETAILED DIRECTIONS RX INSTRUCTIONS: Patient is completely out of this medication, Patient aware RX will be sent to pharmacy. No need to notify patient. [facility] documented in this encounterBarney Children'S Medical Center08-08-2022 Miscellaneous Notes* Telephone Encounter - Lyndsey Kwan LPN - 01/04/2022 3:51 PM EDT Spoke with pt and information listed below given. Pt verbalizes understanding. Lyndsey Kwan LPN * Telephone Encounter - Lyndsey Kwan LPN - 12/30/2021 8:27 AM EDT Left a message for pt to call the office and ask to speak to a nurse. Lyndsey Kwan LPN * Telephone Encounter - Dora Restrepo APRN.CNP - 12/30/2021 8:07 AM EDT A total of 24 tablets were prescribed 2 weeks ago. She should not be using this medication daily, and should contact neurology if this is the case for further direction. Thank you Dora Restrepo APRN.AMBER * Telephone Encounter - Марина Sears LPN - 12/29/2021 12:12 PM EDT Spoke to Patient she is needing refill [...] Please advise. Thank you. Марина Sears LPN * Telephone Encounter - Elisabeth Sepulveda - 12/29/2021 11:19 AM EDT Patient has been identified by name and [...] notify patient. Elisabeth Sepulveda documented in this encounterBarney Children'S Medical Center08-03-2022 Miscellaneous Notes* Telephone Encounter - Tawnya Patton Ma - 12/30/2021 11:40 AM EDT Patient notified and scheduled follow up with Dora. * Telephone Encounter - Kwabena Marquez MD - 12/30/2021 10:06 AM EDT I can give her ativan for anxiety, not sure if will help with the fear of denstists, but hopeful itwill make her less anxious rx sent to local pharmacy * Telephone Encounter - Elisabeth Sepulveda - 12/29/2021 11:21 AM EDT Sarah David is calling Kwabena Marquez MD today to request medication she can take to help with her fear of the dentist. The dentist suggested to ask her PCP. No chief complaint on file. Patient has been identified by name and birthdate. Duration of symptoms: N/A Person calling: self Call patient at: on cell [phone] (home) [phone] (cell) Was an appointment scheduled: No Closing statement: Results or non-symptom based questions: Thank you for calling [facility], your call will be returned within the next business day. Elisabeth Sepulveda documented in this encounterBarney Children'S Medical Center07-01-2022 Miscellaneous Notes* Telephone Encounter - Barbra Gutierrez RN - 11/27/2021 9:29 AM EDT Protocol recommends ER or pcp triage. Patient agreeable to ER. States her boyfriend will drive her.Migraine, vomiting- unable to keep liquids down 3 [...] last migraine 2-3 weeks ago. In the pasthas resolved on it's own after a day. [...] just had period. Protocols used: DIZZINESS - [id number] documented in this encounterBarney Children'S Medical Center06-17-2022 Miscellaneous Notes* Telephone Encounter - Frank Urias Ma - 11/13/2021 2:14 PM EDT AHRISH: 10/08/2021 * Telephone Encounter - Abimbola Blanco - 11/13/2021 11:16 AM EDT Patient has been identified by name and [...] notify patient. Abimbola Blanco documented in this encounterBarney Children'S Medical Center05-16-2022 Miscellaneous Notes* Telephone Encounter - Tawnya Patton Ma - 10/12/2021 4:49 PM EDT Patient notified. * Telephone Encounter - Tawnya Patton Ma - 10/12/2021 4:48 PM EDT ----- Message from Dora Restrepo APRN.CNP sent at 10/12/2021 8:08 AM EDT ----- Please let patient know that her lab work is all negative. Thank you Dora Restrepo APRN.CNP documented in this encounterBarney Children'S Medical Center05-03-2022 History of Present illness Narrative* Eden Murillo RT(R) - 09/29/2021 10:00 AM EDT Radiology Service Progress Note DATE OF SERVICE: [...] Exam(s) Completed: Head: Routine Brain SIGNATURE: RT Marcelino(R) PATIENT NAME: Sarah David DATE: September 29, 2021 TIME: 10:24 AM documented in this encounterBarney Children'S Medical Center04-15-2022 History of Present illness Narrative* Dora Restrepo, SUPERINTENDENT CEMETERY.SENIOR JAVA ARCHITECT - 09/11/2021 2:50 PM EDT CC: Patient presents with: Recheck: Medication follow [...] with understanding that this will be a v laura basic visit and she will have to reschedule to review all of her issues. Needing a refill on effexor for migraines and on her maxalt. Is tolerating the 75mg of Effexor daily, but has not seen much improvement in her migraines. Statesthe have not gotten worse but have remained [...] Diagnosis Date Left ear hearing loss Menarche 2012 Age 11 Migraines PMH - PAST MEDICAL HISTORY OF 01/09/04 normal color vision TMJ (dislocation of temporomandibular joint) PAST SURGICAL HISTORY Procedure Laterality Date TYMPANOSTOMY LOCAL; UNILATERAL < 6 yrs ALLERGIES Amoxicillin, Augmentin [Amoxicillin-Pot Clavulanate], and Penicillins MEDICATIONS tiZANidine (ZANAFLEX) 4 mg tablet TAKE 1 TABLET BY MOUTH EVERY DAY AT BEDTIME NEEDED rizatriptan (MAXALT CANE CUTTER) 5 mg disintegrating tablet TAKE 1 TABLET [...] a visit so we can have time toreview all of her anxiety/depression, migraines, and the [...] plan. Dora Restrepo APRN.CNP documented in this encounterBarney Children'S Medical Center09-10-2014 History of Past illness Narrative* Problem Noted Date Resolved Date Body mass index equal to or greater than 95th percentile for age in pediatric patient 02/06/2014 10/18/2022 Brain tumor 08/28/2013 06/03/2015 documented as of this encounter (statuses as of 10/26/2022) [facility]09[facility] of Past illness Narrative* Problem Noted Date Diagnosed Date Resolved Date Body mass index equal to or greater than 95th percentile for age in pediatric patient 02/06/2014 10/18/2022 Brain tumor 08/28/2013 06/03/2015 documented as of this encounter (statuses as of 12/08/2022) [facility] of Past illness Narrative* Problem Noted Date Diagnosed Date Resolved Date Body mass index equal to or greater than 95th percentile for age in pediatric patient 02/06/2014 10/18/2022 Brain tumor 08/28/2013 06/03/2015 documented as of this encounter (statuses as of 04/03/2023) [facility] of [facility] illness Narrative* Problem Noted Date Diagnosed Date Resolved Date Body mass index equal to or greater than 95th percentile for age in pediatric patient 02/06/2014 10/18/2022 Brain tumor 08/28/2013 06/03/2015 documented as of this encounter (statuses as of 09/13/2023) [facility] Narrative* Problem Noted Date Resolved Date Brain tumor 08/28/2013 06/03/2015 documented as of this encounter (statuses as of 09/04/2021) [facility] Narrative* Problem Noted Date Resolved Date Brain tumor 08/28/2013 06/03/2015 documented as of this encounter (statuses as of 09/11/2021) [facility] Narrative* Problem Noted Date Resolved Date Brain tumor 08/28/2013 06/03/2015 documented as of this encounter (statuses as of 09/30/2021) [facility] Narrative* Problem Noted Date Resolved Date Brain tumor 08/28/2013 06/03/2015 documented as of this encounter (statuses as of 10/12/2021) [facility] Narrative* Problem Noted Date Resolved Date Brain tumor 08/28/2013 06/03/2015 documented as of this encounter (statuses as of 11/13/2021) [facility] Narrative* Problem Noted Date Resolved Date Brain tumor 08/28/2013 06/03/2015 documented as of this encounter (statuses as of 12/09/2021) [place] [address]01[address] History of Past illness Narrative* Problem Noted Date Resolved Date Brain tumor 08/28/2013 06/03/2015 documented as of this encounter (statuses as of 12/30/2021) [address] History of Past illness Narrative* Problem Noted Date Resolved Date Brain tumor 08/28/2013 06/03/2015 documented as of this encounter (statuses as of 01/04/2022) [address] History of Past illness Narrative* Problem Noted Date Resolved Date Brain tumor 08/28/2013 06/03/2015 documented as of this encounter (statuses as of 01/22/2022) [place] [address] History of Past illness Narrative* Problem Noted Date Resolved Date Brain tumor 08/28/2013 06/03/2015 documented as of this encounter (statuses as of 01/25/2022) [address] History of Past illness Narrative* Problem Noted Date Resolved Date Brain tumor 08/28/2013 06/03/2015 documented as of this encounter (statuses as of 02/04/2022) [place] [address] History of Past illness Narrative* Problem Noted Date Resolved Date Brain tumor 08/28/2013 06/03/2015 documented as of this encounter (statuses as of 02/17/2022) [place] [address] History of Past illness Narrative* Problem Noted Date Resolved Date Brain tumor 08/28/2013 06/03/2015 documented as of this encounter (statuses as of 02/24/2022) [place] [address] History of Past illness Narrative* Problem Noted Date Resolved Date Brain tumor 08/28/2013 06/03/2015 documented as of this encounter (statuses as of 03/01/2022) [place] [address] History of Past illness Narrative* Problem Noted Date Resolved Date Brain tumor 08/28/2013 06/03/2015 documented as of this encounter (statuses as of 03/15/2022) [place] [address] History of Past illness Narrative* Problem Noted Date Resolved Date Brain tumor 08/28/2013 06/03/2015 documented as of this encounter (statuses as of 05/03/2022) [place] [address] History of Past illness Narrative* Problem Noted Date Resolved Date Brain tumor 08/28/2013 06/03/2015 documented as of this encounter (statuses as of 05/03/2022) [place] [address] History of Past illness Narrative* Problem Noted Date Resolved Date Brain tumor 08/28/2013 06/03/2015 documented as of this encounter (statuses as of 05/31/2022) [facility]* Problem Noted Date Resolved Date Brain tumor 08/28/2013 06/03/2015 documented as of this encounter (statuses as of 06/14/2022) [facility] N[facility]* Problem Noted Date Resolved Date Brain tumor 08/28/2013 06/03/2015 documented as of this encounter (statuses as of 07/06/2022) [facility] N[facility]ative* Problem Noted Date Resolved Date Brain tumor 08/28/2013 06/03/2015 documented as of this encounter (statuses as of 08/11/2022) [facility]* Diagnosis Migraine without status migrainosus, not intractable, unspecified migraine type- Primary documented in this encounter [facility] note* Diagnosis Migraine without status migrainosus, not intractable, unspecified migraine type Brain lesion Other conditions of brain documented in this encounter [facility] noteNo assessment information availableWMansfield Hospital Work Phone: Evaluation note* Diagnosis Situational anxiety- Primary Other anxiety states documented in this encounter [facility]* Diagnosis Burning with urination- Primary Dysuria Insomnia, unspecified type Lower abdominal pain Abdominal pain, other specified site Migraine without status migrainosus, not intractable, unspecified migraine type documented in this encounter [facility] note* Diagnosis Migraine without status migrainosus, not intractable, unspecified migraine type- Primary Insomnia, unspecified type [facility]* Diagnosis Intractable migraine without aura and without status migrainosus- Primary Migraine without aura, with intractable migraine, so stated, without mention of status migrainosus Tension headache Insomnia, unspecified type 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, delayed sleep phase type documented [facility]* Diagnosis NO SHOW- Primary [facility] Diagnosis Anxiety with depression documented in this encounter [facility]* Diagnosis Pelvic pain in female Unspecified symptom associated with female genital organs documented [facility]* Diagnosis Missed periods- Primary Absence of menstruation , unspecified gestational age documented in this encounter [facility] note* Diagnosis Encounter for supervision of normal [...] Cannabis abuse, unspecified documented in this encounter [facility] note* Diagnosis Encounter for anatomic survey- Primary 19 weeks gestation of state, incidental documented in this encounter [facility] note* Diagnosis Encounter for supervision of normal first in second trimester- Primary Supervision of normal first 19 weeks gestation of state, incidental documented in this encounter [facility]* Diagnosis Encounter for supervision of normal first in second trimester- Primary Supervision of normal first 23 weeks gestation of state, incidental documented in this encounter [facility]* Diagnosis Encounter for supervision of other normal in second trimester- Primary 25 weeks gestation of state, incidental Rh negative state in antepartum period, second trimester Penicillin allergy Personal history of allergy to penicillin documented in this encounter [facility]* Diagnosis 29 weeks gestation of - Primary state, incidental Encounter for supervision of other normal in second trimester Rh negative state in antepartum period, second trimester Need for vaccination Need for prophylactic vaccination and inoculation against unspecified single disease Rh negative state in antepartum period Rhesus isoimmunization affecting management of mother, antepartum condition documented in this encounter [facility]* Diagnosis Encounter for supervision of other normal in third trimester- Primary 31 weeks gestation of state, incidental Rh negative state in antepartum period Rhesus isoimmunization affecting management of mother, antepartum condition Penicillin allergy Personal history of allergy to penicillin documented in this encounter [facility]* Diagnosis Encounter for supervision of high [...] mother, antepartum condition [facility]* Diagnosis Encounter for supervision of high risk in third trimester, antepartum- Primary 34 weeks gestation of state, incidental documented in this encounter [facility] note* Diagnosis Encounter for supervision of high risk in third trimester, antepartum- Primary Excessive weight gain in , third trimester documented in this encounter [facility] note* Diagnosis Encounter for supervision of high risk in third trimester, antepartum- Primary Excessive weight gain in , third trimester Penicillin allergy Personal history of allergy to penicillin 36 weeks gestation of state, incidental * Assessment & Plan Note - Alicia Albert MD - 02/10/2024 12:00 PM EDTAssociated Problem(s): Encounter for supervision of high risk in third trimester, antepartum Orders: URINE OB DIP B/O * Assessment & Plan Note - Alicia Albert MD - 02/10/2024 12:00 PM EDTAssociated Problem(s): Penicillin allergy Orders: URINE OB DIP B/O documented in this encounter [facility] note* Diagnosis Encounter for supervision of high [...] * Assessment & Plan Note - Alicia Albert MD - 02/15/2024 2:12 PM EDT Associated Problem(s): Encounter for supervision of high risk in third trimester, antepartum documented in this encounter [facility] note* Diagnosis Encounter for supervision of high [...] allergy to penicillin documented in this encounter [facility] note* Diagnosis Encounter for supervision of high [...] mother, antepartum condition documented in this encounter [facility] note* Diagnosis Encounter for supervision of high [...] Nausea Nausea alone [facility] Encounter for supervision [...] Nausea Nausea alone [facility] Diagnosis Encounter for supervision of high [...] state Routine follow-up documented [facility] Diagnosis Encounter for supervision of high [...] Nausea Nausea alone [facility] Diagnosis Encounter for supervision of high [...] right upper quadrant [facility] Diagnosis Encounter for supervision [...] Costochondritis Tietze's disease [facility] Diagnosis Encounter for supervision of high risk in third trimester, antepartum (HCC)- Primary Excessive weight gain in , third trimester (HCC) Penicillin allergy Personal history of allergy to penicillin 36 weeks gestation of (HCC) state, incidental Nasal polyp- Primary Unspecified nasal polyp Environmental allergies Other allergy, other than to medicinal agents documented [facility] Diagnosis Encounter for supervision of high risk in third trimester, antepartum (HCC)- Primary Excessive weight gain in , third trimester (HCC) Penicillin allergy Personal history of allergy to penicillin 36 weeks gestation of (HCC) state, incidental Right wrist pain Pain in joint, forearm Wrist weakness Other musculoskeletal symptoms referable to limbs [facility] Diagnosis Encounter for supervision of high risk in third trimester, antepartum (HCC)- Primary Excessive weight gain in , third trimester (HCC) Penicillin allergy Personal history of allergy to penicillin 36 weeks gestation of (HCC) state, incidental Pain in right wrist- Primary Pain in joint, forearm [facility] Encounter for supervision of high risk in third trimester, antepartum (HCC)- Primary Excessive weight gain in , third trimester (HCC) Penicillin allergy Personal history of allergy to penicillin 36 weeks gestation of (HCC) state, incidental Pain in right wrist Pain in joint, forearm [facility] Diagnosis Encounter for supervision of high risk in third trimester, antepartum (HCC)- Primary Excessive weight gain in , third trimester (HCC) Penicillin allergy Personal history of allergy to penicillin 36 weeks gestation of (HCC) state, incidental Annual physical exam- Primary Routine general medical examination at a health care facility Callus of foot Corns and callosities Pain in right foot Pain in limb Migraine with aura and without status migrainosus, not intractable Migraine with aura, without mention of intractable migraine without mention of status migrainosus Anxiety with depression Allergic sinusitis Allergic rhinitis, cause unspecified documented in this encounter [facility] Discharge instructionsAdditional Instructions Thank you for trusting us with your care today! Your CT scan showed no evidence of obvious brain abnormalities. Your sinuses appeared clear on the CT scan. Given the duration of your symptoms we will prophylactic give antibiotics to treat bacterial sinusitis. Please take Reglan as needed for nausea vomiting control at home. Please take Tylenol (2 pills, 650 mg), ibuprofen (2 pills, 400 mg) every 6 hours as needed for pain and fever control. Please return to the emergency department if your symptoms change or worsen. Please follow with local Neurology for further outpatient evaluation and management.[facility] Work Phone: Reason for referral (narrative)* Diagnostic Procedure Only (Routine) - Closed Specialty Diagnoses / Procedures Referred By Contac t Referred To Contact US IMAGING Diagnoses Pelvic pain in female Procedures US FEMALE PELVIS TRANSVAG US TRANSVAGINAL Saskia Farias APRN.CNP [address] [place] [address] Us Imaging [id number] Referral ID Status Reason Start Date Expiration Date V isits Requested Visits Authorized [id number] Closed Auto-Generate d Referral 10/18/2022 11/17/2023 1 1 [facility] for referral (narrative)* Diagnostic Procedure Only (Routine) - Pending Review Specialty Diagnoses / Procedures Referred By Contac t Referred To Contact [facility] Diagnoses with uncertain dates, antepartum Procedures OBSTETRIC ULTRASOUND WHI US PREG UTERUS AFTER 1ST TRIMEST GESTATION Dee Fields APRN.CNP [address] [place] [address] [facility] [address] [place] [address] Referral ID Status Reason Start Date Expiration Date Visits Requested Visits Authorized [id number] Pending Review Auto-Generat ed Referral 09/19/2023 09/18/2024 1 1 [facility] for referral (narrative)* Diagnostic Procedure Only (Routine) - New Request Specialty Diagnoses / Procedures Referred By Contac t Referred To Contact [facility] Diagnoses Encounter for supervision of high risk in third trimester, antepartum Excessive weight gain in , third trimester Procedures OBSTETRIC ULTRASOUND WHI US PREG UTERUS AFTER 1ST TRIMEST GESTATION Camille Robertson APRN.CNM [address] [place] [place] [address] [facility] [address] [place] [address] Referral ID Status Reason Start Date Expiration Date Visits Requested Visits Authorized [id number] New Request Auto-Generat ed Referral 01/18/2024 01/17/2025 1 1 [facility] for referral (narrative)* Diagnostic Procedure Only (Routine) - Closed Specialty Diagnoses / Procedures Referred By Contac t Referred To Contact XR IMAGING Diagnoses Post-operative state Nausea Procedures XR ABDOMEN 2V ROUTINE SUPINE W UPRIGHT/DECUB/CTL RADIOLOGIC EXAM ABDOMEN 2 VIEWS Lex Phillips MD [address] [place] [place] [address] [place] [address] Referral ID Status Reason Start Date Expiration Date V isits Requested Visits Authorized [id number] Closed Auto-Generate d Referral 03/08/2024 04/07/2025 1 1 [facility] for referral (narrative)* Diagnostic Procedure Only (Routine) - Authorized Specialty Diagnoses / Procedures Referred By Contac t Referred To Contact US IMAGING Diagnoses RUQ pain Procedures US ABD RIGHT UPPER QUADRANT US ABDOMINAL REAL TIME W/IMAGE LIMITED Naga Marks MD [address] [place] [address] [place] [address] Referral ID Status Reason Start Date Expiration Date Visits Requested Visits Authorized [id number] Authorized Auto-Generat ed Referral 04/07/2025 1 1 [facility] for referral (narrative)* Diagnostic Procedure Only (Routine) - Closed Specialty Diagnoses / Procedures Referred By Contac t Referred To Contact XR IMAGING Diagnoses Post-operative state Nausea Procedures XR ABDOMEN 2V ROUTINE SUPINE W UPRIGHT/DECUB/CTL RADIOLOGIC EXAM ABDOMEN 2 VIEWS Lex Phillips MD [address] [place] [address] [place] [address] Referral ID Status Reason Start Date Expiration Date V isits Requested Visits Authorized [id number] Closed Auto-Generate d Referral 03/08/2024 04/07/2025 1 1 [facility] for referral (narrative)* Diagnostic Procedure Only (Routine) - Closed Specialty Diagnoses / Procedures Referred By Contac t Referred To Contact US IMAGING Diagnoses RUQ pain Procedures US ABD RIGHT UPPER QUADRANT US ABDOMINAL REAL TIME W/IMAGE LIMITED Naga Marks MD [address] [place] [address] [place] [address] Referral ID Status Reason Start Date Expiration Date V isits Requested Visits Authorized [id number] Closed Auto-Generate d Referral 03/08/2024 04/07/2025 1 1 [facility] for referral (narrative)No reason for referral information [facility]WMansfield [facility] Work Phone: Reason for visit Narrative* Diagnostic Procedure Only (Routine) - Closed Specialty Diagnoses / Procedures Referred By Contac t Referred To Contact XR IMAGING Diagnoses Post-operative state Nausea Procedures XR ABDOMEN 2V ROUTINE SUPINE W UPRIGHT/DECUB/CTL RADIOLOGIC EXAM ABDOMEN 2 VIEWS Lex Phillips MD [address] [place] [address] [place] [address] Referral ID Status Reason Start Date Expiration Date V isits Requested Visits Authorized [id number] Closed Auto-Generate d Referral 03/08/2024 04/07/2025 1 1 [facility] Reason for Referral Specialty Diagnoses / Procedures Referred By Contac t Referred To Contact MR IMAGING Diagnoses Migraine without status migrainosus, not intractable, unspecified migraine type Brain lesion Procedures MRI BRAIN WO/W IVCON MRI BRAIN BRAIN STEM W/O W/CONTRAST MATERIAL Gabi Osorio MD [address] [place] [address] Mr Imaging Referral ID Status Reason Start Date Expiration Date V isits Requested Visits Authorized [id number] Closed Auto-Generate d Referral 09/14/2021 11/13/2021 1 1 Specialty Diagnoses / Procedures Referred By Contac t Referred To Contact Diagnoses , unspecified gestational age Procedures CONSULT TO GROUP PROGRAM MANAGER OFFICE/OUTPATIENT [facility] 60 MINUTES Wendy Andrew, SUPERINTENDENT CEMETERY.SENIOR [employer] ARCH[employer] [address] [place] [address] Referral ID Status Reason Start Date Expiration Date Visits Requested Visits Authorized [id number] Authorized PCP Requested Referral Auto-Generate d Referral 09/12/2023 09/11/2024 1 1 Specialty Diagnoses / Procedures Referred By Contac t Referred To Contact General Surgery Diagnoses RUQ pain Elevated LFTs state Procedures CONSULT TO GENERAL SURGERY Naag Mraks MD [address] [place] [address] Floyd Avelar MD [address] [address] Referral ID Status Reason Start Date Expiration Date Visits Requested Visits Authorized [id number] Ref Not Required PCP Requested Referral 03/09/2025 1 1 Chief Complaint and Reason for Visit Chief Complaint HEADACHE Chief Complaint Admit Date MIGRAINE December 19, 2024 7:50 pm Advance Directives No Advanced Directives Records Found Advance Directive Response Recorded Date/ Time Living Will No November 27, 2021 1 0:15am Power of Jigger Artisan No November 27, 2021 10:15am Advance Directive Response Recorded Date/ Time Do you have a Healthcare Power of Jigger Artisan? No December 19, 2024 8:18pm Summary Purpose Family History No Family History [...] or prosecute any alcohol or drug abuse patient.[facility] the event this information is protected by the Federal Confidentiality of Alcohol and Drug Abuse Patient Records regulations: The Federal rules restrict any use of the information to criminally investigate or prosecute any alcohol or drug abuse patient.[facility] the event this information is protected by the Federal Confidentiality of Alcohol and Drug Abuse Patient Records regulations: The Federal rules restrict any use of the information to criminally investigate or prosecute any alcohol or drug abuse patient.[facility] the event this information is protected by the Federal Confidentiality of Alcohol and Drug Abuse Patient Records regulations: The Federal rules restrict any use of the information to criminally investigate or prosecute any alcohol or drug abuse patient.[facility] the event this information is protected by the Federal Confidentiality of Alcohol and Drug Abuse Patient Records regulations: The Federal rules restrict any use of the information to criminally investigate or prosecute any alcohol or drug abuse patient.[facility] the event this information is protected by the Federal Confidentiality of Alcohol and Drug Abuse Patient Records regulations: The Federal rules restrict any use of the information to criminally investigate or prosecute any alcohol or drug abuse patient.[facility] the event this information is protected by the Federal Confidentiality of Alcohol and Drug Abuse Patient Records regulations: The Federal rules restrict any use of the information to criminally investigate or prosecute any alcohol or drug abuse patient.[facility] the event this information is protected by the Federal Confidentiality of Alcohol and Drug Abuse Patient Records regulations: The Federal rules restrict any use of the information to criminally investigate or prosecute any alcohol or drug abuse patient.[facility] the event this information is protected by the Federal Confidentiality of Alcohol and Drug Abuse Patient Records regulations: The Federal rules restrict any use of the information to criminally investigate or prosecute any alcohol or drug abuse patient.[facility] the event this information is protected by the Federal Confidentiality of Alcohol and Drug Abuse Patient Records regulations: The Federal rules restrict any use of the information to criminally investigate or prosecute any alcohol or drug abuse patient.[facility] the event this information is protected by the Federal Confidentiality of Alcohol and Drug Abuse Patient Records regulations: The Federal rules restrict any use of the information to criminally investigate or prosecute any alcohol or drug abuse patient.[facility] the event this information is protected by the Federal Confidentiality of Alcohol and Drug Abuse Patient Records regulations: The Federal rules restrict any use of the information to criminally investigate or prosecute any alcohol or drug abuse patient.[facility] the event this information is protected by the Federal Confidentiality of Alcohol and Drug Abuse Patient Records regulations: The Federal rules restrict any use of the information to criminally investigate or prosecute any alcohol or drug abuse patient.[facility] the event this information is protected by the Federal Confidentiality of Alcohol and Drug Abuse Patient Records regulations: The Federal rules restrict any use of the information to criminally investigate or prosecute any alcohol or drug abuse patient.[facility] the event this information is protected by the Federal Confidentiality of Alcohol and Drug Abuse Patient Records regulations: The Federal rules restrict any use of the information to criminally investigate or prosecute any alcohol or drug abuse patient.[facility] the event this information is protected by the Federal Confidentiality of Alcohol and Drug Abuse Patient Records regulations: The Federal rules restrict any use of the information to criminally investigate or prosecute any alcohol or drug abuse patient.[facility] Center[facility] the event this information is protected by the Federal Confidentiality of Alcohol and Drug Abuse Patient Records regulations: The Federal rules restrict any use of the information to criminally investigate or prosecute any alcohol or drug abuse patient.[facility] Center[facility] the event this information is protected by the Federal Confidentiality of Alcohol and Drug Abuse Patient Records regulations: The Federal rules restrict any use of the information to criminally investigate or prosecute any alcohol or drug abuse patient.[facility] the event this information is protected by the Federal Confidentiality of Alcohol and Drug Abuse Patient Records regulations: The Federal rules restrict any use of the information to criminally investigate or prosecute any alcohol or drug abuse patient.[facility] the event this information is protected by the Federal Confidentiality of Alcohol and Drug Abuse Patient Records regulations: The Federal rules restrict any use of the information to criminally investigate or prosecute any alcohol or drug abuse patient.[facility] the event this information is protected by the Federal Confidentiality of Alcohol and Drug Abuse Patient Records regulations: The Federal rules restrict any use of the information to criminally investigate or prosecute any alcohol or drug abuse patient.[facility] the event this information is protected by the Federal Confidentiality of Alcohol and Drug Abuse Patient Records regulations: The Federal rules restrict any use of the information to criminally investigate or prosecute any alcohol or drug abuse patient.[facility] the event this information is protected by the Federal Confidentiality of Alcohol and Drug Abuse Patient Records regulations: The Federal rules restrict any use of the information to criminally investigate or prosecute any alcohol or drug abuse patient.[facility] the event this information is protected by the Federal Confidentiality of Alcohol and Drug Abuse Patient Records regulations: The Federal rules restrict any use of the information to criminally investigate or prosecute any alcohol or drug abuse patient.[facility] CenterIn the event this information is protected by the Federal Confidentiality of Alcohol and Drug Abuse Patient Records regulations: The Federal rules restrict any use of the information to criminally investigate or prosecute any alcohol or drug abuse patient.[facility]In the event this information is protected by the Federal Confidentiality of Alcohol and Drug Abuse Patient Records regulations: The Federal rules restrict any use of the information to criminally investigate or prosecute any alcohol or drug abuse patient.[facility] CenterIn the event this information is protected by the Federal Confidentiality of Alcohol and Drug Abuse Patient Records regulations: The Federal rules restrict any use of the information to criminally investigate or prosecute any alcohol or drug abuse patient.[facility]In the event this information is protected by the Federal Confidentiality of Alcohol and Drug Abuse Patient Records regulations: The Federal rules restrict any use of the information to criminally investigate or prosecute any alcohol or drug abuse patient.[facility] the event this information is protected by the Federal Confidentiality of Alcohol and Drug Abuse Patient Records regulations: The Federal rules restrict any use of the information to criminally investigate or prosecute any alcohol or drug abuse patient.[facility]In the event this information is protected by the Federal Confidentiality of Alcohol and Drug Abuse Patient Records regulations: The Federal rules restrict any use of the information to criminally investigate or prosecute any alcohol or drug abuse patient.[facility]In the event this information is protected by the Federal Confidentiality of Alcohol and Drug Abuse Patient Records regulations: The Federal rules restrict any use of the information to criminally investigate or prosecute any alcohol or drug abuse patient.[facility] CenterIn the event this information is protected by the Federal Confidentiality of Alcohol and Drug Abuse Patient Records regulations: The Federal rules restrict any use of the information to criminally investigate or prosecute any alcohol or drug abuse patient.[facility] CenterIn the event this information is protected by the Federal Confidentiality of Alcohol and Drug Abuse Patient Records regulations: The Federal rules restrict any use of the information to criminally investigate or prosecute any alcohol or drug abuse patient.[facility] CenterIn the event this information is protected by the Federal Confidentiality of Alcohol and Drug Abuse Patient Records regulations: The Federal rules restrict any use of the information to criminally investigate or prosecute any alcohol or drug abuse patient.[facility] CenterIn the event this information is protected by the Federal Confidentiality of Alcohol and Drug Abuse Patient Records regulations: The Federal rules restrict any use of the information to criminally investigate or prosecute any alcohol or drug abuse patient.[facility] CenterIn the event this information is protected by the Federal Confidentiality of Alcohol and Drug Abuse Patient Records regulations: The Federal rules restrict any use of the information to criminally investigate or prosecute any alcohol or drug abuse patient.[facility]In the event this information is protected by the Federal Confidentiality of Alcohol and Drug Abuse Patient Records regulations: The Federal rules restrict any use of the information to criminally investigate or prosecute any alcohol or drug abuse patient.[facility] CenterIn the event this information is protected by the Federal Confidentiality of Alcohol and Drug Abuse Patient Records regulations: The Federal rules restrict any use of the information to criminally investigate or prosecute any alcohol or drug abuse patient.[facility] CenterIn the event this information is protected by the Federal Confidentiality of Alcohol and Drug Abuse Patient Records regulations: The Federal rules restrict any use of the information to criminally investigate or prosecute any alcohol or drug abuse patient.[facility] CenterIn the event this information is protected by the Federal Confidentiality of Alcohol and Drug Abuse Patient Records regulations: The Federal rules restrict any use of the information to criminally investigate or prosecute any alcohol or drug abuse patient.[facility] CenterIn the event this information is protected by the Federal Confidentiality of Alcohol and Drug Abuse Patient Records regulations: The Federal rules restrict any use of the information to criminally investigate or prosecute any alcohol or drug abuse patient.[facility] CenterIn the event this information is protected by the Federal Confidentiality of Alcohol and Drug Abuse Patient Records regulations: The Federal rules restrict any use of the information to criminally investigate or prosecute any alcohol or drug abuse patient.[facility] CenterIn the event this information is protected by the Federal Confidentiality of Alcohol and Drug Abuse Patient Records regulations: The Federal rules restrict any use of the information to criminally investigate or prosecute any alcohol or drug abuse patient.[facility] CenterIn the event this information is protected by the Federal Confidentiality of Alcohol and Drug Abuse Patient Records regulations: The Federal rules restrict any use of the information to criminally investigate or prosecute any alcohol or drug abuse patient.[facility] CenterIn the event this information is protected by the Federal Confidentiality of Alcohol and Drug Abuse Patient Records regulations: The Federal rules restrict any use of the information to criminally investigate or prosecute any alcohol or drug abuse patient.[facility] CenterIn the event this information is protected by the Federal Confidentiality of Alcohol and Drug Abuse Patient Records regulations: The Federal rules restrict any use of the information to criminally investigate or prosecute any alcohol or drug abuse patient.[facility] CenterIn the event this information is protected by the Federal Confidentiality of Alcohol and Drug Abuse Patient Records regulations: The Federal rules restrict any use of the information to criminally investigate or prosecute any alcohol or drug abuse patient.[facility] CenterIn the event this information is protected by the Federal Confidentiality of Alcohol and Drug Abuse Patient Records regulations: The Federal rules restrict any use of the information to criminally investigate or prosecute any alcohol or drug abuse patient.[facility] CenterIn the event this information is protected by the Federal Confidentiality of Alcohol and Drug Abuse Patient Records regulations: The Federal rules restrict any use of the information to criminally investigate or prosecute any alcohol or drug abuse patient.[facility] CenterIn the event this information is protected by the Federal Confidentiality of Alcohol and Drug Abuse Patient Records regulations: The Federal rules restrict any use of the information to criminally investigate or prosecute any alcohol or drug abuse patient.[facility] CenterIn the event this information is protected by the Federal Confidentiality of Alcohol and Drug Abuse Patient Records regulations: The Federal rules restrict any use of the information to criminally investigate or prosecute any alcohol or drug abuse patient.[facility] CenterIn the event this information is protected by the Federal Confidentiality of Alcohol and Drug Abuse Patient Records regulations: The Federal rules restrict any use of the information to criminally investigate or prosecute any alcohol or drug abuse patient.[facility] CenterIn the event this information is protected by the Federal Confidentiality of Alcohol and Drug Abuse Patient Records regulations: The Federal rules restrict any use of the information to criminally investigate or prosecute any alcohol or drug abuse patient.[facility] CenterIn the event this information is protected by the Federal Confidentiality of Alcohol and Drug Abuse Patient Records regulations: The Federal rules restrict any use of the information to criminally investigate or prosecute any alcohol or drug abuse patient.[facility] CenterIn the event this information is protected by the Federal Confidentiality of Alcohol and Drug Abuse Patient Records regulations: The Federal rules restrict any use of the information to criminally investigate or prosecute any alcohol or drug abuse patient.[facility] CenterIn the event this information is protected by the Federal Confidentiality of Alcohol and Drug Abuse Patient Records regulations: The Federal rules restrict any use of the information to criminally investigate or prosecute any alcohol or drug abuse patient.[facility] CenterIn the event this information is protected by the Federal Confidentiality of Alcohol and Drug Abuse Patient Records regulations: The Federal rules restrict any use of the information to criminally investigate or prosecute any alcohol or drug abuse patient.[facility] CenterIn the event this information is protected by the Federal Confidentiality of Alcohol and Drug Abuse Patient Records regulations: The Federal rules restrict any use of the information to criminally investigate or prosecute any alcohol or drug abuse patient.[facility] CenterIn the event this information is protected by the Federal Confidentiality of Alcohol and Drug Abuse Patient Records regulations: The Federal rules restrict any use of the information to criminally investigate or prosecute any alcohol or drug abuse patient.[facility] CenterIn the event this information is protected by the Federal Confidentiality of Alcohol and Drug Abuse Patient Records regulations: The Federal rules restrict any use of the information to criminally investigate or prosecute any alcohol or drug abuse patient.[facility] CenterIn the event this information is protected by the Federal Confidentiality of Alcohol and Drug Abuse Patient Records regulations: The Federal rules restrict any use of the information to criminally investigate or prosecute any alcohol or drug abuse patient.[facility] CenterIn the event this information is protected by the Federal Confidentiality of Alcohol and Drug Abuse Patient Records regulations: The Federal rules restrict any use of the information to criminally investigate or prosecute any alcohol or drug abuse patient.[facility] CenterIn the event this information is protected by the Federal Confidentiality of Alcohol and Drug Abuse Patient Records regulations: The Federal rules restrict any use of the information to criminally investigate or prosecute any alcohol or drug abuse patient.[facility] Reason for Visit (unrecogniz ed section and content) Reason Comments Refill Request Reason Comments Recheck Medication follow up Specialty Diagnoses / Procedures Referred By Christina t Referred To Contact MR IMAGING Diagnoses Migraine without status migrainosus, not intractable, unspecified migraine type Brain lesion Procedures MRI BRAIN WO/W IVCON MRI BRAIN BRAIN STEM W/O W/CONTRAST MATERIAL Gabi Osorio MD [address] [place] [address] Mr Imaging Referral ID Status Reason Start Date Expiration Date V isits Requested Visits Authorized [id number] Closed Auto-Generate d Referral 09/14/2021 11/13/2021 1 1 Reason Comments Results Reason Onset Date Comments Refill Request 11/13/2021 Reason Comments Dizziness Reason Comments Patient Request Reason Onset Date Comments Refill Request 12/29/2021 Reason Comments Med Change Request Reason Comments Insurance Authorization Reason Onset Date Comments Refill Request 02/23/2022 Reason Comments Recheck Follow up headade Reason Comments Elidia BURNS Reason Comments Letter Reason Comments Headache Reason [...] US FEMALE PELVIS TRANSVAG US TRANSVAGINAL Saskia Farias, SUPERINTENDENT CEMETERY.SENIOR JAVA ARCHITECT [address] [place] [address] [place] [address] Referral ID Status Reason Start Date Expiration Date V isits Requested Visits Authorized [id number] Closed Auto-Generate d Referral 10/18/2022 11/17/2023 1 1 Reason Comments test Possible , no period x 2 or 3 months Reason Comments Initial OB Visit Specialty Diagnoses / Procedures Referred By Contac t Referred To Contact Diagnoses , unspecified gestational age Procedures CONSULT TO GROUP PROGRAM MANAGER OFFICE/OUTPATIENT NEW HIGH MDM 60 MINUTES Wendy Andrew, SUPERINTENDENT CEMETERY.SENIOR JAVA ARCHITECT [address] [place] [address] Referral ID Status Reason Start Date Expiration Date V isits Requested Visits Authorized [id number] Closed PCP Requested Referral Auto-Generated Referral 09/12/2023 09/11/2024 1 1 Reason Comments Director [facility] - Other [facility]AF Reason Comments Breast Pump Reason Comments US Specialty Diagnoses / Procedures Referred By Contac t Referred To Contact [facility] Diagnoses with uncertain dates, antepartum Procedures OBSTETRIC ULTRASOUND WHI US PREG UTERUS AFTER 1ST TRIMEST GESTATION Dee Fields, SUPERINTENDENT CEMETERY.SENIOR JAVA ARCHITECT [address] [place] [address] [facility] [address] [place] [address] Referral ID Status Reason Start Date Expiration Date Visits Requested Visits Authorized [id number] Authorized Auto-Generat ed Referral 10/12/2023 05/29/2024 1 [...] Referred By Contac t Referred To Contact [facility] Diagnoses Encounter for supervision of high risk in third trimester, antepartum Excessive weight gain in , third trimester Procedures OBSTETRIC ULTRASOUND WHI US PREG UTERUS AFTER 1ST TRIMEST GESTATION Camille Robertson APRN.CNM [address] [place] [address] [facility] [address] [facility] [place] [address] Referral ID Status Reason Start Date Expiration Date V isits Requested Visits Authorized [id number] Closed Auto-Generate d Referral 01/18/2024 01/17/2025 1 [...] W/IMAGE LIMITED Naga Marks MD [address] [place] [address] [place] [address] Referral ID Status Reason Start Date Expiration Date V isits Requested Visits Authorized [id number] Closed Auto-Generate d Referral 03/08/2024 04/07/2025 1 1 Reason Comments Consult RUQ pain Reason Comments Allergies Possible allergies? Back pain upper back Reason Comments Wrist Pain Reason Comments Right wrist pain Referred by Dora nicole Specialty Diagnoses / Procedures Referred By Contac t Referred To Contact Orthopedics Diagnoses Right wrist pain Wrist weakness Procedures CONSULT TO ORTHOPAEDICS OFFICE/OUTPATIENT NEW HIGH MDM 60 MINUTES Lauro, BRITNEY John.SENIOR JAVA ARCHITECT [address] [place] [address] Phone: tel: fax: Referral ID Status Reason Start Date Expiration Date V isits Requested Visits Authorized [id number] Closed PCP Requested Referral 10/17/2024 10/17/2025 1 1 Reason Comments OT EVAL Specialty Diagnoses / Procedures Referred By Christina hinds Referred To Contact OCCUPATIONAL THERAPY Diagnoses Pain in right wrist Procedures CONSULT TO RECRUITING ASSISTANT OCCUPATIONAL THERAPY EVAL HIGH COMPLEX 60 MINS Vijay Guo V, [address] [place] [address] Phone: tel: fax: Lukasz De La O OT/L [address] [place] [address] Phone: tel: fax: Referral ID Status Reason Start Date Expiration Date Visits Requested Visits Authorized [id number] Authorized Auto-Generat ed Referral 05/30/2024 05/29/2025 99 99 Reason Comments Patient Question Reason Comments Physical Annual Physical Care Teams (unrecognized sec tion and content) Campus Wellness Coordinator Relationship Specialty Start Date End Date Kwabena Marquez MD [address] [place] [address] PCP - General Internal Medicine 07/03/19 Campus Wellness Coordinator Relationship Specialty Start Date End Date Kwabena Marquez MD [address] [place] [address] PCP - General Internal Medicine 07/03/19 Campus Wellness Coordinator Relationship Specialty Start Date End Date Kwabena Marquez MD [address] [place] [address] PCP - General Internal Medicine 07/03/19 Campus Wellness Coordinator Relationship Specialty Start Date End Date Kwabena Marquez MD [address] [place] [address] PCP - General Internal Medicine 07/03/19 Campus Wellness Coordinator Relationship Specialty Start Date End Date Kwabena Marquez MD [address] [place] [address] PCP - General Internal Medicine 07/03/19 Campus Wellness Coordinator Relationship Specialty Start Date End Date Kwabena Marquez MD [address] [place] [address] PCP - General Internal Medicine 07/03/19 Campus Wellness Coordinator Relationship Specialty Start Date End Date Kwabena Marquez MD [address] [place] [address] PCP - General Internal Medicine 07/03/19 Campus Wellness Coordinator Relationship Specialty Start Date End Date Kwabena Marquez MD [address] [place] [address] PCP - General Internal Medicine 07/03/19 Campus Wellness Coordinator Relationship Specialty Start Date End Date Kwabena Marquez MD [address] [place] [address] PCP - General Internal Medicine 07/03/19 Campus Wellness Coordinator Relationship Specialty Start Date End Date Kwabena Marquez MD [address] [place] [address] PCP - General Internal Medicine 07/03/19 Campus Wellness Coordinator Relationship Specialty Start Date End Date Kwabena Marquez MD [address] [place] [address] PCP - General Internal Medicine 07/03/19 Campus Wellness Coordinator Relationship Specialty Start Date End Date Kwabena Marquez MD [address] [place] [address] PCP - General Internal Medicine 07/03/19 Campus Wellness Coordinator Relationship Specialty Start Date End Date Kwabena Marquez MD [address] [place] [address] PCP - General Internal Medicine 07/03/19 Campus Wellness Coordinator Relationship Specialty Start Date End Date Kwabena Marquez MD [address] [place] [address] PCP - General Internal Medicine 07/03/19 Campus Wellness Coordinator Relationship Specialty Start Date End Date Kwabena Marquez MD [address] [place] [address] PCP - General Internal Medicine 07/03/19 Campus Wellness Coordinator Relationship Specialty Start Date End Date Kwabena Marquez MD [address] [place] [address] PCP - General Internal Medicine 07/03/19 Campus Wellness Coordinator Relationship Specialty Start Date End Date Kwabena Marquez MD [address] [place] [address] PCP - General Internal Medicine 07/03/19 Campus Wellness Coordinator Relationship Specialty Start Date End Date Kwabena Marquez MD [address] [place] [address] PCP - General Internal Medicine 07/03/19 Campus Wellness Coordinator Relationship Specialty Start Date End Date Kwabena Marquez MD [address] [place] [address] PCP - General Internal Medicine 07/03/19 Campus Wellness Coordinator Relationship Specialty Start Date End Date Kwabena Marquez MD [address] [place] [address] PCP - General Internal Medicine 07/03/19 Campus Wellness Coordinator Relationship Specialty Start Date End Date Kwabena Marquez MD [address] [place] [address] PCP - General Internal Medicine 07/03/19 Campus Wellness Coordinator Relationship Specialty Start Date End Date Kwabena Marquez MD [address] [place] [address] PCP - General Internal Medicine 07/03/19 Campus Wellness Coordinator Relationship Specialty Start Date End Date Kwabena Marquez MD [address] [place] [address] PCP - General Internal Medicine 07/03/19 Campus Wellness Coordinator Relationship Specialty Start Date End Date Kwabena Marquez MD [address] [place] [address] PCP - General Internal Medicine 07/03/19 Campus Wellness Coordinator Relationship Specialty Start Date End Date Kwabena Marquez MD [address] [place] [address] PCP - General Internal Medicine 07/03/19 Campus Wellness Coordinator Relationship Specialty Start Date End Date Kwabena Marquez MD [address] [place] [address] PCP - General Internal Medicine 07/03/19 Campus Wellness Coordinator Relationship Specialty Start Date End Date Kwabena Marquez MD [address] [place] [address] PCP - General Internal Medicine 07/03/19 Campus Wellness Coordinator Relationship Specialty Start Date End Date Kwabena Marquez MD [address] [place] [address] PCP - General Internal Medicine 07/03/19 Campus Wellness Coordinator Relationship Specialty Start Date End Date Kwabena Marquez MD [address] [place] [address] PCP - General Internal Medicine 07/03/19 Campus Wellness Coordinator Relationship Specialty Start Date End Date Kwabena Marquez MD [address] [place] [address] PCP - General Internal Medicine 07/03/19 Campus Wellness Coordinator Relationship Specialty Start Date End Date Kwabena Marquez MD [address] [facility] [place] [address] PCP - General Internal Medicine 07/03/19 Campus Wellness Coordinator Relationship Specialty Start Date End Date Kwabena Marquez MD [address] [facility] [place] [address] PCP - General Internal Medicine 07/03/19 Campus Wellness Coordinator Relationship Specialty Start Date End Date Kwabena Marquez MD [address] [place] [address] PCP - General Internal Medicine 07/03/19 Campus Wellness Coordinator Relationship Specialty Start Date End Date Kwabena Marquez MD [address] [facility] [place] [address] PCP - General Internal Medicine 07/03/19 Campus Wellness Coordinator Relationship Specialty Start Date End Date Kwabena Marquez MD [address] [facility] [place] [address] PCP - General Internal Medicine 07/03/19 Campus Wellness Coordinator Relationship Specialty Start Date End Date Kwabena Marquez MD [address] [place] [address] PCP - General Internal Medicine 07/03/19 Campus Wellness Coordinator Relationship Specialty Start Date End Date Kwabena Marquez MD [address] [facility] [place] [address] PCP - General Internal Medicine 07/03/19 Campus Wellness Coordinator Relationship Specialty Start Date End Date Kwabena Marquez MD [address] [place] [address] PCP - General Internal Medicine 07/03/19 Dora Restrepo APRN.SENIOR JAVA ARCHITECT [address] [place] [address] Internal Medicine 03/16/24 Campus Wellness Coordinator Relationship Specialty Start Date End Date Kwabena Marquez MD [address] [place] [address] PCP - General Internal Medicine 07/03/19 Dora Restrepo APRN.SENIOR JAVA ARCHITECT [address] [place] [address] Internal Medicine 03/16/24 Dora Restrepo APRN.SENIOR JAVA ARCHITECT [address] [place] [address] Sports Specialist Internal Medicine 05/06/24 Campus Wellness Coordinator Relationship Specialty Start Date End Date Kwabena Marquez MD [address] [place] [address] PCP - General Internal Medicine 07/03/19 Dora Restrepo APRN.SENIOR JAVA ARCHITECT [address] [place] [address] Internal Medicine 03/16/24 Dora Restrepo APRN.SENIOR JAVA ARCHITECT [address] [place] [address] Sports Specialist Internal Medicine 05/06/24 Campus Wellness Coordinator Relationship Specialty Start Date End Date Kwabena Marquez MD [address] [place] [address] PCP - General Internal Medicine 07/03/19 Older, Dora, SUPERINTENDENT CEMETERY.SENIOR JAVA ARCHITECT [address] [facility], [place] [address] Internal Medicine 03/16/24 Older, Dora, SUPERINTENDENT CEMETERY.SENIOR JAVA ARCHITECT [address] [facility], [place] [address] Sports Specialist Internal Medicine 05/06/24 Campus Wellness Coordinator Relationship Specialty Start Date End Date Kwabena Marquez MD [address] [facility], [place] [id number] PCP - General Internal Medicine 07/03/19 Older, Dora, SUPERINTENDENT CEMETERY.SENIOR JAVA ARCHITECT [address] [facility], [place] [id number] Internal Medicine 03/16/24 Older, Dora, SUPERINTENDENT CEMETERY.SENIOR JAVA ARCHITECT [address] [facility], [place] [id number] Sports Specialist Internal Medicine 05/06/24 Team Status: Active Member Role/Relationship Status Dates DORA RESTREPO , BILINGUAL TEACHER AIDE-C Primary Care Provider Active Team Status: Inactive Member Role/Relationship Status Dates DORA LAURO , BILINGUAL TEACHER AIDE-C Primary Care Provider Active St art: December 19, 2024 End: December 19, 2024 Dr. Eulogio Schmid , DO Emergency Provider Active Start: December 19, 2024 End: December 19, 2024 Campus Wellness Coordinator Relationship Specialty Start Date End Date Kwabena Marquez MD [address] [facility], [place] [id number] PCP - General Internal Medicine 07/03/19 Older, Dora, SUPERINTENDENT CEMETERY.SENIOR JAVA ARCHITECT [address] [facility], [place] [id number] Internal Medicine 03/16/24 Dora Restrepo APRN.SENIOR JAVA ARCHITECT [address] [facility] [place] [address] [facility] Internal Medicine 05/06/24 Campus Wellness Coordinator Relationship Specialty Start Date End Date Kwabena Marquez MD [address] [place], [place] [address] PCP - General Internal Medicine 07/03/19 Dora Restrepo APRN.SENIOR JAVA ARCHITECT [address] [place] [address] Internal Medicine 03/16/24 Dora Restrepo APRN.SENIOR JAVA ARCHITECT [address] [place] [address] [facility] Internal [facility] 05/06/24 Goals (unrecognized section and content) Goals may be documented in a n alternate sectionGoals may be documented in an alternate section INFORMATION SOURCE (unrecogn ized section and content) DATE CREATED AUTHOR 12/26/2024 [facility] DATE CREATED AUTHOR AUTHOR'S TAVIA NAVAION 01/15/2025 [facility] DATE CREATED AUTHOR AUTHOR'S ORGANIZ ATION 03/05/2025 [facility] FOR RECORDS PERTAINING TO PATIENTS WHO [...] BE BASED ON THE PRIMARY CLINICAL RECORDS. [employer] provides no warranty or guarantee of the accuracy or completeness of information in this document.
[2025-05-22 07:07] VITALS: BP 106/61; PULSE 69; RESP 18; TEMP 36.8; O2SAT 100
== END 2025-05-22 07:18 | disposition home or self-care (01) ==
PROVIDERS: Emergency Provider Emergency Medicine; PCP Nurse Practitioner; Visit Provider Emergency Medicine
DX: R51.9 Headache, unspecified (principal); R11.2 Nausea with vomiting, unspecified; F32.A Depression, unspecified
CPT/HCPCS: 96361; 96374; 96375; 99283; A4216